=== PATIENT | male | born 1955 | race Caucasian/White ===

== ENCOUNTER 2016-07-01 14:31 | Inpatient (IN) | payer OTHER ==
[~2016-07-01] VITALS: Ht 162.6 cm; Wt 51.2 kg
[~2016-07-01 14:31] MED LIST: ALBU0.08 INH; DIAZ-165 PO; DOCU-94 PO; EPP3/2 IM; FLUT0.0529 NAE; MOME200A INH; NYSS/ PO; OXYC15TA49 PO; PRED10TA PO; PRED20TA2 PO; PRVHFAIN INH; TIOTCAP INH
[2016-07-01] MEDS ORDERED: ALBUT/IPRATROP 3MG/0.5MG NEB 3 ML VIAL INH STA ×2 (15:12→17:39)
[2016-07-01] MEDS ORDERED: METHYLPREDNISOLONE 125 MG VIAL IV STA (15:12)
--- NOTE | 2016-07-01 15:35 | DIAGNOSTIC IMAGING REPORT ---
CHEST ONE VIEW PORTABLE CLINICAL HISTORY: Shortness of breath COMPARISON STUDY: Chest radiograph and chest CT February 19, 2016. FINDINGS: Lung volumes are normal. No pneumothorax or pleural effusion is present. No consolidation is identified. Mild interstitial thickening is unchanged. Cardiac size is normal. Mediastinal contours are normal. There is suspected avascular necrosis of both humeral heads. IMPRESSION: 1. No acute findings. 2. No significant change in mild interstitial thickening which is likely chronic. 3. 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 Electronically signed by: Butch Coleman M.D. 07/01/2016 3:33 PM Dictated Date/Time: 07/01/2016 3:31 PM
[2016-07-01 15:40] LABS: BASO % 0.6 %; BASO ABS # 0.06 K/uL (0-0.2); COMPLETE YES; EOS % 2.7 %; HEMATOCRIT 38.8 % (42-52); IG% 0.2 %; LYMPH % 12.9 %; LYMPH ABS # 1.26 K/uL (1.2-3.4); MEAN CELL VOLUME 91.1 fL (80-100); MEAN CORPUSCULAR HEMOGLOBIN 31.2 pg (25-34); MEAN CORPUSCULAR HGB CONC 34.3 g/dl (32-36); MEAN PLATELET VOLUME 9.1 fL (7.4-10.4); NEUT % 70.6 %; PLATELET COUNT 365 K/uL (130-400); RED BLOOD COUNT 4.26 M/uL (4.7-6.1); WHITE BLOOD COUNT 9.76 K/uL (4.8-10.8)
--- NOTE | 2016-07-01 15:55 | DIAGNOSTIC IMAGING REPORT ---
CT SCAN OF THE BRAIN WITHOUT IV CONTRAST CLINICAL HISTORY: Syncope. COMPARISON STUDY: CT of the brain dated 03/28/2013. TECHNIQUE: Unenhanced axial CT scan of the brain is performed from the vertex to the skull base. Automated dose control exposure was utilized. CT DOSE: 709.48 mGy.cm FINDINGS: Brain parenchyma: The brain parenchyma is normal in appearance. There is no hemorrhage, mass effect, or evidence of acute territorial ischemia by CT criteria. Bryan-white matter is preserved. No extra-axial fluid collection is seen. Ventricles, sulci, cisterns: Normal in configuration. Intracranial vasculature: The visualized intracranial vasculature at the skull base is normal in appearance. Calvarium: There is no depressed calvarial fracture. Sinuses and mastoids: Findings are consistent with previous paranasal sinus surgery. The visualized paranasal sinuses are clear. The mastoid air cells are well pneumatized. Orbits: The bony orbits are grossly intact. IMPRESSION: There is no hemorrhage, mass effect, or evidence of acute territorial ischemia by CT criteria. Electronically signed by: Armando Duncan M.D. 07/01/2016 3:54 PM Dictated Date/Time: 07/01/2016 3:52 PM
[2016-07-01] MEDS ORDERED: PRED10TA PO (16:10)
[2016-07-01] MEDS ORDERED: AZITTAB PO (16:10)
[2016-07-01 16:12] LABS: ALKALINE PHOSPHATASE 64 U/L (45-117); ALT/SGPT 20 U/L (12-78); AST/SGOT 28 U/L (15-37); BLOOD UREA NITROGEN 20 mg/dl (7-18); BUN/CREATININE RATIO 19.9 (10-20); CALCIUM 9.3 mg/dl (8.5-10.1); CARBON DIOXIDE 26 mmol/L (21-32); CHLORIDE 108 mmol/L (98-107); GLUCOSE 95 mg/dl (70-99); POTASSIUM 3.8 mmol/L (3.5-5.1); SODIUM 144 mmol/L (136-145)
[2016-07-01] MEDS ORDERED: HYDROmorphone INJ 0.5 MG/0.5 ML SYR IV STA (16:28)
[2016-07-01] MEDS ORDERED: ACETAMINOPHEN 325 MG TAB PO PRN (19:30)
[2016-07-01 19:38] LABS: PROTHROMBIN TIME (PATIENT) 10.9 SECONDS (9.0-12.0)
[2016-07-01] MEDS ORDERED: IV FLUIDS COMPLETED PRN (20:00)
[2016-07-01 20:45] VITALS: BP 103/77; PULSE 76; TEMP 36.4; O2SAT 93; Ht 162.6 cm; Wt 51.2 kg
[2016-07-01] MEDS ORDERED: LEVOFLOXACIN / D5W 500 MG in PREMIXED IN D5W 100 ML IV SCH (21:00)
[2016-07-01] MEDS ORDERED: LEVALBUTEROL 0.63MG/3 ML NEB INH PRN (21:00)
--- NOTE | 2016-07-01 21:28 | History and Physical ---
History & Physical Date & Time of Service: Jul 01, 2016 at 19:30 . Chief Complaint: cough, wheezing, SOB . Primary Care Physician: Rober Wilder M.D. (MEDICAL) . History of Present Illness Source: patient, clinic records, hospital records 61 YO male followed by Dr. Wilder for Family Medicine and [facility]. History of obstructive lung disease (asthma vs COPD) and other problems noted below. Former smoker. 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 Not on home O2, although sleep study in March demonstrated nocturnal hypoxia. He is on chronic prednisone therapy, currently 10 mg every other day. 7 admissions for exacerbations of lung disease [id number]. Scheduled for a GI appointment in clinic today. Upon arrival, he was noted to be very dyspneic and was referred to ED for evaluation. He has been noting worsening wheezing and dyspnea over past few days. Cough productive of yellow sputum without hemoptysis. Took a course of azithromycin about 3 weeks ago. Utilizing nebulizer treatments, but they have not been very effective. Continues taking prednisone 10 mg every other day. Patient also reports that he passed out twice yesterday and assumed that he was experiencing TIA's. Both episodes occurred in the standing position and were preceded by lightheadedness and associated with incontinence of bladder + bowel. He has had several similar episodes over the past year. . Past Medical/Surgical History Chronic and Resolved Medical Problems: (1) Anxiety Status: Chronic (2) Asthma Status: Chronic (3) Avascular necrosis of femoral head Status: Chronic (4) BPH (benign prostatic hypertrophy) Status: Chronic (5) Chronic obstructive lung disease Status: Chronic (6) Chronic pain syndrome Status: Chronic (7) Chronic prostatitis Status: Chronic (8) Degenerative arthritis of cervical spine Status: Chronic (9) Esophageal dysmotility Status: Chronic (10) GERD (gastroesophageal reflux disease) Status: Chronic (11) Pulmonary nodules Permanent Comment: [facility] 01/02/15 Status: Chronic Surgical Problems: (1) History of ear surgery Status: Chronic (2) History of elbow surgery Status: Chronic (3) History of hernia repair Status: Chronic (4) History of lung surgery Status: Chronic (5) Hx of carpal tunnel repair Status: Chronic (6) Hx of sinus surgery Status: Chronic (7) Hx of tonsillectomy Status: Chronic . Family History FATHER Asthma Hypertension MOTHER Diabetes mellitus SON Asthma Social History Smoking Status: Former Smoker Drug Use: none Marital Status: Housing status: lives alone Occupational Status: employed Immunizations History of Influenza Vaccine: No History of Tetanus Vaccine?: Yes History of Pneumococcal: Yes Pneumococcal Date: Apr 12, 2014 History of Hepatitis B Vaccine: Yes Multi-Drug Resistant Organisms History of MDRO: No Allergies Coded Allergies: Acetaminophen (Verified Allergy, Unknown, hives, 07/01/16) Montelukast (Unverified Adverse Reaction, Severe, MENTAL STATUS CHANGED, ) Zolpidem (Unverified Adverse Reaction, Severe, MENTAL STATUS CHANGED, ) Home Medications Scheduled Albuterol (Ventolin Hfa), 2 PUFFS INH QID Azithromycin (Zithromax Z-Eder), 1 PKT PO UD Diazepam (Valium), 5 MG PO TID Epinephrine (Epipen), 0.3 MG IM UD Fluticasone Propionate (Nasal) (Flonase), 2 [place] DAILY Mometasone Furoate-Formoterol (Dulera 200/5 Mcg), 2 PUFFS INH BID Prednisone (Prednisone), 10 MG PO Q2D Tiotropium [place] (Spiriva Handihaler), 1 CAP INH DAILY Scheduled PRN Albuterol Soln (Proventil 0.083% 2.5MG/3ML), 2.5 MG INH Q4 PRN for Wheezing Docusate Sodium (Colace), 1 CAP PO BID PRN for Constipation Oxycodone Hcl (Roxicodone), 15 MG PO Q8 PRN for Pain Review of Systems Constitutional: + problem reported, + weight loss, No fever Eyes: + problem reported (needs glasses), No diplopia ENT: + trouble swallowing, No hearing loss, No sore throat Respiratory: + cough, + sputum, + wheezing Cardiovascular: No chest pain, No edema Abdomen: + problem reported (dysphagia to solids), No GI bleeding, No diarrhea , No nausea, No pain, No vomiting Musculoskeletal: + joint pain, + problem reported (chornic cervical pain) Genitourinary - Male: + dysuria, No hematuria Neurologic: + weakness (left-sided) Endocrine: + fatigue, No excessive thirst, No excessive urination Hematologic / Lymphatic: + abnormal bleeding/bruising, No swollen lymph nodes Integumentary: No new/changing skin lesions, No rash Physical Exam Vital Signs Date Time Temp Pulse Resp B/P Pulse Ox O2 Delivery O2 Flow Rate FiO2 07/01/16 20:00 74 20 125/90 95 Room Air 07/01/16 19:19 78 07/01/16 18:06 67 20 111/69 98 Nasal Cannula 2.0 07/01/16 17:09 68 17 136/94 97 Nasal Cannula 2.0 07/01/16 15:39 72 20 122/81 97 Nasal Cannula 2.0 07/01/16 15:20 Nasal Cannula 2.0 96 07/01/16 15:17 92 07/01/16 15:17 95 Room Air 07/01/16 15:00 95 Room Air 07/01/16 14:52 37.1 94 18 136/81 96 Room Air General Appearance: + mild distress, + thin Head: normocephalic, atraumatic Eyes: normal inspection, PERRL, EOMI, sclerae normal, + pertinent finding ( conjunctivae pink) ENT: normal ENT inspection, hearing grossly normal, TMs normal, pharynx normal Neck: supple, no adenopathy, thyroid normal, no JVD, trachea midline Respiratory/Chest: + pertinent finding (scattered rhonchi, diffuse wheezing) Cardiovascular: regular rate, rhythm, no edema, no gallop, no JVD, no murmur, normal peripheral pulses Abdomen/GI: normal bowel sounds, non tender, soft, no organomegaly, no pulsatile mass Back: normal inspection Extremities/Musculoskelatal: normal inspection, no calf tenderness, normal capillary refill, no pedal edema Neurologic/Psych: engraver letter [id number] nml as tested (PERRL, EOMI, no facial palsy, no dysarthria), + pertinent finding (motor strength upper and lower extremities essentially 5/5; plantar reflexes downgoing) Skin: normal color, warm/dry, no rash Lymphatic: no adenopathy Diagnostics Laboratory Results Results Past 24 Hours Test 07/01/16 15:20 07/01/16 15:29 Range/Units White Blood Count 9.76 4.8-10.8 K/uL Red Blood Count 4.26 4.7-6.1 M/uL Hemoglobin 13.3 14.0-18.0 g/dL Hematocrit 38.8 42-52 % Mean Corpuscular Volume 91.1 80-100 fL Mean Corpuscular Hemoglobin 31.2 25-34 pg Mean Corpuscular Hemoglobin Concent 34.3 32-36 g/dl Platelet Count 365 130-400 K/uL Mean Platelet Volume 9.1 7.4-10.4 fL Neutrophils (%) (Auto) 70.6 % Lymphocytes (%) (Auto) 12.9 % Monocytes (%) (Auto) 13.0 % Eosinophils (%) (Auto) 2.7 % Basophils (%) (Auto) 0.6 % Neutrophils # (Auto) 6.89 1.4-6.5 K/uL Lymphocytes # (Auto) 1.26 1.2-3.4 K/uL Monocytes # (Auto) 1.27 0.11-0.59 K/uL Eosinophils # (Auto) 0.26 0-0.5 K/uL Basophils # (Auto) 0.06 0-0.2 K/uL RDW Standard Deviation 53.1 36.4-46.3 fL RDW Coefficient of Variation 15.8 11.5-14.5 % Immature Granulocyte % (Auto) 0.2 % Immature Granulocyte # (Auto) 0.02 0.00-0.02 K/uL Prothrombin Time 10.9 9.0-12.0 SECONDS Prothromb Time International Ratio 1.0 0.9-1.1 Activated Partial Thromboplast Time 26.8 21.0-31.0 SECONDS Partial Thromboplastin Ratio 1.0 Sodium Level 144 136-145 mmol/L Potassium Level 3.8 3.5-5.1 mmol/L Chloride Level 108 98-107 mmol/L Carbon Dioxide Level 26 21-32 mmol/L Anion Gap 10.0 3-11 mmol/L Blood Urea Nitrogen 20 7-18 mg/dl Creatinine 1.00 0.60-1.40 mg/dl Est Creatinine Clear Calc Drug Dose 69.8 ml/min Estimated GFR () 93.1 Estimated GFR (Non- 80.3 BUN/Creatinine Ratio 19.9 10-20 Random Glucose 95 70-99 mg/dl Calcium Level 9.3 8.5-10.1 mg/dl Total Bilirubin 0.2 0.2-1 mg/dl Aspartate Amino Transf (AST/SGOT) 28 15-37 U/L Alanine Aminotransferase (ALT/SGPT) 20 12-78 U/L Alkaline Phosphatase 64 45-117 U/L Total Creatine Kinase 260 39-308 U/L Creatine Kinase MB 2.6 0.5-3.6 ng/ml Creatine Kinase MB Ratio 1.0 0-3.0 Troponin I < 0.015 0-0.045 ng/ml Pro-B-Type Natriuretic Peptide 33 0-900 pg/ml Total Protein 7.1 6.4-8.2 gm/dl Albumin 3.6 3.4-5.0 gm/dl Globulin 3.5 2.5-4.0 gm/dl Albumin/Globulin Ratio 1.0 0.9-2 Chemistry Specimen Hemolysis Bedside Lactic Acid Venous 1.25 0.90-1.70 mmol/L Microbiology Results 07/01/16 Blood Culture, Received Pending 07/01/16 Blood Culture, Received Pending Diagnostic Radiology CHEST ONE VIEW PORTABLE CLINICAL HISTORY: Shortness of breath COMPARISON STUDY: Chest radiograph and chest CT February 19, 2016. FINDINGS: Lung volumes are normal. No pneumothorax or pleural effusion is present. No consolidation is identified. Mild interstitial thickening is unchanged. Cardiac size is normal. Mediastinal contours are normal. There is suspected avascular necrosis of both humeral heads. IMPRESSION: 1. No acute findings. 2. No significant change in mild interstitial thickening which is likely chronic. 3. 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 Electronically signed by: Butch Coleman M.D. 07/01/2016 3:33 PM . EKG EKG performed at 15:12 reviewed and demonstrated baseline artifact, NSR at 90 / minute, No acute ST or ST wave changes.. . Impression Assessment and Plan EXACERBATION OBSTRUCTIVE LUNG DISEASE Chronic lung disease, asthma vs COPD. Former smoker. May have occupational exposure - works in home, but has used respirator in recent years. May have intermittent aspiration from esophageal disease. No infiltrates on chest x-ray. Productive cough- check sputum gram stain + culture. Received IV methylprednisolone in ED. Prednisone 40 mg daily, then taper to usual maintenance dose of 10 mg every other day. Previous imaging by CT suggested bronchiectasis. Rx with levofloxacin and piperacillin / tazobactam pending culture results. NOCTURNAL HYPOXIA Sleep study in March 2016 demonstrated nocturnal hypoxia. Nocturnal pulse oximetry was recommended- need to clarify whether or not it was performed. SYNCOPE 2 episodes of syncope yesterday, several other episodes over past year. Check orthostatic vital signs. Monitor for arrhythmias on Telemetry Unit; consider outpatient cardiac monitoring. Check EEG. Check carotid duplex and echo. LEFT-SIDED WEAKNESS Patient reports left-sided weakness, onset uncertain. Check CT head. ESOPHAGEAL DYSMOTILITY Barium swallow 07/26/15 showed narrowing at esophagogastric junction which impeded passage of barium tablet. EGD 05/29/15 demonstrated esophageal candidiasis, no mass, stricture, etc. Barium swallow 07/26/15 showed moderate to severe GERD, narrowing at gastroesophageal junction. EGD 07/27/15 did not show any structural abnormalities. Followed by GI. Continue diazepam for esophageal spasm. CHRONIC PAIN SYNDROME Due to degenerative spine disease and avascular necrosis. Continue usual analgesic regimen. WEIGHT LOSS Patient reports significant weight loss over several years. Former smoker. CT 02/19/16 did not show any apparent malignancy. Recent EGD as discussed above. Had colonoscopy in 2005 which showed hyperplastic polyps- consider f/u. Weight loss most likely secondary to esophageal dysmotility with decreased caloric intake. Follow. VTE PROPHYLAXIS Moderate risk for VTE. SQ enoxaparin. Ambulate. RESUSCITATION STATUS Discussed with patient. He does not have a living will. Code status = "Level 1" (full resuscitation). DISPOSITION Admit to Telemetry Unit. Expected discharge to home. Family Medicine follow-up with Dr. Wilder. Pulmonary Medicine follow-up with [facility]. . VTE Prophylaxis VTE Risk Assessment Done? Y/N: Yes Risk Level: Moderate Given or contraindicated: Enoxaparin (Lovenox)SQ
[2016-07-01] MEDS ORDERED: DOCUSATE SODIUM 100 MG CAP PO PRN (21:30)
[2016-07-01 22:39] VITALS: BP 103/77; PULSE 76; TEMP 36.4; O2SAT 93
[2016-07-01] MEDS: OXYCODONE HCL IR 5 MG TAB (IMMEDIATE RELEASE) PO PRN (22:50)
--- NOTE | 2016-07-01 22:51 | EMERGENCY ROOM VISIT NOTE ---
History Report prepared by Leanne: Coni Hutson Under the Supervision of: Dr. Sawyer Sanchez M.D. First contact with patient: 14:56 Chief Complaint: SHORTNESS OF BREATH Stated Complaint: CAN'T BREATHE Nursing Triage Summary: Pt states "I can't breathe" 95% on RA in triage. Hx COPD, asthma, sen at [facility]. N/V/D History of Present Illness The patient is a 61 year old male who presents to the Emergency Room with complaints of worsening shortness of breath that started prior to arrival. He admits to a history of COPD and asthma and reports he was at a gastroenterology appointment at [facility] earlier this afternoon, when the doctor noticed he was "wheezing and breathing very fast", so they referred him to the ED. His Oxygen saturation in the office was 94% and his respiratory rate was in the 30's. He was placed on 3 Liters of Oxygen here in ED triage, which has provided some relief. The patient is a former smoker and states his breathing had been "doing really good until recently". However, he admits to a syncopal episode that occurred yesterday where he passed out, became incontinent of bowel and bladder and also vomited. He reports he has been experiencing increased difficulty with swallowing and sometimes he "cannot even swallow coffee". He also states he recently underwent a sleep study and was told he should be started on a C-Pap machine due to obstructive sleep apnea, but he has not started using one yet. The patient admits to some pain in his chest and back when he becomes short of breath, describing the pain as feeling like "fire ". He denies any LOC, headache, fevers, chills, diaphoresis, visual changes, neck pain, chest pain, nausea, vomiting, abdominal pain, back pain, melena, hematochezia, urinary symptoms, numbness, weakness, lymphadenopathy, rash, or other complaints. Source of History: patient, nursing staff Onset: [employer] Position: chest Timing: worsening Modifying Factors (Relieving): oxygen Associated Symptoms: + back pain, + chest pain Review of Systems See HPI for pertinent positives and negatives. A total of ten systems were reviewed and were otherwise negative. Past Medical & Surgical Medical Problems: (1) Anxiety (2) Asthma (3) Asthmatic bronchitis with acute exacerbation (4) Chronic obstructive lung disease (5) Pulmonary nodules (6) Syncope Surgical Problems: (1) History of ear surgery (2) History of elbow surgery (3) History of hernia repair (4) History of lung surgery (5) Hx of carpal tunnel repair (6) Hx of sinus surgery (7) Hx of tonsillectomy Family History Cancer Lung disease Social History Smoking Status: Former Smoker Alcohol Use: none Drug Use: none Marital Status: Housing Status: lives alone Occupation Status: employed Current/Historical Medications Scheduled Albuterol (Ventolin Hfa), 2 PUFFS INH QID Azithromycin (Zithromax Z-Eder), 1 PKT PO UD Diazepam (Valium), 5 MG PO TID Epinephrine (Epipen), 0.3 MG IM UD Fluticasone Propionate (Nasal) (Flonase), 2 SPRY LAN DAILY Mometasone Furoate-Formoterol (Dulera 200/5 Mcg), 2 PUFFS INH BID Prednisone (Prednisone), 10 MG PO Q2D Tiotropium [place] (Spiriva Handihaler), 1 CAP INH DAILY Scheduled PRN Albuterol Soln (Proventil 0.083% 2.5MG/3ML), 2.5 MG INH Q4 PRN for Wheezing Docusate Sodium (Colace), 1 CAP PO BID PRN for Constipation Oxycodone Hcl (Roxicodone), 15 MG PO Q8 PRN for Pain Allergies Coded Allergies: Acetaminophen (Verified Allergy, Unknown, hives, 07/01/16) Montelukast (Unverified Adverse Reaction, Severe, MENTAL STATUS CHANGED, ) Zolpidem (Unverified Adverse Reaction, Severe, MENTAL STATUS CHANGED, ) Physical Exam Vital Signs Date Time Temp Pulse Resp B/P Pulse Ox O2 Delivery O2 Flow Rate FiO2 07/01/16 19:19 78 07/01/16 18:06 67 20 111/69 98 Nasal Cannula 2.0 07/01/16 17:09 68 17 136/94 97 Nasal Cannula 2.0 07/01/16 15:39 72 20 122/81 97 Nasal Cannula 2.0 07/01/16 15:20 Nasal Cannula 2.0 96 07/01/16 15:17 92 07/01/16 15:17 95 Room Air 07/01/16 15:00 95 Room Air 07/01/16 14:52 37.1 94 18 136/81 96 Room Air Physical Exam GENERAL: Awake, alert, well-appearing, in no distress HENT: Normocephalic, atraumatic. Oropharynx unremarkable. EYES: Normal conjunctiva. Sclera non-icteric. NECK: Supple. No nuchal rigidity. FROM. No JVD. RESPIRATORY: The patient is mildly dyspneic, wheezes noted bilaterally. CARDIAC: Regular rate, normal rhythm. Extremities warm and well perfused. Pulses equal. ABDOMEN: Soft, non-distended. No tenderness to palpation. No rebound or guarding. No masses. RECTAL: Deferred. MUSCULOSKELETAL: Chest examination reveals no tenderness. The back is symmetrical on inspection without obvious abnormality. There is no CVA tenderness to palpation. No joint edema. LOWER EXTREMITIES: Calves are equal size bilaterally and non-tender. No edema. No discoloration. Secondary excoriation on lower extremities. NEURO: Normal sensorium. No sensory or motor deficits noted. SKIN: No rash or jaundice noted. Medical Decision & Procedures ER Provider Diagnostic Interpretation: This X-Ray was reviewed and interpreted by myself and the radiologist. CHEST ONE VIEW PORTABLE CLINICAL HISTORY: Shortness of breath COMPARISON STUDY: Chest radiograph and chest CT February 19, 2016. FINDINGS: Lung volumes are normal. No pneumothorax or pleural effusion is present. No consolidation is identified. Mild interstitial thickening is unchanged. Cardiac size is normal. Mediastinal contours are normal. There is suspected avascular necrosis of both humeral heads. IMPRESSION: 1. No acute findings. 2. No significant change in mild interstitial thickening which is likely chronic. 3. 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 Electronically signed by: Butch Coleman M.D. 07/01/2016 3:33 PM Dictated Date/Time: 07/01/2016 3:[address] scan was reviewed and interpreted by the radiologist and reviewed by myself. CT SCAN OF THE BRAIN WITHOUT IV CONTRAST CLINICAL HISTORY: Syncope. COMPARISON STUDY: CT of the brain dated 03/28/2013. TECHNIQUE: Unenhanced axial CT scan of the brain is performed from the vertex to the skull base. Automated dose control exposure was utilized. CT DOSE: 709.48 mGy.cm FINDINGS: Brain parenchyma: The brain parenchyma is normal in appearance. There is no hemorrhage, mass effect, or evidence of acute territorial ischemia by CT criteria. Bryan-white matter is preserved. No extra-axial fluid collection is seen. Ventricles, sulci, cisterns: Normal in configuration. Intracranial vasculature: The visualized intracranial vasculature at the skull base is normal in appearance. Calvarium: There is no depressed calvarial fracture. Sinuses and mastoids: Findings are consistent with previous paranasal sinus surgery. The visualized paranasal sinuses are clear. The mastoid air cells are well pneumatized. Orbits: The bony orbits are grossly intact. IMPRESSION: There is no hemorrhage, mass effect, or evidence of acute territorial ischemia by CT criteria. Electronically signed by: Armando Duncan M.D. 07/01/2016 3:54 PM Dictated Date/Time: 07/01/2016 3:52 PM Laboratory Results 07/01/16 15:20 Red Blood Count 4.26, Mean Corpuscular Volume 91.1, Mean Corpuscular Hemoglobin 31.2, Mean Corpuscular Hemoglobin Concent 34.3, Mean Platelet Volume 9.1, Neutrophils (%) (Auto) 70.6, Lymphocytes (%) (Auto) 12.9, Monocytes (%) (Auto) 13.0, Eosinophils (%) (Auto) 2.7, Basophils (%) (Auto) 0.6, Neutrophils # (Auto ) 6.89, Lymphocytes # (Auto) 1.26, Monocytes # (Auto) 1.27, Eosinophils # (Auto ) 0.26, Basophils # (Auto) 0.06 07/01/16 15:20 Test 07/01/16 15:20 07/01/16 15:29 White Blood Count 9.76 K/uL (4.8-10.8) Red Blood Count 4.26 M/uL (4.7-6.1) Hemoglobin 13.3 g/dL (14.0-18.0) Hematocrit 38.8 % (42-52) Mean Corpuscular Volume 91.1 fL (80-100) Mean Corpuscular Hemoglobin 31.2 pg (25-34) Mean Corpuscular Hemoglobin Concent 34.3 g/dl (32-36) Platelet Count 365 K/uL (130-400) Mean Platelet Volume 9.1 fL (7.4-10.4) Neutrophils (%) (Auto) 70.6 % Lymphocytes (%) (Auto) 12.9 % Monocytes (%) (Auto) 13.0 % Eosinophils (%) (Auto) 2.7 % Basophils (%) (Auto) 0.6 % Neutrophils # (Auto) 6.89 K/uL (1.4-6.5) Lymphocytes # (Auto) 1.26 K/uL (1.2-3.4) Monocytes # (Auto) 1.27 K/uL (0.11-0.59) Eosinophils # (Auto) 0.26 K/uL (0-0.5) Basophils # (Auto) 0.06 K/uL (0-0.2) RDW Standard Deviation 53.1 fL (36.4-46.3) RDW Coefficient of Variation 15.8 % (11.5-14.5) Immature Granulocyte % (Auto) 0.2 % Immature Granulocyte # (Auto) 0.02 K/uL (0.00-0.02) Prothrombin Time 10.9 SECONDS (9.0-12.0) Prothromb Time International Ratio 1.0 (0.9-1.1) Activated Partial Thromboplast Time 26.8 SECONDS (21.0-31.0) Partial Thromboplastin Ratio 1.0 Anion Gap 10.0 mmol/L (3-11) Est Creatinine Clear Calc Drug Dose 69.8 ml/min Estimated GFR () 93.1 Estimated GFR (Non- 80.3 BUN/Creatinine Ratio 19.9 (10-20) Calcium Level 9.3 mg/dl (8.5-10.1) Total Bilirubin 0.2 mg/dl (0.2-1) Aspartate Amino Transf (AST/SGOT) 28 U/L (15-37) Alanine Aminotransferase (ALT/SGPT) 20 U/L (12-78) Alkaline Phosphatase 64 U/L (45-117) Total Creatine Kinase 260 U/L (39-308) Creatine Kinase MB 2.6 ng/ml (0.5-3.6) Creatine Kinase MB Ratio 1.0 (0-3.0) Troponin I < 0.015 ng/ml (0-0.045) Pro-B-Type Natriuretic Peptide 33 pg/ml (0-900) Total Protein 7.1 gm/dl (6.4-8.2) Albumin 3.6 gm/dl (3.4-5.0) Globulin 3.5 gm/dl (2.5-4.0) Albumin/Globulin Ratio 1.0 (0.9-2) Chemistry Specimen Hemolysis Bedside Lactic Acid Venous 1.25 mmol/L (0.90-1.70) Laboratory results reviewed by me Medications Administered Medications (Trade) Dose Ordered Sig/Davie Route Start Time Stop Time Status Last Admin Dose Admin Albuterol/ Ipratropium (Duoneb) 3 ml NOW STAT INH 07/01/16 15:12 07/01/16 15:14 DC 07/01/16 15:20 3 ML Methylprednisolone Sodium Succinate (Solu-Medrol IV) 125 mg NOW STAT IV 07/01/16 15:12 07/01/16 15:15 DC 07/01/16 15:21 125 MG Hydromorphone HCl (Dilaudid Inj) 0.5 mg NOW STAT IV 07/01/16 16:28 07/01/16 16:29 DC 07/01/16 16:49 0.5 MG Albuterol/ Ipratropium (Duoneb) 3 ml NOW STAT INH 07/01/16 17:39 07/01/16 17:40 DC 07/01/16 18:05 3 ML ECG Indication: SOB/dyspnea Rate (beats per minute): 94 Findings: no acute ischemic change, no ectopy ED Course 1509: The patient was evaluated in room C2B. A complete history and physical exam was performed. 1512: Solu-Medrol 125 mg IV, DuoNeb 3 ml INH. 1623: Nursing informed me the patient is requesting some medication for pain. I will place orders. 1628: Dilaudid 0.5 mg IV. 1739: DuoNeb 3 ml INH. 1750: I reevaluated the patient. He is still wheezing but is getting a nebulizer treatment. 1847: I discussed the patient's case with Dr. Vaughn, [facility] Hospitalist. The patient will be further evaluated. Medical Decision Triage Nursing notes reviewed. The patient's presentation and history were concerning for respiratory issues. Etiologies such as pneumonia, COPD, reactive airway disease, CHF, cardiac ischemia, pulmonary embolism, pneumothorax, musculoskeletal, infections, gastrointestinal, as well as others were entertained. The patient was evaluated. He was wheezing quite a bit. He was treated with Solu-Medrol and DuoNeb. Blood work was obtained. ECG was nonischemic. He had a mild anemia but negative white blood cell count. Chemistry panel, lactate, BNP, and troponin are negative. The patient was reassessed. He was still wheezing. He also requested pain medicine as he was unable to take his today. He felt very uncomfortable regarding his chronic back pain. He was treated with a milligram of Dilaudid and a second DuoNeb treatment. He felt much better with this. He still had some wheezing. I discussed further evaluation and management in the hospital with him and he was in agreement. He did feel like he had some mild component of withdrawal as he does take a large amount of pain medicine daily. [facility] The patient was evaluated in the Emergency Room for further treatment. The chart was completed utilizing [employer] Speech voice recognition software. Grammatical errors, random word insertions, pronoun errors, and incomplete sentences are an occasional consequence of this system due to software limitations, ambient noise, and hardware issues. Any formal questions or concerns about the content, text, or information contained within the body of this dictation should be directly addressed to the physician for clarification. Consults Time Called: 1824 Consulting Physician[facility] Returned Call: [phone] I discussed the patient's case with [facility]. The patient will be further evaluated. Impression Primary Impression: Reactive airway disease Additional Impressions: SOB (shortness of breath), Wheezing Scribe Attestation The scribe's documentation has been prepared under my direction and personally reviewed by me in its entirety. I confirm that the note above accurately reflects all work, treatment, procedures, and medical decision making performed by me. Departure Information Dispostion Being Evaluated By Hospitalist Referrals No Doctor, Assigned (PCP) Patient Instructions A Signature Page, My [facility]
[2016-07-01 23:59] VITALS: O2SAT 93
[2016-07-02] VITALS (9 sets, daily range): BP systolic 99–131; BP diastolic 64–75; PULSE 60–92; TEMP 36.8–36.9; O2SAT 93–97
[2016-07-02] MEDS ORDERED: PIPERACILL/TAZOBAC IV 4.5 GM in DEXTROSE 5% 100ML 100 ML IV SCH (06:00)
[2016-07-02 06:04] LABS: URINE APPEARANCE CLEAR (CLEAR); URINE BILIRUBIN NEG (NEG); URINE COLOR YELLOW; URINE NITRITE NEG (NEG); URINE PH 5.5 (4.5-7.5); URINE SPECIFIC GRAVITY 1.025 (1.000-1.030); UROBILINOGEN NEG (NEG)
[2016-07-02 06:06] LABS: MANUAL MICROSCOPIC REQUIRED? NO; REVIEW REQ? NO
[2016-07-02] MEDS ORDERED: PIPERACILL/TAZOBAC CONSULT ACTIVE PRN (06:15)
[2016-07-02] MEDS ORDERED: PIPERACILL/TAZOBAC IV 3.375 GM in DEXTROSE 5% 100ML IV ONE (06:15)
[2016-07-02] MEDS: DIAZEPAM 5MG TAB PO SCH ×4 (06:27→16:25)
[2016-07-02 07:00] LABS: BUN/CREATININE RATIO 24.9 (10-20); CALCIUM 9.4 mg/dl (8.5-10.1); CREATININE 0.89 mg/dl (0.60-1.40); POTASSIUM 4.2 mmol/L (3.5-5.1)
[2016-07-02] MEDS: IPRATROPIUM BROMIDE NEB SOLN 0.02% 2.5 ML VIAL INH SCH ×4 (07:10→19:02)
[2016-07-02] MEDS: LEVALBUTEROL 1.25MG/0.5ML NEB INH SCH ×4 (07:10→19:02)
[2016-07-02 07:11] LABS: THYROID STIMULATING HORMONE 0.159 uIu/ml (0.300-4.500)
[2016-07-02] MEDS: PANTOprazole SOD 40 MG TAB PO SCH (08:04)
[2016-07-02] MEDS: TIOTROPIUM BROMIDE 5 PUFF/90 MCG INH INH SCH (08:05)
[2016-07-02] MEDS: FLUTICASONE PROPIONATE NA SPR 16 GM BTL NAE SCH (08:06)
[2016-07-02] MEDS: OXYCODONE HCL IR 5 MG TAB (IMMEDIATE RELEASE) PO PRN ×2 (08:11→20:55)
[2016-07-02] MEDS ORDERED: ENOXAPARIN 40 MG/0.4 ML SYR SQ SCH (09:00)
[2016-07-02] MEDS: HEPARIN SOD 5000 UNIT/0.5 ML CARP SQ SCH ×3 (09:00→20:48)
[2016-07-02] MEDS: PIPERACILL/TAZOBAC IV 3.375 GM in DEXTROSE 5% 100ML IV SCH ×2 (11:18→18:35)
--- NOTE | 2016-07-02 20:36 | Progress Note ---
Medicine Progress Note Date & Time of Visit: Jul 02, 2016 at 14:30 . Subjective No fever. Persistent cough and wheezing. No chest pain. Episode of uncomfortable pill dysphagia. No diarrhea. . Objective Last 8 Hrs Date Time Temp Pulse Resp B/P Pulse Ox O2 Delivery O2 Flow Rate FiO2 07/02/16 19:04 36.8 64 18 106/75 97 07/02/16 19:03 71 20 97 Room Air 07/02/16 16:00 Room Air 07/02/16 15:11 36.8 60 18 99/64 93 Room Air 69 114/70 73 101/67 Physical Exam: General- no acute distress Neck- no JVD Lungs- diffuse moderate wheezing Heart- RRR Abdomen- + BS, soft, nontender Extremities- no pretibial edema or calf tenderness Neuro- alert . Laboratory Results: Last 24 Hours Test 07/02/16 05:20 07/02/16 06:08 Urine Color YELLOW Urine Appearance CLEAR Urine pH 5.5 Urine Specific [place] 1.025 Urine Protein NEG Urine Glucose (UA) 2+ Urine Ketones NEG Urine Occult Blood NEG Urine Nitrite NEG Urine Bilirubin NEG Urine Urobilinogen NEG Urine Leukocyte Esterase NEG Sodium Level 139 mmol/L Potassium Level 4.2 mmol/L Chloride Level 105 mmol/L Carbon Dioxide Level 25 mmol/L Anion Gap 9.0 mmol/L Blood Urea Nitrogen 22 mg/dl Creatinine 0.89 mg/dl Est Creatinine Clear Calc Drug Dose 58.4 ml/min Estimated GFR () 106.2 Estimated GFR (Non- 91.6 BUN/Creatinine Ratio 24.9 Random Glucose 100 mg/dl Calcium Level 9.4 mg/dl Thyroid Stimulating Hormone (TSH) 0.159 uIu/ml Date/Time Source Procedure Growth Status 07/01/16 21:55 Sputum Expectorated Sputum Gram Stain - Final Resulted 07/01/16 21:55 Sputum Expectorated Sputum Sputum Culture - Preliminary MODERATE NORMAL MATTHIAS Present, Final ... Resulted Assessment & Plan EXACERBATION OBSTRUCTIVE LUNG DISEASE Chronic lung disease, asthma vs COPD. Former smoker. May have intermittent aspiration from esophageal disease. No infiltrates on chest x-ray. Productive cough- check sputum gram stain + culture. Received IV methylprednisolone in ED. Prednisone 40 mg daily, then taper to usual maintenance dose of 10 mg every other day. Previous imaging by CT suggested bronchiectasis. Rx with levofloxacin and piperacillin / tazobactam pending culture results. Nebs QID + PRN. NOCTURNAL HYPOXIA Sleep study in March 2016 demonstrated nocturnal hypoxia. Nocturnal pulse oximetry was recommended- need to clarify whether or not it was performed. SYNCOPE 2 episodes of syncope day prior to admission, several other episodes over past year. Check orthostatic vital signs. Continue to monitor for arrhythmias on Telemetry Unit. Consider outpatient cardiac monitoring. Check EEG. Check carotid duplex and echo. LEFT-SIDED WEAKNESS Patient reports left-sided weakness, onset uncertain. Motor strength testing intact; plantar reflexes downgoing bilaterally. CT head negative. ESOPHAGEAL DYSMOTILITY Barium swallow 07/26/15 showed narrowing at esophagogastric junction which impeded passage of barium tablet. EGD 05/29/15 demonstrated esophageal candidiasis, no mass, stricture, etc. Barium swallow 07/26/15 showed moderate to severe GERD, narrowing at gastroesophageal junction. EGD 07/27/15 did not show any structural abnormalities. Followed by GI. Continue diazepam for esophageal spasm. CHRONIC PAIN SYNDROME Due to degenerative spine disease and avascular necrosis. Continue usual analgesic regimen. WEIGHT LOSS Patient reports significant weight loss over several years. Clinic records reviewed. Wt 05/12/06 was 132 lbs. Wts since 02/18/15 have been as low as 102 on 03/23/15; last recorded wt in clinic 112 on 07/01/16. Former smoker. CT 02/19/16 did not show any apparent malignancy. Recent EGD as discussed above. Had colonoscopy in 2005 which showed hyperplastic polyps- consider f/u. Weight loss most likely secondary to esophageal dysmotility with decreased caloric intake. Nutritional supplements as tolerated. Follow. VTE PROPHYLAXIS Moderate risk for VTE. SQ heparin. Ambulate. RESUSCITATION STATUS Discussed with patient. He does not have a living will. Code status = "Level 1" (full resuscitation). DISPOSITION Expected discharge to home. Family Medicine follow-up with Dr. Wilder. Pulmonary Medicine follow-up with [facility] Pulmonary Medicine. . Current Inpatient Medications: Current Inpatient Medications Medications (Trade) Dose Ordered Sig/Davie Route Start Time Stop Time Status Last Admin Dose Admin Acetaminophen (Tylenol Tab) 650 mg Q4H PRN PO 07/01/16 19:30 07/31/16 19:29 Miscellaneous (Iv Fluids Completed) 1 ea PRN PRN N/A 07/01/16 20:00 1/9/18 19:59 Ipratropium [place] (Atrovent 0.02% 0.5MG/2.5ML Neb) 0.5 mg QIDR INH 07/02/16 08:00 08/01/16 07:59 07/02/16 19:02 0.5 MG Levalbuterol (Xopenex 1.25MG/ 0.5ML Neb) 1.25 mg QIDR INH 07/02/16 08:00 08/01/16 07:59 07/02/16 19:02 1.25 MG Levalbuterol 0.63 mg 0.63 mg Q2R PRN INH 07/01/16 21:00 07/31/16 20:59 Levofloxacin/Prmx (Levaquin / D5W/ Premixed D5W) 100 ml @ 100 mls/hr DAILY@2100 IV 07/01/16 21:00 07/08/16 20:59 07/01/16 21:29 100 MLS/HR Diazepam (Valium Tab) 5 mg AC PO 07/02/16 07:00 08/01/16 06:59 07/02/16 16:25 5 MG Docusate Sodium (coLACE CAP) 100 mg BID PRN PO 07/01/16 21:30 07/31/16 21:29 Fluticasone Propionate (Flonase Nasal [place]) 2 sprays DAILY LAN 07/02/16 09:00 08/01/16 08:59 07/02/16 08:06 2 SPRAYS Oxycodone HCl (Roxicodone Immediate Rel Tab) 15 mg Q8 PRN PO 07/01/16 21:30 07/15/16 21:29 07/02/16 08:11 15 MG Tiotropium [place] (Spiriva Handihaler Inhaler) 1 puff DAILY INH 07/02/16 09:00 08/01/16 08:59 07/02/16 08:05 1 PUFF Prednisone (PredniSONE TAB) 40 mg DAILY PO 07/02/16 09:00 08/01/16 08:59 07/02/16 08:05 40 MG Pantoprazole Sodium 40 mg 40 mg QAM PO 07/02/16 09:00 08/01/16 08:59 07/02/16 08:04 40 MG Piperacillin Sod/ Tazobactam Sod/ Dextrose (Zosyn Iv/D5 100ml) 115 ml @ 28.75 mls/ hr Q8H IV 07/02/16 10:30 07/09/16 10:29 07/02/16 18:35 28.75 MLS/HR Piperacillin Sod/ Tazobactam Sod (Consult) 1 ea UD PRN N/A 07/02/16 06:15 08/01/16 06:14 Heparin Sodium (Porcine) (Heparin Sq 5000 Unit/0.5ml) 5,000 unit Q12 SQ 07/02/16 09:00 08/01/16 08:59 Enteral Nutritional Formula (Boost) 1 can BID PO 07/02/16 21:00 08/01/16 20:59
[2016-07-02] MEDS: BOOST VANILLA PO SCH ×2 (20:47)
--- NOTE | 2016-07-02 21:44 | DIAGNOSTIC IMAGING REPORT ---
CAROTID ARTERY ULTRASOUND CLINICAL HISTORY: Carotid artery disease COMPARISON STUDY: Carotid ultrasound June 14, 2013. TECHNIQUE: Real-time, grayscale, and color Doppler sonography of the carotid and vertebral arteries was performed. Images were viewed in the transverse and longitudinal planes. FINDINGS: There is mild atherosclerotic plaque. Velocity measurements are listed below. COMMON CAROTID PEAK SYSTOLIC VELOCITY (CM/S): RIGHT 91 LEFT 101 ICA PEAK SYSTOLIC VELOCITY (CM/S): RIGHT 76 LEFT 89 The systolic ratios between the internal to common carotid arteries were normal. Antegrade flow is seen in the vertebral arteries. The external carotid arteries are patent. Blood pressure in the right arm measured 133/76. Blood pressure in the left arm measured 118/79. IMPRESSION: No evidence of a hemodynamically significant stenosis. Electronically signed by: Butch Coleman M.D. 07/02/2016 9:42 PM Dictated Date/Time: 07/02/2016 9:41 PM
[2016-07-03] VITALS (7 sets, daily range): BP systolic 99–121; BP diastolic 63–73; PULSE 62–92; TEMP 36.7–37.3; O2SAT 93–96
[2016-07-03] MEDS ORDERED: LEVOFLOXACIN / D5W 500 MG in PREMIXED IN D5W 100 ML IV SCH
[2016-07-03] MEDS: PIPERACILL/TAZOBAC IV 3.375 GM in DEXTROSE 5% 100ML IV SCH ×2 (02:33→10:09)
[2016-07-03] MEDS: LEVALBUTEROL 1.25MG/0.5ML NEB INH SCH ×2 (07:15→11:23)
[2016-07-03] MEDS: IPRATROPIUM BROMIDE NEB SOLN 0.02% 2.5 ML VIAL INH SCH ×2 (07:15→11:23)
[2016-07-03] MEDS: DIAZEPAM 5MG TAB PO SCH ×2 (07:25→11:22)
[2016-07-03] MEDS: BOOST VANILLA PO SCH ×2 (08:43)
[2016-07-03] MEDS: FLUTICASONE PROPIONATE NA SPR 16 GM BTL NAE SCH (08:43)
[2016-07-03] MEDS: PANTOprazole SOD 40 MG TAB PO SCH (08:44)
[2016-07-03] MEDS: HEPARIN SOD 5000 UNIT/0.5 ML CARP SQ SCH (08:45)
[2016-07-03] MEDS: TIOTROPIUM BROMIDE 5 PUFF/90 MCG INH INH SCH (08:45)
[2016-07-03] MEDS: OXYCODONE HCL IR 5 MG TAB (IMMEDIATE RELEASE) PO PRN (08:52)
[2016-07-03] MEDS ORDERED: PRED10TA PO (11:35)
[2016-07-03] MEDS ORDERED: [UNRECOGNIZED DRUG - CODE] PO (11:35)
--- NOTE | 2016-07-03 11:43 | Discharge Instructions ---
Discharge Instructions Admission Reason for Admission: cough, wheezing, shortness of breath . Discharge Discharge Diagnosis / Problem: bronchitis, exacerbation of asthma Discharge Goals Goal(s): Improve disease control Activity Recommendations Activity Limitations: resume your previous activity . Instructions / Follow-Up Instructions / Follow-Up FOLLOW-UP APPOINTMENTS PRIMARY CARE 07/05/2016 12:10 PM Rober Wilder MD PULMONARY MEDICINE IRVIN Luciano Dr. GASTROENTEROLOGY IRVIN Schultz NEW MEDICATIONS amoxicillin / clavulanic acid (Augmentin) 20 ml (4 tsp) 3 times a day with food for 5 days prednisone taper 30 mg daily for 2 days, 20 mg daily for 2 days, 10 mg daily for 2 days, then resume 10 mg every 2 days NUTRITION Use nutritional supplements like Ensure or Boost. Seek medical attention if you have: * temperature above 101 * chest pain or trouble breathing * abdominal pain, nausea, vomiting * diarrhea, dark stools or bloody stools * any unanswered questions or concerns Call 911 if symptoms are severe. Call if you have any questions or problems. My cell # is [phone]. You can also reach a [facility] hospitalist on duty at [facility] 24 hours a day by calling [phone]. Please take good care of yourself. Sawyer Vaughn . Current Hospital Diet Patient's current hospital diet: AHA Diet (Heart Healthy) Discharge Diet Recommended Diet: Regular Diet Procedures Procedures Performed: chest x-ray- no pneumonia CT head- no stroke ultrasound carotid arteries- no significant blockage Pending Studies Studies pending at discharge: yes List of pending studies: EEG echocardiogram Medical Emergencies . Who to Call and When: Medical Emergencies: If at any time you feel your situation is an emergency, please call 911 immediately. . Non-Emergent Contact Non-Emergency issues call your: Primary Care Provider . . "Provider Documentation" section prepared by Sawyer Vaughn. VTE Core Measure Inpt VTE Proph given/why not?: Enoxaparin (Lovenox)SQ
--- NOTE | 2016-07-03 14:05 | ECHOCARDIOGRAM REPORT ---
*NOTICE TO RECEIVING LIBERTARIAN AGENCY This information is strictly Confidential and protected under [place] law. [place] law prohibits you from making any further disclosure of this information unless further disclosure is expressly permitted by the written consent of the person to whom it pertains or is authorized by law. A general authorization for the release of medical or other information is not sufficient for this purpose. Hospital accepts no responsibility if the information is made available to any other person, INCLUDING THE PATIENT. Interpretation Summary * Name: CHANDU ORDONEZ Study Date: 07/03/2016 08:20 AM BP: 99/63 mmHg * Patient Location: C.2E\S\E212\S\1 HR: 68 * : 1955 (M/d/yyyy) Gender: Male Height: 64 in * Age: 61 yrs Ethnicity: CA Weight: 108 lb * Ordering Physician: Sawyer Vaughn * Referring Physician: No Doctor, Assigned * Performed By: Jada Hill RCS * * Reason For Study: SYNCOPE * BSA: 1.5 m2 * -- Conclusions -- * The left ventricle is normal in size. * Left ventricular systolic function is mildly reduced. * Ejection Fraction = 45-50%. * The right ventricular systolic function is normal. * The left atrial size is normal. * Right atrial size is normal. * There is moderate tricuspid regurgitation. Procedure Details * A complete two-dimensional transthoracic echocardiogram was performed (2D, M-mode, Doppler and color flow Doppler). Left Ventricle * The left ventricle is normal in size. * There is normal left ventricular wall thickness. * Ejection Fraction = 45-50%. * Left ventricular systolic function is mildly reduced. Right Ventricle * The right ventricle is normal in size and function. * There is normal right ventricular wall thickness. * The right ventricular systolic function is normal. Atria * The left atrial size is normal. * Right atrial size is normal. * The interatrial septum is intact with no evidence for an atrial septal defect. Mitral Valve * The mitral valve leaflets appear thickened, but open well. * There is no mitral valve stenosis. * Significant mitral regurgitation is absent. Tricuspid Valve * The tricuspid valve leaflets are thickened and/or calcified, but open well. * There is moderate tricuspid regurgitation. Aortic Valve * The aortic valve is normal in structure and function. * No aortic regurgitation is present. Pulmonic Valve * The pulmonic valve is normal in structure and function. * There is no pulmonic valvular regurgitation. Great Vessels * The aortic root is normal size. * No obvious dissection could be visualized. Pericardium/Pleural * There is no pericardial effusion. MMode 2D Measurements and Calculations IVSd 0.65 cm IVSs 0.79 cm LVIDd 4.0 cm LVIDs 3.1 cm LVPWd 0.77 cm LVPWs 0.93 cm IVS/LVPW 0.84 FS 20.9 % EDV(Teich) 68.6 ml ESV(Teich) 39.0 ml EF(Teich) 43.1 % EDV(cubed) 62.4 ml ESV(cubed) 30.9 ml EF(cubed) 50.5 % % IVS thick 22.4 % % LVPW thick 20.0 % LV mass(C)d 78.8 grams LV mass(C)dI 52.4 grams/m\S\2 LV mass(C)s 70.4 grams LV mass(C)sI 46.8 grams/m\S\2 SV(Teich) 29.5 ml SI(Teich) 19.6 ml/m\S\2 SV(cubed) 31.5 ml SI(cubed) 20.9 ml/m\S\2 Ao root diam 3.1 cm Ao root area 7.4 cm\S\2 ACS 1.9 cm LA dimension 2.5 cm LA/Ao 0.81 LVOT diam 2.0 cm LVOT area 3.1 cm\S\2 LVAd ap4 20.3 cm\S\2 LVLd ap4 6.7 cm EDV(MOD-sp4) 50.6 ml EDV(sp4-el) 52.0 ml LVAs ap4 12.5 cm\S\2 LVLs ap4 5.7 cm ESV(MOD-sp4) 23.9 ml ESV(sp4-el) 23.6 ml EF(MOD-sp4) 52.8 % EF(sp4-el) 54.7 % LVAd ap2 18.2 cm\S\2 LVLd ap2 5.4 cm EDV(MOD-sp2) 49.6 ml EDV(sp2-el) 51.8 ml LVAs ap2 13.0 cm\S\2 LVLs ap2 5.2 cm ESV(MOD-sp2) 27.7 ml ESV(sp2-el) 27.6 ml EF(MOD-sp2) 44.3 % EF(sp2-el) 46.6 % LVLd %diff -23.39 % EDV(MOD-bp) 54.1 ml LVLs %diff -8.31 % ESV(MOD-bp) 26.8 ml EF(MOD-bp) 50.5 % SV(MOD-sp4) 26.7 ml SI(MOD-sp4) 17.7 ml/m\S\2 SV(MOD-sp2) 22.0 ml SI(MOD-sp2) 14.6 ml/m\S\2 SV(MOD-bp) 27.3 ml SI(MOD-bp) 18.2 ml/m\S\2 SV(sp4-el) 28.4 ml SI(sp4-el) 18.9 ml/m\S\2 SV(sp2-el) 24.1 ml SI(sp2-el) 16.0 ml/m\S\2 Doppler Measurements and Calculations MV E max satinder 58.8 cm/sec MV A max satinder 43.7 cm/sec MV E/A 1.3 MV P1/2t max satinder 65.1 cm/sec MV P1/2t 61.3 msec MVA(P1/2t) 3.6 cm\S\2 MV dec slope 311.0 cm/sec\S\2 MV dec time 0.28 sec Ao V2 max 193.2 cm/sec Ao max PG 14.9 mmHg Ao max PG (full) 11.0 mmHg DALE(V,A) 1.6 cm\S\2 DALE(V,D) 1.6 cm\S\2 LV V1 max PG 3.9 mmHg LV V1 max 99.2 cm/sec TR max satinder 243.1 cm/sec
--- NOTE | 2016-07-03 14:52 | Progress Note ---
Medicine Progress Note Date & Time of Visit: Jul 03, 2016 at ~ 10:30 . Subjective Feels much better and would like to go home. No fever. Cough / wheezing / dyspnea improved. No chest pain. Dysphagia same as usual. No diarrhea. . Objective Last 8 Hrs Date Time Temp Pulse Resp B/P Pulse Ox O2 Delivery O2 Flow Rate FiO2 07/03/16 11:58 36.7 62 20 95 Room Air 07/03/16 08:30 36.7 62 20 121/73 95 Room Air 07/03/16 08:00 Room Air 07/03/16 07:15 74 20 94 Room Air Physical Exam: General- no distress Neck- no JVD Lungs- diffuse mild wheezing Heart- RRR Abdomen- + BS, soft, nontender Extremities- no pretibial edema or calf tenderness Neuro- alert . Assessment & Plan EXACERBATION OBSTRUCTIVE LUNG DISEASE / BRONCHITIS Chronic lung disease, asthma vs COPD. Former smoker. Presented with cough, wheezing, dyspnea. May have intermittent aspiration from esophageal disease. No infiltrates on chest x-ray. Productive cough. Received levofloxacin and piperacillin / tazobactam pending culture results. Sputum culture grew Haemophilus influenza, beta lactamase negative. Received IV methylprednisolone in ED; transitioned to oral prednisone. Discharge on amoxicillin / clavulanic acid to complete 7 day course of antibiotic therapy. Discharge on prednisone 30 mg daily tapering to usual maintenance dose of 10 mg q 2 days. SYNCOPE 2 episodes of syncope day prior to admission, several other episodes over past year. Clinically, sounds like episodes most like due to orthostatic hypotension ( occur in standing position, sometimes after bending over and then standing). No orthostatic drop in BP during hospital stay. Monitor for arrhythmias on Telemetry Unit - sinus rhythm with no significant bradycardia. Outpatient cardiac monitoring recommended. EEG done, results pending. Echo did not show any source of cardioemboli. Carotid duplex showed bilateral plaque without significant stenosis. Patient advised to maintain adequate PO fluid intake. REDUCED LVEF Echo demonstrated LVEF of 45-50%, no LVH or segmental wall motion abnormalities. No symptoms / signs of CHF. BP's relatively low and has experienced episodes of syncope possibly due to orthostatic hypotension. Therefore, will not start SONAM or ARB. Follow. ? need for further evaluation or management- discuss with Cardiology. LEFT-SIDED WEAKNESS Patient reports left-sided weakness, onset uncertain. Motor strength testing intact; plantar reflexes downgoing bilaterally. CT head negative. ESOPHAGEAL DYSMOTILITY Barium swallow 07/26/15 showed narrowing at esophagogastric junction which impeded passage of barium tablet. EGD 05/29/15 demonstrated esophageal candidiasis, no mass, stricture, etc. Barium swallow 07/26/15 showed moderate to severe GERD, narrowing at gastroesophageal junction. EGD 07/27/15 did not show any structural abnormalities. Followed by GI. Continue diazepam for esophageal spasm. Consider liquid formulation of diazepam or switching to lorazepam SL. CHRONIC PAIN SYNDROME Due to degenerative spine disease and avascular necrosis. Continue usual analgesic regimen. Consider liquid formulation. WEIGHT LOSS Patient reports significant weight loss over several years. Clinic records reviewed. Wt 05/12/06 was 132 lbs. Wts since 02/18/15 have been as low as 102 on 03/23/15; last recorded wt in clinic 112 on 07/01/16. Former smoker. CT 02/19/16 did not show any apparent malignancy. Recent EGD as discussed above. Had colonoscopy in 2005 which showed hyperplastic polyps- consider f/u. Weight loss most likely secondary to esophageal dysmotility with decreased caloric intake. Nutritional supplements as tolerated. TSH 0.159. Check repeat TFT's after recovery from this acute illness. Follow. VTE PROPHYLAXIS Moderate risk for VTE. SQ heparin. Ambulating. DISPOSITION Discharge to home. Family Medicine follow-up with Dr. Wilder. Pulmonary Medicine follow-up with [facility]. GI follow-up with IRVIN Schultz. .
--- NOTE | 2016-07-03 14:54 | Discharge Summary ---
Discharge Summary Admission Date: Jul 01, 2016 at 19:38 Discharge Date: Jul 03, 2016 Discharge Disposition: Home Principal Diagnosis: exacerbation of asthma tracheobronchitis- H influenza . Secondary Diagnoses/Problems: Medical Problems: (1) Anxiety Status: Chronic (2) Asthma Status: Chronic (3) Avascular necrosis of femoral head Status: Chronic (4) BPH (benign prostatic hypertrophy) Status: Chronic (5) Chronic obstructive lung disease Status: Chronic (6) Chronic pain syndrome Status: Chronic (7) Chronic prostatitis Status: Chronic (8) Degenerative arthritis of cervical spine Status: Chronic (9) Esophageal dysmotility Status: Chronic (10) GERD (gastroesophageal reflux disease) Status: Chronic (11) Pulmonary nodules Permanent Comment: [facility] [place] 01/02/15 Status: Chronic Surgical Problems: (1) History of ear surgery Status: Chronic (2) History of elbow surgery Status: Chronic (3) History of hernia repair Status: Chronic (4) History of lung surgery Status: Chronic (5) Hx of carpal tunnel repair Status: Chronic (6) Hx of sinus surgery Status: Chronic (7) Hx of tonsillectomy Status: Chronic . Procedures: CT head carotid duplex echo IV meds . Pending Studies/Follow-Up: Please arrange for outpatient cardiac event monitor re: cardiomyopathy, syncope. Please arrange for outpatient Cardiology referral re: cardiomyopathy. Please reschedule outpatient GI follow-up re: esophageal dysmotility. . Medication Reconciliation New Medications: Amoxicillin/Clavulanate Potas (Augmentin 125-31.25 mg/5Ml) 125 Mg/5 Ml Susp 20 ML PO TID for 5 Days, #300 ML Take with meals. Prednisone Tab (Prednisone) 10 Mg Tab 0 PO UD, #12 TAB Taper 04-72-62-20-10-10 mg daily, then resume 10 mg every 2 days. Continued Medications: Albuterol (Ventolin Hfa) 60 Puffs/5400 Mcg Aers 2 PUFFS INH QID Albuterol Soln (Proventil 0.083% 2.5MG/3ML) Nebu 2.5 MG INH Q4 PRN for Wheezing Azithromycin (Zithromax Z-Eder) 250 Mg Tab 1 PKT PO UD for 5 Days, #6 TAB RESCUE KIT: TAKE 2 TABLETS BY MOUTH ON THE FIRST DAY, THEN 1 TABLET DAILY UNTIL GONE ONLY WHEN NEEDED Diazepam (Valium) 5 Mg Tab 5 MG PO TID Docusate Sodium (Colace) 100 Mg Cap 1 CAP PO BID PRN for Constipation Epinephrine (Epipen) 0.3 Mg/0.3 Ml Inj 0.3 MG IM UD Fluticasone Propionate (Nasal) (Flonase) 50 Mcg/Act Spr 2 SPRY LAN DAILY Mometasone Furoate-Formoterol (Dulera 200/5 Mcg) 1 Aer Aer 2 PUFFS INH BID for 30 Days, #13 GM 5 Refills Oxycodone Hcl (Roxicodone) 15 Mg Tab 15 MG PO Q8 PRN for Pain Prednisone (Prednisone) 10 Mg Tab 10 MG PO Q2D, TAB Tiotropium Scuddy (Spiriva Handihaler) 18 Mcg/ Aerp 1 CAP INH DAILY, INHALER Admission Information HPI (per Admitting provider): 61 YO male followed by Dr. Wilder for Family Medicine and [facility]. History of obstructive lung disease (asthma vs COPD) and other problems noted below. Former smoker. 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 Not on home O2, although sleep study in March demonstrated nocturnal hypoxia. He is on chronic prednisone therapy, currently 10 mg every other day. 7 admissions for exacerbations of lung disease [id number]. Scheduled for a GI appointment in clinic today. Upon arrival, he was noted to be very dyspneic and was referred to ED for evaluation. He has been noting worsening wheezing and dyspnea over past few days. Cough productive of yellow sputum without hemoptysis. Took a course of azithromycin about 3 weeks ago. Utilizing nebulizer treatments, but they have not been very effective. Continues taking prednisone 10 mg every other day. Patient also reports that he passed out twice yesterday and assumed that he was experiencing TIA's. Both episodes occurred in the standing position and were preceded by lightheadedness and associated with incontinence of bladder + bowel. He has had several similar episodes over the past year. . Physical Exam (per Admitting): General Appearance: + mild distress, + thin Head: normocephalic, atraumatic Eyes: normal inspection, PERRL, EOMI, sclerae normal, + pertinent finding ( conjunctivae pink) ENT: normal ENT inspection, hearing grossly normal, TMs normal, pharynx normal Neck: supple, no adenopathy, thyroid normal, no JVD, trachea midline Respiratory/Chest: + pertinent finding (scattered rhonchi, diffuse wheezing) Cardiovascular: regular rate, rhythm, no edema, no gallop, no JVD, no murmur , normal peripheral pulses Abdomen/GI: normal bowel sounds, non tender, soft, no organomegaly, no pulsatile mass Back: normal inspection Extremities/Musculoskelatal: normal inspection, no calf tenderness, normal capillary refill, no pedal edema Neurologic/Psych: product marketing coordinator II-XII nml as tested (PERRL, EOMI, no facial palsy, no dysarthria), + pertinent finding (motor strength upper and lower extremities essentially 5/5; plantar reflexes downgoing) Skin: normal color, warm/dry, no rash Lymphatic: no adenopathy Hospital Course EXACERBATION OBSTRUCTIVE LUNG DISEASE / BRONCHITIS Chronic lung disease, asthma vs COPD. Former smoker. Presented with cough, wheezing, dyspnea. May have intermittent aspiration from esophageal disease. No infiltrates on chest x-ray. Productive cough. Received levofloxacin and piperacillin / tazobactam pending culture results. Sputum culture grew Haemophilus influenza, beta lactamase negative. Received IV methylprednisolone in ED; transitioned to oral prednisone. Discharge on amoxicillin / clavulanic acid to complete 7 day course of antibiotic therapy. Discharge on prednisone 30 mg daily tapering to usual maintenance dose of 10 mg q 2 days. SYNCOPE 2 episodes of syncope day prior to admission, several other episodes over past year. Clinically, sounds like episodes most like due to orthostatic hypotension ( occur in standing position, sometimes after bending over and then standing). No orthostatic drop in BP during hospital stay. Monitor for arrhythmias on Telemetry Unit - sinus rhythm with no significant bradycardia. Outpatient cardiac event monitoring recommended. EEG done, results pending. Echo did not show any source of cardioemboli. Carotid duplex showed bilateral plaque without significant stenosis. Patient advised to maintain adequate PO fluid intake. REDUCED LVEF Echo demonstrated LVEF of 45-50%, no LVH or segmental wall motion abnormalities. No symptoms / signs of CHF. BP's relatively low and has experienced episodes of syncope possibly due to orthostatic hypotension. Therefore, will not start SONAM or ARB. Outpatient cardiac event monitoring and outpatient Cardiology referral for f/u recommended. LEFT-SIDED WEAKNESS Patient reported left-sided weakness, onset uncertain. Motor strength testing intact; plantar reflexes downgoing bilaterally. CT head negative. ESOPHAGEAL DYSMOTILITY Barium swallow 07/26/15 showed narrowing at esophagogastric junction which impeded passage of barium tablet. EGD 05/29/15 demonstrated esophageal candidiasis, no mass, stricture, etc. Barium swallow 07/26/15 showed moderate to severe GERD, narrowing at gastroesophageal junction. EGD 07/27/15 did not show any structural abnormalities. Followed by GI. Continue diazepam for esophageal spasm. Consider liquid formulation of diazepam or switching to lorazepam SL. CHRONIC PAIN SYNDROME Due to degenerative spine disease and avascular necrosis. Continue usual analgesic regimen. Consider liquid formulation. WEIGHT LOSS Patient reports significant weight loss over several years. Clinic records reviewed. Wt 05/12/06 was 132 lbs. Wts since 02/18/15 have been as low as 102 on 03/23/15; last recorded wt in clinic 112 on 07/01/16. Former smoker. CT 02/19/16 did not show any apparent malignancy. Recent EGD as discussed above. Had colonoscopy in 2005 which showed hyperplastic polyps- consider f/u. Weight loss most likely secondary to esophageal dysmotility with decreased caloric intake. Nutritional supplements as tolerated. TSH 0.159. Check repeat TFT's after recovery from this acute illness. Follow. VTE PROPHYLAXIS Moderate risk for VTE. SQ heparin. Ambulating. DISPOSITION Discharged to home. Family Medicine follow-up with Dr. Wilder. Pulmonary Medicine follow-up with [facility]. GI follow-up with IRVIN Schultz. EEG and echo results were pending at time of discharge. Patient was notified of results by phone 07/04/16. . Total time spent on discharge = 40 min. This includes examination of the patient, discharge planning, medication reconciliation, and communication with other providers. . Discharge Instructions Admission Reason for Admission: cough, wheezing, shortness of breath . Discharge Discharge Diagnosis / Problem: bronchitis, exacerbation of asthma Discharge Goals Goal(s): Improve disease control Activity Recommendations Activity Limitations: resume your previous activity . Instructions / Follow-Up Instructions / Follow-Up FOLLOW-UP APPOINTMENTS PRIMARY CARE 07/05/2016 12:10 PM Rober Wilder MD PULMONARY MEDICINE IRVIN Luc[facility] Dr. GASTROENTEROLOGY IRVIN Schultz NEW MEDICATIONS amoxicillin / clavulanic acid (Augmentin) 20 ml (4 tsp) 3 times a day with food for 5 days prednisone taper 30 mg daily for 2 days, 20 mg daily for 2 days, 10 mg daily for 2 days, then resume 10 mg every 2 days NUTRITION Use nutritional supplements like Ensure or Boost. Seek medical attention if you have: * temperature above 101 * chest pain or trouble breathing * abdominal pain, nausea, vomiting * diarrhea, dark stools or bloody stools * any unanswered questions or concerns Call 911 if symptoms are severe. Call if you have any questions or problems. My cell # is [phone]. You can also reach a [facility] hospitalist on duty at [facility] 24 hours a day by calling [phone]. Please take good care of yourself. Sawyer Vaughn . Current Hospital Diet Patient's current hospital diet: AHA Diet (Heart Healthy) Discharge Diet Recommended Diet: Regular Diet Procedures Procedures Performed: chest x-ray- no pneumonia CT head- no stroke ultrasound carotid arteries- no significant blockage Pending Studies Studies pending at discharge: yes List of pending studies: EEG echocardiogram Medical Emergencies . Who to Call and When: Medical Emergencies: If at any time you feel your situation is an emergency, please call 911 immediately. . Non-Emergent Contact Non-Emergency issues call your: Primary Care Provider . . "Provider Documentation" section prepared by Sawyer Vaughn. VTE Core Measure Inpt VTE Proph given/why not?: Enoxaparin (Lovenox)SQ . Additional Copies To Rober Wilder M.D. (MEDICAL); Samira Coleman; Amalia Macdonald CRNP
--- NOTE | 2016-07-04 08:17 | ELECTROENCEPHALOGRAPH REPORT ---
FOR: Dr. Vaughn. CLINICAL DIAGNOSIS: Loss of consciousness. ELECTROENCEPHALOGRAM DIAGNOSIS: Essentially normal during wakefulness. DESCRIPTION OF TRACING: This EEG was done as a bedside recording and is of good technical quality. A simultaneous video analysis of patient movement and behavior was also recorded. Photic stimulation is performed. Hyperventilation is not. Drowsiness and light sleep were not recorded. Under these conditions, there is evidence for a normal background rhythm in the alpha range of up to 10 Hz of maximum frequency and 30 microvolts of maximum amplitude. This activity is maximum in posterior head regions, bilaterally symmetrical. Polymorphic mid frequency theta activity of low voltage is seen over all head regions without clear focal or regional predominance. Anterior head region maximum bilaterally symmetrical low-voltage activity in the beta range is present. Photic stimulation provokes a modest driving response in the posterior head regions without a photomyogenic or photoparoxysmal component. At no time during the waking tracing is there evidence for potentially epileptogenic activity in the form of polyspike or spike wave bursts, focal sharp waves or focal spikes. INTERPRETATION: This EEG is essentially normal during wakefulness without evidence for focal or generalized encephalopathy and without evidence for potentially epileptogenic activity.
== END 2016-07-03 12:15 | disposition home or self-care (01) | DRG 191 ==
LOC: ENRESERVTM → ENRESERVDT → C.EDB 14:32 → UNDOADMIN 19:38 → C.2T 19:38 → EDBEDREQSVC 19:42 → EDBEDREQ 19:42 → C.2E 22:42 → C.2T 22:42
PROVIDERS: ADMIT Hospitalist; ATTEND Hospitalist
DX: J44.1 Chronic obstructive pulmonary disease with (acute) exacerbation (principal); G81.94 Hemiplegia, unspecified affecting left nondominant side; J45.901 Unspecified asthma with (acute) exacerbation; J10.1 Influenza due to other identified influenza virus with other respiratory manifestations; F41.9 Anxiety disorder, unspecified; N40.0 Benign prostatic hyperplasia without lower urinary tract symptoms; G89.4 Chronic pain syndrome; K22.4 Dyskinesia of esophagus; K21.9 Gastro-esophageal reflux disease without esophagitis; I95.1 Orthostatic hypotension; Z79.52 Long term (current) use of systemic steroids; Z87.891 Personal history of nicotine dependence; N41.1 Chronic prostatitis; M47.892 Other spondylosis, cervical region

== ENCOUNTER 2016-09-18 15:19 | Emergency (ER) | payer OTHER ==
[~2016-09-18] VITALS: Ht 165.1 cm; Wt 51.0 kg
[~2016-09-18 15:19] MED LIST changes: +AZITTAB PO; -NYSS/ PO; -PRED20TA2 PO; +[UNRECOGNIZED DRUG - CODE] PO
[2016-09-18 15:35] VITALS: TEMP 37.3; Ht 165.1 cm; Wt 51.0 kg
[2016-09-18] MEDS ORDERED: METHYLPREDNISOLONE 125 MG VIAL IV STA (16:02)
[2016-09-18] MEDS ORDERED: ALBUT/IPRATROP 3MG/0.5MG NEB 3 ML VIAL INH ONE (16:15)
[2016-09-18 16:20] VITALS: PULSE 95; O2SAT 96
--- NOTE | 2016-09-18 16:20 | DIAGNOSTIC IMAGING REPORT ---
CHEST ONE VIEW PORTABLE CLINICAL HISTORY: cough eval for pnea pneumonia COMPARISON STUDY: 07/01/2016 FINDINGS: Mild emphysematous change. Lungs are clear. Diaphragms are smooth. IMPRESSION: Mild emphysematous change. No focal infiltrate. Electronically signed by: Edmond Campos M.D. 09/18/2016 4:19 PM Dictated Date/Time: 09/18/2016 4:18 PM
[2016-09-18 16:43] LABS: BASO % 0.5 %; BASO ABS # 0.04 K/uL (0-0.2); COMPLETE YES; EOS % 1.2 %; HEMATOCRIT 45.1 % (42-52); IG% 0.1 %; LYMPH % 26.7 %; LYMPH ABS # 2.02 K/uL (1.2-3.4); MEAN CELL VOLUME 87.6 fL (80-100); MEAN CORPUSCULAR HEMOGLOBIN 30.1 pg (25-34); MEAN CORPUSCULAR HGB CONC 34.4 g/dl (32-36); MONO % 14.5 %; PLATELET COUNT 241 K/uL (130-400); RED BLOOD COUNT 5.15 M/uL (4.7-6.1); WHITE BLOOD COUNT 7.57 K/uL (4.8-10.8)
[2016-09-18] MEDS ORDERED: FLUT0.15 NAE (16:50)
[2016-09-18] MEDS ORDERED: SPRIN/30 INH (16:50)
[2016-09-18] MEDS ORDERED: PRD/25 PO (16:50)
[2016-09-18] MEDS ORDERED: ALBINS/ INH (16:50)
[2016-09-18] MEDS ORDERED: PRED10PA4 PO (16:54)
[2016-09-18] MEDS ORDERED: OXGN (16:57)
[2016-09-18] MEDS ORDERED: PROT1POW7 PO (16:57)
[2016-09-18 17:08] LABS: BUN/CREATININE RATIO 14.7 (10-20); CALCIUM 9.9 mg/dl (8.5-10.1); CREATININE 1.1 mg/dl (0.60-1.40); POTASSIUM 3.8 mmol/L (3.5-5.1)
[2016-09-18 18:19] VITALS: BP 144/89; PULSE 90; O2SAT 94
--- NOTE | 2016-09-18 23:16 | EMERGENCY ROOM VISIT NOTE ---
History Report prepared by Leanne: Suhail Lowery Under the Supervision of: Dr. Brent Ardon M.D. First contact with patient: 15:55 Chief Complaint: SHORTNESS OF BREATH Stated Complaint: SOB, PAIN DOWN NECK AND ARM History of Present Illness The patient is a 61 year old male who presents to the Emergency Room with complaints of shortness of breath starting 5 days ago. The patient has a history of asthma/COPD and reports his difficulty breathing worsened about 5 days ago. The patient is on 2 L oxygen at home. He is on Prednisone every day. He is also on Oxycodone. He has chronic lower extremity swelling which has improved recently. For the past few days, he has been having a cough with thick , yellow-colored mucous. He started having a headache this morning. He also reports a reduced appetite. He denies fever, chest pain, or any other complaints. Source of History: patient Onset: 5 days ago Position: other (global) Quality: other (shortness of breath) Timing: other (worse than normal) Associated Symptoms: + cough, + headache, No chest pain, No fevers Review of Systems See HPI for pertinent positives & negatives. A total of 10 systems reviewed and were otherwise negative. Past Medical & Surgical Medical Problems: (1) Anxiety (2) Asthma (3) Asthmatic bronchitis with acute exacerbation (4) Avascular necrosis of femoral head (5) BPH (benign prostatic hypertrophy) (6) Chronic obstructive lung disease (7) Chronic pain syndrome (8) Chronic prostatitis (9) Degenerative arthritis of cervical spine (10) Esophageal dysmotility (11) GERD (gastroesophageal reflux disease) (12) Pulmonary nodules (13) Syncope Surgical Problems: (1) History of ear surgery (2) History of elbow surgery (3) History of hernia repair (4) History of lung surgery (5) Hx of carpal tunnel repair (6) Hx of sinus surgery (7) Hx of tonsillectomy Family History Asthma FATHER SON Diabetes mellitus MOTHER Hypertension FATHER Social History Smoking Status: Current Every Day Smoker Alcohol Use: none Drug Use: none Marital Status: Housing Status: lives alone Occupation Status: employed Current/Historical Medications Scheduled Albuterol (Ventolin Hfa), 2 PUFFS INH QID Azithromycin (Zithromax Z-Eder), 1 PKT PO UD Diazepam (Valium), 5 MG PO TID Epinephrine (Epipen), 0.3 MG IM UD Fluticasone Propionate (Nasal) (Flonase Allergy Relief), 2 SPRAYS LAN DAILY Mometasone Furoate-Formoterol (Dulera 200/5 Mcg), 2 PUFFS INH BID Prednisone (Prednisone), 7.5 MG PO DAILY Protein (Whey Protein), 4 CUP PO DAILY Tiotropium [place] (Spiriva Handihaler), 1 CAP INH DAILY Scheduled PRN Albuterol Sulf (Proventil 0.083% 2.5MG/3ML), 2.5 MG INH QID PRN for Wheezing Docusate Sodium (Colace), 1 CAP PO BID PRN for Constipation Oxycodone Hcl (Roxicodone), 15 MG PO Q8 PRN for Pain Oxygen (Oxygen), 2 LITERS NA PRN PRN for HS & PRN Prednisone (Prednisone), Unknown Dose PO DAILY PRN for RESCUE KIT Allergies Coded Allergies: Acetaminophen (Verified Allergy, Unknown, hives, 07/01/16) Montelukast (Verified Adverse Reaction, Severe, MENTAL STATUS CHANGED, ) Zolpidem (Verified Adverse Reaction, Severe, MENTAL STATUS CHANGED, ) Physical Exam Vital Signs Date Time Temp Pulse Resp B/P Pulse Ox O2 Delivery O2 Flow Rate FiO2 09/18/16 18:19 90 18 144/89 94 09/18/16 17:07 80 20 122/81 99 Nebulizer 09/18/16 16:20 95 22 96 Room Air 09/18/16 16:16 2 Nasal Cannula 09/18/16 15:50 84 09/18/16 15:41 Nasal Cannula 2.0 09/18/16 15:35 37.3 86 36 132/85 97 Nasal Cannula 2.0 Physical Exam Constitutional: Vital signs reviewed. Eyes: Pupils are equal round reactive to light. Conjunctiva are noninjected. ENT: Pharynx is clear without erythema or exudate. Mucous membranes are moist. Neck supple without meningeal signs. Respiratory: Diffuse wheezing bilaterally. Breath sounds are equal bilaterally. Cardiovascular: Regular rate and rhythm. No rubs or gallops. GI: Soft, nondistended and nontender. Bowel sounds are present. Musculoskeletal: No peripheral edema. No lower extremity tenderness. Integumentary: No cyanosis. Neurological: The patient is awake and alert. No focal deficits. Psychiatric: Normal affect. Medical Decision & Procedures ER Provider Diagnostic Interpretation: X-ray results as stated below per interpretation by me and the radiologist: CHEST ONE VIEW PORTABLE CLINICAL HISTORY: cough eval for pnea pneumonia COMPARISON STUDY: 07/01/2016 FINDINGS: Mild emphysematous change. Lungs are clear. Diaphragms are smooth. IMPRESSION: Mild emphysematous change. No focal infiltrate. Electronically signed by: Edmond Campos M.D. 09/18/2016 4:19 PM Dictated Date/Time: 09/18/2016 4:18 PM Laboratory Results 09/18/16 16:25 Red Blood Count 5.15, Mean Corpuscular Volume 87.6, Mean Corpuscular Hemoglobin 30.1, Mean Corpuscular Hemoglobin Concent 34.4, Mean Platelet Volume 9.0, Neutrophils (%) (Auto) 57.0, Lymphocytes (%) (Auto) 26.7, Monocytes (%) (Auto) 14.5, Eosinophils (%) (Auto) 1.2, Basophils (%) (Auto) 0.5, Neutrophils # (Auto ) 4.31, Lymphocytes # (Auto) 2.02, Monocytes # (Auto) 1.10, Eosinophils # (Auto ) 0.09, Basophils # (Auto) 0.04 09/18/16 16:25 Test 09/18/16 16:25 09/18/16 16:35 White Blood Count 7.57 K/uL (4.8-10.8) Red Blood Count 5.15 M/uL (4.7-6.1) Hemoglobin 15.5 g/dL (14.0-18.0) Hematocrit 45.1 % (42-52) Mean Corpuscular Volume 87.6 fL (80-100) Mean Corpuscular Hemoglobin 30.1 pg (25-34) Mean Corpuscular Hemoglobin Concent 34.4 g/dl (32-36) Platelet Count 241 K/uL (130-400) Mean Platelet Volume 9.0 fL (7.4-10.4) Neutrophils (%) (Auto) 57.0 % Lymphocytes (%) (Auto) 26.7 % Monocytes (%) (Auto) 14.5 % Eosinophils (%) (Auto) 1.2 % Basophils (%) (Auto) 0.5 % Neutrophils # (Auto) 4.31 K/uL (1.4-6.5) Lymphocytes # (Auto) 2.02 K/uL (1.2-3.4) Monocytes # (Auto) 1.10 K/uL (0.11-0.59) Eosinophils # (Auto) 0.09 K/uL (0-0.5) Basophils # (Auto) 0.04 K/uL (0-0.2) RDW Standard Deviation 50.9 fL (36.4-46.3) RDW Coefficient of Variation 15.6 % (11.5-14.5) Immature Granulocyte % (Auto) 0.1 % Immature Granulocyte # (Auto) 0.01 K/uL (0.00-0.02) Prothrombin Time 11.0 SECONDS (9.0-12.0) Prothromb Time International Ratio 1.0 (0.9-1.1) Activated Partial Thromboplast Time 26.1 SECONDS (21.0-31.0) Partial Thromboplastin Ratio 1.0 Anion Gap 10.0 mmol/L (3-11) Est Creatinine Clear Calc Drug Dose 50.2 ml/min Estimated GFR () 82.9 Estimated GFR (Non- 71.6 BUN/Creatinine Ratio 14.7 (10-20) Calcium Level 9.9 mg/dl (8.5-10.1) Bedside Troponin I 0.000 ng/ml (0-0.045) Laboratory results as reviewed by me. Medications Administered Medications (Trade) Dose Ordered Sig/Davie Route Start Time Stop Time Status Last Admin Dose Admin Methylprednisolone Sodium Succinate (Solu-Medrol IV) 125 mg NOW STAT IV 09/18/16 16:02 09/18/16 16:04 DC 09/18/16 16:25 125 MG Albuterol/ Ipratropium (Duoneb) 12 ml ONE ONCE INH 09/18/16 16:15 09/18/16 16:16 DC 09/18/16 16:11 12 ML ECG Indication: SOB/dyspnea Rate (beats per minute): 68 Rhythm: normal sinus Findings: no ectopy, other (Hyperacute P waves in the inferior leads) Comparison ECG Date: July 01, 2016 Change: Enlarged P waves were also seen on July 01, 2016. ED Course 1555: The patient was evaluated in room A03. A complete history and physical exam was performed. 1602: Solu-Medrol IV 125 mg IV 1615: DuoNeb 12 ml INH 1800: I reevaluated the patient who feels better but continues to have wheezing. I discussed his test results. I offered hospitalization, but the patient states that he has an appointment with petroleum refinery worker tomorrow. He will follow up with the petroleum refinery worker and will come back here if he feels worse. The patient will be discharged home. Medical Decision This is a 61-year-old male who presents with shortness of breath. Differential diagnosis includes COPD exacerbation, pneumonia, pleural effusion, CHF, pneumothorax. I did perform a limited focused review of portions of the patient 's old chart on the electronic medical record. The patient was admitted in June for exacerbation of asthma versus COPD. I did evaluate the patient as noted above. The patient has a history of COPD and is wheezing diffusely. He has had a productive cough as well. I did treat him with a continuous hour-long DuoNeb. IV access was established. The patient was placed on a continuous home therapy clinician. He was given Solu-Medrol IV. I did order and personally review the patient's 12-lead EKG and chest x- ray as described above. There is no evidence of pneumonia on chest x-ray. I did order and review the patient's blood work as noted in the electronic medical record. Troponin is negative. I did reassess the patient. He is feeling much better. He still has wheezing on examination but is not hypoxemic and feels well enough to go home. I did offer admission but he states he has an appointment tomorrow with his petroleum refinery worker. He was also has a nebulizer at home. He was therefore discharged in good condition and will see his petroleum refinery worker tomorrow to talk about further steroid dosing. Impression Primary Impression: COPD exacerbation Scribe Attestation The scribe's documentation has been prepared under my direct and personally reviewed by me in its entirety. I confirm that the note above accurately reflects all work, treatment, procedures, and medical decision making performed by me. Departure Information Dispostion Home / Self-Care Referrals Rober Wilder M.D. (MEDICAL) (PCP) Forms HOME CARE DOCUMENTATION FORM, IMPORTANT VISIT INFORMATION Patient Instructions ED COPD Flare, My [facility] Additional Instructions You have been examined and treated today on an emergency basis only. This is not a substitute for, or an effort to provide, complete comprehensive medical care. It is impossible to recognize and treat all injuries or illnesses in a single emergency department visit. It is therefore important that you follow up closely with your lung doctor tomorrow per your appointment. Talk to him about your steroid dosing. Return for worsening symptoms or if you develop fever, vomiting, chest pain or any other concerning symptoms.
== END 2016-09-18 18:20 | disposition home or self-care (01) ==
LOC: C.EDB 15:20 → C.EDA 18:20
DX: J44.1 Chronic obstructive pulmonary disease with (acute) exacerbation (principal); Z99.81 Dependence on supplemental oxygen; Z79.899 Other long term (current) drug therapy; F41.9 Anxiety disorder, unspecified; N40.0 Benign prostatic hyperplasia without lower urinary tract symptoms; G89.29 Other chronic pain; K21.9 Gastro-esophageal reflux disease without esophagitis; Z82.5 Family history of asthma and other chronic lower respiratory diseases; Z83.3 Family history of diabetes mellitus; Z82.49 Family history of ischemic heart disease and other diseases of the circulatory system; F17.210 Nicotine dependence, cigarettes, uncomplicated

== ENCOUNTER → 2016-12-26 | Day surgery (SDC) | payer OTHER ==
[~2016-12-26] VITALS: Ht 162.6 cm; Wt 54.5 kg
[~2016-12-26] MED LIST changes: +ALBINS/ INH; -ALBU0.08 INH; -EPP3/2 IM; -FLUT0.0529 NAE; +FLUT0.15 NAE; +LIDOCAINE HCL 2% 2 ML VIAL (20MG/ML) ONE; +OXGN; +PRED10PA4 PO; -PRED10TA PO; +PROPOFOL IV EMULSION 10 MG/ML 20 ML VIAL IV ONE; +PROT1POW7 PO; +SODIUM CHLORIDE 0.9% 500ML 500 ML IV ONE; -TIOTCAP INH; -[UNRECOGNIZED DRUG - CODE] PO
[2016-12-26 09:13] VITALS: Ht 162.6 cm; Wt 54.5 kg
[2016-12-26 09:26] VITALS: TEMP 36.2
--- NOTE | 2016-12-26 09:43 | Endo History and Physical ---
History & Physical Date of Service: Dec 26, 2016. Chief Complaint: DYSPHAGIA Referring Physician: DR. WIGGINS History of Present Illness Dysphagia for solids and liquids, eased with diazepam ac, improved after prior empirical dilations. Past Medical History Asthma, Anxiety, Reflux, COPD Past Surgical History Hx Cardiac Surgery: No Hx Internal Defibrillator: No Hx Pacemaker: No Hx Abdominal Surgery: Yes (HERNIA) Hx of Implantable Prosthesis: No Hx Post-Op Nausea and Vomiting: No Hx Cancer Surgery: No Hx Thoracic Surgery: Yes (BRONCHIOPLASTY) Hx Orthopedic: Yes (BILAT ULNAR NERVE SURG) Hx Urinary Tract Surgery: No Social History Smoking Status: Former Smoker Hx Substance Use: Yes (OXYCODONE FOR NECK AND BACK PAIN) Hx Alcohol Use: Yes ( Beer Socially ) Allergies Coded Allergies: Acetaminophen (Verified Allergy, Unknown, hives, 12/26/16) Montelukast (Verified Adverse Reaction, Severe, MENTAL STATUS CHANGED, 12/26) Zolpidem (Verified Adverse Reaction, Severe, MENTAL STATUS CHANGED, HALLUCINATIONS, 12/26/16) Current Medications Reported Home Medications Medications Dose Route/Sig Max Daily Dose Days Date Category Oxygen Gas 2 Liters NA HS 09/18/16 Reported Whey Protein (Protein) 1 Pow Pow 4 Cup PO DAILY 09/18/16 Reported Flonase Allergy Relief (Fluticasone Propionate (Nasal)) 50 Mcg/Act Spr 2 Sprays LAN QAM 09/18/16 Reported Proventil 0.083% 2.5MG/3ML (Albuterol Sulf) 2.5 Mg/3 Ml Nebu 2.5 Mg INH QID PRN 09/18/16 Reported Roxicodone (Oxycodone Hcl) 15 Mg Tab 15 Mg PO Q8 PRN 02/19/16 Reported Colace (Docusate Sodium) 100 Mg Cap 1 Cap PO BID PRN 02/19/16 Reported Valium (Diazepam) 5 Mg Tab 5 Mg PO TID 02/19/16 Reported Dulera 200/5 Mcg (Mometasone Furoate-Formoterol) 1 Aer Aer 2 Puffs INH BID 30 11/21/15 Reported Ventolin Hfa (Albuterol) 60 Puffs/5400 Mcg Aers 2 Puffs INH QID PRN 01/02/15 Reported Vital Signs Weight (Kilograms): 54.55 Height (Feet): 5 Height (Inches): 4 Date Time Temp Pulse Resp B/P (MAP) Pulse Ox O2 Delivery O2 Flow Rate FiO2 12/26/16 09:26 36.2 60 20 123/72 (89) 95 Room Air Physical Exam General Appearance: WD/WN, no apparent distress Respiratory/Chest: Respiratory effort: no dyspnea Auscultation: breath sounds normal, no wheezing Cardiovascular: Heart Auscultation: RRR, no murmurs Assessment and Plan EGD with dilation today.
--- NOTE | 2016-12-26 10:13 | GI REPORT ---
Procedure Date: 12/26/2016 9:41 AM Procedure: Upper GI endoscopy Indications: Dysphagia Medicines: Monitored Anesthesia Care Complications: No immediate complications. Estimated blood loss: None. Estimated Blood Loss: Estimated blood loss: none. Procedure: Pre-Anesthesia Assessment: - Prior to the procedure, a History and Physical was performed, and patient medications, allergies and sensitivities were reviewed. The patient's tolerance of previous anesthesia was reviewed. - ASA Grade Assessment: III - A patient with severe systemic disease. After obtaining informed consent, the endoscope was passed under direct vision. Throughout the procedure, the patient's blood pressure, pulse, and oxygen saturations were monitored continuously. The scope was introduced through the mouth, and advanced to the third part of duodenum. The upper GI endoscopy was accomplished with ease. The patient tolerated the procedure well. Findings: Non-severe esophagitis with no bleeding was found. Cells for cytology were obtained by brushing. No endoscopic abnormality was evident in the esophagus to explain the patient's complaint of dysphagia. It was decided, however, to proceed with dilation of the entire esophagus. A guidewire was placed and the scope was withdrawn. Dilation was performed with an Algerian dilator with mild resistance at 51 Fr and 54 Fr. The Z-line was regular and was found 40 cm from the incisors. The stomach was normal. The examined duodenum was normal. Verification of patient identification for the specimen was done by the physician and nurse using the patient's name, date and medical record number. Impression: - Non-severe candidiasis esophagitis. Cells for cytology obtained. - No endoscopic esophageal abnormality to explain patient's dysphagia. Esophagus dilated. Dilated. - Z-line regular, 40 cm from the incisors. - Normal stomach. - Normal examined duodenum. Recommendation: - Diflucan (fluconazole) 100 mg PO daily for 3 weeks. - Observe patient's clinical course. - Discharge patient to home (with escort). Dimas Maxwell M.D. Dimas Maxwell MD 12/26/2016 10:12:56 AM This report has been signed electronically. Note Initiated On: 12/26/2016 9:41 AM I attest to the content of the Intraoperative Record and orders documented therein, exceptions below
--- NOTE | 2016-12-26 10:21 | Discharge Instructions ---
Endoscopy Patient Instructions Date / Procedure(s) Performed Dec 26, 2016. EGD Allergy Information Coded Allergies: Acetaminophen (Verified Allergy, Unknown, hives, 12/26/16) Montelukast (Verified Adverse Reaction, Severe, MENTAL STATUS CHANGED, 12/26) Zolpidem (Verified Adverse Reaction, Severe, MENTAL STATUS CHANGED, HALLUCINATIONS, 12/26/16) Discharge Date / Findings Dec 26, 2016. Brittani esophagitis Medication Instructions Restart Stopped Medication(s): Start Diflucan as prescribed. Continue previous medications. Provider Instructions Activity Restrictions - No exercising or heavy lifting for 24 hours. - Do not drink alcohol the day of the procedure. - Do not drive a car or operate machinery until the day after the procedure. - Do not make any important decisions or sign important papers in 24 hours after the procedure. Following Day: - Return to full activity which may include returning to work/school. Diet Start your diet with liquids and light foods (jello, soup, juice, toast). Then eat your usual diet if not nauseated. Treatment For Common After Affects For mild abdominal pain, bloating, or excessive gas: - Rest - Eat lightly - Lie on right side Follow-Up Information Follow-up with DR. WIGGINS as scheduled Anesthesia Information What You Should Know You have had a procedure that required some medicine to reduce anxiety and discomfort. This treatment is called moderate sedation. After receiving the treatment, you may be sleepy, but you will be able to breathe on your own. The effects of the treatment may last for several hours. Follow these instructions along with Activity/Diet recommendations noted above: * Do NOT do anything where dizziness or clumsiness would be dangerous. * Rest quietly at home today, then you can be up and about tomorrow. * Have a responsible person stay with you the rest of today. * You may have had an I.V. today. If so, you may take the dressing off later today. Recommendations Call your doctor if: * Trouble breathing * Continuous vomiting for more than 24 hours * Temperature above 101 degrees * Severe abdominal pain or bloating * Pain not relieved by pain medicine ordered * There is increased drainage or redness from any incision * A large amount of rectal bleeding greater than 2-3 tablespoons. (If you had a polyp/s removed or have hemorrhoids, a small amount of blood - from the rectum is to be expected.) * You have any unanswered questions or concerns. IN THE EVENT OF A SERIOUS EMERGENCY, GO TO THE NEAREST EMERGENCY ROOM Your discharge instructions were prepared by provider Dimas Maxwell. Patient Instructions Signature Page Rashard Aguiar Patient (or Guardian) Signature/Date: I have read and understand the instructions given to me by my caregivers. Caregiver/RN/Doctor Signature/Date: The above-named patient and/or guardian has received patient instructions on this date. + Original Patient Signature Page (only) stays with chart. Please make copy for patient.
[2016-12-26 10:37] VITALS: BP 121/87; PULSE 54; O2SAT 98
--- NOTE | 2016-12-26 11:17 | Anesthesiology Progress Note ---
Anesthesia Post Op Note Date & Time Dec 26, 2016 at 11:17 Vital Signs Pain Intensity: 0 Vital Signs Past 12 Hours Date Time Temp Pulse Resp B/P (MAP) Pulse Ox O2 Delivery O2 Flow Rate FiO2 12/26/16 10:37 54 18 121/87 (98) 98 Room Air 12/26/16 10:22 58 18 124/80 (95) 99 Room Air 12/26/16 10:07 57 18 102/63 (76) 98 Room Air 12/26/16 09:26 36.2 60 20 123/72 (89) 95 Room Air Notes Mental Status: alert / awake / arousable, participated in evaluation Pt Amnestic to Procedure: Yes Nausea / Vomiting: adequately controlled Pain: adequately controlled Airway Patency, RR, SpO2: stable & adequate BP & HR: stable & adequate Hydration State: stable & adequate Anesthetic Complications: no major complications apparent
== END | disposition home or self-care (01) ==
LOC: C.GI 09:00
PROVIDERS: ATTEND Internal Medicine Gastroenterology
DX: R13.10 Dysphagia, unspecified (principal); B37.81 Candidal esophagitis; J45.909 Unspecified asthma, uncomplicated; F41.9 Anxiety disorder, unspecified; K21.9 Gastro-esophageal reflux disease without esophagitis; J44.9 Chronic obstructive pulmonary disease, unspecified; Z87.891 Personal history of nicotine dependence

== ENCOUNTER 2018-01-16 10:35 | Emergency (ER) | payer OTHER ==
[~2018-01-16] VITALS: Ht 165.1 cm; Wt 53.0 kg
[~2018-01-16 10:35] MED LIST changes: -AZITTAB PO; -LIDOCAINE HCL 2% 2 ML VIAL (20MG/ML) ONE; -PRED10PA4 PO; -PROPOFOL IV EMULSION 10 MG/ML 20 ML VIAL IV ONE; -SODIUM CHLORIDE 0.9% 500ML 500 ML IV ONE
[2018-01-16 10:37] VITALS: TEMP 36.8; Ht 165.1 cm; Wt 53.0 kg
[2018-01-16 10:49] VITALS: O2SAT 93
[2018-01-16] MEDS ORDERED: METHYLPREDNISOLONE 125 MG VIAL IV STA (11:02)
[2018-01-16] MEDS ORDERED: SODIUM CHLORIDE 0.9% 500ML 500 ML IV STA (11:02)
[2018-01-16] MEDS ORDERED: MoRPHine SULFATE 4 MG/ML 1 ML CARP\\VIAL IV STA ×2 (11:02→14:18)
[2018-01-16] MEDS ORDERED: ALBUT/IPRATROP 3MG/0.5MG NEB 3 ML VIAL INH STA (11:02)
[2018-01-16] MEDS ORDERED: AMOXICILLIN/CLAVULANATE TAB 875 MG TAB PO ONE (11:15)
--- NOTE | 2018-01-16 11:17 | EMERGENCY ROOM VISIT NOTE ---
History Report prepared by Leanne: Tato Middleton Under the Supervision of: Dr. Luli Stein M.D. First contact with patient: 10:46 Chief Complaint: SHORTNESS OF BREATH Stated Complaint: SOB,PHYSICIAN REFERRED History of Present Illness The patient is a 62 year old white male with a past medical history of asthma, bronchitis, BPH, chronic obstructive lung disease, prostatitis, GERD, pulmonary nodules, and syncope who presents to the Emergency Room with complaints of persistent shortness of breath for the past 2.5 weeks. The patient also complaints that he got developed an ear ache in the same time period which " sent everything downhill." He has been coughing persistently as well, which is intermittently productive with a colored mucous. Source of History: patient Onset: 2.5 weeks ago Position: ear Quality: ache (earache) Timing: other (persistent) Associated Symptoms: + cough, + SOB Review of Systems See HPI for pertinent positives and negatives. A total of ten systems were reviewed and were otherwise negative. Past Medical & Surgical Medical Problems: (1) Anxiety (2) Asthma (3) Asthmatic bronchitis with acute exacerbation (4) Avascular necrosis of femoral head (5) BPH (benign prostatic hypertrophy) (6) Chronic obstructive lung disease (7) Chronic pain syndrome (8) Chronic prostatitis (9) Degenerative arthritis of cervical spine (10) Esophageal dysmotility (11) GERD (gastroesophageal reflux disease) (12) Pulmonary nodules (13) Syncope Surgical Problems: (1) History of ear surgery (2) History of elbow surgery (3) History of hernia repair (4) History of lung surgery (5) Hx of carpal tunnel repair (6) Hx of sinus surgery (7) Hx of tonsillectomy Family History Asthma FATHER SON Diabetes mellitus MOTHER Hypertension FATHER Social History Smoking Status: Never Smoker Alcohol Use: none Drug Use: none Marital Status: Housing Status: lives alone Occupation Status: employed Current/Historical Medications Scheduled Amoxicillin & Pot Clavulanate (Augmentin 875-125 mg), 1 TAB PO BID Diazepam (Valium), 5 MG PO TID Fluticasone Propionate (Nasal) (Flonase Allergy Relief), 2 SPRAYS LAN QAM Gabapentin (Neurontin), 100 MG PO TID Home O2 Therapy (Oxygen), 2 LITERS NA HS Mometasone Furoate-Formoterol (Dulera 200/5 Mcg), 2 PUFFS INH BID Nitroglycerin (Nitrostat), 0.3 MG UT PRN Ofloxacin (Otic) (Floxin Otic), 5 DROPS OT BID Prednisone (Prednisone), 50 MG PO DAILY Protein (Whey Protein), 4 CUP PO DAILY Scheduled PRN Albuterol (Ventolin Hfa), 2 PUFFS INH QID PRN for PRN Albuterol Sulf (Proventil 0.083% 2.5MG/3ML), 2.5 MG INH QID PRN for Wheezing Docusate Sodium (Colace), 1 CAP PO BID PRN for Constipation Oxycodone Hcl (Roxicodone), 15 MG PO Q8 PRN for Pain Allergies Coded Allergies: Acetaminophen (Verified Allergy, Unknown, hives, 01/16/18) Montelukast (Verified Adverse Reaction, Severe, MENTAL STATUS CHANGED, ) Zolpidem (Verified Adverse Reaction, Severe, MENTAL STATUS CHANGED, HALLUCINATIONS, 01/16/18) Physical Exam Vital Signs Date Time Temp Pulse Resp B/P (MAP) Pulse Ox O2 Delivery O2 Flow Rate FiO2 01/16/18 14:08 100 18 112/67 97 Room Air 01/16/18 13:34 62 01/16/18 12:27 62 15 111/73 94 Room Air 01/16/18 11:27 67 22 93 Room Air 01/16/18 10:59 69 01/16/18 10:49 93 01/16/18 10:49 93 Room Air 01/16/18 10:49 93 Room Air 01/16/18 10:37 36.8 83 22 101/70 90 Room Air Physical Exam GENERAL: Awake, alert, well-appearing, NAD HENT: Normocephalic, atraumatic. EYES: Normal conjunctiva. Sclera non-icteric. PERRL. No anisocoria. NECK: Supple. No nuchal rigidity. FROM. RESPIRATORY: Diffuse wheezing throughout, prolonged expiratory phase. no rhonchi, crackles CARDIAC: RRR, no MRG ABDOMEN: Soft, NTND, BS+ MSK: No chest wall TTP, no LE edema. No calf pain, negative Peggy's sign. NEURO: GCS 15, CN 2-12 intact, moves all 4s on command SKIN: No rash or jaundice noted. Medical Decision & Procedures Laboratory Results 01/16/18 11:05 Red Blood Count 4.13, Mean Corpuscular Volume 94.2, Mean Corpuscular Hemoglobin 31.7, Mean Corpuscular Hemoglobin Concent 33.7, Mean Platelet Volume 9.5, Neutrophils (%) (Auto) 59.4, Lymphocytes (%) (Auto) 24.4, Monocytes (%) (Auto) 9.5, Eosinophils (%) (Auto) 5.1, Basophils (%) (Auto) 1.5, Neutrophils # (Auto) 4.64, Lymphocytes # (Auto) 1.91, Monocytes # (Auto) 0.74, Eosinophils # (Auto) 0.40, Basophils # (Auto) 0.12 01/16/18 11:05 Test 01/16/18 11:05 01/16/18 13:07 White Blood Count 7.82 K/uL (4.8-10.8) Red Blood Count 4.13 M/uL (4.7-6.1) Hemoglobin 13.1 g/dL (14.0-18.0) Hematocrit 38.9 % (42-52) Mean Corpuscular Volume 94.2 fL (80-100) Mean Corpuscular Hemoglobin 31.7 pg (25-34) Mean Corpuscular Hemoglobin Concent 33.7 g/dl (32-36) Platelet Count 218 K/uL (130-400) Mean Platelet Volume 9.5 fL (7.4-10.4) Neutrophils (%) (Auto) 59.4 % Lymphocytes (%) (Auto) 24.4 % Monocytes (%) (Auto) 9.5 % Eosinophils (%) (Auto) 5.1 % Basophils (%) (Auto) 1.5 % Neutrophils # (Auto) 4.64 K/uL (1.4-6.5) Lymphocytes # (Auto) 1.91 K/uL (1.2-3.4) Monocytes # (Auto) 0.74 K/uL (0.11-0.59) Eosinophils # (Auto) 0.40 K/uL (0-0.5) Basophils # (Auto) 0.12 K/uL (0-0.2) RDW Standard Deviation 53.5 fL (36.4-46.3) RDW Coefficient of Variation 15.3 % (11.5-14.5) Immature Granulocyte % (Auto) 0.1 % Immature Granulocyte # (Auto) 0.01 K/uL (0.00-0.02) Prothrombin Time 9.8 SECONDS (9.0-12.0) Prothromb Time International Ratio 0.9 (0.9-1.1) Activated Partial Thromboplast Time 27.0 SECONDS (21.0-31.0) Partial Thromboplastin Ratio 1.0 Anion Gap 5.0 mmol/L (3-11) Est Creatinine Clear Calc Drug Dose 53.5 ml/min Estimated GFR () 86.1 Estimated GFR (Non- 74.3 BUN/Creatinine Ratio 15.0 (10-20) Calcium Level 9.5 mg/dl (8.5-10.1) Troponin I < 0.015 ng/ml (0-0.045) Pro-B-Type Natriuretic Peptide 56 pg/ml (0-900) Urine Color YELLOW Urine Appearance CLEAR (CLEAR) Urine pH 6.5 (4.5-7.5) Urine Specific [place] 1.011 (1.000-1.030) Urine Protein NEG (NEG) Urine Glucose (UA) NEG (NEG) Urine Ketones NEG (NEG) Urine Occult Blood TRACE (NEG) Urine Nitrite NEG (NEG) Urine Bilirubin NEG (NEG) Urine Urobilinogen NEG (NEG) Urine Leukocyte Esterase NEG (NEG) Urine WBC (Auto) 0 /hpf (0-5) Urine RBC (Auto) 0-4 /hpf (0-4) Urine Hyaline Casts (Auto) 0 /lpf (0-5) Urine Epithelial Cells (Auto) 0-5 /lpf (0-5) Urine Bacteria (Auto) NEG (NEG) Laboratory results reviewed by me Medications Administered Medications (Trade) Dose Ordered Sig/Davie Route Start Time Stop Time Status Last Admin Dose Admin Albuterol/ Ipratropium (Duoneb) 9 ml NOW STAT INH 01/16/18 11:02 01/16/18 11:05 DC 01/16/18 11:25 9 ML Methylprednisolone Sodium Succinate (Solu-Medrol IV) 125 mg NOW STAT IV 01/16/18 11:02 01/16/18 11:05 DC 01/16/18 11:14 125 MG Amoxicillin/ Clavulanate Potassium (Augmentin Tab) 875 mg NOW ONCE PO 01/16/18 11:15 7/27/18 11:16 DC 01/16/18 11:13 875 MG Sodium Chloride 500 ml @ 500 mls/hr Q1H STAT IV 01/16/18 11:02 01/16/18 12:01 DC 01/16/18 11:02 500 MLS/HR Morphine Sulfate (MoRPHine SULFATE INJ) 4 mg NOW STAT IV 01/16/18 11:02 01/16/18 11:06 DC 01/16/18 11:13 4 MG Morphine Sulfate (MoRPHine SULFATE INJ) 4 mg NOW STAT IV 01/16/18 14:18 01/16/18 14:19 DC 01/16/18 14:26 4 MG ECG Per My Interpretation Indication: SOB/dyspnea Rate (beats per minute): 62 Rhythm: normal sinus Findings: other (Normal axis, normal intervals, no STS or TWI) ED Course 1058: The patient was evaluated in room C10. A complete history and physical exam was performed. 1405: I reevaluated the patient. Discussed results and discharge instructions: He verbalized understanding and agreement. The patient is ready for discharge. Medical Decision The patient is a 62 year old white male with a past medical history of asthma, bronchitis, BPH, chronic obstructive lung disease, prostatitis, GERD, pulmonary nodules, and syncope who presents to the Emergency Room with complaints of persistent shortness of breath for the past 2.5 weeks. Nursing notes reviewed. Ancillary studies and prior records reviewed. Differential diagnosis: Etiologies such as infections, reactive airway disease, pneumonia, pneumothorax , COPD, CHF, cardiac ischemia, pulmonary embolism, musculoskeletal, gastrointestinal, as well as others were entertained. Patient was seen and evaluated the bedside. Patient has been complaining some shortness of breath. On exam the patient does have diffuse wheezing. The patient is not tachypneic, tachycardic, nor hypoxic. Patient has no lower extremity edema or calf pain. Less likely PE or DVT based on patient's history and physical exam. Patient has a low well score less likely PE. Patient's EKG is unremarkable and without an elevated troponin less likely ACS. Upon reexamination the patient's breathing is improved. Patient was counseled on warning precautions for which to return. The patient did have an ear wick placed and the patient was given a prescription for Augmentin which will have reasonable chest coverage in addition to the ear. The patient was also given otic drops. Patient was given strict follow-up, discharge, and return precautions. All questions were answered. Patient was deemed suitable for outpatient follow-up at this time. Patient agreed with the plan of care and was safely discharged home. Medication Reconcilliation Current Medication List: was personally reviewed by me Blood Pressure Screening Patient's blood pressure: Normal blood pressure Impression Primary Impression: COPD exacerbation Additional Impression: Otitis externa Scribe Attestation The scribe's documentation has been prepared under my direction and personally reviewed by me in its entirety. I confirm that the note above accurately reflects all work, treatment, procedures, and medical decision making performed by me. Departure Information Dispostion Home / Self-Care Prescriptions Ofloxacin (Otic) (FLOXIN OTIC) 0.3 % Radu 5 DROPS OT BID for 7 Days, #10 ML Prov: Jamie Hoff M.D. 01/16/18 Amoxicillin & Pot Clavulanate (Augmentin 875-125 mg) 1 Tab Tab 1 TAB PO BID for 7 Days, #14 TAB Prov: Jamie Hoff M.D. 01/16/18 Prednisone (PREDNISONE) 50 Mg Tab 50 MG PO DAILY for 4 Days, #44 TAB Prov: Jamie Hoff M.D. 01/16/18 Referrals No Doctor, Assigned (PCP) Patient Instructions COPD Dc, My [facility] Additional Instructions Please return to the emergency department if you have worsening or recurrent symptoms not amenable to at-home treatment. Please call for a follow-up appointment with her primary care physician. Please take your medications as prescribed. If you have other concerns and/or complaints please feel free to also call your primary care physician's office or return the ED for further evaluation, management, and treatment. You may take tylenol 650 mg every 6 hours as needed for pain/fever unless told by your physician to not take it or have liver problems. Take your medications as prescribed. If taking an antibiotic please consider taking with food. He may also consider eating with a yogurt and/or probiotics. Please take your steroids preferably in the morning and with food as they may cause some upset stomach and cause you to be very awake and alert. You have been examined and treated today on an emergency basis only. This is not a substitute for, or an effort to provide, complete comprehensive medical care. It is impossible to recognize and treat all injuries or illnesses in a single emergency department visit. It is therefore important that you follow up closely with [facility], your PCP, and/or your specialist(s). Call as soon as possible for an appointment. Thank you for your time and consideration. I look forward to speaking with you again soon. Please don't hesitate to call us if you have any questions. Problem Qualifiers Additional Impression: Otitis externa Otitis externa type: diffuse Chronicity: acute Laterality: left Qualified Codes: H60.312 - Diffuse otitis externa, left ear
[2018-01-16 11:27] VITALS: PULSE 67; O2SAT 93
[2018-01-16 11:31] LABS: BASO % 1.5 %; BASO ABS # 0.12 K/uL (0-0.2); EOS % 5.1 %; HEMATOCRIT 38.9 % (42-52); HEMOGLOBIN 13.1 g/dL (14.0-18.0); IG# 0.01 K/uL (0.00-0.02); LYMPH % 24.4 %; LYMPH ABS # 1.91 K/uL (1.2-3.4); MEAN CELL VOLUME 94.2 fL (80-100); MEAN CORPUSCULAR HEMOGLOBIN 31.7 pg (25-34); MEAN CORPUSCULAR HGB CONC 33.7 g/dl (32-36); MEAN PLATELET VOLUME 9.5 fL (7.4-10.4); MONO % 9.5 %; MONO ABS # 0.74 K/uL (0.11-0.59); NEUT % 59.4 %; NEUT ABS # 4.64 K/uL (1.4-6.5); PLATELET COUNT 218 K/uL (130-400); RED CELL DISTRIBUTION WIDTH CV 15.3 % (11.5-14.5); RED CELL DISTRIBUTION WIDTH SD 53.5 fL (36.4-46.3); WHITE BLOOD COUNT 7.82 K/uL (4.8-10.8)
[2018-01-16 11:46] LABS: INR 0.9 (0.9-1.1)
[2018-01-16 11:54] LABS: BLOOD UREA NITROGEN 16 mg/dl (7-18); CALCIUM 9.5 mg/dl (8.5-10.1); CARBON DIOXIDE 29 mmol/L (21-32); CREATININE 1.06 mg/dl (0.60-1.40); GLUCOSE 110 mg/dl (70-99); POTASSIUM 4.1 mmol/L (3.5-5.1); SODIUM 139 mmol/L (136-145)
[2018-01-16] MEDS ORDERED: GABA-112 PO (13:20)
[2018-01-16] MEDS ORDERED: NTRSL3 UT (13:20)
[2018-01-16] MEDS ORDERED: PRED50TA PO (13:25)
[2018-01-16] MEDS ORDERED: OFLO0.3D4 OT (13:25)
[2018-01-16] MEDS ORDERED: AMOX875T PO (13:25)
[2018-01-16 14:08] VITALS: BP 112/67; PULSE 100; O2SAT 97
--- NOTE | 2018-01-19 11:48 | DIAGNOSTIC IMAGING REPORT ---
CHEST ONE VIEW PORTABLE CLINICAL HISTORY: sob COMPARISON STUDY: 09/18/2016 FINDINGS: The heart is normal in size. There is no failure. There is no focal pulmonary consolidation. There are no pleural effusions. There is very slight thickening of interstitial markings, finding unchanged from prior studies.[ IMPRESSION: No active disease in the chest. Electronically signed by: Manoj Feng M.D. 01/19/2018 11:47 AM Dictated Date/Time: 01/19/2018 11:44 AM
== END 2018-01-16 14:34 | disposition home or self-care (01) ==
LOC: C.EDB 10:36 → C.EDC 14:34
DX: J44.1 Chronic obstructive pulmonary disease with (acute) exacerbation (principal); H60.312 Diffuse otitis externa, left ear; N40.0 Benign prostatic hyperplasia without lower urinary tract symptoms; K21.9 Gastro-esophageal reflux disease without esophagitis; Z79.899 Other long term (current) drug therapy; Z99.81 Dependence on supplemental oxygen; Z88.6 Allergy status to analgesic agent; Z88.8 Allergy status to other drugs, medicaments and biological substances

== ENCOUNTER 2018-02-13 15:11 | Emergency (ER) | payer OTHER ==
[~2018-02-13] VITALS: Ht 165.1 cm; Wt 51.5 kg
[~2018-02-13 15:11] MED LIST changes: +GABA-112 PO; +NTRSL3 UT; +OFLO0.3D4 OT
[2018-02-13 15:31] VITALS: TEMP 36.5; Ht 165.1 cm; Wt 51.5 kg
[2018-02-13] MEDS ORDERED: METHYLPREDNISOLONE 125 MG VIAL IV STA (16:46)
[2018-02-13] MEDS ORDERED: FAMOTIDINE 20MG/5ML IV PUSH IV STA (16:46)
[2018-02-13] MEDS ORDERED: SODIUM CHLORIDE 0.9% 1000ML 1,000 ML IV STA (16:46)
[2018-02-13] MEDS ORDERED: DiphenhydrAMINE HCL 50 MG/ML VIAL IV STA (16:46)
[2018-02-13] MEDS ORDERED: ALBUT/IPRATROP 3MG/0.5MG NEB 3 ML VIAL INH ONE (17:00)
[2018-02-13] MEDS ORDERED: FLUT1INH PO (17:11)
[2018-02-13 17:35] VITALS: O2SAT 97
[2018-02-13 17:35] LABS: BASO % 0.1 %; BASO ABS # 0.01 K/uL (0-0.2); EOS % 3.5 %; EOS ABS # 0.26 K/uL (0-0.5); HEMOGLOBIN 13.6 g/dL (14.0-18.0); IG# 0.02 K/uL (0.00-0.02); LYMPH % 14.8 %; LYMPH ABS # 1.11 K/uL (1.2-3.4); MEAN CELL VOLUME 94.5 fL (80-100); MEAN CORPUSCULAR HEMOGLOBIN 31.3 pg (25-34); MEAN CORPUSCULAR HGB CONC 33.2 g/dl (32-36); MEAN PLATELET VOLUME 10.2 fL (7.4-10.4); MONO % 13.2 %; MONO ABS # 0.99 K/uL (0.11-0.59); NEUT % 68.1 %; PLATELET COUNT 212 K/uL (130-400); RED CELL DISTRIBUTION WIDTH CV 15.2 % (11.5-14.5); RED CELL DISTRIBUTION WIDTH SD 52.6 fL (36.4-46.3); WHITE BLOOD COUNT 7.49 K/uL (4.8-10.8)
[2018-02-13 17:37] VITALS: PULSE 87; O2SAT 97
[2018-02-13 18:05] LABS: ALBUMIN 4.1 gm/dl (3.4-5.0); CREATININE 1.09 mg/dl (0.60-1.40); POTASSIUM 4.5 mmol/L (3.5-5.1); TOTAL PROTEIN 7.2 gm/dl (6.4-8.2)
--- NOTE | 2018-02-13 19:00 | DIAGNOSTIC IMAGING REPORT ---
CHEST 2 VIEWS ROUTINE HISTORY: 62 years-old Male SOB, COPD acute shortness of breath COMPARISON: Chest radiograph 01/16/2018 TECHNIQUE: PA and lateral views of the chest FINDINGS: Cardiomediastinal and hilar silhouettes are within normal limits. Lungs are hyperinflated without pneumothorax, pleural effusion, focal airspace consolidation or overt pulmonary edema. Bones of the chest appear grossly intact. Mild likely chronic age-indeterminate anterior wedging of a mid thoracic segment. IMPRESSION: Hyperinflation without acute process. The above report was generated using voice recognition software. It may contain grammatical, syntax or spelling errors. Electronically signed by: Stefan Bernard M.D. 02/13/2018 6:59 PM Dictated Date/Time: 02/13/2018 6:57 PM
[2018-02-13] MEDS ORDERED: PRED20TA2 PO (19:57)
--- NOTE | 2018-02-13 19:57 | EMERGENCY ROOM VISIT NOTE ---
ED Visit Note First contact with patient: 16:31 CHIEF COMPLAINT: Hives, shortness of breath HISTORY OF PRESENTING ILLNESS: This is a 62-year-old male who presents to the emergency department by private vehicle with complaint of hives all over his body that started yesterday. He states that the hives started on his chest and have spread to his back, arms, and legs. The hives are very itchy. He has been taking Benadryl periodically to help with the hives, but this does not seem to be making much difference. He denies any facial swelling, lip or tongue swelling, or throat tightness. He reports a history of idiopathic hives in the past that were thought to be stress-induced, he states this seems very similar to that, although he has not had these hives for several years. He does state that he has been having increased stress lately because he has not been able to work because of his COPD. He is worried about losing his job. He also has been feeling short of breath for the past 3 weeks, he states that he did have a flare of his COPD recently and was treated with a course of antibiotics and prednisone which he finished a week ago, and he feels that his breathing has gotten significantly better but he has not completely returned to his baseline. He denies any fevers or chills, headache, dizziness or syncope, chest pain, back pain, abdominal pain, nausea or vomiting, urinary symptoms. He denies any new soaps, detergents, lotions, foods, medications, or environmental factors that would explain his hives. REVIEW OF SYSTEMS: A complete 10 point review of systems was reviewed with the patient with pertinent positives and negatives as per history of present illness. All else were negative. PAST MEDICAL HISTORY: Reviewed in the chart, see problem list below. SOCIAL HISTORY: Lives at home. He denies tobacco use. ALLERGIES: Reviewed in the chart, see below. PHYSICAL EXAM: CONSTITUTIONAL: Pleasant and cooperative. No acute distress. Moderately dehydrated. Well appearing and well nourished. HEENT: Normocephalic, atraumatic. Pupils equal, round and reactive to light, EOMI. TMs normal. Pharynx normal. Dry mucous membranes. NECK: Supple, full active range of motion without discomfort. RESPIRATORY: Diminished throughout with diffuse expiratory wheezes bilaterally. No crackles, rhonchi, or stridor. No labored breathing, not tachypneic, no accessory muscle use. Equal expansion bilaterally. CARDIOVASCULAR: Regular rate and rhythm with no murmurs, rubs or gallops. Normal peripheral perfusion. No edema. GASTROINTESTINAL: Soft, nontender, nondistended. No palpable masses or HSM. Bowel sounds present in all quadrants. MUSCULOSKELETAL: Full range of motion of all joints without discomfort. INTEGUMENTARY: There is a diffuse urticarial rash noted to the torso, arms, and legs. Patient reports that it is pruritic. No vesicles, pustules, blistering, or sloughing of the skin. The rash blanches. No appearance of secondary cellulitis. NEUROLOGIC: Alert and oriented X 4 with normal affect. Normal strength and sensation in all 4 extremities. No focal neurologic deficits noted. Normal speech. Normal gait observed. ED COURSE AND MEDICAL DECISION MAKING: CC: Patient presenting with complaint of hives, shortness of breath DIFFERENTIAL DIAGNOSIS: Includes, but not limited to hives, allergic reaction, anaphylaxis, COPD exacerbation, pneumonia, bronchitis, dehydration, among others. INTERPRETATION OF LABS: No leukocytosis, mild anemia, normal platelets, no significant electrolyte abnormalities, normal renal function, normal liver enzymes. IMAGING: CHEST 2 VIEWS ROUTINE HISTORY: 62 years-old Male SOB, COPD acute shortness of breath COMPARISON: Chest radiograph 01/16/2018 TECHNIQUE: PA and lateral views of the chest FINDINGS: Cardiomediastinal and hilar silhouettes are within normal limits. Lungs are hyperinflated without pneumothorax, pleural effusion, focal airspace consolidation or overt pulmonary edema. Bones of the chest appear grossly intact. Mild likely chronic age-indeterminate anterior wedging of a mid thoracic segment. IMPRESSION: Hyperinflation without acute process. EKG: Shows normal sinus rhythm with rate of 78 bpm, no acute ST or T-wave changes, no ectopy, no significant changes when compared to previous EKG from by my interpretation. MEDICATION RECONCILIATION: I attest that I have personally reviewed the patient 's current medication list. INITIAL VITAL SIGNS REVIEW: I reviewed the patient's initial vital signs and interpret them as follows: T: Afebrile; BP: Hypertensive; HR: Within normal limits; RR: Within normal limits; Pulse Ox: Within normal limits on room air. Blood pressure screening: The patient was found to have an elevated blood pressure, which was felt to be situational. SUMMARY: Patient was evaluated at bedside, history and physical exam performed. Patient is alert and oriented, in no acute distress, resting calmly in stretcher. Lungs are diminished bilaterally with diffuse expiratory wheezes, but patient does not appear labored, tachypneic, or in any respiratory distress and he is not hypoxic. Patient has a diffuse urticarial rash consistent with hives. There is no facial , periorbital or perioral swelling, airway patent. EKG reviewed at bedside, no acute ischemic changes. Orders were placed at bedside for labs, IV fluids for hydration, IV Benadryl, IV Pepcid, IV Solu-Medrol to treat hives, DuoNeb hour-long, chest x-ray to evaluate for cardiopulmonary disease. Patient discussed with Dr. Jeffries, who agrees with my assessment and plan. Labs and imaging reviewed as above, no evidence of pneumonia on the chest x- ray. Labs are unremarkable. Patient reassessed multiple times throughout ED stay, he has remained stable, well-appearing, and states he is feeling much better after treatment. Lung sounds have improved with the DuoNeb. His rash appears to be improved as well. Patient was updated on all results and plan for discharge, he was encouraged to follow closely with his PCP. Rx for prednisone taper sent to the pharmacy, patient was educated regarding this medication. He was also encouraged to continue using his rescue inhaler until his breathing returns to baseline. Patient was also given strict return precautions should his symptoms worsen, he verbalized understanding. Patient was discharged home in stable condition and ambulatory. Problem List Medical Problems: (1) Anxiety Status: Chronic (2) Asthma Status: Chronic (3) Avascular necrosis of femoral head Status: Chronic (4) BPH (benign prostatic hypertrophy) Status: Chronic (5) Chronic obstructive lung disease Status: Chronic (6) Chronic pain syndrome Status: Chronic (7) Chronic prostatitis Status: Chronic (8) Degenerative arthritis of cervical spine Status: Chronic (9) Esophageal dysmotility Status: Chronic (10) GERD (gastroesophageal reflux disease) Status: Chronic (11) Pulmonary nodules Permanent Comment: [facility] 01/02/15 Status: Chronic Surgical Problems: (1) History of ear surgery Status: Chronic (2) History of elbow surgery Status: Chronic (3) History of hernia repair Status: Chronic (4) History of lung surgery Status: Chronic (5) Hx of carpal tunnel repair Status: Chronic (6) Hx of sinus surgery Status: Chronic (7) Hx of tonsillectomy Status: Chronic Current/Historical Medications Scheduled Diazepam (Valium), 5 MG PO TID Fluticasone Propionate (Nasal) (Flonase Allergy Relief), 2 SPRAYS LAN QAM Gabapentin (Neurontin), 100 MG PO TID Home O2 Therapy (Oxygen), 2 LITERS NA HS Nitroglycerin (Nitrostat), 0.3 MG UT PRN Prednisone (Prednisone Tab), 0 PO DAILY Protein (Whey Protein), 4 CUP PO DAILY Scheduled PRN Albuterol (Ventolin Hfa), 2 PUFFS INH QID PRN for PRN Albuterol Sulf (Proventil 0.083% 2.5MG/3ML), 2.5 MG INH QID PRN for Wheezing Fluticasone Furoate-Vilanterol (Breo Ellipta), 1 INHA PO UD PRN for Shortness of Breath Oxycodone Hcl (Roxicodone), 15 MG PO Q8 PRN for Pain Allergies Coded Allergies: Acetaminophen (Verified Allergy, Unknown, hives, 02/13/18) Montelukast (Verified Adverse Reaction, Severe, MENTAL STATUS CHANGED, ) Zolpidem (Verified Adverse Reaction, Severe, MENTAL STATUS CHANGED, HALLUCINATIONS, 02/13/18) Vital Signs Date Time Temp Pulse Resp B/P (MAP) Pulse Ox O2 Delivery O2 Flow Rate FiO2 02/13/18 20:11 75 18 125/77 100 02/13/18 18:25 77 15 128/88 100 Nebulizer 7.0 02/13/18 17:37 87 17 97 Room Air 02/13/18 17:35 97 Room Air 02/13/18 17:29 75 15 123/77 97 Room Air 02/13/18 16:50 80 02/13/18 15:35 95 Room Air 02/13/18 15:31 36.5 78 18 151/77 95 Room Air Laboratory Results 02/13/18 16:51 Red Blood Count 4.34, Mean Corpuscular Volume 94.5, Mean Corpuscular Hemoglobin 31.3, Mean Corpuscular Hemoglobin Concent 33.2, Mean Platelet Volume 10.2, Neutrophils (%) (Auto) 68.1, Lymphocytes (%) (Auto) 14.8, Monocytes (%) (Auto) 13.2, Eosinophils (%) (Auto) 3.5, Basophils (%) (Auto) 0.1, Neutrophils # (Auto ) 5.10, Lymphocytes # (Auto) 1.11, Monocytes # (Auto) 0.99, Eosinophils # (Auto ) 0.26, Basophils # (Auto) 0.01 02/13/18 16:51 Test 02/13/18 16:51 White Blood Count 7.49 K/uL (4.8-10.8) Red Blood Count 4.34 M/uL (4.7-6.1) Hemoglobin 13.6 g/dL (14.0-18.0) Hematocrit 41.0 % (42-52) Mean Corpuscular Volume 94.5 fL (80-100) Mean Corpuscular Hemoglobin 31.3 pg (25-34) Mean Corpuscular Hemoglobin Concent 33.2 g/dl (32-36) Platelet Count 212 K/uL (130-400) Mean Platelet Volume 10.2 fL (7.4-10.4) Neutrophils (%) (Auto) 68.1 % Lymphocytes (%) (Auto) 14.8 % Monocytes (%) (Auto) 13.2 % Eosinophils (%) (Auto) 3.5 % Basophils (%) (Auto) 0.1 % Neutrophils # (Auto) 5.10 K/uL (1.4-6.5) Lymphocytes # (Auto) 1.11 K/uL (1.2-3.4) Monocytes # (Auto) 0.99 K/uL (0.11-0.59) Eosinophils # (Auto) 0.26 K/uL (0-0.5) Basophils # (Auto) 0.01 K/uL (0-0.2) RDW Standard Deviation 52.6 fL (36.4-46.3) RDW Coefficient of Variation 15.2 % (11.5-14.5) Immature Granulocyte % (Auto) 0.3 % Immature Granulocyte # (Auto) 0.02 K/uL (0.00-0.02) Anion Gap 9.0 mmol/L (3-11) Est Creatinine Clear Calc Drug Dose 50.5 ml/min Estimated GFR () 83.3 Estimated GFR (Non- 71.9 BUN/Creatinine Ratio 17.4 (10-20) Calcium Level 9.0 mg/dl (8.5-10.1) Total Bilirubin 0.5 mg/dl (0.2-1) Aspartate Amino Transf (AST/SGOT) 38 U/L (15-37) Alanine Aminotransferase (ALT/SGPT) 27 U/L (12-78) Alkaline Phosphatase 55 U/L (45-117) Total Protein 7.2 gm/dl (6.4-8.2) Albumin 4.1 gm/dl (3.4-5.0) Globulin 3.1 gm/dl (2.5-4.0) Albumin/Globulin Ratio 1.3 (0.9-2) Chemistry Specimen Hemolysis Medications Administered Medications (Trade) Dose Ordered Sig/Davie Route Start Time Stop Time Status Last Admin Dose Admin Sodium Chloride 1,000 ml @ 999 mls/hr Q1H1M STAT IV 02/13/18 16:46 02/13/18 17:46 DC 02/13/18 17:29 999 MLS/HR Albuterol/ Ipratropium (Duoneb) 12 ml ONE ONCE INH 02/13/18 17:00 02/13/18 17:01 DC 02/13/18 17:36 12 ML Diphenhydramine HCl (Benadryl Inj) 50 mg NOW STAT IV 02/13/18 16:46 02/13/18 16:49 DC 02/13/18 17:29 50 MG Famotidine (Pepcid 20mg Iv Push) 20 mg ONE STAT IV 02/13/18 16:46 02/13/18 16:49 DC 02/13/18 17:29 20 MG Methylprednisolone Sodium Succinate (Solu-Medrol IV) 125 mg NOW STAT IV 02/13/18 16:46 02/13/18 16:49 DC 02/13/18 17:29 125 MG Departure Information Impression Primary Impression: COPD exacerbation Additional Impression: Full body hives Dispostion Home / Self-Care Condition GOOD Prescriptions Prednisone (Prednisone Tab) 20 Mg Tab 0 PO DAILY, #18 TAB 3 DAILY FOR 3 DAYS, THEN 2 DAILY FOR 3 DAYS, THEN 1 DAILY FOR 3 DAYS. Prov: Layla Juan CRNP 02/13/18 Referrals Randy Smart M.D. (PCP) Patient Instructions ED COPD Flare, ED Urticaria, [facility] Additional Instructions You have been evaluated in the emergency department for your cough/wheezing and hives There is no evidence of pneumonia on your chest x-ray. You are being placed on antibiotics because you are a smoker and at higher risk for infection. You have been prescribed prednisone taper to be taken for the next 9 days. Take as directed. This is to help with your COPD and with your hives. You should continue to take Benadryl (diphenhydramine) 25-50 mg orally every 4- 6 hours as needed for itching or hives for the next several days. Use your albuterol inhaler TWO puffs every 4 hours as needed for cough, wheezing , chest tightness. You should also use this before bed to help prevent coughing so that you can sleep better at night. For chest pain, you can use the following [id number] medicines (if >12 yo) : - Regular strength (325mg/tab) Tylenol (acetaminophen) 2 tabs every 4-6 hours as needed. Do not exceed 10 tablets in a 24 hour period. Avoid taking more than 3000 mg of Tylenol per day. This includes any other sources of acetaminophen you may take on a regular basis. - Regular strength (200 mg/tab) Advil (ibuprofen) 3 tabs every 6-8 hours as needed. Do not exceed a dose of 2400 mg per day. - For best results, alternate dosing of Tylenol and Advil. Drink plenty of fluids to stay well hydrated. Please follow-up with your primary care provider in the next few days to be rechecked. Please return to the emergency department if your symptoms worsen, including severe shortness of breath, wheezing, or inability to catch her breath, tongue or face swelling, tightness in your throat, severe dizziness or passing out, chest pain, coughing up blood, development of fevers, or any other concerns. Work Instructions Return To Work: 2 days Problem Qualifiers
[2018-02-13 20:11] VITALS: BP 125/77; PULSE 75; O2SAT 100
== END 2018-02-13 20:08 | disposition home or self-care (01) ==
LOC: C.EDB 15:12 → C.EDA 20:08
DX: L50.9 Urticaria, unspecified (principal); J44.1 Chronic obstructive pulmonary disease with (acute) exacerbation; E86.0 Dehydration; F41.9 Anxiety disorder, unspecified; J45.909 Unspecified asthma, uncomplicated; N40.0 Benign prostatic hyperplasia without lower urinary tract symptoms; G89.29 Other chronic pain; M46.92 Unspecified inflammatory spondylopathy, cervical region; K21.9 Gastro-esophageal reflux disease without esophagitis; Z79.899 Other long term (current) drug therapy; Z88.6 Allergy status to analgesic agent; Z88.8 Allergy status to other drugs, medicaments and biological substances

== ENCOUNTER 2021-01-15 17:01 | Inpatient (IN) ==
[2021-01-15 21:28] LABS: Basophils # (auto) 0.06 K/uL (0-0.2); Basophils % (auto) 1.1 %; Eosinophils # (auto) 0.27 K/uL (0-0.5); Eosinophils % (auto) 4.7 %; Hematocrit (blood only) 42.5 % (42-52); Hemoglobin 14.3 g/dL (14.0-18.0); Immature Granulocytes # (auto) 0.01 K/uL (0.00-0.02); Immature Granulocytes % (auto) 0.2 %; Lymphocytes # (auto) 2.02 K/uL (1.2-3.4); Lymphocytes % (auto) 35.4 %; Mean Corpuscular Hemoglobin 30.9 pg (25-34); Mean Corpuscular Hgb Conc 33.6 g/dL (32-36); Mean Corpuscular Volume 91.8 fL (80-100); Mean Platelet Volume 9.1 fL (7.4-10.4); Monocytes % (auto) 12.3 %; Neutrophils # (auto) 2.64 K/uL (1.4-6.5); Neutrophils % (auto) 46.3 %; Platelet Count 332 K/uL (130-400); RDW Coefficient of Variation 15.1 % (11.5-14.5); RDW Standard Deviation 51.3 fL (36.4-46.3); Red Blood Count 4.63 M/uL (4.7-6.1)
[2021-01-15] MEDS ORDERED: methylPREDNISolone 125 MG/2 ML VIAL IV STA (21:30)
[2021-01-15] MEDS ORDERED: ALBUT/IPRATROP 3MG/0.5MG NEB 3 ML VIAL NEB ONE (21:31)
[2021-01-15] MEDS ORDERED: SODIUM CHLORIDE 0.9% 1000ML 500 ML IV ONE (21:34)
[2021-01-15] MEDS ORDERED: DOXYCYCLINE HYCLATE 100 MG CAP PO STA (21:34)
--- NOTE | 2021-01-15 21:47 | Emergency Department Note ---
Impression & Plan Acute exacerbation of chronic obstructive pulmonary disease (COPD), RAMIREZ (dyspnea on exertion) ED Provider Note Provider: Denton Rubio MD DATE OF SERVICE: 01/15/2021 CHIEF COMPLAINT: Shortness of breath HISTORY OF PRESENT ILLNESS: Patient is a 65-year-old gentleman history of COPD, bladder issues/BPH, GERD, esophageal dysmotility presenting here today stating over the past approximately 3 days worsening shortness of breath with exertion. Reports he gets winded with any movement and has now been using his oxygen at night during the day. States he been using nebulized without much improvement. States has not been able to eat much since yesterday morning or take his medicines due to his throat dysfunction. Normally takes Valium to help with this. As he has not eaten his throat feels dry. He has been unable to take this medicine. Patient's he feels anxious but is also been unable to take his Valium today. Patient denies significant abdominal pain but states he is feeling again very weak as he cannot ambulate due to his breathing issues. Denies recent ill exposure. States occasionally gets a little left ankle swelling in the morning but that is not present currently. REVIEW OF SYSTEMS: A total of 10 review of systems was obtained and negative except as stated above in the HPI. 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 Thin in appearance Head: normocephalic and atraumatic EYES: No injection, discharge or icterus. NECK: Trachea midline. LUNGS: Airway patent. No retractions but some tachypnea. Diffuse wheeze appreciated on exam. HEART: Regular rate and rhythm. No chest wall tenderness ABDOMEN: Soft and non-tender, without guarding or rebound. SKIN: Acyanotic, warm, dry, without rashes EXTREMITIES: Without swelling, tenderness or deformity. NEUROLOGICAL: No focal deficits. No aphasia. No facial droop or slurred speech. EK bpm normal sinus rhythm. No PVC or PAC. No acute ST segment elevation or depression. QTC 409. CONTINUOUS CARDIAC MONITORING: was ordered and showed a heart rate of 70s to 90s bpm in normal sinus rhythm 1 view chest x-ray per interpretation: No evidence of pneumonia or pneumothorax. No effusion or cardiomegaly noted. Patient's laboratory studies and imaging reviewed. Differential includes Reactive airway disease, pneumonia, pneumothorax, COPD, CHF, infections, cardiac ischemia, pulmonary embolism, musculoskeletal, gastr ointestinal, as well as other pathologies. IMPRESSION/MEDICAL DECISION MAKING: Patient with significant wheeze and apparent COPD exacerbation. Not hypoxic here given his significant wheeze lower suspicion for acute PE as I feel this is more COPD related. Dyspnea on exertion. Legs not swollen does not seem consistent with acute CHF or DVT. EKG and labs were sent. Chest x-ray without evidence per my interpretation of pneumonia. Given doxycycline for bronchitis coverage. Given a dose of steroid here as well as Valium to help with his esophageal dysmotility. Nebulizer treatment given. Give a small IV fluid bolus. Benign abdomen. Lower suspicion for ACS at this time. Covid testing was sent although likely this is more consistent with a COPD flare. Covid testing negative. Given the severity of his breathing issues as well as his weakness and ambulatory dysfunction from the breathing feel that further care here at the hospital is indicated. Patient later complained of little bit of neck pain and chronically is on oxycodone for this. Given dose of his home oxycodone here. Hospitalist contacted. DIAGNOSIS: COPD exacerbation, dyspnea on exertion DISPOSITION: Hospitalist will evaluate Patient was agreeable with this plan. Past Med/Surg History Medical History Anxiety Asymptomatic microscopic hematuria Avascular necrosis of femoral head BPH (benign prostatic hypertrophy) Chronic hip pain Chronic neck pain Chronic obstructive pulmonary disease Chronic pain syndrome Emphysema of lung Esophageal dysmotility GERD (gastroesophageal reflux disease) Hearing deficit History of kidney stones Medical marijuana use On home oxygen therapy Pneumonia Status asthmaticus Surgical History History of bronchoscopy History of cardiac cath History of carpal tunnel surgery of left wrist History of colonoscopy with polypectomy History of ear surgery History of elbow surgery History of esophagogastroduodenoscopy (EGD) History of sinus surgery History of surgery on arm History of tonsillectomy and adenoidectomy History of tooth extraction Hx of hernia repair Family History Father Nephrolithiasis Asthma Mother Family history of diabetes mellitus Diabetes Grandfather (Paternal) Alzheimer disease Other No family history of adverse response to anesthesia Social History Smoking Status: Never smoker Tobacco Type: Cigarettes Second Hand Exposure: No; Hx Alcohol Use: No Hx Substance Use: Yes (smokes marijuana for sleep--medical marijuana card) Preferred Language: [place] Communication Ability: Effective Trial Manager Required: No Beliefs That Will Affect Care: None marital status: / Current Living Situation: Alone Feels Safe at Home: Yes Assistive Devices: Denture - Upper and Oxygen - at Night Allergies Allergies Allergy/AdvReac Type Severity Reaction Status Date / Time clidinium Allergy Intermediate Rash Verified 01/15/21 21:55 [From Librax (with clidinium)] acetaminophen Allergy Mild hives/itchy Verified 01/15/21 21:55 chlordiazepoxide Allergy Mild Rash Verified 01/15/21 21:55 [From Librax (with clidinium)] codeine Allergy Mild Rash Verified 01/15/21 21:55 [From Tylenol-Codeine] latex Allergy Mild Rash Verified 01/15/21 21:55 montelukast AdvReac Severe MENTAL Verified 01/15/21 21:55 STATUS CHANGED zolpidem AdvReac Severe MENTAL Verified 01/15/21 21:55 STATUS CHANGED,HALLUCINATIONS budesonide [From Symbicort] AdvReac Intermediate caused Verified 01/15/21 21:55 vision problems formoterol [From Symbicort] AdvReac Intermediate caused Verified 01/15/21 21:55 vision problems Home Meds Home Medications Medication Instructions Recorded Confirmed albuterol sulfate 2.5 mg CONTINUOUS NEBULIZATION Q4H 06/02/18 01/15/21 PRN diazepam 5 mg tablet 5 mg PO TID 06/02/18 01/15/21 gabapentin 100 mg capsule 100 mg PO HS PRN 06/02/18 01/15/21 albuterol sulfate 90 mcg/actuation 2 puff INHALATION QID PRN 11/09/18 01/15/21 aerosol inhaler (ProAir HFA) nitroglycerin 0.3 mg sublingual 0.3 mg SUBLINGUAL UD PRN 03/07/19 01/15/21 tablet (Nitrostat) oxycodone 15 mg tablet 15 mg PO Q8H PRN 01/23/20 01/15/21 Portable Oxygen #1 ea 02/11/20 02/18/20 diphenhydramine HCl 25 mg tablet 25 mg PO DAILY PRN 04/13/20 01/15/21 (Benadryl Allergy) finasteride 5 mg tablet 5 mg PO QAM 04/13/20 01/15/21 Results & Data (ED) Vital Signs Vital Signs - 24 hr 01/15/21 17:06 01/15/21 20:40 01/15/21 21:00 Temperature 36.8 C Temperature Source Temporal Artery Scan Pulse Rate 80 82 74 Pulse Rate [Right Radial] Pulse Rate from SpO2 Sensor 92 H 75 Pulse Rhythm Regular Pulse Strength Normal Respiratory Rate 26 H 22 13 Respiratory Effort / Characteristics SOB on Exertion Blood Pressure 137/88 130/96 Blood Pressure Mean 104 107 Pulse Oximetry 95 95 95 Oxygen Delivery Method Room Air Sepsis Recent Fever Within 48 Hours No Sepsis New/Unexplained Change in Mental Status No Sepsis Action Taken by Nursing No Action Required 01/15/21 21:04 01/15/21 21:19 01/15/21 21:30 Temperature Temperature Source Pulse Rate 80 Pulse Rate [Right Radial] Pulse Rate from SpO2 Sensor 78 Pulse Rhythm Pulse Strength Respiratory Rate 19 Respiratory Effort / Characteristics Blood Pressure 155/103 H Blood Pressure Mean 120 Pulse Oximetry 94 95 96 Oxygen Delivery Method Room Air Room Air Sepsis Recent Fever Within 48 Hours Sepsis New/Unexplained Change in Mental Status Sepsis Action Taken by Nursing 01/15/21 22:00 01/15/21 22:01 01/15/21 22:30 Temperature Temperature Source Pulse Rate 75 81 Pulse Rate [Right Radial] 83 Pulse Rate from SpO2 Sensor 73 83 Pulse Rhythm Pulse Strength Respiratory Rate 21 20 15 Respiratory Effort / Characteristics Non-Labored Spontaneous Blood Pressure 149/99 H 154/88 H Blood Pressure Mean 115 110 Pulse Oximetry 98 93 99 Oxygen Delivery Method Room Air Sepsis Recent Fever Within 48 Hours Sepsis New/Unexplained Change in Mental Status Sepsis Action Taken by Nursing Laboratory Data Result diagrams: 01/15/21 21:10 01/15/21 21:10 Lab Results 01/15/21 01/15/21 01/15/21 Range/Units 21:10 21:10 22:13 WBC 5.70 (4.8-10.8) K/uL RBC 4.63 L (4.7-6.1) M/uL Hgb 14.3 (14.0-18.0) g/dL Hct 42.5 (42-52) % MCV 91.8 (80-100) fL MCH 30.9 (25-34) pg MCHC 33.6 (32-36) g/dL RDW Std Deviation 51.3 H (36.4-46.3) fL RDW Coeff of Myles 15.1 H (11.5-14.5) % Plt Count 332 (130-400) K/uL MPV 9.1 (7.4-10.4) fL Immature Gran % (Auto) 0.2 % Neut % (Auto) 46.3 % Lymph % (Auto) 35.4 % Custer % (Auto) 12.3 % Eos % (Auto) 4.7 % Baso % (Auto) 1.1 % Neut # (Auto) 2.64 (1.4-6.5) K/uL Lymph # (Auto) 2.02 (1.2-3.4) K/uL Custer # (Auto) 0.70 H (0.11-0.59) K/uL Eos # (Auto) 0.27 (0-0.5) K/uL Baso # (Auto) 0.06 (0-0.2) K/uL Immature Gran # (Auto) 0.01 (0.00-0.02) K/uL Sodium 136 (136-145) mmol/L Potassium 3.8 (3.5-5.1) mmol/L Chloride 102 (98-107) mmol/L Carbon Dioxide 29 (21-32) mmol/L Anion Gap 5.0 (3-11) BUN 11 (7-18) mg/dl Creatinine 0.89 (0.6-1.4) mg/dl Est Cr Clr Drug Dosing Not Reportable Est GFR ( Amer) 103.3 ml/min Est GFR (Non-Af Amer) 89.1 ml/min BUN/Creatinine Ratio 12.7 (10-20) Glucose 95 (70-99) mg/dl Calcium 9.8 (8.5-10.1) mg/dl Total Bilirubin 0.5 (0.2-1) mg/dl AST 21 (15-37) U/L ALT 17 (12-78) U/L Alkaline Phosphatase 65 (45-117) U/L Troponin I < 0.015 (0-0.045) ng/ml Total Protein 8.7 H (6.4-8.2) gm/dl Albumin 4.6 (3.4-5.0) gm/dl Globulin 4.1 H (2.5-4.0) gm/dl Albumin/Globulin Ratio 1.1 (0.9-2) COVID-19 Eval Order Covid19 at [facility] SARS-CoV-2 (PCR) (Negative) 01/15/21 Range/Units 22:13 WBC (4.8-10.8) K/uL RBC (4.7-6.1) M/uL Hgb (14.0-18.0) g/dL Hct (42-52) % MCV (80-100) fL MCH (25-34) pg MCHC (32-36) g/dL RDW Std Deviation (36.4-46.3) fL RDW Coeff of Myles (11.5-14.5) % Plt Count (130-400) K/uL MPV (7.4-10.4) fL Immature Gran % (Auto) % Neut % (Auto) % Lymph % (Auto) % Custer % (Auto) % Eos % (Auto) % Baso % (Auto) % Neut # (Auto) (1.4-6.5) K/uL Lymph # (Auto) (1.2-3.4) K/uL Custer # (Auto) (0.11-0.59) K/uL Eos # (Auto) (0-0.5) K/uL Baso # (Auto) (0-0.2) K/uL Immature Gran # (Auto) (0.00-0.02) K/uL Sodium (136-145) mmol/L Potassium (3.5-5.1) mmol/L Chloride (98-107) mmol/L Carbon Dioxide (21-32) mmol/L Anion Gap (3-11) BUN (7-18) mg/dl Creatinine (0.6-1.4) mg/dl Est Cr Clr Drug Dosing Est GFR ( Amer) ml/min Est GFR (Non-Af Amer) ml/min BUN/Creatinine Ratio (10-20) Glucose (70-99) mg/dl Calcium (8.5-10.1) mg/dl Total Bilirubin (0.2-1) mg/dl AST (15-37) U/L ALT (12-78) U/L Alkaline Phosphatase (45-117) U/L Troponin I (0-0.045) ng/ml Total Protein (6.4-8.2) gm/dl Albumin (3.4-5.0) gm/dl Globulin (2.5-4.0) gm/dl Albumin/Globulin Ratio (0.9-2) COVID-19 Eval Order SARS-CoV-2 (PCR) NEGATIVE (Negative) Administered Medications Discontinued Medications Albuterol (Albut/Ipratrop 3mg/0.5mg Neb 3 Ml Vial) 12 ml NEB ONE ONE Stop: 01/15/21 21:32 Last Admin: 01/15/21 22:00 Dose: 12 ml Documented by: [id number] Diazepam (Diazepam 5 Mg/Ml Inj 10ml Vial) 5 mg IV NOW STA Stop: 01/15/21 21:31 Last Admin: 01/15/21 21:50 Dose: 5 mg Documented by: [id number] Doxycycline Hyclate (Doxycycline Hyclate 100 Mg Cap) 100 mg PO NOW STA Stop: 01/15/21 21:35 Last Admin: 01/15/21 21:52 Dose: 100 mg Documented by: [id number] Sodium Chloride (Nss 1000ml) 500 mls @ 999 mls/hr IV .Q31M ONE Stop: 01/15/21 22:04 Last Infusion: 01/15/21 22:51 Dose: 0 mls/hr Documented by: [id number] Admin: 01/15/21 21:54 Dose: 999 mls/hr Documented by: [id number] Methylprednisolone (Methylprednisolone 125 Mg/2 Ml Vial) 125 mg IV NOW STA Stop: 01/15/21 21:31 Last Admin: 01/15/21 22:05 Dose: 125 mg Documented by: [id number] Oxycodone HCl (Oxycodone Hcl Ir 5 Mg Tab (Immediate Release)) 15 mg PO NOW STA Stop: 01/15/21 22:18 Last Admin: 01/15/21 22:39 Dose: 15 mg Documented by: [id number] Discharge Plan Visit Data Chief Complaint: Shortness of Breath/Dyspnea Stated Complaint: DIFFICULTY BREATHING, COPD ED Provider: Denton Rubio Discharge Problem: Acute exacerbation of chronic obstructive pulmonary disease (COPD), RAMIREZ (dyspnea on exertion) Patient Disposition: Being Evaluated by Hospitalist Forms Stand Alone Forms: [facility] Prescriptions Prescriptions: No Action (DME) Portable Oxygen Misc See Rx Instructions .ROUTE .MEDSUPPLY Qty: 1 RF: 0 albuterol sulfate 2.5 mg /3 mL (0.083 %) Solution For Nebulization 2.5 mg continuous nebulization Q4H PRN (Reason: Wheezing) RF: 0 gabapentin 100 mg Capsule 100 mg PO HS PRN (Reason: restless legs) RF: 0 diazepam 5 mg Tablet 5 mg PO TID RF: 0 diphenhydramine HCl [Benadryl Allergy] 25 mg Tablet 25 mg PO DAILY PRN (Reason: Allergy Symptoms) RF: 0 finasteride 5 mg tablet 5 mg PO QAM RF: 0 albuterol sulfate [ProAir HFA] 90 mcg/actuation Hfa Aerosol Inhaler 2 puff inhalation QID PRN (Reason: Shortness Of Breath) RF: 0 nitroglycerin [Nitrostat] 0.3 mg Tablet, Sublingual 0.3 mg sublingual UD PRN (Reason: ESOPAGEAL SPASM) RF: 0 oxycodone 15 mg Tablet 15 mg PO Q8H PRN (Reason: Pain) RF: 0 Referrals Referrals: Randy Smart MD [Primary Care Provider] -
[2021-01-15 22:02] LABS: Alanine Aminotransferase 17 U/L (12-78); Albumin Level 4.6 gm/dl (3.4-5.0); Aspartate Aminotransferase 21 U/L (15-37); BUN Creatinine Ratio 12.7 (10-20); Blood Urea Nitrogen 11 mg/dl (7-18); Calcium 9.8 mg/dl (8.5-10.1); Carbon Dioxide 29 mmol/L (21-32); Chloride 102 mmol/L (98-107); Est GFR (African American) 103.3 ml/min; Est GFR (Non-African American) 89.1 ml/min; Glucose 95 mg/dl (70-99); Potassium 3.8 mmol/L (3.5-5.1); Sodium 136 mmol/L (136-145)
[2021-01-15 22:07] LABS: Albumin Globulin Ratio 1.1 (0.9-2); Alkaline Phosphatase 65 U/L (45-117); Bilirubin,Total 0.5 mg/dl (0.2-1); Globulin 4.1 gm/dl (2.5-4.0); Total Protein 8.7 gm/dl (6.4-8.2); Troponin I < 0.015 ng/ml (0-0.045)
[2021-01-15] MEDS ORDERED: oxyCODONE HCL IR 5 MG TAB (IMMEDIATE RELEASE) PO STA (22:17)
--- NOTE | 2021-01-16 02:12 | History and Physical Report ---
DATE OF ADMISSION: 01/15/2021. CHIEF COMPLAINT: Shortness of breath. HISTORY OF PRESENT ILLNESS: A 65-year-old male with past medical history significant for severe persistent asthma, bronchiectasis without complication, history of pulmonary nodules, history of esophageal dysmotility, COPD, idiopathic cardiomyopathy, diastolic dysfunction, GERD, avascular necrosis of right femur head, chronic pain syndrome, cervical radiculopathy, history of tobacco abuse, history of anxiety and depression, environmental allergies, history of marijuana use. The patient lives alone, presents with shortness of breath. The patient says since yesterday he is having more shortness of breath, especially in the nighttime when he goes to sleep he is getting short of breath and with any exertion he is getting short of breath. At rest he is okay. He is coughing. His phlegm is somewhat different with thick yellowish phlegm. Denies any fevers. Denies any chest pain. No headache, no blurred visions. He has some occasional runny nose. No sore throat currently. He has some left lower chest pain while coughing. Was somewhat nauseous earlier. No abdominal pain. Normal bowel and bladder movements. No swelling in the legs, no rash. Currently resting comfortably and hemodynamically stable. The patient has also ongoing esophageal dysmotility, just saw GI on 01/14/2021. GI has recommended esophageal manometry and pH testing, but the patient was not sure, that he could not tolerate nasogastric catheter and declined .GI thinks that his problem could be achalasia and that Heller myotomy could be helpful for him, but it looks like he is not interested in surgery and any more procedures. The patient says about 6 months ago he had dilatation of esophagus done, but it only lasted for 15 days, but he says if he takes Valium before eating that helps, and he is regular diet at home, and currently hungry and wants to eat something. ALLERGIES: CLIDINIUM, ACETAMINOPHEN, CHLORDIAZEPOXIDE, CODEINE, LATEX, MONTELUKAST, ZOLPIDEM, SYMBICORT. PAST MEDICAL HISTORY: As mentioned above. PAST SURGICAL HISTORY: Carpal tunnel surgery x2 on the left, colonoscopy, EGDs, bilateral elbow surgery, five hernia surgeries, tonsillectomy, sinus surgery. MEDICATIONS: The patient is on albuterol nebulization q. 4 hours p.r.n., albuterol ProAir 2 puffs q.i.d. p.r.n., Valium 5 mg p.o. t.i.d. before meals, diltiazem 60 mg p.o. b.i.d., Benadryl 25 mg p.o. daily p.r.n., finasteride 5 mg p.o. a.m., gabapentin 100 mg p.o. at bedtime p.r.n., Nitrostat 0.3 mg sublingual p.r.n. for esophageal spasms, oxycodone 15 mg p.o. q. 8 hours p.r.n., oxygen he uses in the nighttime. FAMILY HISTORY: Significant for father has hypertension, mother has diabetes, son has asthma. SOCIAL HISTORY: Currently , lives alone. Former smoker, smoked half pack a day for 20 years, quit in August 2016. No alcohol use. Rarely uses marijuana. REVIEW OF SYSTEMS: As per HPI. Rest of the review of systems negative. PHYSICAL EXAMINATION: GENERAL: The patient is alert and oriented, not in acute distress. VITAL SIGNS: Temperature 36.8, pulse 81, respiratory rate 15, blood pressure 154/88, oxygen 99% on room air. HEENT: Pupils equal, round and reactive to light. Oral mucosa moist. NECK: No JVD, no neck masses. CARDIOVASCULAR: S1 and S2 heard. Regular rate and rhythm. No murmur, no gallop. RESPIRATORY SYSTEM: Normal AP diameter. No accessory muscle use. Bilateral wheezing heard. No crackles. ABDOMEN: Soft, bowel sounds present, nontender, no distention. CENTRAL NERVOUS SYSTEM: Cranial nerves II-XII grossly intact, nonfocal. EXTREMITIES: No edema, no erythema. LABORATORY DATA: WBC 5.7, hemoglobin 14.3, hematocrit 42.5, platelets 332. Sodium 136, potassium 3.8, chloride 102, bicarbonate 29, BUN 11, creatinine 0.8, serum glucose 95, calcium 9.8, total bilirubin 0.5, AST 21, ALT 17, alkaline phosphatase 65. Troponin I less than 0.015. SARS-CoV-2 PCR negative. IMAGING DATA: Chest x-ray, no acute findings. ASSESSMENT AND PLAN: This is a 65-year-old male who presents with shortness of breath, chronic obstructive pulmonary disesae exacerbation, history of asthma. 1. History of chronic obstructive pulmonary disesae, history of asthma severe persistent. Comes with shortness of breath on exertion. Has wheezing on exam. His cough is somewhat different with thick phlegm. Chest x-ray okay. We will treat him for chronic obstructive pulmonary disesae exacerbation and asthma exacerbation with IV Solu-Medrol 40 mg t.i.d., nebs around the clock and p.r.n. Continue his home inhalers and doxycycline. Follow the sputum cultures. Will monitor in the med tele. 2. History of esophageal dysmotility: Ongoing issue, takes Valium before meals and also Cardizem b.i.d. Refusing any test as per GI notes and refusing any procedure or surgeries. Will monitor for any issues. If needed will consult GI. 3. History of chronic diastolic congestive heart failure: Not on any diuretics. Will monitor for any volume overload. 4. Gastroesophageal reflux disease. 5. History of anxiety and depression: Continue his home medications. 6. Chronic pain syndrome: Continue his home medication. 7. Deep venous thrombosis prophylaxis: Lovenox. DISPOSITION: Closely monitor in the med tele. PT/OT prior to discharge. Social service to help with discharge planning. Job ID: [id number] [facility]ERSang
[2021-01-16] MEDS ORDERED: GABAPENTIN 100 MG CAP PO PRN (02:27)
[2021-01-16] MEDS ORDERED: NITROGLYCERIN 0.3 MG/1 TAB 100 TAB BTL SL PRN (02:27)
[2021-01-16] MEDS ORDERED: LEVALBUTEROL HCL 1.25 MG/3 ML NEB NEB PRN (02:27)
[2021-01-16] MEDS ORDERED: ACETAMINOPHEN 325 MG TAB PO PRN (02:27)
[2021-01-16] MEDS ORDERED: NITROGLYCERIN SL 0.4 MG/TAB TAB SL PRN (02:27)
[2021-01-16] MEDS ORDERED: diphenhydrAMINE Capsule 25 MG CAP PO PRN (02:27)
[2021-01-16] MEDS ORDERED: XOPENEX/ATROVENT 1.25mg/0.5MG NEB COMBO NEB SCH (02:27)
[2021-01-16] MEDS ORDERED: ALBUTEROL HFA 8 GM INHALER INH PRN (02:48)
[2021-01-16 05:38] LABS: Basophils # (auto) 0.02 K/uL (0-0.2); Basophils % (auto) 0.8 %; Eosinophils # (auto) 0.01 K/uL (0-0.5); Eosinophils % (auto) 0.4 %; Hematocrit (blood only) 39.1 % (42-52); Hemoglobin 13.1 g/dL (14.0-18.0); Immature Granulocytes # (auto) 0.01 K/uL (0.00-0.02); Immature Granulocytes % (auto) 0.4 %; Lymphocytes # (auto) 0.36 K/uL (1.2-3.4); Lymphocytes % (auto) 14.4 %; Mean Corpuscular Hemoglobin 30.5 pg (25-34); Mean Corpuscular Hgb Conc 33.5 g/dL (32-36); Mean Corpuscular Volume 90.9 fL (80-100); Mean Platelet Volume 9.1 fL (7.4-10.4); Monocytes # (auto) 0.01 K/uL (0.11-0.59); Monocytes % (auto) 0.4 %; Neutrophils # (auto) 2.09 K/uL (1.4-6.5); Neutrophils % (auto) 83.6 %; Platelet Count 284 K/uL (130-400); RDW Standard Deviation 50.8 fL (36.4-46.3)
[2021-01-16 05:56] LABS: BUN Creatinine Ratio 15.7 (10-20); Blood Urea Nitrogen 13 mg/dl (7-18); Carbon Dioxide 29 mmol/L (21-32); Chloride 105 mmol/L (98-107); Creatinine Clr Calc Pharmacy 57.5 ml/min; Est GFR (African American) 106.3 ml/min; Est GFR (Non-African American) 91.7 ml/min; Glucose 166 mg/dl (70-99); Magnesium 2.2 mg/dl (1.8-2.4); Potassium 3.9 mmol/L (3.5-5.1); Sodium 138 mmol/L (136-145)
[2021-01-16 06:00] LABS: Troponin I < 0.015 ng/ml (0-0.045)
[2021-01-16] MEDS: methylPREDNISolone 40 MG in SYRINGE 0 ML IV SCH ×3 (06:10→21:04)
[2021-01-16] MEDS: ENOXAPARIN INJ 40 MG/0.4 ML SYR SQ SCH (06:10)
[2021-01-16] MEDS: LEVALBUTEROL 1.25MG/0.5ML NEB INH SCH ×3 (07:15→19:48)
[2021-01-16] MEDS: IPRATROPIUM BROMIDE NEB SOLN 0.02% 2.5 ML VIAL INH SCH ×3 (07:15→19:48)
[2021-01-16] MEDS ORDERED: diazePAM 5 MG TABLET PO SCH ×3 (07:30→11:30)
[2021-01-16] MEDS: DOXYCYCLINE HYCLATE 100 MG CAP PO SCH ×2 (07:38→21:04)
[2021-01-16] MEDS: dilTIAZem HCl 60 MG TAB PO SCH ×2 (07:38→21:06)
[2021-01-16] MEDS: FINASTERIDE 5 MG TAB PO SCH (07:38)
[2021-01-16] MEDS: FLUTICASONE/VILANTEROL 100/25MCG 14 PUFFS/INHALER INH SCH (07:39)
--- NOTE | 2021-01-16 07:44 | XRay Report ---
XR chest 1V portable CLINICAL HISTORY: Dyspnea COMPARISON STUDY: March 07, 2019 FINDINGS: No pneumothorax. No pleural effusion. No large infiltrates or consolidative lesions are seen. Lung volumes are increased with flattening of right and left hemidiaphragms. Cardiomediastinal silhouette is within normal limits in size. No significant pulmonary vascular congestion.. Aorta is calcified. Osseous structures: unremarkable IMPRESSION: 1. COPD pattern. ACT 112: Negative or not required by law. The above report was generated using voice recognition software. It may contain grammatical, syntax o r spelling errors. Electronically signed by: Yue Horton DO 01/16/2021 7:43 AM
[2021-01-16] MEDS: oxyCODONE HCL IR 5 MG TAB (IMMEDIATE RELEASE) PO PRN ×2 (07:47→21:09)
--- NOTE | 2021-01-16 08:20 | Electrocardiogram Report ---
Test Reason : Blood Pressure : / mmHG Vent. Rate : 073 BPM Atrial Rate : 073 BPM P-R Int : 138 ms QRS Dur : 072 ms QT Int : 372 ms P-R-T Axes : 065 058 044 degrees QTc Int : 409 ms Poor data quality, interpretation may be adversely affected Normal sinus rhythm Normal ECG When compared with ECG of 07-MAR-2019 20:19, No significant change was found Confirmed by Chacho Wolff ([id number]) on 01/16/2021 8:20:45 AM Referred By: REFERRED SELF Confirmed By:Chacho Wolff
[2021-01-16] MEDS: POLYETHYLENE (MIRALAX) 17 GM PACK PO PRN (08:43)
[2021-01-16] MEDS ORDERED: Nursing to Pharmacy Communication SCH (12:15)
[2021-01-16] MEDS: diazePAM 5 MG TABLET PO SCH ×2 (14:00→21:04)
--- NOTE | 2021-01-16 17:05 | Hospitalist Progress Note ---
Date of Service January 16, 2021 Assessment & Plan (1) Acute exacerbation of chronic obstructive pulmonary disease (COPD): (2) RAMIREZ (dyspnea on exertion): Plan: This is a 65-year-old male who presents with shortness of breath, chronic obstructive pulmonary disease exacerbation, history of asthma. 1. History of chronic obstructive pulmonary disease, history of asthma severe persistent. Comes with shortness of breath on exertion. Has wheezing on exam. His cough is somewhat different with thick phlegm. Chest x-ray unremarkable. We will treat him for COPD exacerbation and asthma exacerbation with IV Solu- Medrol 40 mg t.i.d., nebs around the clock and p.r.n. C Continue his home inhalers and doxycycline. Follow the sputum cultures. Will monitor in the med tele. Patient says he is actually appointment with pulmonology on . Currently feeling somewhat better however he is trying to rest as he feels he is short of breath on exertion. He is currently on room air, and able to talk in full sentences without difficulty. 2. History of esophageal dysmotility: Ongoing issue, takes Valium before meals and also Cardizem b.i.d. Refusing any test as per GI notes and refusing any procedure or surgeries. Will monitor for any issues. If needed will consult GI. 3. History of chronic diastolic congestive heart failure: Not on any diuretics. Will monitor for any volume overload. 4. Gastroesophageal reflux disease. 5. History of anxiety and depression: Continue his home medications. 6. Chronic pain syndrome: Continue his home medication. DVT prophylaxis: Lovenox. DISPOSITION: Closely monitor in the [employer] tele. PT/OT prior to discharge. Social service to help with discharge planning. Admission and Anticipated Discharge Date Admission Date: January 15, 2021 Subjective Patient seen in follow-up of COPD exacerbation, dyspnea on exertion Currently sitting up in bed, in no acute distress, breathing comfortably on room air Says he is using nebulizers at home frequently, and lately has had more difficulty with shortness of breath Follows with [facility] pulmonology, reports he is supposed to see a aircraft power plant assembler on Denies any fevers or chills Says he had some chest discomfort prior to coming to the hospital, now denies any chest pain No abdominal pain, nausea vomiting Review of Systems Constitutional: no fever and no chills Respiratory: + cough and + dyspnea on exertion (somewhat improved) Cardiovascular: no chest pain and no palpitations Gastrointestinal: no abdominal pain, no nausea and no vomiting Physical Exam Physical Exam: GENERAL: The patient is alert and oriented, not in acute distress. HEENT: NC/AT, Pupils equal, round and reactive to light. Oral mucosa moist. NECK: No JVD, no neck masses. CARDIOVASCULAR: S1 and S2 heard. Regular rate and rhythm. No murmur, no gallop. RESPIRATORY SYSTEM: Normal AP diameter. No accessory muscle use. Bilateral mild expiratory wheezing heard. No crackles. ABDOMEN: Soft, bowel sounds present, nontender, no distention. NEURO: alert and oriented x3, speech fluent, facial asymmetry, moves extremities EXTREMITIES: No edema, no erythema. Results & Data Results & Data ([facility]) Vital Signs (Past 12 Hours) Vital Signs Temp Pulse Pulse Resp BP Pulse Ox 01/16/21 15:46 37.0 C 72 18 108/70 100 01/16/21 13:33 88 22 95 01/16/21 11:57 37.1 C 67 18 113/70 92 01/16/21 07:49 37.0 C 72 18 132/75 95 01/16/21 07:27 78 01/16/21 07:15 83 20 95 Laboratory Results 01/16/21 01/16/21 01/16/21 Range/Units 05:26 05:26 03:00 WBC 2.50 L (4.8-10.8) K/uL RBC 4.30 L (4.7-6.1) M/uL Hgb 13.1 L (14.0-18.0) g/dL Hct 39.1 L (42-52) % MCV 90.9 (80-100) fL MCH 30.5 (25-34) pg MCHC 33.5 (32-36) g/dL RDW Std Deviation 50.8 H (36.4-46.3) fL RDW Coeff of Myles 15.0 H (11.5-14.5) % Plt Count 284 (130-400) K/uL MPV 9.1 (7.4-10.4) fL Immature Gran % (Auto) 0.4 % Neut % (Auto) 83.6 % Lymph % (Auto) 14.4 % [place] % (Auto) 0.4 % Eos % (Auto) 0.4 % Baso % (Auto) 0.8 % Neut # (Auto) 2.09 (1.4-6.5) K/uL Lymph # (Auto) 0.36 L (1.2-3.4) K/uL [place] # (Auto) 0.01 L (0.11-0.59) K/uL Eos # (Auto) 0.01 (0-0.5) K/uL Baso # (Auto) 0.02 (0-0.2) K/uL Immature Gran # (Auto) 0.01 (0.00-0.02) K/uL Sodium 138 (136-145) mmol/L Potassium 3.9 (3.5-5.1) mmol/L Chloride 105 (98-107) mmol/L Carbon Dioxide 29 (21-32) mmol/L Anion Gap 4.0 (3-11) BUN 13 (7-18) mg/dl Creatinine 0.83 (0.6-1.4) mg/dl Est Cr Clr Drug Dosing 57.5 Est GFR ( Amer) 106.3 ml/min Est GFR (Non-Af Amer) 91.7 ml/min BUN/Creatinine Ratio 15.7 (10-20) Glucose 166 H (70-99) mg/dl Calcium 9.0 (8.5-10.1) mg/dl Magnesium 2.2 (1.8-2.4) mg/dl Total Bilirubin (0.2-1) mg/dl AST (15-37) U/L ALT (12-78) U/L Alkaline Phosphatase (45-117) U/L Troponin I < 0.015 (0-0.045) ng/ml Total Protein (6.4-8.2) gm/dl Albumin (3.4-5.0) gm/dl Globulin (2.5-4.0) gm/dl Albumin/Globulin Ratio (0.9-2) Nasal Screen MRSA (PCR) Negative (Negative) COVID-19 Eval Order SARS-CoV-2 (PCR) (Negative) 01/15/21 01/15/21 01/15/21 Range/Units 22:13 22:13 21:10 WBC (4.8-10.8) K/uL RBC (4.7-6.1) M/uL Hgb (14.0-18.0) g/dL Hct (42-52) % MCV (80-100) fL MCH (25-34) pg MCHC (32-36) g/dL RDW Std Deviation (36.4-46.3) fL RDW Coeff of Myles (11.5-14.5) % Plt Count (130-400) K/uL MPV (7.4-10.4) fL Immature Gran % (Auto) % Neut % (Auto) % Lymph % (Auto) % [place] % (Auto) % Eos % (Auto) % Baso % (Auto) % Neut # (Auto) (1.4-6.5) K/uL Lymph # (Auto) (1.2-3.4) K/uL [place] # (Auto) (0.11-0.59) K/uL Eos # (Auto) (0-0.5) K/uL Baso # (Auto) (0-0.2) K/uL Immature Gran # (Auto) (0.00-0.02) K/uL Sodium 136 (136-145) mmol/L Potassium 3.8 (3.5-5.1) mmol/L Chloride 102 (98-107) mmol/L Carbon Dioxide 29 (21-32) mmol/L Anion Gap 5.0 (3-11) BUN 11 (7-18) mg/dl Creatinine 0.89 (0.6-1.4) mg/dl Est Cr Clr Drug Dosing Not Reportable Est GFR ( Amer) 103.3 ml/min Est GFR (Non-Af Amer) 89.1 ml/min BUN/Creatinine Ratio 12.7 (10-20) Glucose 95 (70-99) mg/dl Calcium 9.8 (8.5-10.1) mg/dl Magnesium (1.8-2.4) mg/dl Total Bilirubin 0.5 (0.2-1) mg/dl AST 21 (15-37) U/L ALT 17 (12-78) U/L Alkaline Phosphatase 65 (45-117) U/L Troponin I < 0.015 (0-0.045) ng/ml Total Protein 8.7 H (6.4-8.2) gm/dl Albumin 4.6 (3.4-5.0) gm/dl Globulin 4.1 H (2.5-4.0) gm/dl Albumin/Globulin Ratio 1.1 (0.9-2) Nasal Screen MRSA (PCR) (Negative) COVID-19 Eval Order Covid19 at [facility] SARS-CoV-2 (PCR) NEGATIVE (Negative) 01/15/21 Range/Units 21:10 WBC 5.70 (4.8-10.8) K/uL RBC 4.63 L (4.7-6.1) M/uL Hgb 14.3 (14.0-18.0) g/dL Hct 42.5 (42-52) % MCV 91.8 (80-100) fL MCH 30.9 (25-34) pg MCHC 33.6 (32-36) g/dL RDW Std Deviation 51.3 H (36.4-46.3) fL RDW Coeff of Myles 15.1 H (11.5-14.5) % Plt Count 332 (130-400) K/uL MPV 9.1 (7.4-10.4) fL Immature Gran % (Auto) 0.2 % Neut % (Auto) 46.3 % Lymph % (Auto) 35.4 % [place] % (Auto) 12.3 % Eos % (Auto) 4.7 % Baso % (Auto) 1.1 % Neut # (Auto) 2.64 (1.4-6.5) K/uL Lymph # (Auto) 2.02 (1.2-3.4) K/uL [place] # (Auto) 0.70 H (0.11-0.59) K/uL Eos # (Auto) 0.27 (0-0.5) K/uL Baso # (Auto) 0.06 (0-0.2) K/uL Immature Gran # (Auto) 0.01 (0.00-0.02) K/uL Sodium (136-145) mmol/L Potassium (3.5-5.1) mmol/L Chloride (98-107) mmol/L Carbon Dioxide (21-32) mmol/L Anion Gap (3-11) BUN (7-18) mg/dl Creatinine (0.6-1.4) mg/dl Est Cr Clr Drug Dosing Est GFR ( Amer) ml/min Est GFR (Non-Af Amer) ml/min BUN/Creatinine Ratio (10-20) Glucose (70-99) mg/dl Calcium (8.5-10.1) mg/dl Magnesium (1.8-2.4) mg/dl Total Bilirubin (0.2-1) mg/dl AST (15-37) U/L ALT (12-78) U/L Alkaline Phosphatase (45-117) U/L Troponin I (0-0.045) ng/ml Total Protein (6.4-8.2) gm/dl Albumin (3.4-5.0) gm/dl Globulin (2.5-4.0) gm/dl Albumin/Globulin Ratio (0.9-2) Nasal Screen MRSA (PCR) (Negative) COVID-19 Eval Order SARS-CoV-2 (PCR) (Negative) Medications Administered Current Inpatient Medications Acetaminophen (Acetaminophen 325 Mg Tab) 650 mg PO Q4H PRN PRN Reason: Pain or Fever Stop: 02/15/21 02:26 Albuterol (Albuterol Hfa 8 Gm Inhaler) 2 puffs INH QID PRN PRN Reason: Shortness Of Breath Stop: 02/15/21 02:47 Diazepam (Diazepam 5 Mg Tablet) 5 mg PO TID@0730,1400,2100 [facility] Stop: 02/15/21 13:59 Last Admin: 01/16/21 14:00 Dose: 5 mg Documented by: Diltiazem HCl (Diltiazem Hcl 60 Mg Tab) 60 mg PO BID [facility] Stop: 02/15/21 08:59 Last Admin: 01/16/21 07:38 Dose: 60 mg Documented by: Diphenhydramine HCl (Diphenhydramine Capsule 25 Mg Cap) 25 mg PO DAILY PRN PRN Reason: Allergy Symptoms Stop: 02/15/21 02:26 Doxycycline Hyclate (Doxycycline Hyclate 100 Mg Cap) 100 mg PO BID [facility] Stop: 01/23/21 08:59 Last Admin: 01/16/21 07:38 Dose: 100 mg Documented by: Enoxaparin Sodium (Enoxaparin Inj 40 Mg/0.4 Ml Syr) 40 mg SQ Q24H [facility] Stop: 02/15/21 05:59 Last Admin: 01/16/21 06:10 Dose: Not Given Documented by: Finasteride (Finasteride 5 Mg Tab) 5 mg PO QAM MAGNOLIA Stop: 02/15/21 08:59 Last Admin: 01/16/21 07:38 Dose: 5 mg Documented by: Fluticasone/Vilanterol (Fluticasone/Vilanterol 100/25mcg 14 Puffs/Inhaler) 1 puffs INH DAILY MAGNOLIA Stop: 02/15/21 08:59 Last Admin: 01/16/21 07:39 Dose: 1 puffs Documented by: Gabapentin (Gabapentin 100 Mg Cap) 100 mg PO HS PRN PRN Reason: restless legs Stop: 02/15/21 02:26 Methylprednisolone 40 mg/ (Syringe) 0.64 mls @ 1.5 mls/min IV Q8H MAGNOLIA Stop: 02/15/21 05:59 Last Admin: 01/16/21 14:00 Dose: 1.5 mls/min Documented by: Ipratropium [place] (Ipratropium [place] Neb Soln 0.02% 2.5 Ml Vial) 0.5 mg INH Q6R MAGNOLIA Stop: 02/15/21 06:59 Last Admin: 01/16/21 13:33 Dose: 0.5 mg Documented by: Levalbuterol HCl (Levalbuterol 1.25mg/0.5ml Neb) 1.25 mg INH Q6R MAGNOLIA Stop: 02/15/21 06:59 Last Admin: 01/16/21 13:33 Dose: 1.25 mg Documented by: Levalbuterol HCl (Levalbuterol Hcl 1.25 Mg/3 Ml Neb) 1.25 mg NEB Q2H PRN PRN Reason: Shortness Of Breath Or Wheezing Stop: 02/15/21 02:26 Nitroglycerin (Nitroglycerin Sl 0.4 Mg/Tab Tab) 0.4 mg SL UD PRN PRN Reason: Chest Pain Stop: 02/15/21 02:26 Oxycodone HCl (Oxycodone Hcl Ir 5 Mg Tab (Immediate Release)) 15 mg PO Q8H PRN PRN Reason: Pain Stop: 01/30/21 02:26 Last Admin: 01/16/21 07:47 Dose: 15 mg Documented by: Polyethylene Glycol (Polyethylene (Miralax) 17 Gm Pack) 17 gm PO DAILY PRN PRN Reason: Constipation Stop: 02/15/21 02:26 Last Admin: 01/16/21 08:43 Dose: 17 gm Documented by:
[2021-01-17] MEDS: IPRATROPIUM BROMIDE NEB SOLN 0.02% 2.5 ML VIAL INH SCH ×4 (00:17→19:39)
[2021-01-17] MEDS: LEVALBUTEROL 1.25MG/0.5ML NEB INH SCH ×4 (00:17→19:39)
[2021-01-17] MEDS ORDERED: dilTIAZem HCl 5 MG/ML 5 ML VIAL IV STA (04:29)
[2021-01-17] MEDS: ENOXAPARIN INJ 40 MG/0.4 ML SYR SQ SCH (06:04)
[2021-01-17] MEDS: methylPREDNISolone 40 MG in SYRINGE 0 ML IV SCH ×3 (06:05→22:50)
[2021-01-17] MEDS: oxyCODONE HCL IR 5 MG TAB (IMMEDIATE RELEASE) PO PRN ×3 (06:41→22:49)
[2021-01-17] MEDS: diazePAM 5 MG TABLET PO SCH ×3 (06:41→20:54)
[2021-01-17 06:52] LABS: Hematocrit (blood only) 41.1 % (42-52); Hemoglobin 13.9 g/dL (14.0-18.0); Mean Corpuscular Hemoglobin 30.7 pg (25-34); Mean Corpuscular Hgb Conc 33.8 g/dL (32-36); Mean Corpuscular Volume 90.7 fL (80-100); Mean Platelet Volume 9.3 fL (7.4-10.4); Platelet Count 379 K/uL (130-400); RDW Coefficient of Variation 15.2 % (11.5-14.5); RDW Standard Deviation 50.8 fL (36.4-46.3); Red Blood Count 4.53 M/uL (4.7-6.1); White Blood Count 5.94 K/uL (4.8-10.8)
[2021-01-17 07:40] LABS: BUN Creatinine Ratio 27.5 (10-20); Calcium 9.5 mg/dl (8.5-10.1); Est GFR (African American) 97.5 ml/min; Est GFR (Non-African American) 84.2 ml/min; Magnesium 2.4 mg/dl (1.8-2.4); Potassium 3.9 mmol/L (3.5-5.1)
[2021-01-17] MEDS: dilTIAZem HCl 60 MG TAB PO SCH ×2 (08:04→20:54)
[2021-01-17] MEDS: FLUTICASONE/VILANTEROL 100/25MCG 14 PUFFS/INHALER INH SCH (08:05)
[2021-01-17] MEDS: DOXYCYCLINE HYCLATE 100 MG CAP PO SCH ×2 (08:05→20:54)
[2021-01-17] MEDS: FINASTERIDE 5 MG TAB PO SCH (08:05)
[2021-01-17] MEDS: POLYETHYLENE (MIRALAX) 17 GM PACK PO PRN (12:11)
[2021-01-17] MEDS ORDERED: LORazepam 0.5 MG TAB PO ONE (15:01)
--- NOTE | 2021-01-17 18:08 | Hospitalist Progress Note ---
Date of Service January 17, 2021 Assessment & Plan (1) Acute exacerbation of chronic obstructive pulmonary disease (COPD): (2) RAMIREZ (dyspnea on exertion): Plan: Patient is a 65 yr male who presents with shortness of breath, chronic obstructive pulmonary disease exacerbation, history of asthma. Acute COPD exacerbation H/O COPD/Asthma CXR:COPD pattern. Saturating well on room air Continue doxycycline, bronchodilators, Solu-Medrol Wean off of steroids as able Needs follow-up with pulmonology upon discharge H/O Esophageal dysmotility: Ongoing issue, takes Valium before meals and also Cardizem b.i.d. Speech Eval requested Consider GI eval if needed H/O chronic diastolic congestive heart failure: No signs of volume overload Anxiety and depression Continue home medications. Chronic pain syndrome: Continue home meds DVT Px: Lovenox SQ Admission and Anticipated Discharge Date Admission Date: January 15, 2021 Subjective Patient is seen and examined at bedside States having cough, dyspnea on exertion Also reports having anxiety intermittently Reports generalized pain from arthritis Denies chest pain, nausea, abdominal pain Offers no other complaints Review of Systems Review of Systems: All systems reviewed & are unremarkable except as noted in Subjective Physical Exam Physical Exam: Physical Exam: Vitals signs as noted above General Appearance: Thin, frail, chronically appearing Head: normocephalic, Atraumatic Eyes: normal inspection, EOMI Neck: supple, Trachea midline Respiratory/Chest: Decreased breath sounds, bilateral wheezing, No accessory muscle use Cardiovascular: S1, S2, No murmur Abdomen/GI:Soft, Non tender, Bowel sounds present Extremities/Musculoskeletal:normal inspection, no edema Neurologic/Psych:AAOX3, grossly no focal neurological deficits Skin: normal color, warm Results & Data Results & Data ([facility]) Vital Signs (Past 12 Hours) Vital Signs Temp Pulse Pulse Resp BP Pulse Ox 01/17/21 15:36 36.5 C 92 H 18 126/71 93 01/17/21 14:20 107 H 01/17/21 13:18 73 18 93 01/17/21 11:21 36.8 C 67 16 106/71 94 01/17/21 07:21 36.6 C 85 18 118/77 93 01/17/21 07:14 73 01/17/21 06:58 94 H 21 95 Laboratory Results Short CBC 01/17/21 Range/Units 06:07 WBC 5.94 (4.8-10.8) K/uL Hgb 13.9 L (14.0-18.0) g/dL Hct 41.1 L (42-52) % Plt Count 379 (130-400) K/uL BMP 01/17/21 06:07 Sodium 135 L Potassium 3.9 Chloride 104 Carbon Dioxide 25 BUN 26 H D Creatinine 0.94 Glucose 134 H Calcium 9.5
[2021-01-18] MEDS: IPRATROPIUM BROMIDE NEB SOLN 0.02% 2.5 ML VIAL INH SCH ×4 (01:15→19:47)
[2021-01-18] MEDS: LEVALBUTEROL 1.25MG/0.5ML NEB INH SCH ×4 (01:20→20:05)
[2021-01-18] MEDS: oxyCODONE HCL IR 5 MG TAB (IMMEDIATE RELEASE) PO PRN ×3 (06:41→22:36)
[2021-01-18] MEDS: diazePAM 5 MG TABLET PO SCH ×3 (06:41→20:30)
[2021-01-18] MEDS: methylPREDNISolone 40 MG in SYRINGE 0 ML IV SCH ×3 (06:41→21:13)
[2021-01-18] MEDS: ENOXAPARIN INJ 40 MG/0.4 ML SYR SQ SCH (06:50)
[2021-01-18 07:43] LABS: BUN Creatinine Ratio 37.9 (10-20); Calcium 9.5 mg/dl (8.5-10.1); Est GFR (African American) 104.2 ml/min; Est GFR (Non-African American) 89.9 ml/min; Potassium 4.1 mmol/L (3.5-5.1)
[2021-01-18] MEDS: dilTIAZem HCl 60 MG TAB PO SCH ×2 (08:13→20:30)
[2021-01-18] MEDS: DOXYCYCLINE HYCLATE 100 MG CAP PO SCH ×2 (08:13→20:30)
[2021-01-18] MEDS: FLUTICASONE/VILANTEROL 100/25MCG 14 PUFFS/INHALER INH SCH (08:14)
[2021-01-18] MEDS: FINASTERIDE 5 MG TAB PO SCH (08:14)
--- NOTE | 2021-01-18 17:33 | Hospitalist Progress Note ---
Date of Service January 18, 2021 Assessment & Plan (1) Acute exacerbation of chronic obstructive pulmonary disease (COPD): (2) RAMIREZ (dyspnea on exertion): Plan: Patient is a 65 yr male who presents with shortness of breath, chronic obstructive pulmonary disease exacerbation, history of asthma. Acute COPD exacerbation H/O COPD/Asthma CXR:COPD pattern. Saturating well on room air Continue doxycycline, bronchodilators, Solu-Medrol Wean off of steroids as able Needs follow-up with pulmonology upon discharge Continue current management Will add flutter H/O Esophageal dysmotility: Ongoing issue, takes Valium before meals and also Cardizem b.i.d. Appreciate Speech Eval Consider GI eval if needed Patient declined slippery diet GERD precautions H/O chronic diastolic congestive heart failure: No signs of volume overload Anxiety and depression Continue home medications. Chronic pain syndrome: Continue home meds DVT Px: Lovenox SQ Admission and Anticipated Discharge Date Admission Date: January 15, 2021 Subjective Patient is seen and examined at bedside States feeling better today Ambulated in hallways earlier today Less cough, dyspnea today Chronic generalized arthritic pain Review of Systems Review of Systems: All systems reviewed & are unremarkable except as noted in Subjective Physical Exam Physical Exam: Physical Exam: Vitals signs as noted above General Appearance: Thin, frail, chronically appearing Head: normocephalic, Atraumatic Eyes: normal inspection, EOMI Neck: supple, Trachea midline Respiratory/Chest: Decreased breath sounds, bilateral wheezing, No accessory muscle use Cardiovascular: S1, S2, No murmur Abdomen/GI:Soft, Non tender, Bowel sounds present Extremities/Musculoskeletal:normal inspection, no edema Neurologic/Psych:AAOX3, grossly no focal neurological deficits Skin: normal color, warm Results & Data Results & Data ([facility]) Vital Signs (Past 12 Hours) Vital Signs Temp Pulse Pulse Resp BP Pulse Ox 01/18/21 16:00 76 01/18/21 15:36 36.7 C 71 16 101/59 L 94 01/18/21 13:02 71 18 96 01/18/21 11:20 36.5 C 88 16 110/66 92 01/18/21 07:31 36.5 C 91 H 18 135/77 93 01/18/21 07:17 70 18 95 01/18/21 07:15 73 Laboratory Results [facility] 01/18/21 07:08 Sodium 137 Potassium 4.1 Chloride 107 Carbon Dioxide 26 BUN 33 H Creatinine 0.87 Glucose 137 H Calcium 9.5
[2021-01-19] MEDS: IPRATROPIUM BROMIDE NEB SOLN 0.02% 2.5 ML VIAL INH SCH ×4 (02:04→19:44)
[2021-01-19] MEDS: LEVALBUTEROL 1.25MG/0.5ML NEB INH SCH ×4 (02:05→19:44)
[2021-01-19] MEDS: ENOXAPARIN INJ 40 MG/0.4 ML SYR SQ SCH (05:45)
[2021-01-19] MEDS: methylPREDNISolone 40 MG in SYRINGE 0 ML IV SCH ×2 (05:45→14:32)
[2021-01-19] MEDS: diazePAM 5 MG TABLET PO SCH ×3 (06:36→22:33)
[2021-01-19] MEDS: oxyCODONE HCL IR 5 MG TAB (IMMEDIATE RELEASE) PO PRN ×3 (06:36→22:33)
[2021-01-19] MEDS: POLYETHYLENE (MIRALAX) 17 GM PACK PO PRN (06:36)
[2021-01-19] MEDS: FLUTICASONE/VILANTEROL 100/25MCG 14 PUFFS/INHALER INH SCH (08:15)
[2021-01-19] MEDS: FINASTERIDE 5 MG TAB PO SCH (08:16)
[2021-01-19] MEDS: DOXYCYCLINE HYCLATE 100 MG CAP PO SCH ×2 (08:16→20:07)
[2021-01-19] MEDS: dilTIAZem HCl 60 MG TAB PO SCH ×2 (08:16→20:08)
--- NOTE | 2021-01-19 18:29 | Hospitalist Progress Note ---
Date of Service January 19, 2021 Assessment & Plan (1) Acute exacerbation of chronic obstructive pulmonary disease (COPD): (2) RAMIREZ (dyspnea on exertion): Plan: Patient is a 65 yr male who presents with shortness of breath, chronic obstructive pulmonary disease exacerbation, history of asthma. Acute COPD exacerbation H/O COPD/Asthma CXR:COPD pattern. Saturating well on room air Continue doxycycline, bronchodilators Needs follow-up with pulmonology upon discharge Continue Pulmonary Hygiene Transition IV Solu-Medrol to prednisone tomorrow H/O Esophageal dysmotility: Ongoing issue, takes Valium before meals and also Cardizem b.i.d. Appreciate Speech Eval Consider GI eval if needed Patient declined slippery diet GERD precautions H/O chronic diastolic congestive heart failure: No signs of volume overload Anxiety and depression Continue home medications. Chronic pain syndrome: Continue home meds DVT Px: Lovenox SQ Admission and Anticipated Discharge Date Admission Date: January 15, 2021 Subjective Patient is seen and examined at bedside States having thick yellowish expectoration Clinically feels better since admission Denies any significant dyspnea Also denies chest pain, dizziness, nausea, abdominal pain Does not feel ready to get discharged Review of Systems Review of Systems: All systems reviewed & are unremarkable except as noted in Subjective Physical Exam Physical Exam: Physical Exam: Vitals signs as noted above General Appearance: Thin, frail, chronically appearing Head: normocephalic, Atraumatic Eyes: normal inspection, EOMI Neck: supple, Trachea midline Respiratory/Chest: Decreased breath sounds, decreased wheezing, No accessory muscle use Cardiovascular: S1, S2, No murmur Abdomen/GI:Soft, Non tender, Bowel sounds present Extremities/Musculoskeletal:normal inspection, no edema Neurologic/Psych:AAOX3, grossly no focal neurological deficits Skin: normal color, warm Results & Data Results & Data ([facility]) Vital Signs (Past 12 Hours) Vital Signs Temp Pulse Pulse Resp BP Pulse Ox 01/19/21 16:21 61 01/19/21 15:44 36.8 C 81 22 146/68 H 96 01/19/21 13:21 70 18 95 01/19/21 13:02 36.6 C 01/19/21 12:29 74 20 101/57 L 94 01/19/21 07:41 100 H 18 97 01/19/21 07:14 74 07/30/21 06:53 36.5 C 84 20 152/70 H 92
[2021-01-20] MEDS: IPRATROPIUM BROMIDE NEB SOLN 0.02% 2.5 ML VIAL INH SCH ×2 (00:45→07:41)
[2021-01-20] MEDS: LEVALBUTEROL 1.25MG/0.5ML NEB INH SCH ×2 (00:45→07:41)
[2021-01-20] MEDS: ENOXAPARIN INJ 40 MG/0.4 ML SYR SQ SCH (05:18)
[2021-01-20] MEDS: diazePAM 5 MG TABLET PO SCH (06:33)
[2021-01-20] MEDS: oxyCODONE HCL IR 5 MG TAB (IMMEDIATE RELEASE) PO PRN (06:34)
[2021-01-20] MEDS: dilTIAZem HCl 60 MG TAB PO SCH (08:42)
[2021-01-20] MEDS: DOXYCYCLINE HYCLATE 100 MG CAP PO SCH (08:42)
[2021-01-20] MEDS: FINASTERIDE 5 MG TAB PO SCH (08:42)
[2021-01-20] MEDS: FLUTICASONE/VILANTEROL 100/25MCG 14 PUFFS/INHALER INH SCH (08:42)
[2021-01-20] MEDS ORDERED: predniSONE 20 MG TAB PO SCH (09:00)
--- NOTE | 2021-01-20 10:54 | Hospitalist Progress Note ---
Date of Service January 20, 2021 Assessment & Plan (1) Acute exacerbation of chronic obstructive pulmonary disease (COPD): (2) RAMIREZ (dyspnea on exertion): Plan: Patient is a 65 yr male who presents with shortness of breath, chronic obstructive pulmonary disease exacerbation, history of asthma. Acute COPD exacerbation H/O COPD/Asthma CXR:COPD pattern. Saturating well on room air Continue doxycycline, bronchodilators Needs follow-up with pulmonology upon discharge Continue Pulmonary Hygiene Transition IV Solu-Medrol to prednisone Continue Prednisone taper course Clinically improved H/O Esophageal dysmotility: Ongoing issue, takes Valium before meals and also Cardizem b.i.d. Appreciate Speech Eval Consider GI eval if needed Patient declined slippery diet GERD precautions H/O chronic diastolic congestive heart failure: No signs of volume overload Anxiety and depression Continue home medications. Chronic pain syndrome: Continue home meds DVT Px: Lovenox SQ Admission and Anticipated Discharge Date Admission Date: January 15, 2021 Subjective Patient is seen and examined at bedside Cough continues to improve States feeling lot better today Denies chest pain, dyspnea, dizziness, nausea, abdominal pain Review of Systems Review of Systems: All systems reviewed & are unremarkable except as noted in Subjective Physical Exam Physical Exam: Physical Exam: Vitals signs as noted above General Appearance: Thin, frail, chronically appearing Head: normocephalic, Atraumatic Eyes: normal inspection, EOMI Neck: supple, Trachea midline Respiratory/Chest: Decreased breath sounds, minimal wheezing, No accessory muscle use Cardiovascular: S1, S2, No murmur Abdomen/GI:Soft, Non tender, Bowel sounds present Extremities/Musculoskeletal:normal inspection, no edema Neurologic/Psych:AAOX3, grossly no focal neurological deficits Skin: normal color, warm Results & Data Results & Data ([facility]) Vital Signs (Past 12 Hours) Vital Signs Temp Pulse Pulse Resp BP Pulse Ox 01/20/21 08:41 36.6 C 94 H 22 147/80 H 91 01/20/21 07:42 88 22 98 01/20/21 07:32 92 H 01/20/21 02:59 36.8 C 66 18 112/69 94 01/19/21 23:18 36.9 C 69 17 121/72 96
--- NOTE | 2021-01-20 11:09 | Discharge Summary ---
Date of Service January 20, 2021 Admission HPI Per Admitting Provider CHIEF COMPLAINT: Shortness of breath. HISTORY OF PRESENT ILLNESS: A 65-year-old male with past medical history significant for severe persistent asthma, bronchiectasis without complication, history of pulmonary nodules, history of esophageal dysmotility, COPD, idiopathic cardiomyopathy, diastolic dysfunction, GERD, avascular necrosis of right femur head, chronic pain syndrome, cervical radiculopathy, history of t obacco abuse, history of anxiety and depression, environmental allergies, history of marijuana use. The patient lives alone, presents with shortness of breath. The patient says since yesterday he is having more shortness of breath, especially in the nighttime when he goes to sleep he is getting short of breath and with any exertion he is getting short of breath. At rest he is okay. He is coughing. His phlegm is somewhat different with thick yellowish phlegm. Denies any fevers. Denies any chest pain. No headache, no blurred visions. He has some occasional runny nose. No sore throat currently. He has some left lower chest pain while coughing. Was somewhat nauseous earlier. No abdominal pain. Normal bowel and bladder movements. No swelling in the legs, no rash. Currently resting comfortably and hemodynamically stable. The patient has also ongoing esophageal dysmotility, just saw GI on 01/14/2021. GI has recommended esophageal manometry and pH testing, but the patient was not sure, that he could not tolerate nasogastric catheter and declined .GI thinks that his problem could be achalasia and that Heller myotomy could be helpful for him, but it looks like he is not interested in surgery and any more procedures. The patient says about 6 months ago he had dilatation of esophagus done, but it only lasted for 15 days, but he says if he takes Valium before eating that helps, and he is regular diet at home, and currently hungry and wants to eat something. Admission Exam Per Admitting Provider PHYSICAL EXAMINATION: GENERAL: The patient is alert and oriented, not in acute distress. VITAL SIGNS: Temperature 36.8, pulse 81, respiratory rate 15, blood pressure 154/88, oxygen 99% on room air. HEENT: Pupils equal, round and reactive to light. Oral mucosa moist. NECK: No JVD, no neck masses. CARDIOVASCULAR: S1 and S2 heard. Regular rate and rhythm. No murmur, no gallop. RESPIRATORY SYSTEM: Normal AP diameter. No accessory muscle use. Bilateral wheezing heard. No crackles. ABDOMEN: Soft, bowel sounds present, nontender, no distention. CENTRAL NERVOUS SYSTEM: Cranial nerves II-XII grossly intact, nonfocal. EXTREMITIES: No edema, no erythema. Principal Diagnosis Acute COPD exacerbation Esophageal dysmotility Discharge Data Allergies Allergy/AdvReac Type Severity Reaction Status Date / Time clidinium Allergy Intermediate Rash Verified 01/15/21 21:55 [From Librax (with clidinium)] acetaminophen Allergy Mild hives/itchy Verified 01/15/21 21:55 chlordiazepoxide Allergy Mild Rash Verified 01/15/21 21:55 [From Librax (with clidinium)] codeine Allergy Mild Rash Verified 01/15/21 21:55 [From Tylenol-Codeine] latex Allergy Mild Rash Verified 01/15/21 21:55 montelukast AdvReac Severe MENTAL Verified 01/15/21 21:55 STATUS CHANGED zolpidem AdvReac Severe MENTAL Verified 01/15/21 21:55 STATUS CHANGED,HALLUCINATIONS budesonide [From Symbicort] AdvReac Intermediate caused Verified 01/15/21 21:55 vision problems formoterol [From Symbicort] AdvReac Intermediate caused Verified 01/15/21 21:55 vision problems Consultations 01/15/21 22:28 ED Decision to Admit Stat Hospital Course (1) Acute exacerbation of chronic obstructive pulmonary disease (COPD): (2) RAMIREZ (dyspnea on exertion): Patient is a 65 yr male who presents with shortness of breath, chronic obstructive pulmonary disease exacerbation, history of asthma. Acute COPD exacerbation H/O COPD/Asthma CXR:COPD pattern. Saturating well on room air Continue doxycycline, bronchodilators Needs follow-up with pulmonology upon discharge Continue Pulmonary Hygiene Transition IV Solu-Medrol to prednisone Continue Prednisone taper course Clinically improved H/O Esophageal dysmotility: Ongoing issue, takes Valium before meals and also Cardizem b.i.d. Appreciate Speech Eval Consider GI eval if needed Patient declined slippery diet GERD precautions H/O chronic diastolic congestive heart failure: No signs of volume overload Anxiety and depression Continue home medications. Chronic pain syndrome: Continue home meds DVT Px: Lovenox SQ Total Time Total Time Spent Total Time Spent (In Minutes): 40 minutes Discharge Plan Discharge Items Patient Disposition: Home - Self-Care Reason For Visit: SOB Discharge Diagnosis: Acute COPD exacerbation Esophageal dysmotility Activity: Per Instructions section Exercise/Sports: Gradually increase as tolerated Non-emergency contact: Primary Care Provider and Fast Food Worker Call non-emergency contact if: you have any medication questions, your symptoms worsen, your pain is concerning for you and you have a fever Follow-up/Referrals: Pulmonary Function Testing [Other] (Date & Time 01/23/2021 12:00 PM Provider [facility] Pulmonary Function Lab, [facility] ) Randy Smart MD [Primary Care Provider] - (Date & Time 01/23/2021 11:00 AM Provider [facility] ) Howard Valenzuela MD [Outside Practitioners] - (Date & Time 02/01/2021 9:20 AM Provider Howard Valenzuela MD Department Pulmonary Medicine, [facility] ) Diet: Heart Healthy Diet Texture: Easy to Chew Addtl Attending Provider Instructions: Follow-up with your primary care physician Dr. Smart on Jan 23 as scheduled Follow up with your Fast Food Worker in 1-2 weeks as advised Get Lung Function test as outpatient as scheduled Complete the prednisone tapering course as prescribed Start taking prednisone 40 mg daily for 2 more days, then 30 mg for 3 days, then 20mg for 3 days, then 10 mg for 3 days and stop Seek immediate medical attention if your symptoms reoccur or worsen Please take all medications as instructed on discharge list below. Please call if you have any questions or problems. You can reach a [facility] hospitalist on duty at [facility] 24 hours a day by calling [phone] Pending Studies at Discharge: No Stand-Alone Forms: [facility], Smoking Cessation Medications and DC Order Prescriptions: New doxycycline hyclate 100 mg Capsule 100 mg PO BID Qty: 4 RF: 0 prednisone 10 mg tablet 10 mg PO UD Qty: 26 RF: 0 Spiriva Respimat 1.25 mcg/actuation mist 2 inh inhalation DAILY Qty: 4 RF: 0 Continued (DME) Portable Oxygen Misc See Rx Instructions .ROUTE .MEDSUPPLY Qty: 1 RF: 0 albuterol sulfate 2.5 mg /3 mL (0.083 %) Solution For Nebulization 2.5 mg continuous nebulization Q4H PRN (Reason: Wheezing) RF: 0 gabapentin 100 mg Capsule 100 mg PO HS PRN (Reason: restless legs) RF: 0 diazepam 5 mg Tablet 5 mg PO TID RF: 0 diphenhydramine HCl [Benadryl Allergy] 25 mg Tablet 25 mg PO DAILY PRN (Reason: Allergy Symptoms) RF: 0 finasteride 5 mg tablet 5 mg PO QAM RF: 0 albuterol sulfate [ProAir HFA] 90 mcg/actuation Hfa Aerosol Inhaler 2 puff inhalation QID PRN (Reason: Shortness Of Breath) RF: 0 nitroglycerin [Nitrostat] 0.3 mg Tablet, Sublingual 0.3 mg sublingual UD PRN (Reason: ESOPAGEAL SPASM) RF: 0 oxycodone 15 mg Tablet 15 mg PO Q8H PRN (Reason: Pain) RF: 0 diltiazem HCl 60 mg tablet 60 mg PO BID RF: 0 fluticasone propion-salmeterol [Advair Diskus] 250-50 mcg/dose blister with device 1 ea INHALATION BID RF: 0 Discharge Orders: Discharge Order (Routine); Ordered 01/20/21 Ordered By: Nacho Hamm Admission Data Admit Date/Time: 01/15/21 23:40 Attending Provider: Nacho Hamm Admit Provider: Chad Ashford Primary Care Provider: Randy Smart Other Providers: Chad Ashford Other Interventions: Discharge Summary Assessment (RN) Last Done: 01/20/21 11:29
--- NOTE | 2021-01-30 14:07 | Coding Query ---
CODING QUERY To promote full compliance with coding requirements relating to patient care, provider participation is requested in all cases of medical biller coder uncertainty. Please assist us with the question(s) below: Coding Question(s): Documentation states Patient will be treated "for COPD exacerbation and asthma exacerbation with IV Solu-Medrol..." This does not make discharge summary. Please clarify below: ( ) Patient with Asthma Exacerbation ( x) Asthma Exacerbation Ruled Out ( ) Other Please Explain: Thank you Graeme Stephen Principal Diagnosis: "that condition established after study, to be chiefly responsible for occasioning the admission of the patient to the hospital for care." Co-Existing Principal Diagnosis: "when two or more diagnoses equally meet the criteria for principal diagnosis as determined by the circumstances of admission, diagnostic work up, and/or therapy provided, and the Alphabetic Index, Tabular List, or another coding guideline does not provide sequencing direction, any one of the diagnoses may be sequenced first." "When the physician has documented what appears to be a current diagnosis in the body of the record, but has not included the diagnosis in the final diagnostic statement, the physician should be asked whether the diagnosis should be added." (Source Coding [facility] 2 QTR90. p3-4) [place]
== END 2021-01-20 11:50 | disposition home or self-care (01) | DRG 191 ==
LOC: ED 17:01 → 2N 23:40 → SUATTDRO 23:40 → 2N 01-16 02:01

== ENCOUNTER 2021-01-26 20:36 | Inpatient (IN) ==
[2021-01-26] MEDS ORDERED: methylPREDNISolone 125 MG/2 ML VIAL IV STA (20:59)
[2021-01-26] MEDS ORDERED: ALBUT/IPRATROP 3MG/0.5MG NEB 3 ML VIAL INH STA (20:59)
[2021-01-26] MEDS ORDERED: MAGNESIUM SULFATE / D5W 1 GM/100 ML BAG IV STA (21:01)
--- NOTE | 2021-01-26 21:06 | Emergency Department Note ---
History of Present Illness General Chief complaint: Shortness of Breath/Dyspnea Stated complaint: SOB Time Seen by Provider: 01/26/21 20:49 Source: patient Mode of arrival: EMS History of Present Illness Provider complaint: Shortness of breath Onset (ago): day(s) 3 Location: chest Pain Consistency: + constant Quality: + other (Short of breath) Relieved By: + none Exacerbated By: + other (Exertion) Associated symptoms: + chest pain (Left-sided chest pain when he coughs for a year), + cough and + shortness of breath; no diaphoresis, no fever/chills or no nausea/vomiting This is a 65-year-old male with a history of COPD presenting with worsening shortness of breath over the past 3 days. He was just admitted to the hospital for this last month and was discharged 6 days ago. He states over the past 3 days he has been at home and not been able to exert himself. He states any exertion makes him more short of breath. He did receive a DuoNeb prior to arrival and states that he does not feel much better. He is on steroids but only 30 mg of prednisone currently. He does have a cough productive of yellow sputum which is chronic for him. He also has chronic chest pain on the left side of his chest. He describes it as a jagged pain when he coughs only. He santos s had this for over a year. He also states he had swelling to his legs for over a year but usually the swelling goes away during the day. He notes that he has some pain in his legs as well which has also been going on for about a year. He denies any fever, abdominal pain, vomiting, diarrhea or urinary symptoms. Home Medications Medication Instructions Recorded Confirmed Type albuterol sulfate 2.5 mg CONTINUOUS NEBULIZATION Q4H 06/02/18 01/26/21 History PRN diazepam 5 mg tablet 5 mg PO TID 06/02/18 01/26/21 History gabapentin 100 mg capsule 100 mg PO HS PRN 06/02/18 01/26/21 History albuterol sulfate 90 mcg/actuation 2 puff INHALATION QID PRN 11/09/18 01/26/21 History aerosol inhaler (ProAir HFA) nitroglycerin 0.3 mg sublingual 0.3 mg SUBLINGUAL UD PRN 03/07/19 01/26/21 History tablet (Nitrostat) oxycodone 15 mg tablet 15 mg PO Q8H PRN 01/23/20 01/26/21 History Portable Oxygen #1 ea 02/11/20 02/18/20 History diphenhydramine HCl 25 mg tablet 25 mg PO DAILY PRN 04/13/20 01/26/21 History (Benadryl Allergy) finasteride 5 mg tablet 5 mg PO QAM 04/13/20 01/26/21 History diltiazem HCl 60 mg tablet 60 mg PO BID 01/15/21 01/26/21 History fluticasone 250 mcg-salmeterol 50 1 ea INHALATION BID 01/16/21 01/26/21 History mcg/dose blistr powdr for inhalation (Advair Diskus) prednisone 10 mg tablet 10 mg PO UD #26 tab 01/20/21 01/26/21 Rx tiotropium bromide 1.25 2 inh INHALATION DAILY #4 g 01/20/21 01/26/21 Rx mcg/actuation mist for inhalation (Spiriva Respimat) Allergies Allergy/AdvReac Type Severity Reaction Status Date / Time clidinium Allergy Intermediate Rash Verified 01/26/21 21:24 [From Librax (with clidinium)] acetaminophen Allergy Mild hives/itchy Verified 01/26/21 21:24 chlordiazepoxide Allergy Mild Rash Verified 01/26/21 21:24 [From Librax (with clidinium)] codeine Allergy Mild Rash Verified 01/26/21 21:24 [From Tylenol-Codeine] latex Allergy Mild Rash Verified 01/26/21 21:24 montelukast AdvReac Severe MENTAL Verified 01/26/21 21:24 STATUS CHANGED zolpidem AdvReac Severe MENTAL Verified 01/26/21 21:24 STATUS CHANGED,HALLUCINATIONS budesonide [From Symbicort] AdvReac Intermediate caused Verified 01/26/21 21:24 vision problems formoterol [From Symbicort] AdvReac Intermediate caused Verified 01/26/21 21:24 vision problems Past Med/Surg History Medical History Anxiety Asymptomatic microscopic hematuria Avascular necrosis of femoral head BPH (benign prostatic hypertrophy) Chronic hip pain Chronic neck pain Chronic obstructive pulmonary disease inhaler/nebulizer prn Chronic pain syndrome Emphysema of lung Esophageal dysmotility GERD (gastroesophageal reflux disease) Hearing deficit History of kidney stones Medical marijuana use On home oxygen therapy 2L N/C at hs and prn Pneumonia Status asthmaticus Surgical History History of bronchoscopy multiple ? History of cardiac cath 10/2018 @ [facility] by Dr. Mello--no stents placed History of carpal tunnel surgery of left wrist x3 History of colonoscopy with polypectomy History of ear surgery eardrum opening by Dr. Daniels History of elbow surgery bilt History of esophagogastroduodenoscopy (EGD) History of sinus surgery History of surgery on arm left arm---hardware removed History of tonsillectomy and adenoidectomy History of tooth extraction all upper teeth Hx of hernia repair x5 Family History Father Nephrolithiasis Asthma Mother Family history of diabetes mellitus Diabetes Grandfather (Paternal) Alzheimer disease Other No family history of adverse response to anesthesia Social History Smoking Status: Former smoker Tobacco Type: Cigarettes Second Hand Exposure: No; Hx Alcohol Use: No Hx Substance Use: Yes Last Used Substance: Unknown Preferred Language: Northern Irish Communication Ability: Effective 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 and A total of 10 systems reviewed and were otherwise negative Physical Exam Vital Signs Vital Signs - 24 hr 01/26/21 20:44 01/26/21 20:59 01/26/21 21:15 Temperature 37 C Temperature Source Oral Pulse Rate 82 Pulse Rate [Finger] 82 82 Respiratory Rate 18 Blood Pressure 120/62 Blood Pressure [Right Arm] 120/86 Blood Pressure Mean 81 Blood Pressure Mean [Right Arm] 97 Pulse Oximetry 92 92 92 Oxygen Delivery Method Room Air Room Air Room Air Fraction of Inspired Oxygen 21 Sepsis Recent Fever Within 48 Hours No Sepsis New/Unexplained Change in Mental Status No Sepsis Action Taken by Nursing No Action Required 01/26/21 21:34 01/26/21 23:13 Temperature Temperature Source Pulse Rate Pulse Rate [Finger] 67 Respiratory Rate Blood Pressure Blood Pressure [Right Arm] 137/98 Blood Pressure Mean Blood Pressure Mean [Right Arm] 111 Pulse Oximetry 92 92 Oxygen Delivery Method Room Air Room Air Fraction of Inspired Oxygen Sepsis Recent Fever Within 48 Hours Sepsis New/Unexplained Change in Mental Status Sepsis Action Taken by Nursing Constitutional: Vital signs reviewed. Eyes: Pupils are equal round reactive to light. Conjunctiva are noninjected. ENT: Pharynx is clear without erythema or exudate. Mucous membranes are somewhat dry. Neck supple without meningeal signs. Respiratory: Diffuse wheezing bilaterally. Breath sounds are equal bilaterally. Cardiovascular: Regular rate and rhythm. No rubs or gallops. GI: Soft, nondistended and nontender. Bowel sounds are present. Musculoskeletal: No peripheral edema. No lower extremity tenderness. Integumentary: No cyanosis. or jaundice. Neurological: The patient is awake and alert. No focal deficits. Psychiatric: Anxious. Course Administered Medications Discontinued Medications Albuterol (Albut/Ipratrop 3mg/0.5mg Neb 3 Ml Vial) 12 ml INH ONE STA Stop: 01/26/21 21:00 Last Admin: 01/26/21 21:21 Dose: Not Given Documented by: [id number] Diazepam (Diazepam 2 Mg Tablet) 2 mg PO NOW ONE Stop: 01/26/21 22:58 Last Admin: 01/26/21 23:06 Dose: 2 mg Documented by: [id number] Magnesium Sulfate/Dextrose (Magnesium Sulfate / D5w) 1 gm in 100 mls @ 100 mls/hr IV NOW STA Stop: 01/26/21 22:00 Last Infusion: 01/26/21 22:40 Dose: 0 mls/hr Documented by: [id number] Admin: 01/26/21 21:26 Dose: 100 mls/hr Documented by: [id number] Lorazepam (Lorazepam 0.5 Mg Tab) 0.5 mg PO NOW STA Stop: 01/27/21 00:06 Last Admin: 01/27/21 00:09 Dose: 0.5 mg Documented by: [id number] Methylprednisolone (Methylprednisolone 125 Mg/2 Ml Vial) 125 mg IV NOW STA Stop: 01/26/21 21:00 Last Admin: 01/26/21 21:25 Dose: 125 mg Documented by: [id number] Medical Decision Making Differential Diagnosis COPD exacerbation, respiratory distress, hypercapnia, pneumonia, bronchitis, Covid Medical Records Attestation: I reviewed the patient's medical records. I did perform a limited focused review of portions of the patient's old chart on the electronic medical record. The patient was admitted January 15 for COPD exacerbation. He was discharged on the on prednisone. Home Medications Current Medication List: was personally reviewed by me Laboratory Data Attestation: I reviewed the patient's lab results. Result diagrams: 01/26/21 20:40 01/26/21 20:40 Lab Results 01/26/21 01/26/21 01/26/21 Range/Units 20:17 20:17 20:40 WBC 9.59 (4.8-10.8) K/uL RBC 3.89 L (4.7-6.1) M/uL Hgb 11.9 L (14.0-18.0) g/dL Hct 36.4 L (42-52) % MCV 93.6 (80-100) fL MCH 30.6 (25-34) pg MCHC 32.7 (32-36) g/dL RDW Std Deviation 57.5 H (36.4-46.3) fL RDW Coeff of Myles 16.7 H (11.5-14.5) % Plt Count 230 (130-400) K/uL MPV 8.9 (7.4-10.4) fL Immature Gran % (Auto) 2.0 % Neut % (Auto) 55.9 % Lymph % (Auto) 28.2 % Cassia % (Auto) 11.1 % Eos % (Auto) 2.6 % Baso % (Auto) 0.2 % Neut # (Auto) 5.37 (1.4-6.5) K/uL Lymph # (Auto) 2.70 (1.2-3.4) K/uL Cassia # (Auto) 1.06 H (0.11-0.59) K/uL Eos # (Auto) 0.25 (0-0.5) K/uL Baso # (Auto) 0.02 (0-0.2) K/uL Immature Gran # (Auto) 0.19 H (0.00-0.02) K/uL Sodium (136-145) mmol/L Potassium (3.5-5.1) mmol/L Chloride (98-107) mmol/L Carbon Dioxide (21-32) mmol/L Anion Gap (3-11) BUN (7-18) mg/dl Creatinine (0.6-1.4) mg/dl Est Cr Clr Drug Dosing ml/min Est GFR ( Amer) ml/min Est GFR (Non-Af Amer) ml/min BUN/Creatinine Ratio (10-20) Glucose (70-99) mg/dl Calcium (8.5-10.1) mg/dl Total Bilirubin (0.2-1) mg/dl AST (15-37) U/L ALT (12-78) U/L Alkaline Phosphatase (45-117) U/L Troponin I (0-0.045) ng/ml Total Protein (6.4-8.2) gm/dl Albumin (3.4-5.0) gm/dl Globulin (2.5-4.0) gm/dl Albumin/Globulin Ratio (0.9-2) Urine Color Urine Appearance (Clear) Urine pH (4.5-7.5) Ur Specific [place] (1.000-1.030) Urine Protein (Negative) Urine Glucose (UA) (Negative) Urine Ketones (Negative) Urine Blood (Negative) Urine Nitrite (Negative) Urine Bilirubin (Negative) Urine Urobilinogen (Negative) Ur Leukocyte Esterase (Negative) Urine WBC (Auto) (0-5) /hpf Urine RBC (Auto) (0-4) /hpf U Hyaline Cast (Auto) (0-5) /lpf U Epithel Cells (Auto) (0-5) /lpf Urine Bacteria (Auto) (Negative) COVID-19 Eval Order Covid19 at [facility] SARS-CoV-2 (PCR) NEGATIVE (Negative) 01/26/21 01/26/21 Range/Units 20:40 23:13 WBC (4.8-10.8) K/uL RBC (4.7-6.1) M/uL Hgb (14.0-18.0) g/dL Hct (42-52) % MCV (80-100) fL MCH (25-34) pg MCHC (32-36) g/dL RDW Std Deviation (36.4-46.3) fL RDW Coeff of Myles (11.5-14.5) % Plt Count (130-400) K/uL MPV (7.4-10.4) fL Immature Gran % (Auto) % Neut % (Auto) % Lymph % (Auto) % Cassia % (Auto) % Eos % (Auto) % Baso % (Auto) % Neut # (Auto) (1.4-6.5) K/uL Lymph # (Auto) (1.2-3.4) K/uL Cassia # (Auto) (0.11-0.59) K/uL Eos # (Auto) (0-0.5) K/uL Baso # (Auto) (0-0.2) K/uL Immature Gran # (Auto) (0.00-0.02) K/uL Sodium 137 (136-145) mmol/L Potassium 4.3 (3.5-5.1) mmol/L Chloride 101 (98-107) mmol/L Carbon Dioxide 34 H (21-32) mmol/L Anion Gap 2.0 L (3-11) BUN 18 (7-18) mg/dl Creatinine 0.91 (0.6-1.4) mg/dl Est Cr Clr Drug Dosing 62.6 ml/min Est GFR ( Amer) 101.4 ml/min Est GFR (Non-Af Amer) 87.5 ml/min BUN/Creatinine Ratio 20.2 H (10-20) Glucose 91 (70-99) mg/dl Calcium 8.7 (8.5-10.1) mg/dl Total Bilirubin 0.2 (0.2-1) mg/dl AST 20 (15-37) U/L ALT 45 (12-78) U/L Alkaline Phosphatase 54 (45-117) U/L Troponin I < 0.015 (0-0.045) ng/ml Total Protein 6.6 (6.4-8.2) gm/dl Albumin 3.4 (3.4-5.0) gm/dl Globulin 3.2 (2.5-4.0) gm/dl Albumin/Globulin Ratio 1.1 (0.9-2) Urine Color Yellow Urine Appearance Clear (Clear) Urine pH 6.5 (4.5-7.5) Ur Specific [place] 1.012 (1.000-1.030) Urine Protein Negative (Negative) Urine Glucose (UA) Negative (Negative) Urine Ketones Negative (Negative) Urine Blood Trace H (Negative) Urine Nitrite Negative (Negative) Urine Bilirubin Negative (Negative) Urine Urobilinogen Negative (Negative) Ur Leukocyte Esterase Negative (Negative) Urine WBC (Auto) 10-30 H (0-5) /hpf Urine RBC (Auto) 5-10 H (0-4) /hpf U Hyaline Cast (Auto) 0 (0-5) /lpf U Epithel Cells (Auto) 5-10 H (0-5) /lpf Urine Bacteria (Auto) Negative (Negative) COVID-19 Eval Order SARS-CoV-2 (PCR) (Negative) Imaging Data Radiologist's Impression: Chest X-Ray 01/26/21 20:59 SINGLE VIEW CHEST CLINICAL HISTORY: Dyspnea. FINDINGS: An AP, portable, upright chest radiograph is compared to study dated 01/15/2021 and correlated with chest CT dated 06/02/2018. The examination is degraded by portable technique and apical lordotic positioning. The heart is enlarged noting atherosclerotic calcification of the thoracic aorta. The pulmonary vasculature is noncongested. Emphysema and chronic additional thickening is similar to previous. No airspace consolidation or large pleural effusion is identified. Foci of scarring/atelectasis are seen throughout both lungs. No pneumothorax is seen. The skeletal structures appear osteopenic. The bony thorax is grossly intact. IMPRESSION: Cardiomegaly and emphysema with no acute cardiopulmonary abnormality. ACT 112: Negative or not required by law. Electronically signed by: Armando Duncan M.D. 01/26/2021 9:39 PM Venous Doppler Study 01/26/21 20:59 ULTRASOUND BILATERAL LOWER EXTREMITY VENOUS CLINICAL HISTORY: Leg pain and swelling. COMPARISON STUDY: Bilateral lower extremity venous ultrasound dated 09/14/2013. TECHNIQUE: Real-time, grayscale, and color Doppler sonography of the deep veins of the right and left lower extremity was performed from the inguinal crease to the calf. Compression and augmentation were utilized. FINDINGS: There is no sonographic evidence of deep venous thrombosis identified in the right or left lower extremity. The common femoral, superficial femoral, and popliteal veins are patent and normally compressible bilaterally. The greater saphenous vein and the profunda femoris vein at the junction with the common femoral vein are clear in both legs. The visualized calf veins are patent bilaterally. IMPRESSION: There is no sonographic evidence of deep venous thrombosis identified in the right or left lower extremity. ACT 112: Negative or not required by law. Electronically signed by: Armando Duncan M.D. 01/26/2021 10:36 PM ECG Data Attestation: I personally reviewed and interpreted this ECG as follows: Indication: + SOB/dyspnea Rate (beats per minute): 67 Rhythm: + normal sinus ECG ST segments: no ST elevation ECG Findings: + Other (Low voltage QRS); no PVCs MDM Narrative I did evaluate the patient as noted above. The patient is presenting with worsening dyspnea over the past 3 days. On examination he is wheezing diffusely. IV access was established. I did treat him with Solu-Medrol IV. He is also given magnesium IV. I also ordered a continuous hour-long DuoNeb. The nurse stated that he refused a DuoNeb treatment. He states that he does not feel the DuoNeb will help him. I went in to asked the patient why. He got frus trated and stated that he did not want a DuoNeb. I try to reason with him and he got angry and stated that he told somebody 5 times that he gets anxiety with the DuoNeb. I then offered to give him something for anxiety but he would not answer me. I explained the reasoning for the DuoNeb and he continued to refuse. I did place an order for continuous cardiac monitoring. The monitor showed normal sinus rhythm at a rate of 83 bpm. I did order and personally review the patient's 12-lead EKG as described above. He has no evidence of acute ischemia. I did order and personally reviewed the images of the patient's chest x-ray as described above. There is no evidence of pneumonia. I did order and review the patient's blood work as noted in the electronic medical record. His white blood cell count demonstrates a mild anemia with a hemoglobin 11.9. His white count is not elevated. Platelets are 230. Electrolytes are unremarkable. Troponin is negative. I did order a Doppler ultrasound of the lower extremities. I did review the images myself as well as the radiology report as described above. There is no evidence of DVT. I did reevaluate the patient. He seems calm at this time but is requesting something for anxiety. He states that he has had Valium in the past. He then told me some further history which he did not mention earlier. He stated that he was having a panic attack and states he was afraid that if he told me the symptoms that I would want to keep him in the hospital. He stated that he was very short of breath today and developed diaphoresis and lightheadedness. He felt the and impending sense of doom and felt like he was going to defecate on himself. He does not feel this way now. On reexamination he continues to wheeze but declines DuoNeb. I did recommend hospitalization for repeat cardiac biomarkers and further care and evaluation. He was agreeable. I did treat him with Valium 2 mg p.o. I did discuss the case with the hospitalist and bilingual patient support caseworker. Impression & Plan Chronic chest pain, Anxiety, Acute exacerbation of chronic obstructive pulmonary disease, Sense of impending doom, Anemia Discharge Plan Visit Data Chief Complaint: Shortness of Breath/Dyspnea Stated Complaint: SOB ED Provider: Brent Ardon Discharge Problem: Chronic chest pain, Anxiety, Acute exacerbation of chronic obstructive pulmonary disease, Sense of impending doom, Anemia Patient Disposition: Being Evaluated by Hospitalist Forms Stand Alone Forms: My [facility] Prescriptions Prescriptions: No Action (DME) Portable Oxygen Misc See Rx Instructions .ROUTE .MEDSUPPLY Qty: 1 RF: 0 albuterol sulfate 2.5 mg /3 mL (0.083 %) Solution For Nebulization 2.5 mg continuous nebulization Q4H PRN (Reason: Wheezing) RF: 0 gabapentin 100 mg Capsule 100 mg PO HS PRN (Reason: restless legs) RF: 0 diazepam 5 mg Tablet 5 mg PO TID RF: 0 diphenhydramine HCl [Benadryl Allergy] 25 mg Tablet 25 mg PO DAILY PRN (Reason: Allergy Symptoms) RF: 0 finasteride 5 mg tablet 5 mg PO QAM RF: 0 albuterol sulfate [ProAir HFA] 90 mcg/actuation Hfa Aerosol Inhaler 2 puff inhalation QID PRN (Reason: Shortness Of Breath) RF: 0 nitroglycerin [Nitrostat] 0.3 mg Tablet, Sublingual 0.3 mg sublingual UD PRN (Reason: ESOPAGEAL SPASM) RF: 0 oxycodone 15 mg Tablet 15 mg PO Q8H PRN (Reason: Pain) RF: 0 diltiazem HCl 60 mg tablet 60 mg PO BID RF: 0 fluticasone propion-salmeterol [Advair Diskus] 250-50 mcg/dose blister with device 1 ea INHALATION BID RF: 0 prednisone 10 mg tablet 10 mg PO UD Qty: 26 RF: 0 Spiriva Respimat 1.25 mcg/actuation mist 2 inh inhalation DAILY Qty: 4 RF: 0 Referrals Referrals: Randy Smart MD [Primary Care Provider] - Discharge Problem: Anemia Qualifiers: Anemia type: unspecified type Qualified Code(s): D64.9 - Anemia, unspecified
[2021-01-26 21:23] LABS: Basophils # (auto) 0.02 K/uL (0-0.2); Basophils % (auto) 0.2 %; Eosinophils # (auto) 0.25 K/uL (0-0.5); Eosinophils % (auto) 2.6 %; Hematocrit (blood only) 36.4 % (42-52); Hemoglobin 11.9 g/dL (14.0-18.0); Immature Granulocytes # (auto) 0.19 K/uL (0.00-0.02); Lymphocytes % (auto) 28.2 %; Mean Corpuscular Hemoglobin 30.6 pg (25-34); Mean Corpuscular Hgb Conc 32.7 g/dL (32-36); Mean Corpuscular Volume 93.6 fL (80-100); Mean Platelet Volume 8.9 fL (7.4-10.4); Monocytes # (auto) 1.06 K/uL (0.11-0.59); Monocytes % (auto) 11.1 %; Neutrophils # (auto) 5.37 K/uL (1.4-6.5); Neutrophils % (auto) 55.9 %; Platelet Count 230 K/uL (130-400); RDW Coefficient of Variation 16.7 % (11.5-14.5); RDW Standard Deviation 57.5 fL (36.4-46.3); Red Blood Count 3.89 M/uL (4.7-6.1); White Blood Count 9.59 K/uL (4.8-10.8)
[2021-01-26 21:30] LABS: Alanine Aminotransferase 45 U/L (12-78); Albumin Level 3.4 gm/dl (3.4-5.0); Aspartate Aminotransferase 20 U/L (15-37); BUN Creatinine Ratio 20.2 (10-20); Blood Urea Nitrogen 18 mg/dl (7-18); Calcium 8.7 mg/dl (8.5-10.1); Carbon Dioxide 34 mmol/L (21-32); Chloride 101 mmol/L (98-107); Creatinine Clr Calc Pharmacy 62.6 ml/min; Est GFR (African American) 101.4 ml/min; Est GFR (Non-African American) 87.5 ml/min; Glucose 91 mg/dl (70-99); Potassium 4.3 mmol/L (3.5-5.1); Sodium 137 mmol/L (136-145)
[2021-01-26 21:35] LABS: Albumin Globulin Ratio 1.1 (0.9-2); Alkaline Phosphatase 54 U/L (45-117); Bilirubin,Total 0.2 mg/dl (0.2-1); Globulin 3.2 gm/dl (2.5-4.0); Total Protein 6.6 gm/dl (6.4-8.2); Troponin I < 0.015 ng/ml (0-0.045)
--- NOTE | 2021-01-26 21:41 | XRay Report ---
SINGLE VIEW CHEST CLINICAL HISTORY: Dyspnea. FINDINGS: An AP, portable, upright chest radiograph is compared to study dated 01/15/2021 and correlat ed with chest CT dated 06/02/2018. The examination is degraded by portable technique and apical lordo tic positioning. The heart is enlarged noting atherosclerotic calcification of the thoracic aorta. Th e pulmonary vasculature is noncongested. Emphysema and chronic additional thickening is similar to pr evious. No airspace consolidation or large pleural effusion is identified. Foci of scarring/atelectas is are seen throughout both lungs. No pneumothorax is seen. The skeletal structures appear osteopenic . The bony thorax is grossly intact. IMPRESSION: Cardiomegaly and emphysema with no acute cardiopulmonary abnormality. ACT 112: Negative or not required by law. Electronically signed by: Armando Duncan M.D. 01/26/2021 9:39 PM
--- NOTE | 2021-01-26 22:37 | Ultrasound Report ---
ULTRASOUND BILATERAL LOWER EXTREMITY VENOUS CLINICAL HISTORY: Leg pain and swelling. COMPARISON STUDY: Bilateral lower extremity venous ultrasound dated 09/14/2013. TECHNIQUE: Real-time, grayscale, and color Doppler sonography of the deep veins of the right and left lower extremity was performed from the inguinal crease to the calf. Compression and augmentation wer e utilized. FINDINGS: There is no sonographic evidence of deep venous thrombosis identified in the right or left lower extremity. The common femoral, superficial femoral, and popliteal veins are patent and normally compressible bilaterally. The greater saphenous vein and the profunda femoris vein at the junction w ith the common femoral vein are clear in both legs. The visualized calf veins are patent bilaterally. IMPRESSION: There is no sonographic evidence of deep venous thrombosis identified in the right or lef t lower extremity. ACT 112: Negative or not required by law. Electronically signed by: Armando Duncan M.D. 01/26/2021 10:36 PM
[2021-01-26] MEDS ORDERED: diazePAM 2 MG TABLET PO ONE (22:57)
[2021-01-26 23:21] LABS: Appearance Urine Clear (Clear); Bacteria Urine Automated Negative (Negative); Bilirubin Urine Negative (Negative); Blood Urine Trace (Negative); Cast Urine Automated 0 /lpf (0-5); Color Urine Yellow; Glucose Urine UA Negative (Negative); Ketones Urine Negative (Negative); Leukocyte Esterase Urine Negative (Negative); Nitrite Urine Negative (Negative); Protein Urine Negative (Negative); Specific Gravity Urine 1.012 (1.000-1.030); Urobilinogen Urine Negative (Negative); pH Urine 6.5 (4.5-7.5)
[2021-01-26] MEDS ORDERED: LEVALBUTEROL HCL 1.25 MG/3 ML NEB NEB PRN (23:48)
[2021-01-27] MEDS ORDERED: LORazepam 0.5 MG TAB PO STA (00:05)
[2021-01-27] MEDS ORDERED: FUROSEMIDE 40 MG/4 ML VIAL IV STA (00:12)
[2021-01-27] MEDS: LEVALBUTEROL HCL 1.25 MG/3 ML NEB NEB SCH ×4 (01:00→19:57)
[2021-01-27] MEDS ORDERED: GABAPENTIN 100 MG CAP PO PRN (01:01)
[2021-01-27] MEDS ORDERED: NITROGLYCERIN SL 0.4 MG/TAB TAB SL PRN (01:01)
[2021-01-27] MEDS ORDERED: POLYETHYLENE (MIRALAX) 17 GM PACK PO PRN (01:01)
[2021-01-27] MEDS ORDERED: ALBUTEROL HFA 8 GM INHALER INH PRN (01:51)
[2021-01-27] MEDS ORDERED: diphenhydrAMINE Capsule 25 MG CAP PO PRN (01:53)
--- NOTE | 2021-01-27 02:32 | History and Physical Report ---
DATE OF ADMISSION: 01/26/2021. CHIEF COMPLAINT: Shortness of breath. HISTORY OF PRESENT ILLNESS: This is a 65-year-old male with past medical history significant for severe persistent asthma, bronchiectasis without complication, history of pulmonary nodules, history of esophageal dysmotility, COPD, idiopathic cardiomyopathy, diastolic dysfunction, GERD, avascular necrosis of right femur head, chronic pain syndrome, cervical radiculopathy, history of tobacco abuse, history of anxiety and depression, history of environmental allergies, history of marijuana use, presents with shortness of breath. The patient lives alone. The patient was recently here in the hospital, was treated for COPD exacerbation with doxycycline, nebs and steroids. He was discharged on 01/20/2021. The patient comes again with shortness of breath. The patient says he is getting more short of breath and feeling anxious at home and also coughs and brings some phlegm. So he got worried and came to the ER. He was given [address] to the hospital and in the ER refused to get hour long neb treatments because it makes him jittery and could not sleep during the night. He states he is not sleeping well at home and asked to help him sleep tonight. Denies any fevers. Denies any chest pain to me, denies any headache. No blurred visions, no earache, no runny nose, no sore throat. He has a history of difficulties swallowing, but he states he is doing okay with his medications. He says since discharge, he has some swelling in the legs. Thinks he has some fluid in the legs. Doppler done in the ER, there was no DVT. Denies any abdominal pain. Bowels are moving okay and normal bladder movements. No rash. Currently, resting comfortably and hemodynamically stable. ALLERGIES: CLIDINIUM, ACETAMINOPHEN, CHLORDIAZEPOXIDE, CODEINE, LATEX, MONTELUKAST, ZOLPIDEM, BUDESONIDE, FORMOTEROL. PAST MEDICAL HISTORY: As mentioned above. PAST SURGICAL HISTORY: Carpal tunnel surgery x2 on the left, colonoscopy, EGDs, bilateral elbow surgery, hernia surgeries, tonsillectomy, sinus surgery. MEDICATIONS: The patient is on albuterol nebulization q. 4 hours p.r.n., albuterol 2 puffs inhalation q.i.d. p.r.n., Valium 5 mg p.o. t.i.d. before meals, diltiazem 600 mg p.o. b.i.d., Benadryl 25 mg p.o. daily p.r.n., finasteride 5 mg p.o. a.m., Advair Diskus one inhalation b.i.d., gabapentin 100 mg p.o. at bedtime p.r.n., Nitrostat 0.3 mg sublingual p.r.n., oxycodone 50 mg p.o. q. 8 hours p.r.n. prednisone tapering dose, Spiriva inhalation daily. FAMILY HISTORY: Significant for father has hypertension; mother has diabetes. Son has asthma. SOCIAL HISTORY: Currently , lives alone. Former smoker, smoked half pack a day for 20 years, quit in August 2016. No alcohol use, does use marijuana. REVIEW OF SYSTEMS: As per HPI. Rest of the review of systems is negative. PHYSICAL EXAMINATION: GENERAL: The patient is of moderate build, not in acute distress. VITAL SIGNS: Temperature 37, pulse 67, respiratory rate 18, blood pressure 137/98, oxygen 92% on room air. HEENT: Pupils equal, round and reactive to light. Oral mucosa moist. NECK: No JVD or neck masses. HEART: S1 and S2 heard, regular rate and rhythm. No murmur, no gallop. RESPIRATORY SYSTEM: Normal AP diameter. No accessory muscle use. Mild bilateral wheezing heard, no crackles. ABDOMEN: Soft, bowel sounds present, nontender, no distention. CENTRAL NERVOUS SYSTEM: Cranial nerves II-XII are grossly intact, nonfocal. EXTREMITIES: Mild pedal edema present, no erythema seen. LABORATORY DATA: WBC 9.5, hemoglobin 11.9, hematocrit 36.4, platelets 230. Sodium 137, potassium 4.3, chloride 101, bicarbonate 34, BUN 18, creatinine 0.9, serum glucose 91, calcium 8.7, total bilirubin 0.2, AST 20, ALT 45, alkaline phosphatase 54. Troponin I less than 0.015. Urinalysis: Trace blood. SARS-CoV-2 PCR negative. IMAGING DATA: Bilateral Venous Doppler lower extremity negative for DVT. Chest x-ray: Cardiomegaly and emphysema. No acute cardiopulmonary findings. EKG: Normal sinus rhythm at a rate of 67, no significant change was found. ASSESSMENT AND PLAN: This is a 65-year-old male who presents with chronic obstructive pulmonary disease exacerbation. 1. Chronic obstructive pulmonary disease exacerbation. He was recently in the hospital, discharged on 01/20/2021 with chronic obstructive pulmonary disease exacerbation. Continue with Solu-Medrol 40 mg t.i.d. nebs around the clock and p.r.n. and continue home inhalers and monitor in the med tele. 2. Lower extremity edema could be from recent steroid use. Negative for DVT. . 3. History of esophageal dysmotility, ongoing issue, takes Valium before meals and also Cardizem b.i.d. Refusing any test as per GI and refusing any procedures or surgeries. We will monitor and if needed, we will consult GI. 4.Possible acute on chronic diastolic congestive heart failure, not on any diuretics. Currently slightly swollen lower extremities. We will give a dose of Lasix. We will follow the echocardiogram. 5. GERD. 6. BPH on finasteride. 7. History of anxiety and depression, currently on Valium. We will monitor. 8. History of chronic pain syndrome: Continue his home pain medications 7. Deep venous thrombosis prophylaxis, placed him on Lovenox. DISPOSITION: Closely monitor in the med tele. PT/OT prior to discharge. volunteer services manager to help with discharge planning. Job ID: [id number] [facility]ang
[2021-01-27] MEDS: ENOXAPARIN INJ 40 MG/0.4 ML SYR SQ SCH (05:15)
[2021-01-27 05:55] LABS: Basophils # (auto) 0.01 K/uL (0-0.2); Basophils % (auto) 0.1 %; Eosinophils # (auto) 0.02 K/uL (0-0.5); Eosinophils % (auto) 0.2 %; Hematocrit (blood only) 37.9 % (42-52); Hemoglobin 12.4 g/dL (14.0-18.0); Immature Granulocytes # (auto) 0.13 K/uL (0.00-0.02); Immature Granulocytes % (auto) 1.4 %; Lymphocytes # (auto) 0.55 K/uL (1.2-3.4); Lymphocytes % (auto) 6.1 %; Mean Corpuscular Hemoglobin 30.5 pg (25-34); Mean Corpuscular Hgb Conc 32.7 g/dL (32-36); Mean Corpuscular Volume 93.3 fL (80-100); Mean Platelet Volume 8.9 fL (7.4-10.4); Monocytes # (auto) 0.11 K/uL (0.11-0.59); Monocytes % (auto) 1.2 %; Neutrophils # (auto) 8.24 K/uL (1.4-6.5); Platelet Count 236 K/uL (130-400); RDW Coefficient of Variation 16.5 % (11.5-14.5); RDW Standard Deviation 56.4 fL (36.4-46.3); Red Blood Count 4.06 M/uL (4.7-6.1); White Blood Count 9.06 K/uL (4.8-10.8)
[2021-01-27 06:31] LABS: Calcium 8.4 mg/dl (8.5-10.1); Creatinine Clr Calc Pharmacy 66.2 ml/min; Est GFR (African American) 106.8 ml/min; Est GFR (Non-African American) 92.1 ml/min; Magnesium 2.9 mg/dl (1.8-2.4); Potassium 4.2 mmol/L (3.5-5.1)
[2021-01-27] MEDS ORDERED: diazePAM 5 MG TABLET ONE (07:45)
[2021-01-27] MEDS: diazePAM 5 MG TABLET PO SCH ×3 (07:46→22:12)
[2021-01-27] MEDS: oxyCODONE HCL IR 5 MG TAB (IMMEDIATE RELEASE) PO PRN ×2 (07:46→16:01)
[2021-01-27] MEDS: FINASTERIDE 5 MG TAB PO SCH (07:47)
[2021-01-27] MEDS: dilTIAZem HCl 60 MG TAB PO SCH ×2 (07:47→22:09)
[2021-01-27] MEDS: FLUTICASONE/VILANTEROL 100/25MCG 14 PUFFS/INHALER INH SCH (07:48)
[2021-01-27] MEDS: methylPREDNISolone 40 MG in SYRINGE 0 ML IV SCH ×3 (07:48→22:07)
[2021-01-27] MEDS: UMECLIDINIUM BROMIDE 62.5MCG/BLISTER 7 PUFFS/INHALER INH SCH (07:48)
--- NOTE | 2021-01-27 09:34 | Electrocardiogram Report ---
Test Reason : Blood Pressure : / mmHG Vent. Rate : 067 BPM Atrial Rate : 067 BPM P-R Int : 140 ms QRS Dur : 078 ms QT Int : 386 ms P-R-T Axes : 071 032 045 degrees QTc Int : 407 ms Normal sinus rhythm Low voltage QRS Borderline ECG When compared with ECG of 15-JAN-2021 17:19, No significant change was found Confirmed by Dagoberto Prasad ([id number]) on 01/27/2021 9:33:35 AM Referred By: REFERRED SELF Confirmed By:Chad Prasad
[2021-01-28] MEDS: LEVALBUTEROL HCL 1.25 MG/3 ML NEB NEB SCH ×3 (01:21→13:28)
[2021-01-28 06:44] LABS: Hematocrit (blood only) 37.9 % (42-52); Hemoglobin 12.6 g/dL (14.0-18.0); Mean Corpuscular Hgb Conc 33.2 g/dL (32-36); Mean Corpuscular Volume 93.1 fL (80-100); Mean Platelet Volume 8.8 fL (7.4-10.4); Platelet Count 224 K/uL (130-400); RDW Coefficient of Variation 16.5 % (11.5-14.5); RDW Standard Deviation 56.2 fL (36.4-46.3); Red Blood Count 4.07 M/uL (4.7-6.1)
[2021-01-28 07:00] LABS: Calcium 9.2 mg/dl (8.5-10.1); Creatinine Clr Calc Pharmacy 64.5 ml/min; Est GFR (African American) 105.7 ml/min; Est GFR (Non-African American) 91.2 ml/min; Magnesium 2.1 mg/dl (1.8-2.4); Potassium 4.5 mmol/L (3.5-5.1)
[2021-01-28 07:01] LABS: Phosphorus 3.8 mg/dl (2.5-4.9)
[2021-01-28] MEDS: dilTIAZem HCl 60 MG TAB PO SCH (07:24)
[2021-01-28] MEDS: diazePAM 5 MG TABLET PO SCH ×2 (07:24→13:18)
[2021-01-28] MEDS: FLUTICASONE/VILANTEROL 100/25MCG 14 PUFFS/INHALER INH SCH (07:25)
[2021-01-28] MEDS: FINASTERIDE 5 MG TAB PO SCH (07:25)
[2021-01-28] MEDS: UMECLIDINIUM BROMIDE 62.5MCG/BLISTER 7 PUFFS/INHALER INH SCH (07:26)
[2021-01-28] MEDS: methylPREDNISolone 40 MG in SYRINGE 0 ML IV SCH ×2 (07:26→14:35)
[2021-01-28] MEDS: ENOXAPARIN INJ 40 MG/0.4 ML SYR SQ SCH (07:27)
[2021-01-28] MEDS: oxyCODONE HCL IR 5 MG TAB (IMMEDIATE RELEASE) PO PRN (07:33)
--- NOTE | 2021-01-28 13:58 | Hospitalist Progress Note ---
Date of Service January 27, 2021 Assessment & Plan (1) Acute exacerbation of chronic obstructive pulmonary disease: Plan: This is a 65-year-old male who presents with chronic obstructive pulmonary disease exacerbation. 1. Chronic obstructive pulmonary disease exacerbation. He was recently in the hospital, discharged on 01/20/2021 with chronic obstructive pulmonary disease exacerbation. Continued with Solu-Medrol 40 mg t.i.d. nebs around the clock and p.r.n. and continue home inhalers and monitor in the med tele. Reports he does have anxiety, which then is worsening he is shortness of breath. Currently he is actually walking in hallways, on room air, and speaking in full sentences without difficulty. He is supposed to follow-up with pulmonary medicine as outpatient. 2. Lower extremity edema could be from recent steroid use. Negative for DVT. 3. History of esophageal dysmotility, ongoing issue, takes Valium before meals and also Cardizem b.i.d. Refusing any test as per GI and refusing any procedures or surgeries. We will monitor and if needed, we will consult GI. 4. Possible acute on chronic diastolic congestive heart failure, not on any diuretics. On admission slightly swollen lower extremities. Received one dose of Lasix on admission. Currently no edema appreciated. Echocardiogram -LV is normal in size. EF 66 5%. RV systolic function is normal. LA size is normal. RA size is normal. There is moderate tricuspid regurg. There is no evidence of pulmonary hypertension. The PA systolic pressure is less than 36 mmHg. 5. GERD. 6. BPH on finasteride. 7. History of anxiety and depression, currently on Valium. We will monitor. 8. History of chronic pain syndrome: Continue his home pain medications DVT ppx - Lovenox. DISPOSITION: Closely monitor in the med tele. Likely DC home when medically stable. Admission and Anticipated Discharge Date Admission Date: January 26, 2021 Subjective Patient seen in follow-up of COPD exacerbation. Currently walking in hallways, on room air. Saying that he usually feels anxious, and currently feels better as his breathing is better Currently no chest pain, no shortness of breath Reports that he had some edema prior to admission, however that has resolved He supposed to follow-up with pulmonary medicine Review of Systems Review of Systems: All systems reviewed & are unremarkable except as noted in Subjective Physical Exam Physical Exam: GENERAL: The patient is of moderate build, not in acute distress. HEENT: NC/AT, EOMI, Pupils equal, round and reactive to light. Oral mucosa moist. NECK: No JVD or neck masses. HEART: S1 and S2 heard, regular rate and rhythm. No murmur, no gallop. RESPIRATORY: Normal AP diameter. No accessory muscle use. Mild bilateral wheezing heard, no crackles. Speaks in full sentences, on room air ABDOMEN: Soft, bowel sounds present, nontender, no distention. NEURO: Alert and oriented x3, no facial asymmetry, speech fluent, moves extremities spontaneously PSYCH: Somewhat anxious affect EXTREMITIES: Mild pedal edema present, no erythema seen. Results & Data Results & Data ([facility]) Vital Signs (Past 12 Hours)
--- NOTE | 2021-01-28 14:01 | Hospitalist Progress Note ---
Date of Service January 28, 2021 Assessment & Plan (1) Acute exacerbation of chronic obstructive pulmonary disease: Plan: This is a 65-year-old male who presents with chronic obstructive pulmonary disease exacerbation. 1. Chronic obstructive pulmonary disease exacerbation. He was recently in the hospital, discharged on 01/20/2021 with chronic obstructive pulmonary disease exacerbation. Continued with Solu-Medrol 40 mg t.i.d. nebs around the clock and p.r.n. and continued home inhalers and monitored in the med tele. Reports he does have anxiety, which then is worsening his shortness of breath. Currently he is actually walking in hallways, on room air, and speaking in full sentences without difficulty. He is supposed to follow-up with pulmonary medicine as outpatient. Clinically patient looks quite well, he is inquiring about going home, feels that with his anxiety it would be better for him if he was at home. He knows that he should follow-up with pulmonary medicine and family physician. Will discharge on 3 more days of prednisone. 2. Lower extremity edema could be from recent steroid use. Negative for DVT. Currently has minimal left pedal edema. 3. History of esophageal dysmotility, ongoing issue, takes Valium before meals and also Cardizem b.i.d. Refusing any test as per GI and refusing any procedures or surgeries. We will monitor and if needed, we will consult GI. 4. Possible acute on chronic diastolic congestive heart failure, not on any diuretics. On admission slightly swollen lower extremities. Received one dose of Lasix on admission. Currently no edema appreciated. Echocardiogram -LV is normal in size. EF 66 5%. RV systolic function is normal. LA size is normal. RA size is normal. There is moderate tricuspid regurg. There is no evidence of pulmonary hypertension. The PA systolic pressure is less than 36 mmHg. 5. GERD. 6. BPH on finasteride. 7. History of anxiety and depression, currently on Valium. We will monitor. 8. History of chronic pain syndrome: Continue his home pain medications DVT ppx - Lovenox. DISPOSITION: Plan to DC home and follow-up with pulmonary medicine closely, and a family physician. Admission and Anticipated Discharge Date Admission Date: January 26, 2021 Subjective Patient seen in follow-up of COPD exacerbation. Currently walking in hallways, on room air. He is breathing better, and inquires about going home Says that being in the hospital is making him anxious and he feels it would be better for him to be at home Currently no chest pain, no shortness of breath, no cough Reports that he had some edema prior to admission, however that has resolved He is supposed to follow-up with pulmonary medicine Review of Systems Review of Systems: All systems reviewed & are unremarkable except as noted in Subjective Physical Exam Physical Exam: GENERAL: thin male, looking older than his age, not in acute distress. HEENT: NC/AT, EOMI, Pupils equal, round and reactive to light. Oral mucosa moist. NECK: No JVD or neck masses. HEART: S1 and S2 heard, regular rate and rhythm. No murmur, no gallop. RESPIRATORY: Normal AP diameter. No accessory muscle use. Mild bilateral wheezing heard, no crackles. Speaks in full sentences, on room air ABDOMEN: Soft, bowel sounds present, nontender, no distention. NEURO: Alert and oriented x3, no facial asymmetry, speech fluent, moves extremities spontaneously PSYCH: Somewhat anxious affect EXTREMITIES: Mild pedal edema present, no erythema seen. Results & Data Results & Data ([facility]) Vital Signs (Past 12 Hours) Vital Signs Temp Pulse Pulse Resp BP Pulse Ox 01/28/21 11:35 36.4 C L 55 L 16 121/71 93 01/28/21 09:40 47 L 01/28/21 07:34 36.7 C 54 L 18 125/73 94 01/28/21 03:25 36.4 C L 58 L 20 109/79 92 Laboratory Results 01/28/21 01/28/21 01/28/21 Range/Units 06:30 06:30 06:30 WBC 14.50 H (4.8-10.8) K/uL RBC 4.07 L (4.7-6.1) M/uL Hgb 12.6 L (14.0-18.0) g/dL Hct 37.9 L (42-52) % MCV 93.1 (80-100) fL MCH 31.0 (25-34) pg MCHC 33.2 (32-36) g/dL RDW Std Deviation 56.2 H (36.4-46.3) fL RDW Coeff of Myles 16.5 H (11.5-14.5) % Plt Count 224 (130-400) K/uL MPV 8.8 (7.4-10.4) fL Sodium 134 L (136-145) mmol/L Potassium 4.5 (3.5-5.1) mmol/L Chloride 99 (98-107) mmol/L Carbon Dioxide 30 (21-32) mmol/L Anion Gap 4.0 (3-11) BUN 30 H D (7-18) mg/dl Creatinine 0.84 (0.6-1.4) mg/dl Est Cr Clr Drug Dosing 64.5 ml/min Est GFR ( Amer) 105.7 ml/min Est GFR (Non-Af Amer) 91.2 ml/min BUN/Creatinine Ratio 36.0 H (10-20) Glucose 127 H (70-99) mg/dl Calcium 9.2 (8.5-10.1) mg/dl Phosphorus 3.8 (2.5-4.9) mg/dl Magnesium 2.1 (1.8-2.4) mg/dl Procalcitonin < 0.05 (0-0.5) ng/ml 01/27/21 Range/Units 18:00 WBC (4.8-10.8) K/uL RBC (4.7-6.1) M/uL Hgb (14.0-18.0) g/dL Hct (42-52) % MCV (80-100) fL MCH (25-34) pg MCHC (32-36) g/dL RDW Std Deviation (36.4-46.3) fL RDW Coeff of Myles (11.5-14.5) % Plt Count (130-400) K/uL MPV (7.4-10.4) fL Sodium (136-145) mmol/L Potassium (3.5-5.1) mmol/L Chloride (98-107) mmol/L Carbon Dioxide (21-32) mmol/L Anion Gap (3-11) BUN (7-18) mg/dl Creatinine (0.6-1.4) mg/dl Est Cr Clr Drug Dosing ml/min Est GFR ( Amer) ml/min Est GFR (Non-Af Amer) ml/min BUN/Creatinine Ratio (10-20) Glucose (70-99) mg/dl Calcium (8.5-10.1) mg/dl Phosphorus (2.5-4.9) mg/dl Magnesium (1.8-2.4) mg/dl Procalcitonin < 0.05 (0-0.5) ng/ml Medications Administered Current Inpatient Medications Albuterol (Albuterol Hfa 8 Gm Inhaler) 2 puffs INH QIDR PRN PRN Reason: Shortness Of Breath Stop: 02/26/21 01:50 Diazepam (Diazepam 5 Mg Tablet) 5 mg PO TID MAGNOLIA Stop: 02/26/21 08:59 Last Admin: 01/28/21 13:18 Dose: 5 mg Documented by: Diltiazem HCl (Diltiazem Hcl 60 Mg Tab) 60 mg PO BID MAGNOLIA Stop: 02/26/21 08:59 Last Admin: 01/28/21 07:24 Dose: 60 mg Documented by: Diphenhydramine HCl (Diphenhydramine Capsule 25 Mg Cap) 25 mg PO DAILY PRN PRN Reason: Allergy Symptoms Stop: 02/26/21 01:52 Enoxaparin Sodium (Enoxaparin Inj 40 Mg/0.4 Ml Syr) 40 mg SQ DAILY MAGNOLIA Stop: 02/26/21 02:29 Last Admin: 01/28/21 07:27 Dose: Not Given Documented by: Finasteride (Finasteride 5 Mg Tab) 5 mg PO QAM MAGNOLIA Stop: 02/26/21 08:59 Last Admin: 01/28/21 07:25 Dose: 5 mg Documented by: Fluticasone/Vilanterol (Fluticasone/Vilanterol 100/25mcg 14 Puffs/Inhaler) 1 p uffs INH DAILY MAGNOLIA; Protocol Stop: 02/26/21 08:59 Last Admin: 01/28/21 07:25 Dose: 1 puffs Documented by: Gabapentin (Gabapentin 100 Mg Cap) 100 mg PO HS PRN PRN Reason: restless legs Stop: 02/26/21 01:00 Methylprednisolone 40 mg/ (Syringe) 0.64 mls @ 1.5 mls/min IV TID MAGNOLIA Stop: 02/26/21 08:59 Last Admin: 01/28/21 07:26 Dose: 1.5 mls/min Documented by: Levalbuterol HCl (Levalbuterol Hcl 1.25 Mg/3 Ml Neb) 1.25 mg NEB Q2H PRN PRN Reason: Shortness Of Breath Or Wheezing Stop: 02/25/21 23:44 Levalbuterol HCl (Levalbuterol Hcl 1.25 Mg/3 Ml Neb) 1.25 mg NEB Q6R MAGNOLIA Stop: 02/26/21 01:00 Last Admin: 01/28/21 13:28 Dose: Not Given Documented by: Nitroglycerin (Nitroglycerin Sl 0.4 Mg/Tab Tab) 0.4 mg SL UD PRN PRN Reason: Chest Pain Stop: 02/26/21 01:00 Oxycodone HCl (Oxycodone Hcl Ir 5 Mg Tab (Immediate Release)) 15 mg PO Q8H PRN PRN Reason: Pain Stop: 02/10/21 01:00 Last Admin: 01/28/21 07:33 Dose: 15 mg Documented by: Polyethylene Glycol (Polyethylene (Miralax) 17 Gm Pack) 17 gm PO DAILY PRN PRN Reason: Constipation Stop: 02/26/21 01:00 Umeclidinium Quimby (Umeclidinium Quimby 62.5mcg/Blister 7 Puffs/Inhaler) 1 puffs INH DAILY MAGNOLIA; Protocol Stop: 02/26/21 08:59 Last Admin: 01/28/21 07:26 Dose: 1 puffs Documented by:
--- NOTE | 2021-01-28 14:52 | Discharge Summary ---
Date of Service January 28, 2021 Admission HPI Per Admitting Provider This is a 65-year-old male with past medical history significant for severe persistent asthma, bronchiectasis without complication, history of pulmonary nodules, history of esophageal dysmotility, COPD, idiopathic cardiomyopathy, diastolic dysfunction, GERD, avascular necrosis of right femur head, chronic pain syndrome, cervical radiculopathy, history of tobacco abuse, history of anxiety and depression, history of environmental allergies, history of marijuana use, presents with shortness of breath. The patient lives alone. The patient was recently here in the hospital, was treated for COPD exacerbation with do xycycline, nebs and steroids. He was discharged on 01/20/2021. The patient comes again with shortness of breath. The patient says he is getting more short of breath and feeling anxious at home and also coughs and brings some phlegm. So he got worried and came to the ER. He was given [address] to the hospital and in the ER refused to get hour long neb treatments because it makes him jittery and could not sleep during the night. He states he is not sleeping well at home and asked to help him sleep tonight. Denies any fevers. Denies any chest pain to me, denies any headache. No blurred visions, no earache, no runny nose, no sore throat. He has a history of difficulties swallowing, but he states he is doing okay with his medications. He says since discharge, he has some swelling in the legs. Thinks he has some fluid in the legs. Doppler done in the ER, there was no DVT. Denies any abdominal pain. Bowels are moving okay and normal bladder movements. No rash. Currently, resting comfortably and hemodynamically stable. Admission Exam Per Admitting Provider GENERAL: The patient is of moderate build, not in acute distress. VITAL SIGNS: Temperature 37, pulse 67, respiratory rate 18, blood pressure 137/98, oxygen 92% on room air. HEENT: Pupils equal, round and reactive to light. Oral mucosa moist. NECK: No JVD or neck masses. HEART: S1 and S2 heard, regular rate and rhythm. No murmur, no gallop. RESPIRATORY SYSTEM: Normal AP diameter. No accessory muscle use. Mild bila teral wheezing heard, no crackles. ABDOMEN: Soft, bowel sounds present, nontender, no distention. CENTRAL NERVOUS SYSTEM: Cranial nerves II-XII are grossly intact, nonfocal. EXTREMITIES: Mild pedal edema present, no erythema seen. Principal Diagnosis Shortness of breath secondary to COPD exacerbation Anxiety Discharge Exam GENERAL: thin male, looking older than his age, not in acute distress. HEENT: NC/AT, EOMI, Pupils equal, round and reactive to light. Oral mucosa moist. NECK: No JVD or neck masses. HEART: S1 and S2 heard, regular rate and rhythm. No murmur, no gallop. RESPIRATORY: Normal AP diameter. No accessory muscle use. Mild bilateral wheezing heard, no crackles. Speaks in full sentences, on room air ABDOMEN: Soft, bowel sounds present, nontender, no distention. NEURO: Alert and oriented x3, no facial asymmetry, speech fluent, moves extremities spontaneously PSYCH: Somewhat anxious affect EXTREMITIES: Mild pedal edema present, no erythema seen. Discharge Data Allergies Allergy/AdvReac Type Severity Reaction Status Date / Time clidinium Allergy Intermediate Rash Verified 01/26/21 21:24 [From Librax (with clidinium)] acetaminophen Allergy Mild hives/itchy Verified 01/26/21 21:24 chlordiazepoxide Allergy Mild Rash Verified 01/26/21 21:24 [From Librax (with clidinium)] codeine Allergy Mild Rash Verified 01/26/21 21:24 [From Tylenol-Codeine] latex Allergy Mild Rash Verified 01/26/21 21:24 montelukast AdvReac Severe MENTAL Verified 01/26/21 21:24 STATUS CHANGED zolpidem AdvReac Severe MENTAL Verified 01/26/21 21:24 STATUS CHANGED,HALLUCINATIONS budesonide [From Symbicort] AdvReac Intermediate caused Verified 01/26/21 21:24 vision problems formoterol [From Symbicort] AdvReac Intermediate caused Verified 01/26/21 21:24 vision problems Consultations 01/26/21 22:57 ED Decision to Admit Stat Ordered Studies 01/26/21 20:59 US venous doppler LE Stat IMPRESSION: There is no sonographic evidence of deep venous thrombosis identified in the right or left lower extremity. Hospital Course (1) Acute exacerbation of chronic obstructive pulmonary disease: This is a 65-year-old male who presents with chronic obstructive pulmonary disease exacerbation. 1. Chronic obstructive pulmonary disease exacerbation. He was recently in the hospital, discharged on 01/20/2021 with chronic obstructive pulmonary disease exacerbation. Continued with Solu-Medrol 40 mg t.i.d. nebs around the clock and p.r.n. and continued home inhalers and monitored in the med tele. Reports he does have anxiety, which then is worsening his shortness of breath. Currently he is actually walking in hallways, on room air, and speaking in full sentences without difficulty. He is supposed to follow-up with pulmonary medicine as outpatient. Clinically patient looks quite well, he is inquiring about going home, feels that with his anxiety it would be better for him if he was at home. He knows that he should follow-up with pulmonary medicine and family physician. Will discharge on 3 more days of prednisone. Sputum culture was ordered however currently pending, will need to follow-up as outpatient Pulm. medicine appointment on 02/01/2021. 2. Lower extremity edema could be from recent steroid use. Negative for DVT. Currently has minimal left pedal edema. 3. History of esophageal dysmotility, ongoing issue, takes Valium before meals and also Cardizem b.i.d. Refusing any test as per GI and refusing any procedures or surgeries. We will monitor and if needed, we will consult GI. 4. Possible acute on chronic diastolic congestive heart failure, not on any diuretics. On admission slightly swollen lower extremities. Received one dose of Lasix on admission. Currently no edema appreciated. Echocardiogram -LV is normal in size. EF 66 5%. RV systolic function is normal. LA size is normal. RA size is normal. There is moderate tricuspid regurg. There is no evidence of pulmonary hypertension. The PA systolic pressure is less than 36 mmHg. 5. GERD. 6. BPH on finasteride. 7. History of anxiety and depression, currently on Valium. We will monitor. 8. History of chronic pain syndrome: Continue his home pain medications 9. Protein calorie malnutrition, patient is a thin male, with a BMI of 19.3 Recommend higher protein diet. follow up as outpt. May need further dietitian consult as outpt. DVT ppx - Lovenox. DISPOSITION: Plan to DC home and follow-up with pulmonary medicine closely, and a family physician. Total Time Total Time Spent Total Time Spent (In Minutes): 35 Discharge Plan Discharge Items Patient Disposition: Home - Self-Care Reason For Visit: SOB Discharge Diagnosis: Shortness of breath secondary to COPD exacerbation Anxiety Activity: Per Instructions section Non-emergency contact: Primary Care Provider and Instructional Designer Call non-emergency contact if: you have any medication questions and your symptoms worsen Follow-up/Referrals: Randy Smart MD [Primary Care Provider] - Diet: Heart Healthy Diet Texture: Easy to Chew Addtl Attending Provider Instructions: Follow-up with your primary care doctor and 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 Your appointment with pulmonary medicine is scheduled for February 01. Also make sure to see your family physician within 1 to 2 weeks. Take prednisone 40 mg for next 3 days. For small pedal/ leg swelling, it is recommended that you use compression stockings during the day when you walk. Otherwise try to keep your legs elevated. Pending Studies at Discharge: Yes Studies:: Final sputum culture Stand-Alone Forms: My [facility] [place], Smoking Cessation Medications and DC Order Prescriptions: New prednisone 20 mg Tablet 40 mg PO QAM 3 Days Qty: 6 RF: 0 Continued (DME) Portable Oxygen Misc See Rx Instructions .ROUTE .MEDSUPPLY Qty: 1 RF: 0 albuterol sulfate 2.5 mg /3 mL (0.083 %) Solution For Nebulization 2.5 mg continuous nebulization Q4H PRN (Reason: Wheezing) RF: 0 gabapentin 100 mg Capsule 100 mg PO HS PRN (Reason: restless legs) RF: 0 diazepam 5 mg Tablet 5 mg PO TID RF: 0 diphenhydramine HCl [Benadryl Allergy] 25 mg Tablet 25 mg PO DAILY PRN (Reason: Allergy Symptoms) RF: 0 finasteride 5 mg tablet 5 mg PO QAM RF: 0 albuterol sulfate [ProAir HFA] 90 mcg/actuation Hfa Aerosol Inhaler 2 puff inhalation QID PRN (Reason: Shortness Of Breath) RF: 0 nitroglycerin [Nitrostat] 0.3 mg Tablet, Sublingual 0.3 mg sublingual UD PRN (Reason: ESOPAGEAL SPASM) RF: 0 oxycodone 15 mg Tablet 15 mg PO Q8H PRN (Reason: Pain) RF: 0 diltiazem HCl 60 mg tablet 60 mg PO BID RF: 0 fluticasone propion-salmeterol [Advair Diskus] 250-50 mcg/dose blister with device 1 ea INHALATION BID RF: 0 Spiriva Respimat 1.25 mcg/actuation mist 2 inh inhalation DAILY Qty: 4 RF: 0 Discontinued prednisone 10 mg tablet 10 mg PO UD Qty: 26 RF: 0 Discharge Orders: Discharge Order (Routine); Ordered 01/28/21 Ordered By: Bryn Cortes Admission Data Admit Date/Time: 01/26/21 23:48 Attending Provider: Bryn Cortes Admit Provider: Chad Ashford Primary Care Provider: Randy Smart Other Providers: Chad Ashford
[2021-01-29] MEDS ORDERED: predniSONE 20 MG TAB PO SCH (09:00)
== END 2021-01-28 15:38 | disposition home or self-care (01) | DRG 191 ==
LOC: ED 20:36 → 2N 23:48
DX: I42.9 Cardiomyopathy, unspecified; Z79.52 Long term (current) use of systemic steroids; G89.4 Chronic pain syndrome; Z88.5 Allergy status to narcotic agent; R44.8 Other symptoms and signs involving general sensations and perceptions; Z82.5 Family history of asthma and other chronic lower respiratory diseases; D64.9 Anemia, unspecified; T38.0X5A Adverse effect of glucocorticoids and synthetic analogues, initial encounter; N40.0 Benign prostatic hyperplasia without lower urinary tract symptoms; J43.9 Emphysema, unspecified; R07.9 Chest pain, unspecified; Z87.891 Personal history of nicotine dependence; F41.9 Anxiety disorder, unspecified; F32.9 Major depressive disorder, single episode, unspecified; I50.32 Chronic diastolic (congestive) heart failure; Z99.81 Dependence on supplemental oxygen; Z51.81 Encounter for therapeutic drug level monitoring; Z68.1 Body mass index [BMI] 19.9 or less, adult; R60.0 Localized edema; Z91.040 Latex allergy status; Z88.6 Allergy status to analgesic agent; Z79.899 Other long term (current) drug therapy; J45.50 Severe persistent asthma, uncomplicated; Z88.8 Allergy status to other drugs, medicaments and biological substances; K22.8 Other specified diseases of esophagus; E46 Unspecified protein-calorie malnutrition

== ENCOUNTER 2021-10-11 10:57 | Inpatient (IN) ==
[~2021-10-11 10:57] MED LIST changes: -ALBINS/ INH; -DIAZ-165 PO; -DOCU-94 PO; -FLUT0.15 NAE; -GABA-112 PO; -MOME200A INH; -NTRSL3 UT; -OFLO0.3D4 OT; -OXGN; -OXYC15TA49 PO; -PROT1POW7 PO; -PRVHFAIN INH; +VANCOMYCIN HCL 750 MG in SODIUM CHLORIDE 0.9% 250 ML IV SCH
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
--- NOTE | 2021-10-11 11:54 | XRay Report ---
XR chest 1V portable HISTORY: 66 years-old Male Chest Pain . Acute atypical chest pain COMPARISON: Chest radiograph 01/26/2021 TECHNIQUE: Portable AP view of the chest FINDINGS: Mild bilateral hilar prominence. The cardiac silhouette is normal in size. Emphysema with chronic int erstitial coarsening. No pneumothorax. Small left pleural effusion with left basilar airspace opaciti es. The bones appear grossly intact. IMPRESSION: 1. Left basilar opacities suggestive of pneumonia. Follow-up imaging after treatment course recommend ed to document resolution. 2. Small left parapneumonic effusion. 3. Emphysema with chronic interstitial coarsening. 4. Mild bilateral hilar fullness may represent associated adenopathy. ACT 112: Negative or not required by law. The above report was generated using voice recognition software. It may contain grammatical, syntax o r spelling errors. Electronically signed by: Dejon Bernard M.D. 10/11/2021 11:52 AM
[2021-10-11 12:32] LABS: Basophils # (auto) 0.01 K/uL (0-0.2); Basophils % (auto) 0.1 %; Hematocrit (blood only) 29.9 % (42-52); Hemoglobin 9.8 g/dL (14.0-18.0); Immature Granulocytes # (auto) 0.03 K/uL (0.00-0.02); Immature Granulocytes % (auto) 0.2 %; Lymphocytes % (auto) 6.4 %; Mean Corpuscular Hemoglobin 29.3 pg (25-34); Mean Corpuscular Hgb Conc 32.8 g/dL (32-36); Mean Corpuscular Volume 89.3 fL (80-100); Mean Platelet Volume 9.1 fL (7.4-10.4); Monocytes # (auto) 1.22 K/uL (0.11-0.59); Monocytes % (auto) 9.8 %; Neutrophils # (auto) 10.43 K/uL (1.4-6.5); Neutrophils % (auto) 83.5 %; Platelet Count 448 K/uL (130-400); RDW Coefficient of Variation 16.2 % (11.5-14.5); RDW Standard Deviation 52.1 fL (36.4-46.3); Red Blood Count 3.35 M/uL (4.7-6.1); White Blood Count 12.49 K/uL (4.8-10.8)
[2021-10-11 13:13] LABS: Troponin I High Sensitivity 6.1 pg/ml (0-20)
[2021-10-11 13:16] LABS: Albumin Globulin Ratio 0.7 (0.9-2); Albumin Level 2.8 gm/dl (3.4-5.0); BUN Creatinine Ratio 12.3 (10-20); Bilirubin,Total 0.7 mg/dl (0.2-1.0); Calcium 8.4 mg/dl (8.5-10.1); Creatinine Clr Calc Pharmacy 60.2 ml/min; Est GFR (African American) 116.7 ml/min; Est GFR (Non-African American) 100.7 ml/min; Globulin 4.3 gm/dl (2.5-4.0); Magnesium 1.8 mg/dl (1.7-2.4); Phosphorus 2.3 mg/dl (2.5-4.9); Potassium 3.7 mmol/L (3.5-5.1); Total Protein 7.1 gm/dl (6.0-8.3)
[2021-10-11] MEDS ORDERED: OPTIRAY 320 100ml IV ONE (13:47)
[2021-10-11] MEDS ORDERED: ALBUT/IPRATROP 3MG/0.5MG NEB 3 ML VIAL NEB STA (14:23)
[2021-10-11] MEDS ORDERED: dexAMETHasone**PF** 10 MG/ML VIAL IV ONE (14:23)
[2021-10-11] MEDS ORDERED: MoRPHine SULFATE 4 MG/ML 1 ML CARP\\VIAL IV STA (14:26)
[2021-10-11] MEDS ORDERED: SODIUM CHLORIDE 0.9% 1000ML 1,000 ML IV ONE (14:27)
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
[2021-10-11] MEDS ORDERED: BACITRACIN OINT 15 GM TUBE EXT ONE (14:29)
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
[2021-10-11] MEDS ORDERED: PIPERACILLIN/TAZOBACTAM 4.5 GM/120 ML BAG IV ONE (15:27)
[2021-10-11] MEDS ORDERED: PIPERACILL/TAZOBAC CONSULT ACTIVE PRN ×2 (15:27→18:48)
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
[2021-10-11 17:51] LABS: Influenza A virus by PCR Negative (Negative); Influenza B virus by PCR Negative (Negative)
--- NOTE | 2021-10-11 18:08 | Electrocardiogram Report ---
Test Reason : Blood Pressure : / mmHG Vent. Rate : 085 BPM Atrial Rate : 085 BPM P-R Int : 132 ms QRS Dur : 078 ms QT Int : 380 ms P-R-T Axes : 069 074 066 degrees QTc Int : 452 ms Normal sinus rhythm When compared with ECG of 26-JAN-2021 21:22, Nonspecific T wave abnormality now evident in Anterior leads Confirmed by Dagoberto Prasad ([id number]) on 10/11/2021 6:07:38 PM Referred By: REFERRED SELF Confirmed By:Chad Prasad
[2021-10-11] MEDS ORDERED: POLYETHYLENE (MIRALAX) 17 GM PACK PO PRN (18:48)
[2021-10-11] MEDS ORDERED: ONDANSETRON INJ 2 MG/ML 2 ML VIAL IV PRN (18:48)
[2021-10-11] MEDS ORDERED: MAGNESIUM HYDROXIDE SUSP 30 ML UDC PO PRN (18:48)
[2021-10-11] MEDS ORDERED: VANCOMYCIN CONSULT ACTIVE PRN (18:48)
[2021-10-11] MEDS ORDERED: ALUMINUM/MAGNESIUM SUSP 30 ML UDC PO PRN (18:48)
[2021-10-11] MEDS: ALBUT/IPRATROP 3MG/0.5MG NEB 3 ML VIAL NEB SCH (19:17)
[2021-10-11] MEDS ORDERED: VANCOMYCIN HCL 1,000 MG in SODIUM CHLORIDE 0.9% 250 ML IV ONE (19:30)
[2021-10-11] MEDS ORDERED: diazePAM 5 MG TABLET PO SCH (21:00)
[2021-10-11] MEDS: BACITRACIN OINT 15 GM TUBE EXT SCH (21:07)
[2021-10-11] MEDS: dilTIAZem HCl 60 MG TAB PO SCH (21:08)
[2021-10-11] MEDS: guaiFENesin 600 MG TABCR PO SCH (21:09)
[2021-10-11] MEDS: ENOXAPARIN INJ 30 MG/0.3 ML SYR SQ SCH (21:11)
[2021-10-11] MEDS: oxyCODONE HCL IR 5 MG TAB (IMMEDIATE RELEASE) PO PRN (21:54)
[2021-10-11] MEDS: AZITHROMYCIN 500 MG in DEXTROSE 5% 250 ML IV SCH (22:07)
[2021-10-12] MEDS: PIPERACILLIN/TAZOBACTAM 3.375 GM in DEXTROSE 5% 100 ML IV SCH ×4 (00:21→22:07)
[2021-10-12 01:22] LABS: Appearance Urine Clear (Clear); Bilirubin Urine Negative (Negative); Blood Urine Negative (Negative); Color Urine Yellow; Glucose Urine UA Negative (Negative); Ketones Urine Negative (Negative); Leukocyte Esterase Urine Negative (Negative); Nitrite Urine Negative (Negative); Protein Urine Negative (Negative); Specific Gravity Urine 1.037 (1.000-1.030); Urobilinogen Urine Positive (Negative)
[2021-10-12] MEDS: diazePAM 2 MG TABLET PO SCH ×3 (06:36→18:53)
[2021-10-12] MEDS: oxyCODONE HCL IR 5 MG TAB (IMMEDIATE RELEASE) PO PRN ×3 (06:38→18:53)
[2021-10-12] MEDS: ALBUT/IPRATROP 3MG/0.5MG NEB 3 ML VIAL NEB SCH ×3 (07:14→15:05)
[2021-10-12 07:44] LABS: Basophils # (auto) 0.01 K/uL (0-0.2); Basophils % (auto) 0.1 %; Hemoglobin 11.2 g/dL (14.0-18.0); Immature Granulocytes # (auto) 0.01 K/uL (0.00-0.02); Immature Granulocytes % (auto) 0.1 %; Lymphocytes # (auto) 0.85 K/uL (1.2-3.4); Mean Corpuscular Hemoglobin 29.6 pg (25-34); Mean Corpuscular Hgb Conc 33.9 g/dL (32-36); Mean Corpuscular Volume 87.1 fL (80-100); Mean Platelet Volume 9.8 fL (7.4-10.4); Monocytes # (auto) 0.79 K/uL (0.11-0.59); Monocytes % (auto) 8.4 %; Neutrophils # (auto) 7.79 K/uL (1.4-6.5); Neutrophils % (auto) 82.4 %; Platelet Count 496 K/uL (130-400); RDW Coefficient of Variation 16.2 % (11.5-14.5); Red Blood Count 3.79 M/uL (4.7-6.1); White Blood Count 9.45 K/uL (4.8-10.8)
[2021-10-12 08:16] LABS: Albumin Globulin Ratio 0.7 (0.9-2); Albumin Level 3.2 gm/dl (3.4-5.0); BUN Creatinine Ratio 17.9 (10-20); Bilirubin,Total 0.6 mg/dl (0.2-1.0); Calcium 8.9 mg/dl (8.5-10.1); Creatinine Clr Calc Pharmacy 57.5 ml/min; Est GFR (African American) 108.3 ml/min; Est GFR (Non-African American) 93.4 ml/min; Globulin 4.4 gm/dl (2.5-4.0); Potassium 4.2 mmol/L (3.5-5.1); Total Protein 7.6 gm/dl (6.0-8.3)
[2021-10-12 08:33] LABS: Ferritin 431.1 ng/ml (8-388)
[2021-10-12] MEDS: FLUTICASONE/VILANTEROL 100/25MCG 14 PUFFS/INHALER INH SCH (08:36)
[2021-10-12] MEDS: FINASTERIDE 5 MG TAB PO SCH (08:37)
[2021-10-12] MEDS: guaiFENesin 600 MG TABCR PO SCH ×2 (08:37→19:59)
[2021-10-12] MEDS: dilTIAZem HCl 60 MG TAB PO SCH ×2 (08:39→19:59)
[2021-10-12] MEDS: TAMSULOSIN HCL 0.4 MG CAP PO SCH (08:39)
[2021-10-12] MEDS: BACITRACIN OINT 15 GM TUBE EXT SCH ×2 (08:40→20:00)
[2021-10-12 08:43] LABS: Folate (Folic Acid) 11.87 ng/ml (>5.38)
[2021-10-12] MEDS ORDERED: VANCOMYCIN HCL 750 MG in SODIUM CHLORIDE 0.9% 250 ML IV SCH (09:00)
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
[2021-10-12] MEDS: FIRST - Mouthwash BLM 119 ML PO SCH ×2 (15:25→19:43)
[2021-10-12] MEDS ORDERED: ALBUT/IPRATROP 3MG/0.5MG NEB 3 ML VIAL NEB PRN (17:00)
[2021-10-12] MEDS: SODIUM CHLOR 7% 4 ML NEB NEB SCH (19:22)
[2021-10-12] MEDS: AZITHROMYCIN 500 MG in DEXTROSE 5% 250 ML IV SCH (19:43)
[2021-10-12] MEDS: SACCHAROMYCES BOULARDII 250 MG CAP PO SCH (19:59)
[2021-10-12] MEDS: ENOXAPARIN INJ 30 MG/0.3 ML SYR SQ SCH (20:07)
[2021-10-13] MEDS: PIPERACILLIN/TAZOBACTAM 3.375 GM in DEXTROSE 5% 100 ML IV SCH ×3 (05:31→22:04)
[2021-10-13] MEDS: SODIUM CHLOR 7% 4 ML NEB NEB SCH (07:33)
[2021-10-13] MEDS: diazePAM 2 MG TABLET PO SCH (07:42)
[2021-10-13] MEDS: oxyCODONE HCL IR 5 MG TAB (IMMEDIATE RELEASE) PO PRN ×2 (07:43→16:08)
[2021-10-13] MEDS ORDERED: POLYETHYLENE (MIRALAX) 17 GM PACK PO PRN (07:55)
[2021-10-13] MEDS ORDERED: VANCOMYCIN TROUGH ONE (08:30)
[2021-10-13 08:45] LABS: Hematocrit (blood only) 29.9 % (42-52); Mean Corpuscular Hemoglobin 29.7 pg (25-34); Mean Corpuscular Hgb Conc 33.4 g/dL (32-36); Mean Corpuscular Volume 88.7 fL (80-100); Mean Platelet Volume 9.5 fL (7.4-10.4); Platelet Count 435 K/uL (130-400); RDW Standard Deviation 51.3 fL (36.4-46.3); Red Blood Count 3.37 M/uL (4.7-6.1)
[2021-10-13] MEDS: BACITRACIN OINT 15 GM TUBE EXT SCH ×2 (08:55→20:17)
[2021-10-13] MEDS: FERROUS SULFATE 325 MG TAB PO SCH (08:56)
[2021-10-13] MEDS: FINASTERIDE 5 MG TAB PO SCH (08:58)
[2021-10-13] MEDS: FLUTICASONE/VILANTEROL 100/25MCG 14 PUFFS/INHALER INH SCH (08:58)
[2021-10-13] MEDS: POT PHOSPHATE MONOBASIC W/ SOD TAB PO SCH ×4 (08:59→20:20)
[2021-10-13] MEDS: guaiFENesin 600 MG TABCR PO SCH ×2 (08:59→20:19)
[2021-10-13] MEDS: TAMSULOSIN HCL 0.4 MG CAP PO SCH (09:00)
[2021-10-13] MEDS ORDERED: SACCHAROMYCES BOULARDII 250 MG CAP PO SCH (09:00)
[2021-10-13] MEDS: SACCHAROMYCES BOULARDII 250 MG CAP PO SCH ×2 (09:00→20:20)
[2021-10-13 09:10] LABS: BUN Creatinine Ratio 23.6 (10-20); Calcium 8.3 mg/dl (8.5-10.1); Creatinine Clr Calc Pharmacy 61.7 ml/min; Est GFR (African American) 111.9 ml/min; Est GFR (Non-African American) 96.5 ml/min; Potassium 3.8 mmol/L (3.5-5.1)
[2021-10-13] MEDS: dilTIAZem HCl 60 MG TAB PO SCH ×2 (09:13→20:27)
[2021-10-13] MEDS: FIRST - Mouthwash BLM 119 ML PO SCH ×3 (09:42→20:18)
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
[2021-10-13] MEDS ORDERED: LORazepam 0.5 MG TAB PO STA (17:11)
[2021-10-13] MEDS: ENOXAPARIN INJ 30 MG/0.3 ML SYR SQ SCH (20:27)
[2021-10-14] MEDS: oxyCODONE HCL IR 5 MG TAB (IMMEDIATE RELEASE) PO PRN ×3 (00:23→18:11)
[2021-10-14] MEDS: PIPERACILLIN/TAZOBACTAM 3.375 GM in DEXTROSE 5% 100 ML IV SCH ×3 (05:43→22:36)
[2021-10-14 06:23] LABS: Hematocrit (blood only) 27.9 % (42-52); Hemoglobin 9.7 g/dL (14.0-18.0); Mean Corpuscular Hemoglobin 30.7 pg (25-34); Mean Corpuscular Hgb Conc 34.8 g/dL (32-36); Mean Corpuscular Volume 88.3 fL (80-100); Mean Platelet Volume 9.4 fL (7.4-10.4); Platelet Count 445 K/uL (130-400); RDW Coefficient of Variation 16.1 % (11.5-14.5); Red Blood Count 3.16 M/uL (4.7-6.1); White Blood Count 9.87 K/uL (4.8-10.8)
[2021-10-14 06:27] LABS: BUN Creatinine Ratio 18.5 (10-20); Calcium 8.3 mg/dl (8.5-10.1); Creatinine Clr Calc Pharmacy 68.3 ml/min; Est GFR (African American) 116.7 ml/min; Est GFR (Non-African American) 100.7 ml/min; Potassium 3.4 mmol/L (3.5-5.1)
[2021-10-14] MEDS ORDERED: POTASSIUM CHLORIDE CRTAB 20 MEQ TABCR PO STA (07:38)
[2021-10-14] MEDS: BACITRACIN OINT 15 GM TUBE EXT SCH ×2 (08:39→21:04)
[2021-10-14] MEDS: dilTIAZem HCl 60 MG TAB PO SCH ×2 (08:40→21:04)
[2021-10-14] MEDS: FLUTICASONE/VILANTEROL 100/25MCG 14 PUFFS/INHALER INH SCH (08:41)
[2021-10-14] MEDS: FERROUS SULFATE 325 MG TAB PO SCH (08:41)
[2021-10-14] MEDS: FINASTERIDE 5 MG TAB PO SCH (08:41)
[2021-10-14] MEDS: SACCHAROMYCES BOULARDII 250 MG CAP PO SCH ×2 (08:42→21:06)
[2021-10-14] MEDS: guaiFENesin 600 MG TABCR PO SCH ×2 (08:42→21:05)
[2021-10-14] MEDS: POT PHOSPHATE MONOBASIC W/ SOD TAB PO SCH ×4 (08:42→21:06)
[2021-10-14] MEDS: TAMSULOSIN HCL 0.4 MG CAP PO SCH (08:43)
[2021-10-14] MEDS ORDERED: diazePAM 2 MG TABLET PO SCH ×2 (09:00→11:30)
[2021-10-14] MEDS: FIRST - Mouthwash BLM 119 ML PO SCH ×3 (09:14→21:05)
[2021-10-14] MEDS: diazePAM 2 MG TABLET PO SCH ×2 (11:13→16:16)
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
[2021-10-14] MEDS: ENOXAPARIN INJ 30 MG/0.3 ML SYR SQ SCH ×2 (21:07→21:13)
[2021-10-15] MEDS: oxyCODONE HCL IR 5 MG TAB (IMMEDIATE RELEASE) PO PRN (01:53)
[2021-10-15] MEDS: PIPERACILLIN/TAZOBACTAM 3.375 GM in DEXTROSE 5% 100 ML IV SCH ×2 (05:24→13:53)
[2021-10-15 06:14] LABS: Hematocrit (blood only) 28.7 % (42-52); Hemoglobin 9.5 g/dL (14.0-18.0); Mean Corpuscular Hemoglobin 29.2 pg (25-34); Mean Corpuscular Hgb Conc 33.1 g/dL (32-36); Mean Corpuscular Volume 88.3 fL (80-100); Mean Platelet Volume 9.2 fL (7.4-10.4); Platelet Count 435 K/uL (130-400); RDW Coefficient of Variation 16.3 % (11.5-14.5); RDW Standard Deviation 52.2 fL (36.4-46.3); Red Blood Count 3.25 M/uL (4.7-6.1); White Blood Count 8.46 K/uL (4.8-10.8)
[2021-10-15 06:34] LABS: BUN Creatinine Ratio 27.7 (10-20); Calcium 8.3 mg/dl (8.5-10.1); Creatinine Clr Calc Pharmacy 68.3 ml/min; Est GFR (African American) 116.7 ml/min; Est GFR (Non-African American) 100.7 ml/min; Potassium 3.6 mmol/L (3.5-5.1)
[2021-10-15] MEDS: diazePAM 2 MG TABLET PO SCH ×2 (07:43→11:21)
[2021-10-15] MEDS: FERROUS SULFATE 325 MG TAB PO SCH (07:44)
[2021-10-15] MEDS: FIRST - Mouthwash BLM 119 ML PO SCH ×2 (07:44→13:45)
[2021-10-15] MEDS: BACITRACIN OINT 15 GM TUBE EXT SCH (07:44)
[2021-10-15] MEDS: SACCHAROMYCES BOULARDII 250 MG CAP PO SCH (07:45)
[2021-10-15] MEDS: FLUTICASONE/VILANTEROL 100/25MCG 14 PUFFS/INHALER INH SCH (07:45)
[2021-10-15] MEDS: TAMSULOSIN HCL 0.4 MG CAP PO SCH (07:45)
[2021-10-15] MEDS: dilTIAZem HCl 60 MG TAB PO SCH (07:45)
[2021-10-15] MEDS: guaiFENesin 600 MG TABCR PO SCH (07:45)
[2021-10-15] MEDS: FINASTERIDE 5 MG TAB PO SCH (07:45)
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
== END 2021-10-15 15:07 | disposition home or self-care (01) | DRG 935 ==
LOC: ED 10:57 → 2E 15:54 → SUATTDRO 15:54 → 2E 18:01

== ENCOUNTER 2022-05-28 06:56 | Inpatient (IN) ==
[2022-05-28] MEDS ORDERED: ALBUT/IPRATROP 3MG/0.5MG NEB 3 ML VIAL NEB ONE (07:07)
--- NOTE | 2022-05-28 07:11 | Emergency Department Note ---
Impression & Plan Acute exacerbation of chronic obstructive pulmonary disease, RAMIREZ (dyspnea on exertion), Hypoxia ED Provider Note NAME: CHANDU ORDONEZ AGE: 66 SEX: M : 1955 ARRIVES VIA: Ambulance INFORMANT: Patient ED PROVIDER(S): Kian Pendleton DO CHIEF COMPLAINT: shortness of breath HPI: Patient is a 66-year-old male with a past medical history of bronchiectasis, COPD, necrotizing pneumonia, asthma who presents to the ER for shortness of breath. Symptoms started on Friday and have been getting worse. He admits to increasing cough. No change in sputum. No fevers. Does have a runny nose but does not believe that is changed. No belly pain, nausea, vomiting or diarrhea. No chest pain. He does have some left-sided back pain which runs the entirety of his back and this only occurs with coughing and sometimes when he lays for a long period of times. He denies any weakness or numbness in the legs. No other exacerbating or remitting factors. ROS: See above HPI for pertinent positives & negatives. A total of 10 systems reviewed and were otherwise negative. PAST MEDICAL HISTORY:See Below PAST SURGICAL HISTORY:See Below FAMILY HISTORY:See Below SOCIAL HISTORY:See Below HOME MEDICATIONS:See Below ALLERGIES:See Below VITALS:See Below PHYSICAL EXAMINATION: GENERAL: Sitting up in bed, alert, mild distress, dyspneic with conversation EYE EXAM: normal conjunctiva. OROPHARYNX: Dry mucous membranes NECK: supple, no nuchal rigidity, no adenopathy, non-tender LUNGS: Diffuse wheezing bilaterally. Poor air movement. Normal chest wall mechanics HEART: no murmurs, S1 normal and S2 normal ABDOMEN: abdomen soft, non-tender, normo-active bowel sounds, no masses, no rebound or guarding. UPPER EXTREMITIES: upper extremities are grossly normal. LOWER EXTREMITIES: No pitting edema. Care surgical bilateral NEURO EXAM: Normal sensorium, cranial nerves II-XII grossly intact, normal speech, no gross weakness of arms, no gross weakness of legs. MEDICAL DECISION MAKING: Patient is a 66-year-old male with past medical history of COPD who presents ER for shortness of breath. IV was established blood work is obtained. He was g iven hour-long neb treatment as well as steroids upon arrival. IVs were established blood work was obtained. Labs show mild leukopenia at 4.5 thousand. No significant anemia. D-dimer was elevated. BMP along with LFTs bilirubin troponin and lipase are unremarkable. Flu COVID and RSV were negative. CT of the chest shows bronchitis/pneumonia which is improved from his previous visit. CT resulted after admission. Please see the hospice orders for further antibiotics. Patient was updated bedside. He was admitted for further work-up. Pulse ox was 87% on room air. Triage Nursing notes reviewed. Limited review of prior medical records performed Vital Signs: reviewed and remarkable for no significant abnormalities Differential diagnosis: Differential diagnoses includes but is not limited to pneumonia, bronchitis, COPD/Asthma exacerbation, pneumothorax, pulmonary embolism, congestive heart failure, acute coronary syndrome ER treatment provided: See below Diagnostics interpreted by me: ECG: Sinus rhythm rate of 77 Normal axis No PVCs QTC 407 Cardiac Monitoring: An order was placed for continuous cardiac monitoring. The monitor shows a rate of 70 with sinus rhythm. Laboratory studies: As stated above and show below. Imaging studies: CT angio of the chest was unremarkable Consultation(s): none Procedures: none Critical Care: I have personally spent 32 minutes of critical care time in the direct management of this patient. This includes bedside care, interpretation of diagnostic studies, and testing, discussion with consultants, patient, and family members, and other required patient management activities. This 32 minutes is in excess of all separately billable procedures. Past Med/Surg History Medical History (Updated 05/28/22 @ 12:49 by Kian Pendleton DO) Anxiety Asymptomatic microscopic hematuria Avascular necrosis of femoral head BPH (benign prostatic hypertrophy) Chronic hip pain Chronic neck pain Chronic obstructive pulmonary disease inhaler/nebulizer prn Chronic pain syndrome Emphysema of lung Esophageal dysmotility GERD (gastroesophageal reflux disease) Hearing deficit History of kidney stones Hypoxia Medical marijuana use On home oxygen therapy 2L N/C at hs and prn Pneumonia Status asthmaticus Surgical History History of bronchoscopy multiple ? History of cardiac cath 10/2018 @ [facility] by Dr. Mello--no stents placed History of carpal tunnel surgery of left wrist x3 History of colonoscopy with polypectomy History of ear surgery eardrum opening by Dr. Daniels History of elbow surgery bilt History of esophagogastroduodenoscopy (EGD) History of sinus surgery History of surgery on arm left arm---hardware removed History of tonsillectomy and adenoidectomy History of tooth extraction all upper teeth Hx of hernia repair x5 Family History Father Nephrolithiasis Asthma Mother Family history of diabetes mellitus Diabetes Grandfather (Paternal) Alzheimer disease Other No family history of adverse response to anesthesia Social History Smoking Status: Never smoker Tobacco Type: Cigarettes Second Hand Exposure: No; Hx Alcohol Use: No Hx Substance Use: Yes Last Used Substance: Unknown Last Used Substance Other:: Friday10/08/21 Substance Use Type Other:: smokes at bedtime to aide in sleeping Preferred Language: Kyrgyz Communication Ability: Effective Bonding Molder Required: No Beliefs That Will Affect Care: None marital status: / Current Living Situation: Alone How many Children do You have: 5 Feels Safe at Home: Yes Assistive Devices: Cane and Oxygen - at Night Allergies Allergies Allergy/AdvReac Type Severity Reaction Status Date / Time clidinium Allergy Intermediate Rash Verified 10/11/21 14:14 [From Librax (with clidinium)] acetaminophen Allergy Mild hives/itchy Verified 10/11/21 14:14 chlordiazepoxide Allergy Mild Rash Verified 10/11/21 14:14 [From Librax (with clidinium)] codeine Allergy Mild Rash Verified 10/11/21 14:14 [From Tylenol-Codeine] latex Allergy Mild Rash Verified 10/11/21 14:14 montelukast AdvReac Severe MENTAL Verified 10/11/21 14:14 STATUS CHANGED zolpidem AdvReac Severe MENTAL Verified 10/11/21 14:14 STATUS CHANGED,HALLUCINATIONS budesonide [From Symbicort] AdvReac Intermediate caused Verified 10/11/21 14:14 vision problems formoterol [From Symbicort] AdvReac Intermediate caused Verified 10/11/21 14:14 vision problems Home Meds Home Medications Medication Instructions Recorded Confirmed albuterol sulfate 2.5 mg/3 mL 2.5 mg continuous nebulization Q4H 06/02/18 05/28/22 (0.083 %) solution for nebulization PRN Wheezing diazepam 5 mg tablet 5 mg PO TID 06/02/18 05/28/22 gabapentin 100 mg capsule 100 mg PO HS PRN restless legs 06/02/18 05/28/22 albuterol sulfate 90 mcg/actuation 2 puff inhalation QID PRN 11/09/18 05/28/22 aerosol inhaler (ProAir HFA) Shortness Of Breath nitroglycerin 0.3 mg sublingual 0.3 mg sublingual UD PRN ESOPAGEAL 03/07/19 05/28/22 tablet (Nitrostat) SPASM oxycodone 15 mg tablet 15 mg PO Q8H PRN Pain 01/23/20 05/28/22 Portable Oxygen #1 ea 02/11/20 05/28/22 finasteride 5 mg tablet 5 mg PO QAM 04/13/20 05/28/22 fluticasone 250 mcg-salmeterol 50 2 ea inhalation BID 01/16/21 05/28/22 mcg/dose blistr powdr for inhalation (Advair Diskus) fluticasone propionate 50 1 spray intranasal DAILY PRN 10/11/21 05/28/22 mcg/actuation nasal Congestion spray,suspension tamsulosin 0.4 mg capsule 0.4 mg PO DAILY 10/11/21 05/28/22 Results & Data (ED) Vital Signs Vital Signs - 24 hr 05/28/22 06:45 05/28/22 07:05 05/28/22 07:05 Temperature 37.2 C Temperature Source Oral Pulse Rate 81 Pulse Rhythm Regular Pulse Strength Normal Respiratory Rate 18 Respiratory Effort / Characteristics Non-Labored Non-Labored Respiratory Depth Normal Normal Respiratory Pattern Regular Regular Blood Pressure 114/72 Blood Pressure Mean 86 Blood Pressure Position Lying Pulse Oximetry 95 Oxygen Delivery Method Room Air Room Air Room Air Oxygen Flow Rate 0 Sepsis New/Unexplained Change in Mental Status No Sepsis Action Taken by Nursing No Action Required Oxygen Flow Rate - Titration Pulse Oximetry Post Tiitration 05/28/22 07:05 05/28/22 07:07 05/28/22 08:51 Temperature Temperature Source Pulse Rate 67 Pulse Rhythm Regular Pulse Strength Respiratory Rate 18 18 Respiratory Effort / Characteristics Non-Labored Respiratory Depth Normal Respiratory Pattern Regular Blood Pressure Blood Pressure Mean Blood Pressure Position Pulse Oximetry 95 92 87 L Oxygen Delivery Method Room Air Room Air Room Air Oxygen Flow Rate 0 Sepsis New/Unexplained Change in Mental Status Sepsis Action Taken by Nursing Oxygen Flow Rate - Titration 2 Pulse Oximetry Post Tiitration 96 Laboratory Data Result diagrams: 05/28/22 07:30 05/28/22 07:30 Lab Results 05/28/22 05/28/22 05/28/22 Range/Units 07:30 07:30 07:30 WBC 4.58 L (4.8-10.8) K/ul RBC 4.56 L (4.63-6.08) M/uL Hgb 14.3 (14.0-18.0) g/dl Hct 42.4 (40.1-51.0) % MCV 93.0 (80.0-100.0) fL MCH 31.4 (25.0-34.0) pg MCHC 33.7 (32.0-36.0) g/dL RDW Std Deviation 53.1 H (36.4-46.3) fL RDW Coeff of Myles 15.4 H (11.5-14.5) % Plt Count 242 (130-400) K/uL MPV 9.1 L (9.4-12.4) fL Immature Gran % (Auto) 0.2 % Neut % (Auto) 54.0 % Lymph % (Auto) 26.4 % Lander % (Auto) 10.9 % Eos % (Auto) 7.4 % Baso % (Auto) 1.1 % Neut # (Auto) 2.47 (1.4-6.5) K/uL Lymph # (Auto) 1.21 (1.2-3.4) K/uL Lander # (Auto) 0.50 (0.24-0.82) K/uL Eos # (Auto) 0.34 (0-0.50) K/uL Baso # (Auto) 0.05 (0-0.2) K/uL Immature Gran # (Auto) 0.01 (0.00-0.02) K/uL D-Dimer 740 H* (0-500) ug/L FEU Sodium 139 (136-145) mmol/L Potassium 4.1 (3.5-5.1) mmol/L Chloride 102 (98-107) mmol/L Carbon Dioxide 31 (21-32) mmol/L Anion Gap 6 (3-11) BUN 15 (6-23) mg/dl Creatinine 0.86 (0.6-1.4) mg/dl Est Cr Clr Drug Dosing 57.9 ml/min Est GFR ( Amer) 104.0 ml/min Est GFR (Non-Af Amer) 89.7 ml/min BUN/Creatinine Ratio 17.4 (10-20) Glucose 112 H (70-99(Fasting)) mg/dl Calcium 9.7 (8.5-10.1) mg/dl Total Bilirubin 0.4 (0.2-1.0) mg/dl AST 16 (13-39) U/L ALT 9 (7-52) U/L Alkaline Phosphatase 66 (34-104) U/L Troponin I High Sens 2.7 (0-20) pg/ml Total Protein 8.0 (6.0-8.3) gm/dl Albumin 4.5 (3.4-5.0) gm/dl Globulin 3.5 (2.5-4.0) gm/dl Albumin/Globulin Ratio 1.3 (0.9-2) Lipase 6 L (11-82) U/L SARS-CoV-2 (PCR) (Negative) Influenza Type A (PCR) (Neg) Influenza Type B (PCR) (Neg) RSV (RT-PCR) (Neg) 05/28/22 Range/Units 07:45 WBC (4.8-10.8) K/ul RBC (4.63-6.08) M/uL Hgb (14.0-18.0) g/dl Hct (40.1-51.0) % MCV (80.0-100.0) fL MCH (25.0-34.0) pg MCHC (32.0-36.0) g/dL RDW Std Deviation (36.4-46.3) fL RDW Coeff of Myles (11.5-14.5) % Plt Count (130-400) K/uL MPV (9.4-12.4) fL Immature Gran % (Auto) % Neut % (Auto) % Lymph % (Auto) % Lander % (Auto) % Eos % (Auto) % Baso % (Auto) % Neut # (Auto) (1.4-6.5) K/uL Lymph # (Auto) (1.2-3.4) K/uL Lander # (Auto) (0.24-0.82) K/uL Eos # (Auto) (0-0.50) K/uL Baso # (Auto) (0-0.2) K/uL Immature Gran # (Auto) (0.00-0.02) K/uL D-Dimer (0-500) ug/L FEU Sodium (136-145) mmol/L Potassium (3.5-5.1) mmol/L Chloride (98-107) mmol/L Carbon Dioxide (21-32) mmol/L Anion Gap (3-11) BUN (6-23) mg/dl Creatinine (0.6-1.4) mg/dl Est Cr Clr Drug Dosing ml/min Est GFR ( Amer) ml/min Est GFR (Non-Af Amer) ml/min BUN/Creatinine Ratio (10-20) Glucose (70-99(Fasting)) mg/dl Calcium (8.5-10.1) mg/dl Total Bilirubin (0.2-1.0) mg/dl AST (13-39) U/L ALT (7-52) U/L Alkaline Phosphatase (34-104) U/L Troponin I High Sens (0-20) pg/ml Total Protein (6.0-8.3) gm/dl Albumin (3.4-5.0) gm/dl Globulin (2.5-4.0) gm/dl Albumin/Globulin Ratio (0.9-2) Lipase (11-82) U/L SARS-CoV-2 (PCR) NEGATIVE (Negative) Influenza Type A (PCR) Negative (Neg) Influenza Type B (PCR) Negative (Neg) RSV (RT-PCR) Negative (Neg) Administered Medications Discontinued Medications Albuterol (Albut/Ipratrop 3mg/0.5mg Neb 3 Ml Vial) 12 ml NEB ONE ONE; Protocol Stop: 05/28/22 07:08 Last Admin: 05/28/22 07:39 Dose: Not Given Documented By: SR Ioversol (Optiray 320 500ml) 114 ml IV ONCE ONE Stop: 05/28/22 09:51 Last Admin: 05/28/22 09:43 Dose: 114 ml Documented By: JESENIA Methylprednisolone (Methylprednisolone 40 Mg/Ml Vial) 40 mg IV NOW STA Stop: 05/28/22 07:08 Last Admin: 05/28/22 07:38 Dose: 40 mg Documented By: SR Imaging Data Radiologist's Impression: Chest X-Ray 05/28/22 07:07 XR chest 1V portable CLINICAL HISTORY: Atypical chest pain. COMPARISON STUDY: Chest radiograph October 11, 2021. FINDINGS: No pneumothorax or pleural effusion is present. Left lower lobe pneumonia shown on prior chest radiograph has resolved. There is no evidence for pulmonary edema. No consolidation is identified. No evidence for pulmonary edema. Cardiomediastinal silhouette is unremarkable. IMPRESSION: No acute cardiopulmonary findings. ACT 112: Negative or not required by law. Electronically signed by: Butch Coleman M.D. 05/28/2022 7:33 AM Chest CTA 05/28/22 08:49 CT angio chest PE protocol CLINICAL HISTORY: PE TECHNIQUE: Multidetector row helical CT of the chest was performed with ang iographic protocol. Coronal and sagittal reformations were obtained. Coronal and sagittal MIPS were obtained from the axial data set and were submitted for review. Automated dose lowering techniques and/or adjustment according to patient size were utilized for this exam. CT DOSE: 254.15 mGy.cm Comparison: Comparison is made to CT chest 10/11/2021 FINDINGS: Lungs and pleura: Scattered airspace opacities are seen in the bilateral lower lungs, overall improved from prior exam. Extensive emphysema and bronchiectasis are seen. Heart and pericardium: Heart size is normal. No pericardial effusion. Vessels: No evidence of pulmonary embolism. Mild atherosclerosis is seen. Mediastinum and cathie: Unremarkable. Chest wall and lower neck: Unremarkable. Abdomen: Unremarkable. Bones: Degenerative changes in the thoracic spine. IMPRESSION: A few scattered airspace opacities are significantly improved from prior exam. Together with bronchial wall thickening this may represent bronchitis and/or pneumonia. No evidence of pulmonary embolus. Stable emphysema. ACT 112: Negative or not required by law. Electronically signed by: Nba Joyner M.D. 05/28/2022 10:41 AM Discharge Plan Visit Data Chief Complaint: Shortness of Breath/Dyspnea Stated Complaint: SOB ED Provider: Kian Pendleton Discharge Problem: Acute exacerbation of chronic obstructive pulmonary disease, RAMIREZ (dyspnea on exertion), Hypoxia Patient Disposition: Admitted As Inpatient Discharge Instructions Interventions: ED Discharge Assessment Last Done: 05/28/22 11:02
--- NOTE | 2022-05-28 07:34 | XRay Report ---
XR chest 1V portable CLINICAL HISTORY: Atypical chest pain. COMPARISON STUDY: Chest radiograph October 11, 2021. FINDINGS: No pneumothorax or pleural effusion is present. Left lower lobe pneumonia shown on prior ch est radiograph has resolved. There is no evidence for pulmonary edema. No consolidation is identified . No evidence for pulmonary edema. Cardiomediastinal silhouette is unremarkable. IMPRESSION: No acute cardiopulmonary findings. ACT 112: Negative or not required by law. Electronically signed by: Butch Coleman M.D. 05/28/2022 7:33 AM
[2022-05-28 07:44] LABS: Basophils # (auto) 0.05 K/uL (0-0.2); Basophils % (auto) 1.1 %; Eosinophils # (auto) 0.34 K/uL (0-0.50); Eosinophils % (auto) 7.4 %; Hematocrit (blood only) 42.4 % (40.1-51.0); Hemoglobin 14.3 g/dl (14.0-18.0); Immature Granulocytes # (auto) 0.01 K/uL (0.00-0.02); Immature Granulocytes % (auto) 0.2 %; Lymphocytes # (auto) 1.21 K/uL (1.2-3.4); Lymphocytes % (auto) 26.4 %; Mean Corpuscular Hemoglobin 31.4 pg (25.0-34.0); Mean Corpuscular Hgb Conc 33.7 g/dL (32.0-36.0); Mean Platelet Volume 9.1 fL (9.4-12.4); Monocytes % (auto) 10.9 %; Neutrophils # (auto) 2.47 K/uL (1.4-6.5); Platelet Count 242 K/uL (130-400); RDW Coefficient of Variation 15.4 % (11.5-14.5); RDW Standard Deviation 53.1 fL (36.4-46.3); Red Blood Count 4.56 M/uL (4.63-6.08); White Blood Count 4.58 K/ul (4.8-10.8)
[2022-05-28 08:20] LABS: Troponin I High Sensitivity 2.7 pg/ml (0-20)
[2022-05-28 08:24] LABS: Albumin Globulin Ratio 1.3 (0.9-2); Albumin Level 4.5 gm/dl (3.4-5.0); BUN Creatinine Ratio 17.4 (10-20); Bilirubin,Total 0.4 mg/dl (0.2-1.0); Calcium 9.7 mg/dl (8.5-10.1); Creatinine Clr Calc Pharmacy 57.9 ml/min; Est GFR (Non-African American) 89.7 ml/min; Globulin 3.5 gm/dl (2.5-4.0); Potassium 4.1 mmol/L (3.5-5.1)
[2022-05-28 08:30] LABS: D Dimer 740 ug/L FEU (0-500)
[2022-05-28 08:36] LABS: Influenza A virus by PCR Negative (Neg); Influenza B virus by PCR Negative (Neg); RSV by PCR Negative (Neg); SARS CoV2 RNA(COVID-19) Ceph NEGATIVE (Negative)
[2022-05-28] MEDS ORDERED: ALUMINUM/MAGNESIUM SUSP 30 ML UDC PO PRN (09:29)
[2022-05-28] MEDS ORDERED: ONDANSETRON INJ 2 MG/ML 2 ML VIAL IV PRN (09:29)
[2022-05-28] MEDS ORDERED: POLYETHYLENE (MIRALAX) 17 GM PACK PO PRN (09:29)
[2022-05-28] MEDS ORDERED: MAGNESIUM HYDROXIDE SUSP 30 ML UDC PO PRN (09:29)
--- NOTE | 2022-05-28 09:29 | History & Physical Report ---
Date of Service May 28, 2022 Assessment & Plan (1) Acute exacerbation of chronic obstructive pulmonary disease (COPD): (2) Hypoxia: (3) BPH (benign prostatic hypertrophy): (4) GERD (gastroesophageal reflux disease): Plan 66 y/o with increased cough, RAMIREZ and SOB x a few days. PMH that includes chronic respiratory failure with persistent asthma , bronchiectasis, COPD emphysema, history of Mycobacterium and fungal pneumonia, chronic pain, and BPH. His pulmonary history is quite complex and with review of outpatient records he has severe persistent asthma, with elevated eosinophilia, bronchial thermoplasty in 2020 PFTs FEV1 1.28 L 46%. Patient has history of elevated IgE 2016 0.32 from 2016. Chest x-ray was negative. Patient denies headache, dizziness, visual changes, fever, chills, recent illness, falls, trauma, nausea vomiting diarrhea, abdominal pain, bowel changes, appetite changes. Suspect patient has a deconditioned pulmonary disease with acute on chronic COPD exacerbation along with noncompliance related to treatment plan. Patient reports having chronic pain for cervical radiculopathy for which he takes Valium 5 mg p.o. 3 times daily along with oxycodone 15 mg p.o. 3 times daily. This combination has been discussed with the patient in depth however he is not receptive to any changes with his current regimen. When I met with him today he did state that he is in the process of working towards a different treatment plan for his chronic pain with Dr. Smart. Patient denies any psych or pain management consult at this time. Deconditioned Pulmonary disease: Acute on chronic COPD exacerbation: H/O necrotizing PNA: CXR negative Home regimen includes: Breo, Flonase, Incruse Elliptal and Albuterol PRN at home Supplemental home O2; 2LNC; not compliant Received 1 hour nebulizer in ED Solumedrol 40 mg IV Q8 D-Dimer 740; CTA: negative for PE Lactate: Pending Procalcitonin: Pending AFB culture -05/14 Repeat sputum culture; pending Cefepime IV Q 8 at risk for Pseudomonas Vaccinated against Flu and Covid with boosters elevated eosinophilia, bronchial thermoplasty in 2020 PFTs FEV1 1.28 L 46%. Patient has history of elevated IgE 2016 0.32; may benefit from outpatient licensing representative referral Chronic pain syndrome: Cervical radiculopathy takes Valium 5 mg p.o. 3 times daily along with oxycodone 15 mg p.o. 3 times daily. This combination has been discussed with the patient in depth-he is not receptive to any changes with his current regimen States he is working on regimen changes with [facility] PCP Is previous discussion he insists on taking his Valium as prescribed. Patient has a low BMI and discussed weaning benzodiazepine/pain medications. BPH: Takes Tamsulosin; continue Depression: Takes Buspirone; continue Disposition: PCP: Dr. Smart CODE STATUS: Full code VTE prophylaxis: ambulating; teds for now I personally was able to review all current laboratory work and diagnostic imag es obtained in the ED. Additionally, I was able to review the patients past medication reconciliation and history with direct visualization in the patients chart. This patient was seen and collaborated with Dr. Daniels; please see her addendum for further details. History of Present Illness Chief Complaint: SOB Primary Care Provider: Randy Smart MD Mr. Aguiar is a 66-year-old man that presented to the ED with increased cough, dyspnea on exertion. , shortness of breath that has been occurring over the past few days patient has a complex past medical history that includes chronic respiratory failure with persistent asthma , bronchiectasis, COPD emphysema, history of Mycobacterium and fungal pneumonia, chronic pain, and BPH. His pulmonary history is quite complex and with review of outpatient records he has severe persistent asthma, with elevated eosinophilia, bronchial thermoplasty in 2020 PFTs FEV1 1.28 L 46%. , In review of EMR culture for AFB was negative 05/14. CXR was negative. Patient denies headache, dizziness, visual changes, fever, chills, recent illness, falls, trauma, nausea vomiting diarrhea, abdominal pain, bowel changes, appetite changes. Suspect patient has a deconditioned pulmonary disease with acute on chronic COPD exacerbation along with noncompliance related to treatment plan. Patient is ordered to have 2 L nasal cannula supplemental oxygen at home however he is noncompliant with this. 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 We did discuss wearing his O2 at home and for errands which he appears to be receptive to. In the ED D-dimer found elevated at 740 CT angio negative for PE. Patient reports having chronic pain for cervical radiculopathy for which she takes Valium 5 mg p.o. 3 times daily along with oxycodone 15 mg p.o. 3 times daily. This combination has been discussed with the patient in depth however he is not receptive to any changes with his current regimen. When I met with him today he did state that he is in the process of working towards a different treatment plan for his chronic pain with Dr. Smart. Patient denies any psych or pain management consult at this time. Patient lives alone in a an apartment that is up 1 flight of stairs without an elevator access and he has been following with office of aging who comes to his apartment every Friday to provide him with meal set up and oversight with his medications and appointments. He has stated that he is in the process of trying to move to a different apartment building that is on ground-level. Patient has 5 adult children, Michaela lives 5 minutes away and checks on him and he has designated her as his decision-maker however nothing is legally binding, which I explained could be completed while inpatient with service excellence and he is receptive to such. Patient will be admitted for further evaluation and management. See A/P for further details. Allergies Allergy/AdvReac Type Severity Reaction Status Date / Time clidinium Allergy Intermediate Rash Verified 10/11/21 14:14 [From Librax (with clidinium)] acetaminophen Allergy Mild hives/itchy Verified 10/11/21 14:14 chlordiazepoxide Allergy Mild Rash Verified 10/11/21 14:14 [From Librax (with clidinium)] codeine Allergy Mild Rash Verified 10/11/21 14:14 [From Tylenol-Codeine] latex Allergy Mild Rash Verified 10/11/21 14:14 montelukast AdvReac Severe MENTAL Verified 10/11/21 14:14 STATUS CHANGED zolpidem AdvReac Severe MENTAL Verified 10/11/21 14:14 STATUS CHANGED,HALLUCINATIONS budesonide [From Symbicort] AdvReac Intermediate caused Verified 10/11/21 14:14 vision problems formoterol [From Symbicort] AdvReac Intermediate caused Verified 10/11/21 14:14 vision problems Home Medications Medication Instructions Recorded Confirmed Type albuterol sulfate 2.5 mg/3 mL 2.5 mg continuous nebulization Q4H 06/02/18 05/28/22 History (0.083 %) solution for nebulization PRN Wheezing diazepam 5 mg tablet 5 mg PO TID 06/02/18 05/28/22 History gabapentin 100 mg capsule 100 mg PO HS PRN restless legs 06/02/18 05/28/22 History albuterol sulfate 90 mcg/actuation 2 puff inhalation QID PRN 11/09/18 05/28/22 History aerosol inhaler (ProAir HFA) Shortness Of Breath nitroglycerin 0.3 mg sublingual 0.3 mg sublingual UD PRN ESOPAGEAL 03/07/19 05/28/22 History tablet (Nitrostat) SPASM oxycodone 15 mg tablet 15 mg PO Q8H PRN Pain 01/23/20 05/28/22 History Portable Oxygen #1 ea 02/11/20 05/28/22 History finasteride 5 mg tablet 5 mg PO QAM 04/13/20 05/28/22 History fluticasone 250 mcg-salmeterol 50 2 ea inhalation BID 01/16/21 05/28/22 History mcg/dose blistr powdr for inhalation (Advair Diskus) fluticasone propionate 50 1 spray intranasal DAILY PRN 10/11/21 05/28/22 History mcg/actuation nasal Congestion spray,suspension tamsulosin 0.4 mg capsule 0.4 mg PO DAILY 10/11/21 05/28/22 History diphenhydramine HCl 25 mg capsule 25 mg PO HS PRN Itching 05/28/22 05/28/22 History Past Med/Surg History Medical History Anxiety Asymptomatic microscopic hematuria Avascular necrosis of femoral head BPH (benign prostatic hypertrophy) Chronic hip pain Chronic neck pain Chronic obstructive pulmonary disease inhaler/nebulizer prn Chronic pain syndrome Emphysema of lung Esophageal dysmotility GERD (gastroesophageal reflux disease) Hearing deficit History of kidney stones Hypoxia Medical marijuana use On home oxygen therapy 2L N/C at hs and prn Pneumonia Status asthmaticus Surgical History History of bronchoscopy multiple ? History of cardiac cath 10/[address] [facility] by Dr. Mello--no stents placed History of carpal tunnel surgery of left wrist x3 History of colonoscopy with polypectomy History of ear surgery eardrum opening by Dr. Daniels History of elbow surgery bilt History of esophagogastroduodenoscopy (EGD) History of sinus surgery History of surgery on arm left arm---hardware removed History of tonsillectomy and adenoidectomy History of tooth extraction all upper teeth Hx of hernia repair x5 Family History Father Nephrolithiasis Asthma Mother Family history of diabetes mellitus Diabetes Grandfather (Paternal) Alzheimer disease Other No family history of adverse response to anesthesia Social History Smoking Status: Never smoker Tobacco Type: Cigarettes Second Hand Exposure: No; Hx Alcohol Use: No Hx Substance Use: Yes Last Used Substance: Unknown Last Used Substance Other:: Friday10/08/21 Substance Use Type Other:: smokes at bedtime to aide in sleeping Preferred Language: Albanian Communication Ability: Effective Manager Resort Required: No Beliefs That Will Affect Care: None marital status: / Current Living Situation: Alone How many Children do You have: 5 Feels Safe at Home: Yes Assistive Devices: Cane and Oxygen - at Night Review of Systems Review of Systems: Neuro: (-) Falls, trauma, slurred speech HEENT: (-) BACA, dizziness, dysphagia, visual or auditory changes CV: (-) CP, palpitations, swelling Resp: (+) RAMIREZ GI: (-) appetite changes, N/V/D, bowel changes : (-) urinary changes Skin: (-) rashes Psych: (+) anxiety, depression, (+) panic attacks Physical Exam Physical Exam: Neuro: AAOx4, PERRLA, no aphagia, memory changes, CNII-XII grossly intact HEENT: head normocephalic, moist mucus membranes CV: S1/S2, (-) M/G/R, (-) edema, cap refill < 3 seconds Resp: Lungs with expiratory wheezes posteriorly. On RA GI: Abdomen S/NT/ND, Ax4 bowel sounds, (-) CVA tenderness Musculoskeletal: 5/5 B/L UE strength, 5/5 B/L LE strength. No gait disturbance; ambulating in hospital rrom Skin: (-) rashes , (-) erythema. (+) infiltrated IV left arm; compress Psych: euthymic mood Results & Data Results & Data ([facility]) Vital Signs (Past 12 Hours) Vital Signs Temp Pulse Resp BP Pulse Ox O2 Del Method O2 Flow Rate 05/28/22 08:51 87 L Room Air 0 05/28/22 07:07 67 18 92 Room Air 05/28/22 07:05 18 95 Room Air 05/28/22 07:05 Room Air 0 05/28/22 07:05 Room Air 05/28/22 06:45 37.2 C 81 18 114/72 95 Room Air Laboratory Results Short CBC 05/28/22 Range/Units 07:30 WBC 4.58 L (4.8-10.8) K/ul Hgb 14.3 (14.0-18.0) g/dl Hct 42.4 (40.1-51.0) % Plt Count 242 (130-400) K/uL BMP 05/28/22 07:30 Sodium 139 Potassium 4.1 Chloride 102 Carbon Dioxide 31 BUN 15 Creatinine 0.86 Glucose 112 H Calcium 9.7 Liver Function 05/28/22 Range/Units 07:30 Total Bilirubin 0.4 (0.2-1.0) mg/dl AST 16 (13-39) U/L ALT 9 (7-52) U/L Alkaline Phosphatase 66 (34-104) U/L Albumin 4.5 (3.4-5.0) gm/dl Diagnostic Findings Chest X-Ray 05/28/22 07:07 XR chest 1V portable CLINICAL HISTORY: Atypical chest pain. COMPARISON STUDY: Chest radiograph October 11, 2021. FINDINGS: No pneumothorax or pleural effusion is present. Left lower lobe pneumonia shown on prior chest radiograph has resolved. There is no evidence for pulmonary edema. No consolidation is identified. No evidence for pulmonary edema. Cardiomediastinal silhouette is unremarkable. IMPRESSION: No acute cardiopulmonary findings. ACT 112: Negative or not required by law. Electronically signed by: Butch Coleman M.D. 05/28/2022 7:33 AM Code Status & VTE Plan Code Status Full code in the event of cardiac or respiratory arrest VTE Prophylaxis Plan VTE Prophylaxis will be ordered: Yes Supervising Physician Co-Signing Physician Notes 66-year-old man with increased shortness of breath with exertion presents to the ER because he is reportedly tired of being ill and feeling this way. He has a long history of persistent asthma since 10 years old now with COPD and bronchiectasis in the setting of malnutrition with a suspicion of possible atypical mycobacterial infection, and notable chronic respiratory failure. He is noncompliant with oxygen at home and subscribes to his own theories about goals of his care. He is on substantial amounts of benzos and narcotics and appears to be generally fatiguing. On physical exam he appears malnourished and reports a history of weight loss with recent weight gain. He appears defeated that he cannot gain more weight and reports an obstacle with a swallowing issue. He has active wheezing in his lungs throughout especially on the left side. Cardiac exam reveals S1/2 on auscultation with regular rate and rhythm and no evidence of murmurs. Abdomen is soft nondistended nontender and there is no evidence of peripheral edema. He does have an injury from a peripheral IV stick on his lower right forearm on the extensor surface and the nurses aware and will apply compression to this area. There is no evidence of bruising at this time. Work-up in the ER today includes a CT a of the chest with a few scattered airspace opacities that are significantly improved from prior exam when he had necrotizing pneumonia. He has bronchial wall thickening and no evidence of pulmonary embolus in a background of emphysema. CBC reflects arrival resolution of prior anemia seen in September 2021. BMP is within normal limits. Highly sensitive troponin is negative at 2.7. Lipase is negative. Respiratory nasal panel is negative for flu, RSV and COVID. Agree with plan to give steroids, nebulized bronchodilators and short course of antibiotics for possible COPD exacerbation. Monitor his response to therapy. Repeat sputum culture is pending. Per documented oxygen saturation, patient should be able to take oxygen at home from this admission, and that would be recommended. May also consider two-step respiratory test at discharge if patient is willing to utilize oxygen at home. Would continue to work with PCP to try and de-escalate off high amounts of benzos and narcotics, which are likely impacting his respiratory status in a negative way. Jeremiah,
[2022-05-28] MEDS ORDERED: OPTIRAY 320 500ml IV ONE (09:50)
--- NOTE | 2022-05-28 10:42 | CT Scan Report ---
CT angio chest PE protocol CLINICAL HISTORY: PE TECHNIQUE: Multidetector row helical CT of the chest was performed with angiographic protocol. Valdivia l and sagittal reformations were obtained. Coronal and sagittal MIPS were obtained from the axial saul a set and were submitted for review. Automated dose lowering techniques and/or adjustment according to patient size were utilized for this exam. CT DOSE: 254.15 mGy.cm Comparison: Comparison is made to CT chest 10/11/2021 FINDINGS: Lungs and pleura: Scattered airspace opacities are seen in the bilateral lower lungs, overall improve d from prior exam. Extensive emphysema and bronchiectasis are seen. Heart and pericardium: Heart size is normal. No pericardial effusion. Vessels: No evidence of pulmonary embolism. Mild atherosclerosis is seen. Mediastinum and cathie: Unremarkable. Chest wall and lower neck: Unremarkable. Abdomen: Unremarkable. Bones: Degenerative changes in the thoracic spine. IMPRESSION: A few scattered airspace opacities are significantly improved from prior exam. Together with bronchia l wall thickening this may represent bronchitis and/or pneumonia. No evidence of pulmonary embolus. S table emphysema. ACT 112: Negative or not required by law. Electronically signed by: Nba Joyner M.D. 05/28/2022 10:41 AM
[2022-05-28] MEDS ORDERED: GABAPENTIN 100 MG CAP PO PRN (12:20)
[2022-05-28] MEDS ORDERED: ALBUTEROL HFA 8 GM INHALER INH PRN (12:20)
[2022-05-28] MEDS ORDERED: FLUTICASONE PROPIONATE NA SPR 16 GM BTL PRN (12:20)
[2022-05-28] MEDS: oxyCODONE HCL IR 5 MG TAB (IMMEDIATE RELEASE) PO PRN (12:53)
[2022-05-28] MEDS: diazePAM 5 MG TABLET PO SCH ×2 (13:17→21:38)
[2022-05-28] MEDS: CEFEPIME 2,000 MG in SYRINGE 0 ML IV SCH (13:51)
[2022-05-28] MEDS: methylPREDNISolone 40 MG in SYRINGE 0 ML IV SCH ×2 (16:13→23:10)
--- NOTE | 2022-05-28 16:41 | Electrocardiogram Report ---
Test Reason : Blood Pressure : / mmHG Vent. Rate : 077 BPM Atrial Rate : 077 BPM P-R Int : 148 ms QRS Dur : 072 ms QT Int : 360 ms P-R-T Axes : 072 058 061 degrees QTc Int : 407 ms Poor data quality, interpretation may be adversely affected Normal sinus rhythm Low voltage QRS Septal infarct (cited on or before 28-MAY-2022) Abnormal ECG When compared with ECG of 11-OCT-2021 11:32, No significant change was found Confirmed by Dimas Dawson ([id number]) on 05/28/2022 4:41:16 PM Referred By: REFERRED SELF Confirmed By:Dimas Dawson
[2022-05-29] MEDS ORDERED: CEFEPIME 2,000 MG/20 ML VIAL ONE (00:12)
[2022-05-29] MEDS: CEFEPIME 2,000 MG in SYRINGE 0 ML IV SCH ×2 (00:14→14:01)
[2022-05-29 05:13] LABS: Hematocrit (blood only) 41.4 % (40.1-51.0); Hemoglobin 14.1 g/dl (14.0-18.0); Mean Corpuscular Hemoglobin 31.3 pg (25.0-34.0); Mean Corpuscular Hgb Conc 34.1 g/dL (32.0-36.0); Mean Platelet Volume 9.3 fL (9.4-12.4); Platelet Count 243 K/uL (130-400); White Blood Count 2.56 K/ul (4.8-10.8)
[2022-05-29 05:33] LABS: BUN Creatinine Ratio 19.8 (10-20); C Reactive Protein 0.97 mg/dl (0-0.5); Calcium 9.9 mg/dl (8.5-10.1); Creatinine Clr Calc Pharmacy 51.9 ml/min; Est GFR (African American) 94.4 ml/min; Est GFR (Non-African American) 81.5 ml/min; Potassium 4.3 mmol/L (3.5-5.1)
--- NOTE | 2022-05-29 07:21 | XRay Report ---
XR chest 1V portable HISTORY: 66 years-old Male COPD exacerbation chronic shortness of breath COMPARISON: CTA chest and chest radiograph studies 05/28/2022 TECHNIQUE: AP view of the chest FINDINGS: Cardiomediastinal and hilar silhouettes are within normal limits. Emphysema with interstitial coarsen ing and bronchial wall thickening. Ill-defined opacities of the mid to upper lung zones. Degenerative changes of the shoulders and spine. Avascular necrosis of the humeral heads. IMPRESSION: 1. Emphysema with chronic interstitial coarsening. 2. Mild patchy ill-defined airspace opacities of the mid to upper lung zones are better characterized on the comparison CTA of the chest. 3. Avascular necrosis of the humeral heads. ACT 112: Negative or not required by law. The above report was generated using voice recognition software. It may contain grammatical, syntax o r spelling errors. Electronically signed by: Dejon Bernard M.D. 05/29/2022 7:19 AM
[2022-05-29] MEDS: FINASTERIDE 5 MG TAB PO SCH (08:36)
[2022-05-29] MEDS: TAMSULOSIN HCL 0.4 MG CAP PO SCH (08:36)
[2022-05-29] MEDS ORDERED: FLUTICASONE/VILANTEROL 100/25MCG 14 PUFFS/INHALER INH SCH (09:00)
[2022-05-29] MEDS: methylPREDNISolone 40 MG in SYRINGE 0 ML IV SCH ×2 (10:07→17:36)
[2022-05-29] MEDS: diazePAM 5 MG TABLET PO SCH ×3 (10:13→20:15)
[2022-05-29] MEDS: oxyCODONE HCL IR 5 MG TAB (IMMEDIATE RELEASE) PO PRN ×2 (10:20→20:15)
--- NOTE | 2022-05-29 17:29 | Hospitalist Progress Note ---
Date of Service May 29, 2022 Assessment & Plan (1) Acute exacerbation of chronic obstructive pulmonary disease (COPD): (2) Hypoxia: (3) BPH (benign prostatic hypertrophy): (4) GERD (gastroesophageal reflux disease): Plan 66 y/o with increased cough, RAMIREZ and SOB x a few days. PMH that includes chronic respiratory failure with persistent asthma , bronchiectasis, COPD emphysema, history of Mycobacterium and fungal pneumonia, chronic pain, and BPH. His pulmonary history is quite complex and with review of outpatient records he has severe persistent asthma, with elevated eosinophilia, bronchial thermoplasty in 2020 PFTs FEV1 1.28 L 46%. Patient has history of elevated IgE 2016 0.32 from 2016. Chest x-ray was negative. Patient denies headache, dizziness, visual changes, fever, chills, recent illness, falls, trauma, nausea vomiting diarrhea, abdominal pain, bowel changes, appetite changes. Suspect patient has a deconditioned pulmonary disease with acute on chronic COPD exacerbation along with noncompliance related to treatment plan. Patient reports having chronic pain for cervical radiculopathy for which he takes Valium 5 mg p.o. 3 times daily along with oxycodone 15 mg p.o. 3 times daily. This combination has been discussed with the patient in depth however he is not receptive to any changes with his current regimen. When I met with him today he did state that he is in the process of working towards a different treatment plan for his chronic pain with Dr. Smart. Patient denies any psych or pain management consult at this time. Deconditioned Pulmonary disease: Acute on chronic COPD exacerbation: CXR negative Home regimen includes: Breo, Flonase, Incruse Elliptal and Albuterol PRN at home Supplemental home O2; 2LNC; not compliant Received 1 hour nebulizer in ED D-Dimer 740; CTA: negative for PE Lactate: Pending Procalcitonin: Pending AFB culture -05/14 Repeat sputum culture; pending Cefepime IV Q 8 at risk for Pseudomonas given extensive pulmonary history Solumedrol 40 mg IV Q8 for now - switch to PO tomorrow 05/30/2022 Vaccinated against Flu and Covid with boosters elevated eosinophilia, bronchial thermoplasty in 2020 PFTs FEV1 1.28 L 46%. Patient has history of elevated IgE 2016 0.32; may benefit from outpatient follow up manager referral Chronic pain syndrome: Cervical radiculopathy takes Valium 5 mg p.o. 3 times daily along with oxycodone 15 mg p.o. 3 times daily. This combination has been discussed with the patient in depth-he is not receptive to any changes with his current regimen States he is working on regimen changes with [facility] PCP Is previous discussion he insists on taking his Valium as prescribed. Patient has a low BMI and discussed weaning benzodiazepine/pain medications. BPH: Takes Tamsulosin; continue Depression: Takes Buspirone; continue Disposition: PCP: Dr. Smart CODE STATUS: Full code VTE prophylaxis: ambulating; teds for now Admission and Anticipated Discharge Date Admission Date: May 28, 2022 Subjective Patient with COPD, BPH, avascular necrosis of hips presented with COPD exacerbation, started on steroids and abx with some improvement. PAtient feels ok, still with conversational dyspnea but unclear if this is chronic. Patient has cough, intermittently productive. Denies chest pain, n/v/d, dysuria, abdominal pain. Reports chronic lower back and hip pain. Review of Systems Review of Systems: All systems reviewed & are unremarkable except as noted in Subjective Physical Exam Physical Exam: HEENT: head normocephalic, moist mucus membranes CV: S1/S2, (-) M/G/R, (-) edema, cap refill < 3 seconds Resp: Lungs with diffuse wheezes posteriorly. On RA GI: Abdomen S/NT/ND, Ax4 bowel sounds, (-) CVA tenderness Musculoskeletal: 5/5 B/L UE strength, 5/5 B/L LE strength. No gait disturbance; ambulating in hospital rrom Skin: (-) rashes , (-) erythema Neuro: AAOx4, PERRLA, no aphagia, memory changes, CNII-XII grossly intact Psych: euthymic mood Results & Data Results & Data ([facility]) Vital Signs (Past 12 Hours) Vital Signs Temp Pulse Pulse Pulse Resp BP Pulse Ox 05/29/22 13:35 73 05/29/22 13:23 36.7 C 79 16 148/81 H 97 05/29/22 12:45 81 16 124/87 92 05/29/22 07:48 78 16 106/72 96 O2 Del Method O2 Flow Rate 05/29/22 13:35 05/29/22 13:23 Room Air 05/29/22 12:45 Room Air 05/29/22 07:48 Nasal Cannula 2 Diagnostic Findings Laboratory Results WBC 2.56 K/ul (4.8-10.8) L 05/29/22 04:44 RBC 4.50 M/uL (4.63-6.08) L 05/29/22 04:44 Hgb 14.1 g/dl (14.0-18.0) 05/29/22 04:44 Hct 41.4 % (40.1-51.0) 05/29/22 04:44 MCV 92.0 fL (80.0-100.0) 05/29/22 04:44 MCH 31.3 pg (25.0-34.0) 05/29/22 04:44 MCHC 34.1 g/dL (32.0-36.0) 05/29/22 04:44 RDW Std Deviation 51.0 fL (36.4-46.3) H 05/29/22 04:44 RDW Coeff of Myles 15.0 % (11.5-14.5) H 05/29/22 04:44 Plt Count 243 K/uL (130-400) 05/29/22 04:44 MPV 9.3 fL (9.4-12.4) L 05/29/22 04:44 Immature Gran % (Auto) 0.2 % 05/28/22 07:30 Neut % (Auto) 54.0 % 05/28/22 07:30 Lymph % (Auto) 26.4 % 05/28/22 07:30 Placer % (Auto) 10.9 % 05/28/22 07:30 Eos % (Auto) 7.4 % 05/28/22 07:30 Baso % (Auto) 1.1 % 05/28/22 07:30 Neut # (Auto) 2.47 K/uL (1.4-6.5) 05/28/22 07:30 Lymph # (Auto) 1.21 K/uL (1.2-3.4) 05/28/22 07:30 Placer # (Auto) 0.50 K/uL (0.24-0.82) 05/28/22 07:30 Eos # (Auto) 0.34 K/uL (0-0.50) 05/28/22 07:30 Baso # (Auto) 0.05 K/uL (0-0.2) 05/28/22 07:30 Immature Gran # (Auto) 0.01 K/uL (0.00-0.02) 05/28/22 07:30 ESR 54 mm/hr (0-20) H 05/29/22 04:44 D-Dimer 740 ug/L FEU (0-500) H* 05/28/22 07:30 Sodium 134 mmol/L (136-145) L 05/29/22 04:44 Potassium 4.3 mmol/L (3.5-5.1) 05/29/22 04:44 Chloride 102 mmol/L (98-107) 05/29/22 04:44 Carbon Dioxide 26 mmol/L (21-32) 05/29/22 04:44 Anion Gap 6 (3-11) 05/29/22 04:44 BUN 19 mg/dl (6-23) 05/29/22 04:44 Creatinine 0.96 mg/dl (0.6-1.4) 05/29/22 04:44 Est Cr Clr Drug Dosing 51.9 ml/min 05/29/22 04:44 Est GFR ( Amer) 94.4 ml/min 05/29/22 04:44 Est GFR (Non-Af Amer) 81.5 ml/min 05/29/22 04:44 BUN/Creatinine Ratio 19.8 (10-20) 05/29/22 04:44 Glucose 131 mg/dl (70-99(Fasting)) H 05/29/22 04:44 Lactate 1.2 mmol/L (0.4-2.0) 05/28/22 15:14 Calcium 9.9 mg/dl (8.5-10.1) 05/29/22 04:44 Magnesium 2.0 mg/dl (1.7-2.4) 05/29/22 04:44 Total Bilirubin 0.4 mg/dl (0.2-1.0) 05/28/22 07:30 AST 16 U/L (13-39) 05/28/22 07:30 ALT 9 U/L (7-52) 05/28/22 07:30 Alkaline Phosphatase 66 U/L (34-104) 05/28/22 07:30 Troponin I High Sens 2.7 pg/ml (0-20) 05/28/22 07:30 C-Reactive Protein 0.97 mg/dl (0-0.5) H 05/29/22 04:44 Total Protein 8.0 gm/dl (6.0-8.3) 05/28/22 07:30 Albumin 4.5 gm/dl (3.4-5.0) 05/28/22 07:30 Globulin 3.5 gm/dl (2.5-4.0) 05/28/22 07:30 Albumin/Globulin Ratio 1.3 (0.9-2) 05/28/22 07:30 Lipase 6 U/L (11-82) L 05/28/22 07:30 Procalcitonin < 0.05 ng/ml (0-0.5) 05/29/22 04:44 SARS-CoV-2 (PCR) NEGATIVE (Negative) 05/28/22 07:45 Influenza Type A (PCR) Negative (Neg) 05/28/22 07:45 Influenza Type B (PCR) Negative (Neg) 05/28/22 07:45 RSV (RT-PCR) Negative (Neg) 05/28/22 07:45 Impressions Chest CTA 05/28/22 08:49 CT angio chest PE protocol CLINICAL HISTORY: PE TECHNIQUE: Multidetector row helical CT of the chest was performed with angiographic protocol. Coronal and sagittal reformations were obtained. Coronal and sagittal MIPS were obtained from the axial data set and were submitted for review. Automated dose lowering techniques and/or adjustment according to patient size were utilized for this exam. CT DOSE: 254.15 mGy.cm Comparison: Comparison is made to CT chest 10/11/2021 FINDINGS: Lungs and pleura: Scattered airspace opacities are seen in the bilateral lower lungs, overall improved from prior exam. Extensive emphysema and bronchiectasis are seen. Heart and pericardium: Heart size is normal. No pericardial effusion. Vessels: No evidence of pulmonary embolism. Mild atherosclerosis is seen. Mediastinum and cathie: Unremarkable. Chest wall and lower neck: Unremarkable. Abdomen: Unremarkable. Bones: Degenerative changes in the thoracic spine. IMPRESSION: A few scattered airspace opacities are significantly improved from prior exam. Together with bronchial wall thickening this may represent bronchitis and/or pneumonia. No evidence of pulmonary embolus. Stable emphysema. ACT 112: Negative or not required by law. Electronically signed by: Nba Joyner M.D. 05/28/2022 10:41 AM Chest X-Ray 05/29/22 08:00 XR chest 1V portable HISTORY: 66 years-old Male COPD exacerbation chronic shortness of breath COMPARISON: CTA chest and chest radiograph studies 05/28/2022 TECHNIQUE: AP view of the chest FINDINGS: Cardiomediastinal and hilar silhouettes are within normal limits. Emphysema with interstitial coarsening and bronchial wall thickening. Ill-defined opacities of the mid to upper lung zones. Degenerative changes of the shoulders and spine. Avascular necrosis of the humeral heads. IMPRESSION: 1. Emphysema with chronic interstitial coarsening. 2. Mild patchy ill-defined airspace opacities of the mid to upper lung zones are better characterized on the comparison CTA of the chest. 3. Avascular necrosis of the humeral heads. ACT 112: Negative or not required by law. The above report was generated using voice recognition software. It may contain grammatical, syntax or spelling errors. Electronically signed by: Dejon Bernard M.D. 05/29/2022 7:19 AM Medications Administered Current Inpatient Medications Al Hydrox/Mg Hydrox/Simethicone (Aluminum/Magnesium Susp 30 Ml Udc) 15 ml PO Q4H PRN PRN Reason: Dyspepsia Stop: 06/27/22 09:28 Albuterol (Albuterol Hfa 8 Gm Inhaler) 2 puffs INH QID PRN; Protocol PRN Reason: Shortness Of Breath Stop: 06/27/22 12:19 Diazepam (Diazepam 5 Mg Tablet) 5 mg PO TID MAGNOLIA Stop: 06/27/22 13:59 Last Admin: 05/29/22 14:12 Dose: 5 mg Finasteride (Finasteride 5 Mg Tab) 5 mg PO QAM MAGNOLIA Stop: 06/28/22 08:59 Last Admin: 05/29/22 08:36 Dose: 5 mg Fluticasone Propionate (Fluticasone Propionate Na Spr 16 Gm Btl) 1 sprays NA DAILY PRN PRN Reason: Congestion Stop: 06/27/22 12:19 Fluticasone/Vilanterol (Fluticasone/Vilanterol 100/25mcg 14 Puffs/Inhaler) 1 puffs INH DAILY MAGNOLIA; Protocol Stop: 06/28/22 08:59 Last Admin: 05/29/22 08:37 Dose: 1 puffs Gabapentin (Gabapentin 100 Mg Cap) 100 mg PO HS PRN PRN Reason: restless legs Stop: 06/27/22 12:19 Methylprednisolone 40 mg/ (Syringe) 0.64 mls @ 1.5 mls/min IV Q8H MAGNOLIA Stop: 06/27/22 15:59 Last Admin: 05/29/22 10:07 Dose: Not Given Cefepime HCl 2,000 mg/ Syringe 20 mls @ 5 mls/min IV Q12H [facility]; Protocol Stop: 06/04/22 12:59 Last Admin: 05/29/22 14:01 Dose: 5 mls/min Magnesium Hydroxide (Magnesium Hydroxide Susp 30 Ml Udc) 30 ml PO Q12H PRN PRN Reason: Constipation Stop: 06/27/22 09:28 Ondansetron HCl (Ondansetron Inj 2 Mg/Ml 2 Ml Vial) 4 mg IV Q6H PRN PRN Reason: Nausea Stop: 06/27/22 09:28 Oxycodone HCl (Oxycodone Hcl Ir 5 Mg Tab (Immediate Release)) 15 mg PO Q8H PRN PRN Reason: Pain Stop: 06/11/22 12:19 Last Admin: 05/29/22 10:20 Dose: 15 mg Polyethylene Glycol (Polyethylene (Miralax) 17 Gm Pack) 17 gm PO DAILY PRN PRN Reason: Constipation Stop: 06/27/22 09:28 Tamsulosin HCl (Tamsulosin Hcl 0.4 Mg Cap) 0.4 mg PO DAILY [facility] Stop: 06/28/22 08:59 Last Admin: 05/29/22 08:36 Dose: 0.4 mg
[2022-05-30] MEDS: CEFEPIME 2,000 MG in SYRINGE 0 ML IV SCH (00:57)
[2022-05-30] MEDS: methylPREDNISolone 40 MG in SYRINGE 0 ML IV SCH (00:57)
[2022-05-30 08:12] LABS: Hematocrit (blood only) 43.9 % (40.1-51.0); Hemoglobin 14.4 g/dl (14.0-18.0); Immature Granulocytes # (auto) 0.01 K/uL (0.00-0.02); Immature Granulocytes % (auto) 0.2 %; Lymphocytes # (auto) 0.42 K/uL (1.2-3.4); Lymphocytes % (auto) 8.4 %; Mean Corpuscular Hemoglobin 31.2 pg (25.0-34.0); Mean Corpuscular Hgb Conc 32.8 g/dL (32.0-36.0); Mean Platelet Volume 9.6 fL (9.4-12.4); Neutrophils # (auto) 4.36 K/uL (1.4-6.5); Neutrophils % (auto) 87.4 %; Platelet Count 204 K/uL (130-400); RDW Coefficient of Variation 15.4 % (11.5-14.5); RDW Standard Deviation 53.7 fL (36.4-46.3); Red Blood Count 4.62 M/uL (4.63-6.08); White Blood Count 4.99 K/ul (4.8-10.8)
[2022-05-30 08:40] LABS: Albumin Globulin Ratio 1.3 (0.9-2); Albumin Level 4.5 gm/dl (3.4-5.0); BUN Creatinine Ratio 33.3 (10-20); Bilirubin,Total 0.5 mg/dl (0.2-1.0); Calcium 9.8 mg/dl (8.5-10.1); Creatinine Clr Calc Pharmacy 59.4 ml/min; Est GFR (African American) 108.3 ml/min; Est GFR (Non-African American) 93.4 ml/min; Globulin 3.4 gm/dl (2.5-4.0); Magnesium 2.3 mg/dl (1.7-2.4); Phosphorus 3.2 mg/dl (2.5-4.9); Potassium 4.3 mmol/L (3.5-5.1); Total Protein 7.9 gm/dl (6.0-8.3)
[2022-05-30] MEDS: FINASTERIDE 5 MG TAB PO SCH (08:53)
[2022-05-30] MEDS: TAMSULOSIN HCL 0.4 MG CAP PO SCH (08:54)
[2022-05-30] MEDS: diazePAM 5 MG TABLET PO SCH (08:57)
[2022-05-30] MEDS ORDERED: predniSONE 20 MG TAB PO SCH (09:00)
[2022-05-30] MEDS: oxyCODONE HCL IR 5 MG TAB (IMMEDIATE RELEASE) PO PRN (09:01)
[2022-05-30] MEDS ORDERED: UMECLIDINIUM BROMIDE 62.5MCG/BLISTER 7 PUFFS/INHALER INH SCH (09:15)
--- NOTE | 2022-05-30 11:31 | Discharge Summary ---
Date of Service May 30, 2022 Admission HPI Per Admitting Provider Mr. Aguiar is a 66-year-old man that presented to the ED with increased cough, dyspnea on exertion. , shortness of breath that has been occurring over the past few days patient has a complex past medical history that includes chronic respiratory failure with persistent asthma , bronchiectasis, COPD emphysema, history of Mycobacterium and fungal pneumonia, chronic pain, and BPH. His pulmonary history is quite complex and with review of outpatient records he has severe persistent asthma, with elevated eosinophilia, bronchial thermoplasty in 2020 PFTs FEV1 1.28 L 46%. , In review of EMR culture for AFB was negative 05/14. CXR was negative. Patient denies headache, dizziness, visual changes, fever, chills, recent illness, falls, trauma, nausea vomiting diarrhea, abdominal pain, bowel changes, appetite changes. Suspect patient has a deconditioned pulmonary disease with acute on chronic COPD exacerbation along with noncompliance related to treatment plan. Patient is ordered to have 2 L nasal cannula supplemental oxygen at home however he is noncompliant with this. 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 We did discuss wearing his O2 at home and for errands which he appears to be receptive to. In the ED D-dimer found elevated at 740 CT angio negative for PE. Patient reports having chronic pain for cervical radiculopathy for which she takes Valium 5 mg p.o. 3 times daily along with oxycodone 15 mg p.o. 3 times daily. This combination has been discussed with the patient in depth however he is not receptive to any changes with his current regimen. When I met with him today he did state that he is in the process of working towards a different treatment plan for his chronic pain with Dr. Smart. Patient denies any psych or pain management consult at this time. Patient lives alone in a an apartment that is up 1 flight of stairs without an elevator access and he has been following with office of aging who comes to his apartment every Friday to provide him with meal set up and oversight with his medications and appointments. He has stated that he is in the process of trying to move to a different apartment building that is on ground-level. Patient has 5 adult children, Michaela lives 5 minutes away and checks on him and he has designated her as his decision-maker however nothing is legally binding, which I explained could be completed while inpatient with service excellence and he is receptive to such. Patient will be admitted for further evaluation and management. See A/P for further details. Admission Exam Per Admitting Provider Neuro: AAOx4, PERRLA, no aphagia, memory changes, CNII-XII grossly intact HEENT: head normocephalic, moist mucus membranes CV: S1/S2, (-) M/G/R, (-) edema, cap refill < 3 seconds Resp: Lungs with expiratory wheezes posteriorly. On RA GI: Abdomen S/NT/ND, Ax4 bowel sounds, (-) CVA tenderness Musculoskeletal: 5/5 B/L UE strength, 5/5 B/L LE strength. No gait disturbance; ambulating in hospital rrom Skin: (-) rashes , (-) erythema. (+) infiltrated IV left arm; compress Psych: euthymic mood Principal Diagnosis COPD exacerbation Discharge Exam HEENT: head normocephalic, moist mucus membranes CV: S1/S2, (-) M/G/R, (-) edema, cap refill < 3 seconds Resp: Lungs with mild bibasilar expiratory wheezing. On RA GI: Abdomen S/NT/ND, Ax4 bowel sounds, (-) CVA tenderness Musculoskeletal: 5/5 B/L UE strength, 5/5 B/L LE strength. No gait disturbance; ambulating in hospital rrom Skin: (-) rashes , (-) erythema Neuro: AAOx4, PERRLA, no aphagia, memory changes, CNII-XII grossly intact Psych: euthymic mood Discharge Data Allergies Allergy/AdvReac Type Severity Reaction Status Date / Time clidinium Allergy Intermediate Rash Verified 10/11/21 14:14 [From Librax (with clidinium)] acetaminophen Allergy Mild hives/itchy Verified 10/11/21 14:14 chlordiazepoxide Allergy Mild Rash Verified 10/11/21 14:14 [From Librax (with clidinium)] codeine Allergy Mild Rash Verified 10/11/21 14:14 [From Tylenol-Codeine] latex Allergy Mild Rash Verified 10/11/21 14:14 montelukast AdvReac Severe MENTAL Verified 10/11/21 14:14 STATUS CHANGED zolpidem AdvReac Severe MENTAL Verified 10/11/21 14:14 STATUS CHANGED,HALLUCINATIONS budesonide [From Symbicort] AdvReac Intermediate caused Verified 10/11/21 14:14 vision problems formoterol [From Symbicort] AdvReac Intermediate caused Verified 10/11/21 14:14 vision problems Consultations 05/28/22 09:11 ED Decision to Admit Stat 05/28/22 12:25 Consult Patient Services Routine Ordered Studies 05/28/22 08:49 CT angio chest PE protocol Stat Hospital Course (1) Acute exacerbation of chronic obstructive pulmonary disease (COPD): (2) Hypoxia: (3) BPH (benign prostatic hypertrophy): (4) GERD (gastroesophageal reflux disease): Plan 66 y/o with increased cough, RAMIREZ and SOB x a few days. PMH that includes chronic respiratory failure with persistent asthma , bronchiectasis, COPD emphysema, history of Mycobacterium and fungal pneumonia, chronic pain, and BPH. His pulmonary history is quite complex and with review of outpatient records he has severe persistent asthma, with elevated eosinophilia, bronchial thermoplasty in 2012, 2020 PFTs FEV1 1.28 L 46%. Patient has history of elevated IgE 2016 0.32 from 2016. Chest x-ray was negative. Patient denies headache, dizziness, visual changes, fever, chills, recent illness, falls, trauma, nausea vomiting diarrhea, abdominal pain, bowel changes, appetite changes. Suspect patient has a deconditioned pulmonary disease with acute on chronic COPD exacerbation along with noncompliance related to treatment plan. Patient reports having chronic pain for cervical radiculopathy for which he susan es Valium 5 mg p.o. 3 times daily along with oxycodone 15 mg p.o. 3 times daily. This combination has been discussed with the patient in depth however he is not receptive to any changes with his current regimen. When I met with him today he did state that he is in the process of working towards a different treatment plan for his chronic pain with Dr. Smart. Patient denies any psych or pain management consult at this time. Deconditioned Pulmonary disease: Acute on chronic COPD exacerbation: CXR negative Home regimen includes: Breo, Flonase, Incruse Elliptal and Albuterol PRN at home Supplemental home O2; 2LNC; not compliant Received 1 hour nebulizer in ED D-Dimer 740; CTA: negative for PE Lactate: Pending Procalcitonin: Pending AFB culture -05/14 Repeat sputum culture; pending Cefepime IV Q 8 at risk for Pseudomonas given extensive pulmonary history Solumedrol 40 mg IV Q8 for now - switched to PO 05/30/2022 for discharge Vaccinated against Flu and Covid with boosters elevated eosinophilia, bronchial thermoplasty in 2020 PFTs FEV1 1.28 L 46%. Patient has history of elevated IgE 2016 0.32; may benefit from outpatient ceiling insulation blower referral - discharged to complete 5 day course of prednisone and levofloxacin - 2 step done without need for supplemental oxygen Chronic pain syndrome: Cervical radiculopathy takes Valium 5 mg p.o. 3 times daily along with oxycodone 15 mg p.o. 3 times daily. This combination has been discussed with the patient in depth-he is not receptive to any changes with his current regimen States he is working on regimen changes with [facility] PCP Is previous discussion he insists on taking his Valium as prescribed. BPH: Takes Tamsulosin; continue Depression: Takes Buspirone; continue Disposition: PCP: Dr. Smart CODE STATUS: Full code VTE prophylaxis: ambulating; teds for now Total Time Total Time Spent Total Time Spent (In Minutes): 21 Total Time Includes: Examination of the Patient, Discharge Planning and Medication Reconciliation Discharge Plan Discharge Items Patient Disposition: Home - Self-Care Reason For Visit: SOB Discharge Diagnosis: COPD exacerbation Activity: Resume your previous activity Non-emergency contact: Primary Care Provider and Balling Machine Operator Call non-emergency contact if: you have any medication questions and your symptoms worsen Follow-up/Referrals: Randy Smart MD [Primary Care Provider] - Diet: Heart Healthy Addtl Attending Provider Instructions: You were admitted with exacerbation of your COPD with wheezing and shortness of breath. You were given steroids and antibiotics with improvement in your symptoms. You had evaluation for need for oxygen with walking and did not require any oxygen. You were feeling well for discharge and should finish 2 more days of prednisone 40mg and finish 2 more days of antibiotics. You should follow up with your eyelet cutter and primary care doctor within a week of discharge. Pending Studies at Discharge: No Stand-Alone Forms: My [facility], Smoking Cessation Medications and DC Order Prescriptions: New prednisone 20 mg Tablet 40 mg PO DAILY Qty: 2 0RF Spiriva Respimat 2.5 mcg/actuation mist 2 inh inhalation DAILY Qty: 4 0RF levofloxacin 750 mg tablet 750 mg PO DAILY 5 Days Qty: 2 0RF Continued (DME) Portable Oxygen Misc See Rx Instructions .ROUTE .MEDSUPPLY Qty: 1 Rx Instructions: As directed albuterol sulfate 2.5 mg /3 mL (0.083 %) Solution For Nebulization 2.5 mg continuous nebulization Q4H PRN (Reason: Wheezing) gabapentin 100 mg Capsule 100 mg PO HS PRN (Reason: restless legs) Rx Instructions: TAKE THIS MEDICATION ONE HOUR PRIOR TO BEDTIME, MAY TITRATE UP TO 4 DAILY DIRECTED diazepam 5 mg Tablet 5 mg PO TID finasteride 5 mg tablet 5 mg PO QAM albuterol sulfate [ProAir HFA] 90 mcg/actuation Hfa Aerosol Inhaler 2 puff inhalation QID PRN (Reason: Shortness Of Breath) nitroglycerin [Nitrostat] 0.3 mg Tablet, Sublingual 0.3 mg sublingual UD PRN (Reason: ESOPAGEAL SPASM) oxycodone 15 mg Tablet 15 mg PO Q8H PRN (Reason: Pain) Rx Instructions: IR tamsulosin 0.4 mg capsule 0.4 mg PO DAILY fluticasone propionate 50 mcg/actuation spray,suspension 1 spray INTRANASAL DAILY PRN (Reason: Congestion) fluticasone propion-salmeterol [Advair Diskus] 250-50 mcg/dose blister with device 2 ea INHALATION BID Rx Instructions: 1 puff bid diphenhydramine HCl 25 mg Capsule 25 mg PO HS PRN (Reason: Itching) Discharge Orders: Discharge Order (Routine); Ordered 05/30/22 Ordered By: Michael Young Admission Data Admit Date/Time: 05/28/22 09:29 Attending Provider: Michael Young Admit Provider: Taylor Daniels Primary Care Provider: Randy Smart Other Providers: Taylor Daniels
== END 2022-05-30 11:56 | disposition home or self-care (01) | DRG 191 ==
LOC: ED 06:56 → EDINP 09:29 → SUATTDRO 09:29 → 2N 11:02

== ENCOUNTER 2022-08-10 22:04 | Inpatient (IN) ==
[2022-08-10] MEDS ORDERED: methylPREDNISolone 125 MG/2 ML VIAL IV STA (22:11)
--- NOTE | 2022-08-10 22:19 | Emergency Department Note ---
History of Present Illness General Chief complaint: Respiratory Problems Stated complaint: BREATHING DIFFICULTY History of Present Illness This 67-year-old male presents via EMS with increased cough, RAMIREZ and SOB x a few days. PMH that includes chronic respiratory failure with persistent asthma , bronchiectasis, COPD emphysema, history of Mycobacterium and fungal pneumonia, chronic pain, and BPH. His pulmonary history is quite complex and with review of outpatient records he has severe persistent asthma, with elevated eosinophilia, bronchial thermoplasty in 2012, 2020 PFTs FEV1 1.28 L 46%. Patient has history of elevated IgE 2016 0.32 from 2016. Patient denies headache, dizziness, visual changes, fever, chills, recent illness, falls, trauma, nausea vomiting diarrhea, abdominal pain, bowel changes, appetite changes. Suspect patient has a deconditioned pulmonary disease with acute on chronic COPD exacerbation along with noncompliance related to treatment plan. Patient had home nebulizers at home with no relief. Patient is adamantly refusing nebulizer treatment in the ER. He is requesting no oxygen either. Home Medications Medication Instructions Recorded Confirmed Type albuterol sulfate 2.5 mg/3 mL 2.5 mg continuous nebulization Q4H 06/02/18 08/10/22 History (0.083 %) solution for nebulization PRN Wheezing or Shortness of breath diazepam 5 mg tablet 5 mg PO AC 06/02/18 08/10/22 History gabapentin 100 mg capsule 100 mg PO QID PRN Pain 06/02/18 08/11/22 History albuterol sulfate 90 mcg/actuation 2 puff inhalation Q4 PRN Shortness 11/09/18 08/10/22 History aerosol inhaler (ProAir HFA) Of Breath nitroglycerin 0.3 mg sublingual 0.3 mg sublingual UD PRN ESOPAGEAL 03/07/19 08/10/22 History tablet (Nitrostat) SPASM oxycodone 15 mg tablet 15 mg PO Q8H PRN Pain,severe 01/23/20 08/10/22 History Portable Oxygen #1 ea 02/11/20 08/11/22 History diphenhydramine HCl 25 mg capsule 25 mg PO Q6 PRN Itching 05/28/22 08/10/22 History diltiazem HCl 60 mg tablet 60 mg PO AMHS 08/10/22 08/11/22 History fluticasone furoate 200 1 inh inhalation DAILY 08/10/22 08/10/22 History mcg-vilanterol 25 mcg/dose inhalation powder (Breo Ellipta) guaifenesin 600 mg tablet, 1,200 mg PO AMHS 08/10/22 08/10/22 History extended release 12 hr (Mucinex) levocetirizine 5 mg tablet 5 mg PO QPM 08/10/22 08/10/22 History prednisone 20 mg tablet See Rx Instructions .Route .COMPLEX 08/10/22 08/10/22 History umeclidinium 62.5 mcg/actuation 1 inh inhalation DAILY 08/10/22 08/10/22 History blister powder for inhalation (Incruse Ellipta) Allergies Allergy/AdvReac Type Severity Reaction Status Date / Time clidinium Allergy Intermediate Rash Verified 10/11/21 14:14 [From Librax (with clidinium)] acetaminophen Allergy Mild hives/itchy Verified 10/11/21 14:14 chlordiazepoxide Allergy Mild Rash Verified 10/11/21 14:14 [From Librax (with clidinium)] codeine Allergy Mild Rash Verified 10/11/21 14:14 [From Tylenol-Codeine] latex Allergy Mild Rash Verified 10/11/21 14:14 montelukast AdvReac Severe MENTAL Verified 10/11/21 14:14 STATUS CHANGED zolpidem AdvReac Severe MENTAL Verified 10/11/21 14:14 STATUS CHANGED,HALLUCINATIONS budesonide [From Symbicort] AdvReac Intermediate caused Verified 10/11/21 14:14 vision problems formoterol [From Symbicort] AdvReac Intermediate caused Verified 10/11/21 14:14 vision problems Past Med/Surg History Medical History Acute exacerbation of chronic obstructive pulmonary disease (COPD) Anxiety Asymptomatic microscopic hematuria Avascular necrosis of femoral head BPH (benign prostatic hypertrophy) Chronic hip pain Chronic neck pain Chronic obstructive pulmonary disease inhaler/nebulizer prn Chronic pain syndrome Emphysema of lung Esophageal dysmotility GERD (gastroesophageal reflux disease) Hearing deficit History of kidney stones Medical marijuana use On home oxygen therapy 2L N/C at hs and prn Pneumonia Status asthmaticus Surgical History History of bronchoscopy multiple ? History of cardiac cath 10/2018 @ [facility] by Dr. Mello--no stents placed History of carpal tunnel surgery of left wrist x3 History of colonoscopy with polypectomy History of ear surgery eardrum opening by Dr. Daniels History of elbow surgery bilt History of esophagogastroduodenoscopy (EGD) History of sinus surgery History of surgery on arm left arm---hardware removed History of tonsillectomy and adenoidectomy History of tooth extraction all upper teeth Hx of hernia repair x5 Family History Father Nephrolithiasis Asthma Mother Family history of diabetes mellitus Diabetes Grandfather (Paternal) Alzheimer disease Other No family history of adverse response to anesthesia Social History Smoking Status: Former smoker Tobacco Type: Cigarettes Second Hand Exposure: No; Hx Alcohol Use: No Hx Substance Use: Yes Last Used Substance: Days (ago) Last Used Substance Other:: 30 Substance Use Type Other:: smokes at bedtime to aide in sleeping Preferred Language: Japanese Communication Ability: Effective Police Commissioner Required: No Beliefs That Will Affect Care: None marital status: / Current Living Situation: Alone How many Children do You have: 5 Feels Safe at Home: Yes Assistive Devices: Cane Review of Systems A total of 10 systems reviewed and were otherwise negative Physical Exam Vital Signs Vital Signs - 24 hr 08/10/22 21:56 08/10/22 22:03 08/10/22 21:59 Temperature 36.6 C Temperature Source Oral Pulse Rate 81 Pulse Rate from SpO2 Sensor Respiratory Rate 24 Respiratory Effort / Characteristics Non-Labored Spontaneous SOB on Exertion Respiratory Depth Normal Blood Pressure 127/88 Blood Pressure Mean 101 Pulse Oximetry 87 L Oxygen Delivery Method Room Air Nasal Cannula Nasal Cannula Oxygen Flow Rate 3 Sepsis Recent Fever Within 48 Hours No Sepsis New/Unexplained Change in Mental Status No Sepsis Action Taken by Nursing No Action Required Oxygen Flow Rate - Titration 3 Pulse Oximetry Post Tiitration 96 08/10/22 23:19 08/11/22 00:16 08/11/22 00:28 Temperature Temperature Source Pulse Rate 66 69 Pulse Rate from SpO2 Sensor 67 69 Respiratory Rate 15 20 Respiratory Effort / Characteristics Respiratory Depth Blood Pressure 107/68 84/69 L Blood Pressure Mean 81 74 Pulse Oximetry 96 96 96 Oxygen Delivery Method Nasal Cannula Nasal Cannula Nasal Cannula Oxygen Flow Rate 3 3 3 Sepsis Recent Fever Within 48 Hours Sepsis New/Unexplained Change in Mental Status Sepsis Action Taken by Nursing Oxygen Flow Rate - Titration Pulse Oximetry Post Tiitration 08/11/22 00:40 08/11/22 00:45 Temperature Temperature Source Pulse Rate Pulse Rate from SpO2 Sensor Respiratory Rate Respiratory Effort / Characteristics Respiratory Depth Blood Pressure Blood Pressure Mean Pulse Oximetry 78 L 96 Oxygen Delivery Method Room Air Nasal Cannula Oxygen Flow Rate 3 Sepsis Recent Fever Within 48 Hours Sepsis New/Unexplained Change in Mental Status Sepsis Action Taken by Nursing Oxygen Flow Rate - Titration Pulse Oximetry Post Tiitration VITALS: Vitals are noted on the nurse's note and reviewed by myself. Vital sign s hypoxic on room air. GENERAL: Elderly male refusing nebulizer treatment and does not want to wear the nasal cannula oxygen, SKIN: The skin was without rashes, erythema, edema, or bruising. There is no tenting of the skin. Capillary reflex less than 2 seconds. HEAD: Normocephalic atraumatic. EARS: External auditory canals clear, EYES: Pupils equal round and reactive to light and accommodation. Conjunctivae without injection, sclerae without icterus. Extraocular movements intact. NOSE: Patent, turbinates without inflammation or discharge. MOUTH: Mucous membranes moist. Pharynx without erythema or exudate. Uvula midline. Airway patent. Tongue does not deviate. NECK: Supple without nuchal rigidity. No lymphadenopathy. No thyromegaly. Cervical spine is nontender. No JVD. HEART: Regular rate and rhythm LUNGS: Diffuse inspiratory and end expiratory wheezes, No retractions or accessory muscle use. ABDOMEN: Positive bowel sounds x 4. Normal tympanic percussion. Soft, nontender, without masses or organomegaly. London sign negative. No guarding or rebound tenderness. No CVA tenderness MUSCULOSKELETAL: No muscle atrophy, erythema, or edema noted. NEURO: Patient was alert and oriented to person place and time. Normal sensation to light and sharp touch. No focal neurological deficits. Course Administered Medications Discontinued Medications Diazepam (Diazepam 5 Mg Tablet) 5 mg PO NOW ONE Stop: 08/10/22 23:18 Last Admin: 08/10/22 23:44 Dose: 5 mg Documented By: WILLIS Cefepime HCl (Maxipime) 2,000 mg in 20 mls @ 5 mls/min IV NOW STA; Protocol Stop: 08/10/22 22:41 Last Admin: 08/11/22 00:09 Dose: 5 mls/min Documented By: WILLIS Sodium Chloride (Nss) 500 mls @ 999 mls/hr IV .Q31M ONE Stop: 08/11/22 00:52 Last Admin: 08/11/22 00:40 Dose: 999 mls/hr Documented By: WILLIS Ioversol (Optiray 320 500ml) 115 ml IV ONCE ONE Stop: 08/10/22 23:39 Last Admin: 08/10/22 23:32 Dose: 115 ml Documented By: JESENIA Methylprednisolone (Methylprednisolone 125 Mg/2 Ml Vial) 125 mg IV NOW STA Stop: 08/10/22 22:12 Last Admin: 08/11/22 00:09 Dose: 125 mg Documented By: WILLIS Oxycodone HCl (Oxycodone Hcl Ir 5 Mg Tab (Immediate Release)) 15 mg PO NOW STA Stop: 08/10/22 23:18 Last Admin: 08/10/22 23:43 Dose: 15 mg Documented By: WILLIS Medical Decision Making Medical Records Attestation: I reviewed the patient's medical records. Home Medications Current Medication List: was personally reviewed by me Laboratory Data Attestation: I reviewed the patient's lab results. 08/10/22 22:26 08/10/22 22:26 Lab Results 08/10/22 08/10/22 08/10/22 Range/Units 22:26 22:26 22:26 WBC 5.34 (4.8-10.8) K/ul RBC 3.89 L (4.70-6.10) M/uL Hgb 12.0 L (14.0-18.0) g/dl Hct 34.7 L (42.0-52.0) % MCV 89.2 (80.0-100.0) fL MCH 30.8 (25.0-34.0) pg MCHC 34.6 (32.0-36.0) g/dL RDW Std Deviation 46.3 (36.4-46.3) fL RDW Coeff of Myles 14.0 (11.5-14.5) % Plt Count 187 (130-400) K/uL MPV 9.7 (9.4-12.4) fL Immature Gran % (Auto) 0.4 % Neut % (Auto) 74.7 % Lymph % (Auto) 13.3 % Mingo % (Auto) 11.6 % Eos % (Auto) 0.0 % Baso % (Auto) 0.0 % Neut # (Auto) 3.99 (1.40-6.50) K/uL Lymph # (Auto) 0.71 L (1.2-3.4) K/uL Mingo # (Auto) 0.62 H (0.11-0.59) K/uL Eos # (Auto) 0.00 (0-0.50) K/uL Baso # (Auto) 0.00 (0-0.2) K/uL Immature Gran # (Auto) 0.02 (0.01-0.20) K/uL VBG pH (7.36-7.41) VBG pCO2 (38-50) mmHg VBG pO2 mmHg VBG HCO3 mmol/L VBG O2 Saturation % VBG Base Excess mEq/L Sodium 130 L (136-145) mmol/L Potassium 4.4 (3.5-5.1) mmol/L Chloride 95 L (98-107) mmol/L Carbon Dioxide 30 (21-32) mmol/L Anion Gap 5 (3-11) BUN 29 H (6-23) mg/dl Creatinine 0.97 (0.6-1.4) mg/dl Est Cr Clr Drug Dosing 48.2 ml/min Est GFR ( Amer) 92.6 ml/min Est GFR (Non-Af Amer) 79.9 ml/min BUN/Creatinine Ratio 29.9 H (10-20) Glucose 136 H (70-99(Fasting)) mg/dl Osmolality (280-300) mOsm/kg Calcium 9.6 (8.5-10.1) mg/dl Magnesium 2.2 (1.7-2.4) mg/dl Total Bilirubin 0.4 (0.2-1.0) mg/dl AST 32 (13-39) U/L ALT 14 (7-52) U/L Alkaline Phosphatase 52 (34-104) U/L Troponin I High Sens 3.6 (0-20) pg/ml B-Natriuretic Peptide 75 (0-100) pg/ml Total Protein 7.8 (6.0-8.3) gm/dl Albumin 4.5 (3.4-5.0) gm/dl Globulin 3.3 (2.5-4.0) gm/dl Albumin/Globulin Ratio 1.4 (0.9-2) Procalcitonin (0-0.5) ng/ml TSH (0.300-4.500) uIu/ml SARS-CoV-2 (PCR) (Negative) 08/10/22 08/10/22 08/10/22 Range/Units 22:26 22:26 22:26 WBC (4.8-10.8) K/ul RBC (4.70-6.10) M/uL Hgb (14.0-18.0) g/dl Hct (42.0-52.0) % MCV (80.0-100.0) fL MCH (25.0-34.0) pg MCHC (32.0-36.0) g/dL RDW Std Deviation (36.4-46.3) fL RDW Coeff of Myles (11.5-14.5) % Plt Count (130-400) K/uL MPV (9.4-12.4) fL Immature Gran % (Auto) % Neut % (Auto) % Lymph % (Auto) % Mingo % (Auto) % Eos % (Auto) % Baso % (Auto) % Neut # (Auto) (1.40-6.50) K/uL Lymph # (Auto) (1.2-3.4) K/uL Mingo # (Auto) (0.11-0.59) K/uL Eos # (Auto) (0-0.50) K/uL Baso # (Auto) (0-0.2) K/uL Immature Gran # (Auto) (0.01-0.20) K/uL VBG pH (7.36-7.41) VBG pCO2 (38-50) mmHg VBG pO2 mmHg VBG HCO3 mmol/L VBG O2 Saturation % VBG Base Excess mEq/L Sodium (136-145) mmol/L Potassium (3.5-5.1) mmol/L Chloride (98-107) mmol/L Carbon Dioxide (21-32) mmol/L Anion Gap (3-11) BUN (6-23) mg/dl Creatinine (0.6-1.4) mg/dl Est Cr Clr Drug Dosing ml/min Est GFR ( Amer) ml/min Est GFR (Non-Af Amer) ml/min BUN/Creatinine Ratio (10-20) Glucose (70-99(Fasting)) mg/dl Osmolality 285 (280-300) mOsm/kg Calcium (8.5-10.1) mg/dl Magnesium (1.7-2.4) mg/dl Total Bilirubin (0.2-1.0) mg/dl AST (13-39) U/L ALT (7-52) U/L Alkaline Phosphatase (34-104) U/L Troponin I High Sens (0-20) pg/ml B-Natriuretic Peptide (0-100) pg/ml Total Protein (6.0-8.3) gm/dl Albumin (3.4-5.0) gm/dl Globulin (2.5-4.0) gm/dl Albumin/Globulin Ratio (0.9-2) Procalcitonin < 0.05 (0-0.5) ng/ml TSH (0.300-4.500) uIu/ml SARS-CoV-2 (PCR) NEGATIVE (Negative) 08/10/22 08/10/22 08/11/22 Range/Units 22:26 22:35 00:12 WBC (4.8-10.8) K/ul RBC (4.70-6.10) M/uL Hgb (14.0-18.0) g/dl Hct (42.0-52.0) % MCV (80.0-100.0) fL MCH (25.0-34.0) pg MCHC (32.0-36.0) g/dL RDW Std Deviation (36.4-46.3) fL RDW Coeff of Myles (11.5-14.5) % Plt Count (130-400) K/uL MPV (9.4-12.4) fL Immature Gran % (Auto) % Neut % (Auto) % Lymph % (Auto) % Mingo % (Auto) % Eos % (Auto) % Baso % (Auto) % Neut # (Auto) (1.40-6.50) K/uL Lymph # (Auto) (1.2-3.4) K/uL Mingo # (Auto) (0.11-0.59) K/uL Eos # (Auto) (0-0.50) K/uL Baso # (Auto) (0-0.2) K/uL Immature Gran # (Auto) (0.01-0.20) K/uL VBG pH 7.37 (7.36-7.41) VBG pCO2 51 H (38-50) mmHg VBG pO2 175 mmHg VBG HCO3 30 mmol/L VBG O2 Saturation 99.2 % VBG Base Excess 3.3 mEq/L Sodium (136-145) mmol/L Potassium (3.5-5.1) mmol/L Chloride (98-107) mmol/L Carbon Dioxide (21-32) mmol/L Anion Gap (3-11) BUN (6-23) mg/dl Creatinine (0.6-1.4) mg/dl Est Cr Clr Drug Dosing ml/min Est GFR ( Amer) ml/min Est GFR (Non-Af Amer) ml/min BUN/Creatinine Ratio (10-20) Glucose (70-99(Fasting)) mg/dl Osmolality (280-300) mOsm/kg Calcium (8.5-10.1) mg/dl Magnesium (1.7-2.4) mg/dl Total Bilirubin (0.2-1.0) mg/dl AST (13-39) U/L ALT (7-52) U/L Alkaline Phosphatase (34-104) U/L Troponin I High Sens 3.7 (0-20) pg/ml B-Natriuretic Peptide (0-100) pg/ml Total Protein (6.0-8.3) gm/dl Albumin (3.4-5.0) gm/dl Globulin (2.5-4.0) gm/dl Albumin/Globulin Ratio (0.9-2) Procalcitonin (0-0.5) ng/ml TSH 0.247 L (0.300-4.500) uIu/ml SARS-CoV-2 (PCR) (Negative) Imaging Data Attestation: I personally reviewed and interpreted this imaging study as follows: Radiologist's Impression: Chest CTA 08/10/22 22:11 CT angio chest PE protocol CT DOSE: 282.52 mGy.cm HISTORY: 67 years-old Male with Dyspnea. Acute shortness of breath TECHNIQUE: Multiple CTA images of the chest were obtained after the intravenous administration of 115 ml Optiray. Coronal and sagittal MIPS were obtained from the axial data set and were submitted for review. All measurements were obtained according to NASCET criteria. A dose lowering technique was utilized adhering to the principles of ALARA. COMPARISON: CTA chest 05/28/2022, CT abdomen and pelvis 01/23/2020 FINDINGS: CTA: Mild cardiomegaly. No thoracic aortic aneurysm. No pulmonary emboli identified. Segmental and subsegmental branches are suboptimally evaluated secondary to contrast bolus timing. CT CHEST: Unremarkable thyroid. No lymphadenopathy. Emphysema with bronchitis and bronchiectasis redemonstrated. Multiple irregular groundglass nodular opacities within the lungs redemonstrated, relapsing and remitting. Debris-filled mildly distended esophagus. Dilation of the common bile duct redemonstrated. Un remarkable soft tissues. No acute fracture. Avascular necrosis of the humeral heads. IMPRESSION: 1. No pulmonary emboli identified. 2. Emphysema with bronchitis and bronchiectasis redemonstrated. 3. Multifocal multilobar distribution of irregular groundglass opacities are again noted which are likely infectious or inflammatory. Attention at follow-up recommended. 4. Mildly distended debris-filled esophagus. 5. Avascular necrosis of the humeral heads. ACT 112: Negative or not required by law. The above report was generated using voice recognition software. It may contain grammatical, syntax or spelling errors. Electronically signed by: Dejon Bernard M.D. 08/10/2022 11:57 PM Chest X-Ray 08/10/22 22:11 XR chest 1V portable HISTORY: 67 years-old Male Dyspnea acute shortness of breath COMPARISON: CTA chest 05/28/2022 TECHNIQUE: AP view of the chest FINDINGS: Emphysema with chronic fibrotic change. Cardiac silhouette is normal. No pneumothorax, large pleural effusion or overt pulmonary edema. 1.6 cm ill- defined nodule of the right upper lung. Bones appear grossly intact. IMPRESSION: 1. Emphysema. 2. Ill-defined 1.6 cm nodular density of the right upper lobe, likely infectious or inflammatory. Attention at follow-up recommended. ACT 112: Negative or not required by law. The above report was generated using voice recognition software. It may contain grammatical, syntax or spelling errors. Electronically signed by: Dejon Bernard M.D. 08/10/2022 10:27 PM MDM Narrative Prior records/ancillary studies reviewed. Triage Nursing notes reviewed. Additional history obtained from the EMS. The patient's history was concerning for respiratory difficulties. Differential diagnosis: Etiologies such as infections, reactive airway disease, pneumonia, pneumothorax, COPD, CHF, cardiac ischemia, pulmonary embolism, musculoskeletal, gastrointestinal, as well as others were entertained. Physical examination: As above. ER treatment provided: An order was placed for continuous cardiac monitoring. The monitor shows a rate of 60-1 50 with a sinus rhythm per my interpretation. Solu-Medrol. Patient adamantly refuses nebulizer treatments. Cefepime for possible pneumonia On reassessment the patient felt better. Diagnostic interpretation by me: The electrocardiogram was ordered for chest pain EKG: Normal sinus, poor baseline, no acute ST-T wave changes. Impression normal sinus rhythm poor baseline interpreted by myself I think arrhythmia is unlikely. EKG shows normal sinus rhythm with no interval abnormalities such as QT prolongation or WPW. There are no findings to suggest Brugada syndrome. Cardiac monitoring in the emergency department reveals no tachycardic or bradycardic dysrhythmia. Hypertrophic cardiomyopathy was considered but there are no clear historical elements pointing toward this. EKG is not suggestive. The QRS voltage is not extremely large and there are no suggestive Q waves. The labs Independently Interpreted by myself revealed hyponatremia and osmolarity levels were ordered. Negative procalcitonin Blood cultures pending First troponin is negative. Imaging studies: Chest x-ray as above CT as above and concerning for pneumonia Consultation: A consultation was placed with the hospitalist. The case was discussed and diagnostics were reviewed. The patient was evaluated in the ER for further treatment. This appears to be consistent with pneumonia and COPD exacerbation he is hypoxic with low sodium. Patient was admitted started on antibiotics. He declined nebulizer treatment. He he was refusing oxygen but finally became agreeable. He was reassessed multiple times. Medicine was consulted and the case was discussed. He will be admitted to the medical team. Labs and diagnostics were independent interpreted by myself. Radiology read the CAT scan. By the evaluation outlined above emergent etiologies such as CHF, cardiac ischemia, pulmonary embolism, reactive airway disease, pneumothorax, musculoskeletal, as well as others were deemed relatively unlikely. The pt informed about the findings as listed above. All questions were answered and pleased with the treatment The chart was completed utilizing [employer] Speech voice recognition software. Grammatical errors, random word insertions, pronoun errors, and incomplete sentences are an occassional consequence of this system due to software limitations, ambient noise, and hardware issues. Any formal questions or concerns about the content, text, or information contained within the body of this dictation should be directly addressed to the physician industrial hire sales assistant for clarification. Attending Attestation: Mook Rubio MD independently saw and evaluated this patient and agree with history and physical is otherwise documented by the physician industrial hire sales assistant. See their note for full details. Patient with likely COPD exacerbation. Requiring some oxygen supplementation. Pulmonary imaging completed. Patient does not appear septic but given history of infections and the inflammatory findings on the CT covered with antibiotics for occult pneumonia. Home medications ordered including pain medicine and cardiac medication diltiazem. Patient resting comfortably in bed in no respiratory distress and does not appear altered at this time. Hospitalist will evaluate for care here at the hospital. Impression & Plan Community acquired pneumonia, Acute exacerbation of chronic obstructive airways disease, Acute hyponatremia Discharge Plan Visit Data Chief Complaint: Respiratory Problems Stated Complaint: BREATHING DIFFICULTY ED Provider: Denton Rubio ED Midlevel Provider: Sharon Christine Discharge Problem: Community acquired pneumonia, Acute exacerbation of chronic obstructive airways disease, Acute hyponatremia Patient Disposition: Admitted As Inpatient Condition: Fair Forms Stand Alone Forms: [facility] Prescriptions Prescriptions: No Action (DME) Portable Oxygen Misc See Rx Instructions .ROUTE .MEDSUPPLY Qty: 1 Rx Instructions: As directed albuterol sulfate 2.5 mg /3 mL (0.083 %) Solution For Nebulization 2.5 mg continuous nebulization Q4H PRN (Reason: Wheezing or Shortness of breath) gabapentin 100 mg Capsule 100 mg PO QID PRN (Reason: Pain) Rx Instructions: TAKE THIS MEDICATION ONE HOUR PRIOR TO BEDTIME, MAY TITRATE UP TO 4 DAILY DIRECTED diazepam 5 mg Tablet 5 mg PO AC albuterol sulfate [ProAir HFA] 90 mcg/actuation Hfa Aerosol Inhaler 2 puff inhalation Q4 PRN (Reason: Shortness Of Breath) nitroglycerin [Nitrostat] 0.3 mg Tablet, Sublingual 0.3 mg sublingual UD PRN (Reason: ESOPAGEAL SPASM) oxycodone 15 mg Tablet 15 mg PO Q8H PRN (Reason: Pain,severe) Rx Instructions: IR diphenhydramine HCl 25 mg Capsule 25 mg PO Q6 PRN (Reason: Itching) levocetirizine 5 mg tablet 5 mg PO QPM Incruse Ellipta 62.5 mcg/actuation blister with device 1 inh INHALATION DAILY fluticasone furoate-vilanterol [Breo Ellipta] 200-25 mcg/dose blister with device 1 inh INHALATION DAILY prednisone 20 mg tablet See Rx Instructions .ROUTE .COMPLEX Rx Instructions: 1.5 tablets by mouth daily x 2 days,1 tablet daily x2 days,0.5 tablet daily x8 days...ordered 08/09/22 guaifenesin [Mucinex] 600 mg tablet extended release 12hr 1,200 mg PO AMHS diltiazem HCl 60 mg tablet 60 mg PO AMHS Referrals Referrals: Randy Smart MD [Primary Care Provider] - Community acquired pneumonia Qualifiers: Laterality: right Lung location: upper lobe of lung Qualified Code(s): J18.9 - Pneumonia, unspecified organism
--- NOTE | 2022-08-10 22:29 | XRay Report ---
XR chest 1V portable HISTORY: 67 years-old Male Dyspnea acute shortness of breath COMPARISON: CTA chest 05/28/2022 TECHNIQUE: AP view of the chest FINDINGS: Emphysema with chronic fibrotic change. Cardiac silhouette is normal. No pneumothorax, large pleural effusion or overt pulmonary edema. 1.6 cm ill-defined nodule of the right upper lung. Bones appear gr ossly intact. IMPRESSION: 1. Emphysema. 2. Ill-defined 1.6 cm nodular density of the right upper lobe, likely infectious or inflammatory. Att ention at follow-up recommended. ACT 112: Negative or not required by law. The above report was generated using voice recognition software. It may contain grammatical, syntax o r spelling errors. Electronically signed by: Dejon Bernard M.D. 08/10/2022 10:27 PM
[2022-08-10] MEDS ORDERED: CEFEPIME 2,000 MG/20 ML VIAL IV STA (22:38)
[2022-08-10 22:47] LABS: Hematocrit (blood only) 34.7 % (42.0-52.0); Mean Corpuscular Hemoglobin 30.8 pg (25.0-34.0); Mean Corpuscular Hgb Conc 34.6 g/dL (32.0-36.0); Mean Corpuscular Volume 89.2 fL (80.0-100.0); Mean Platelet Volume 9.7 fL (9.4-12.4); Platelet Count 187 K/uL (130-400); RDW Standard Deviation 46.3 fL (36.4-46.3); Red Blood Count 3.89 M/uL (4.70-6.10); White Blood Count 5.34 K/ul (4.8-10.8)
[2022-08-10 22:52] LABS: Base Excess VBG 3.3 mEq/L; HCO3 VBG 30 mmol/L; Oxygen Saturation VBG 99.2 %; PCO2 VBG 51 mmHg (38-50); PO2 VBG 175 mmHg; pH VBG 7.37 (7.36-7.41)
[2022-08-10 23:05] LABS: Albumin Globulin Ratio 1.4 (0.9-2); Albumin Level 4.5 gm/dl (3.4-5.0); BUN Creatinine Ratio 29.9 (10-20); Bilirubin,Total 0.4 mg/dl (0.2-1.0); Calcium 9.6 mg/dl (8.5-10.1); Creatinine Clr Calc Pharmacy 48.2 ml/min; Est GFR (African American) 92.6 ml/min; Est GFR (Non-African American) 79.9 ml/min; Globulin 3.3 gm/dl (2.5-4.0); Magnesium 2.2 mg/dl (1.7-2.4); Potassium 4.4 mmol/L (3.5-5.1); Total Protein 7.8 gm/dl (6.0-8.3)
[2022-08-10 23:09] LABS: Immature Granulocytes # (auto) 0.02 K/uL (0.01-0.20); Immature Granulocytes % (auto) 0.4 %; Lymphocytes # (auto) 0.71 K/uL (1.2-3.4); Lymphocytes % (auto) 13.3 %; Monocytes # (auto) 0.62 K/uL (0.11-0.59); Monocytes % (auto) 11.6 %; Neutrophils # (auto) 3.99 K/uL (1.40-6.50); Neutrophils % (auto) 74.7 %
[2022-08-10 23:11] LABS: Troponin I High Sensitivity 3.6 pg/ml (0-20)
[2022-08-10] MEDS ORDERED: oxyCODONE HCL IR 5 MG TAB (IMMEDIATE RELEASE) PO STA (23:17)
[2022-08-10] MEDS ORDERED: diazePAM 5 MG TABLET PO ONE (23:17)
[2022-08-10] MEDS ORDERED: OPTIRAY 320 500ml IV ONE (23:38)
[2022-08-10] MEDS ORDERED: dilTIAZem HCL 30 MG TAB PO ONE (23:47)
--- NOTE | 2022-08-10 23:59 | CT Scan Report ---
CT angio chest PE protocol CT DOSE: 282.52 mGy.cm HISTORY: 67 years-old Male with Dyspnea. Acute shortness of breath TECHNIQUE: Multiple CTA images of the chest were obtained after the intravenous administration of 115 ml Optiray. Coronal and sagittal MIPS were obtained from the axial data set and were submitted for review. All measurements were obtained according to NASCET criteria. A dose lowering technique was u tilized adhering to the principles of ALARA. COMPARISON: CTA chest 05/28/2022, CT abdomen and pelvis 01/23/2020 FINDINGS: CTA: Mild cardiomegaly. No thoracic aortic aneurysm. No pulmonary emboli identified. Segmental and subsegm ental branches are suboptimally evaluated secondary to contrast bolus timing. CT CHEST: Unremarkable thyroid. No lymphadenopathy. Emphysema with bronchitis and bronchiectasis redemonstrated . Multiple irregular groundglass nodular opacities within the lungs redemonstrated, relapsing and rem itting. Debris-filled mildly distended esophagus. Dilation of the common bile duct redemonstrated. Un remarkable soft tissues. No acute fracture. Avascular necrosis of the humeral heads. IMPRESSION: 1. No pulmonary emboli identified. 2. Emphysema with bronchitis and bronchiectasis redemonstrated. 3. Multifocal multilobar distribution of irregular groundglass opacities are again noted which are li shakira infectious or inflammatory. Attention at follow-up recommended. 4. Mildly distended debris-filled esophagus. 5. Avascular necrosis of the humeral heads. ACT 112: Negative or not required by law. The above report was generated using voice recognition software. It may contain grammatical, syntax o r spelling errors. Electronically signed by: Dejon Bernard M.D. 08/10/2022 11:57 PM
[2022-08-11 00:17] LABS: Thyroid Stimulating Hormone 0.247 uIu/ml (0.300-4.500)
[2022-08-11] MEDS ORDERED: SODIUM CHLORIDE 0.9% 500 ML IV ONE (00:22)
[2022-08-11 01:02] LABS: Appearance Urine Clear (Clear); Bacteria Urine Automated Negative (Negative); Bilirubin Urine Negative (Negative); Blood Urine Negative (Negative); Color Urine Yellow; Glucose Urine UA Negative (Negative); Ketones Urine Negative (Negative); Leukocyte Esterase Urine Negative (Negative); Nitrite Urine Negative (Negative); Protein Urine Trace (Negative); RBC Urine Automated 0-4 /hpf (0-4); Specific Gravity Urine 1.032 (1.000-1.030); Urobilinogen Urine Negative (Negative); pH Urine 5.5 (4.5-7.5)
[2022-08-11 01:23] LABS: T4 Free Thyroxine 1.18 ng/dl (0.61-1.60)
[2022-08-11] MEDS ORDERED: GABAPENTIN 100 MG CAP PO PRN (05:19)
[2022-08-11] MEDS ORDERED: NITROGLYCERIN 0.3 MG/1 TAB 100 TAB BTL SL PRN (05:19)
[2022-08-11] MEDS ORDERED: diphenhydrAMINE Capsule 25 MG CAP PO PRN (05:19)
[2022-08-11] MEDS ORDERED: ALBUTEROL 0.083% NEBU SOLN 3 ML VIAL NEB PRN (05:19)
[2022-08-11] MEDS ORDERED: ALBUTEROL HFA 8 GM INHALER INH PRN (05:19)
[2022-08-11] MEDS ORDERED: ACETAMINOPHEN 325 MG TAB PO PRN (05:19)
[2022-08-11] MEDS ORDERED: NITROGLYCERIN SL 0.4 MG/TAB TAB SL PRN (05:19)
[2022-08-11] MEDS ORDERED: POLYETHYLENE (MIRALAX) 17 GM PACK PO PRN (05:19)
[2022-08-11] MEDS: methylPREDNISolone 40 MG in SYRINGE 0 ML IV SCH ×3 (06:21→22:14)
[2022-08-11 07:53] LABS: Hematocrit (blood only) 36.3 % (42.0-52.0); Hemoglobin 12.5 g/dl (14.0-18.0); Mean Corpuscular Hemoglobin 30.3 pg (25.0-34.0); Mean Corpuscular Hgb Conc 34.4 g/dL (32.0-36.0); Mean Corpuscular Volume 88.1 fL (80.0-100.0); Mean Platelet Volume 9.8 fL (9.4-12.4); Platelet Count 212 K/uL (130-400); RDW Coefficient of Variation 14.1 % (11.5-14.5); RDW Standard Deviation 45.1 fL (36.4-46.3); Red Blood Count 4.12 M/uL (4.70-6.10); White Blood Count 5.11 K/ul (4.8-10.8)
[2022-08-11 08:03] LABS: BUN Creatinine Ratio 23.5 (10-20); Calcium 9.7 mg/dl (8.5-10.1); Creatinine Clr Calc Pharmacy 45.9 ml/min; Est GFR (African American) 87.1 ml/min; Est GFR (Non-African American) 75.2 ml/min; Magnesium 2.3 mg/dl (1.7-2.4); Potassium 4.9 mmol/L (3.5-5.1)
[2022-08-11] MEDS: ALBUT/IPRATROP 3MG/0.5MG NEB 3 ML VIAL NEB SCH ×4 (08:10→19:18)
[2022-08-11] MEDS: SODIUM CHLOR 7% 4 ML NEB NEB SCH ×2 (08:10→19:19)
[2022-08-11 08:18] LABS: Basophils # (auto) 0.01 K/uL (0-0.2); Basophils % (auto) 0.2 %; Immature Granulocytes # (auto) 0.02 K/uL (0.01-0.20); Immature Granulocytes % (auto) 0.4 %; Lymphocytes # (auto) 0.42 K/uL (1.2-3.4); Lymphocytes % (auto) 8.2 %; Monocytes # (auto) 0.09 K/uL (0.11-0.59); Monocytes % (auto) 1.8 %; Neutrophils # (auto) 4.57 K/uL (1.40-6.50); Neutrophils % (auto) 89.4 %; RBC Morphology Unremarkable
--- NOTE | 2022-08-11 09:18 | History and Physical Report ---
DATE OF ADMISSION: 08/11/2022. CHIEF COMPLAINT: Shortness of breath. HISTORY OF PRESENT ILLNESS: This is a 67-year-old male with past medical history significant for chronic respiratory failure with persistent asthma, bronchiectasis, COPD, emphysema, history of mycobacterial and fungal pneumonia, on home oxygen, seems to be noncompliant, history of chronic pain and BPH. The patient seems to have severe persistent asthma with elevated eosinophilia, bronchial thermoplasty in 2020 PFTs showed FEV1 of 1.28 liters, 46%. He has AFB cultures done in 04/2022, were negative. The patient presents with ongoing shortness of breath , says going to bathroom and coming back making him short of breath, bringing yellowish brownish phlegm. Denies any fever. Denies any chest pain. Has back pain. Whenever minimal exertion making him sweating and short of breath. When he gets short of breath, sometimes he was having even incontinence of the urine. Appetite is okay. Sometimes he has difficulty swallowing. No nausea, no abdominal pain. Normal bowel and bladder movements. He is saturating okay on 3 L. Hemodynamically stable. The patient refused neb treatment and oxygen, but later agreed for oxygen, but the patient says he does not want neb treatment when he is sleeping. ALLERGIES: CLIDINIUM, TYLENOL, CHLORDIAZEPOXIDE, CODEINE, LATEX, MONTELUKAST, ZOLPIDEM, BUDESONIDE, SYMBICORT. PAST MEDICAL HISTORY: As mentioned above. PAST SURGICAL HISTORY: Carpal tunnel surgery, colonoscopy, EGDs, biothermal to the lungs, bilateral elbow surgeries, 5 hernia surgeries, tonsillectomy, endoscopic sinus surgery. MEDICATIONS: Albuterol nebulization q. 4 hours p.r.n., albuterol inhalation 2 puffs q. 4 hours p.r.n., diazepam 5 mg p.o. a.c., diltiazem 60 mg p.o. b.i.d., Benadryl 25 mg p.o. q. 6 hours p.r.n. itching, Breo Ellipta 1 inhalation daily, gabapentin 100 mg p.o. q.i.d. p.r.n., Mucinex 1200 mg p.o. b.i.d., levocetirizine 5 mg p.o. p.m., nitroglycerin 0.3 mg sublingual p.r.n., oxycodone 15 mg p.o. t.i.d. p.r.n., Incruse Ellipta 1 inhalation daily. FAMILY HISTORY: Significant for mother has diabetes; father has hypertension; son has asthma. SOCIAL HISTORY: Quit smoking in 2017, smoked 0.1 pack a day for 20 years. Alcohol occasional. Uses marijuana sometimes. REVIEW OF SYSTEMS: As per HPI. Rest of the review of systems is negative. PHYSICAL EXAMINATION: GENERAL: The patient is thin and frail, not in acute distress. VITAL SIGNS: Temperature 36.6, pulse 90, respiratory rate 19, blood pressure 127/78, oxygen 93% on 3 L, when he came in, he was in 87%. HEENT: Pupils equal, round and reactive to light. Oral mucosa moist. NECK: No JVD, no neck masses. CARDIOVASCULAR: S1 and S2 heard. Regular rate and rhythm. No murmur, no gallop. RESPIRATORY SYSTEM: Normal AP diameter. No accessory muscle use. Bilateral wheezing and rhonchi heard. ABDOMEN: Soft, bowel sounds present, nontender, no distention. CENTRAL NERVOUS SYSTEM: Cranial nerves II through XII are grossly intact, nonfocal. EXTREMITIES: No edema, no erythema. LABORATORY DATA: WBC 5.3, hemoglobin 12, hematocrit 34.7, platelets 187. Venous blood gas, pH of 7.37, pCO2 of 51. Sodium 130, potassium 4.4, chloride 95, CO2 of 30, BUN 29, creatinine 0.9, serum glucose 136, serum osmolality 285, calcium 9.6, magnesium 2.2, total bilirubin 0.4, AST 32, ALT 14, alkaline phosphatase 52. Troponin I high sensitivity 3.7, Bnp 75. Procalcitonin less than 0.05. TSH is 0.24, free T4 1.1. Urinalysis negative. Urine osmolality 490. SARS-CoV-2 PCR negative. IMAGING DATA: Chest x-ray, emphysema, ill-defined 1.6-cm nodular in the right upper lobe, likely infectious inflammatory. CTA of the chest, no pulmonary emboli, emphysema with bronchitis from bronchiectasis redemonstrated, multilobular distribution of irregular ground-glass opacities are again noted, which are likely infectious and inflammatory. Mildly distended, depressible esophagus, avascular necrosis of the humeral heads. EKG: Normal sinus rhythm at a rate of 73. Biatrial enlargement, pulmonary disease pattern. ASSESSMENT AND PLAN: This is a 67-year-old male who presents with shortness of breath from chronic obstructive pulmonary disease exacerbation. 1. Chronic obstructive pulmonary disease exacerbation: On home oxygen, seems noncompliant with home oxygen. Steroid given in the ER. With oxygen supplementations, he is saturating okay, declined any nebs currently, he states he takes nebs at home as needed, but does not take while he is sleeping. We will place him on hypertonic saline nebs b.i.d. and DuoNebs t.i.d. and p.r.n., Solu-Medrol 40 t.i.d., IV cefepime and p.o. doxycycline. Follow the response. If any concern, we will consult pulmonary 2. Possible aspiration, oesophageal debris is seen. Hx of oropharngeal dysphagia. We will consult GI We will keep him n.p.o., except meds for now. 3. History of asthma, bronchiectasis: Management as above. 4. Chronic diastolic congestive heart failure: We will monitor for any volume overload. 5 History of hyponatremia probably from lung disease: We will follow the repeat labs in the a.m. The patient received some fluids in the ER. If worsening, will consult Nephrology. 7. Chronic pain syndrome, cervical radiculopathy: On Valium and oxycodone as needed. We will monitor. 8. History of benign prostatic hypertrophy: On Flomax. 9. Depression: Continue current medications. 10. Deep venous thrombosis prophylaxis: Heparin subcutaneously. DISPOSITION: Closely monitor in the Med Tele. PT/OT prior to discharge. Social service to help with discharge planning. Level 1 full code. Job ID: [id number] [facility]
[2022-08-11] MEDS: diazePAM 5 MG TABLET PO SCH ×3 (09:30→17:43)
[2022-08-11] MEDS: oxyCODONE HCL IR 5 MG TAB (IMMEDIATE RELEASE) PO PRN ×2 (09:52→22:37)
[2022-08-11] MEDS: FLUTICASONE/VILANTEROL 200/25MCG 14 PUFFS/INHALER INH SCH (09:56)
[2022-08-11] MEDS: TAMSULOSIN HCL 0.4 MG CAP PO SCH (09:56)
[2022-08-11] MEDS: dilTIAZem HCl 60 MG TAB PO SCH ×2 (09:56→22:17)
[2022-08-11] MEDS: DOXYCYCLINE HYCLATE 100 MG CAP PO SCH ×2 (09:56→22:18)
[2022-08-11] MEDS: guaiFENesin 600 MG TABCR PO SCH ×2 (09:56→22:14)
[2022-08-11] MEDS: HEPARIN SOD 5,000 UNIT/0.5 ML VIAL SQ SCH ×2 (09:56→22:19)
[2022-08-11] MEDS: UMECLIDINIUM BROMIDE 62.5MCG/BLISTER 7 PUFFS/INHALER INH SCH (09:57)
--- NOTE | 2022-08-11 11:33 | Electrocardiogram Report ---
Test Reason : Blood Pressure : / mmHG Vent. Rate : 073 BPM Atrial Rate : 073 BPM P-R Int : 146 ms QRS Dur : 078 ms QT Int : 382 ms P-R-T Axes : 082 063 070 degrees QTc Int : 420 ms Normal sinus rhythm Biatrial enlargement Pulmonary disease pattern Abnormal ECG When compared with ECG of 28-MAY-2022 07:24, Criteria for Septal infarct are no longer Present Confirmed by Adalberto Rowe ([id number]) on 08/11/2022 11:32:49 AM Referred By: REFERRED SELF Confirmed By:Adalberto Rowe
[2022-08-11] MEDS: CEFEPIME 2,000 MG in SYRINGE 0 ML IV SCH (13:14)
--- NOTE | 2022-08-11 14:47 | Hospitalist Progress Note ---
Date of Service August 11, 2022 Assessment & Plan (1) Acute exacerbation of chronic obstructive airways disease: Plan 67-year-old male with PMH of persistent asthma, bronchiectasis, COPD, emphysema, mycobacterial and fungal pneumonia, on home oxygen, seems to be noncompliant, chronic pain and BPH presented to the ED 08/11 with ongoing shortness of breath even with minimal activity and also reports bringing up yellowish-brownish phlegm with cough but denies fever or chest pain. Also reports having difficulty swallowing. He is being managed for the following: Acute exacerbation of COPD: Acute bronchitis RUL 1.6 cm nodular density: OP f/u w/ imaging for resolution. Patient comes in with shortness of breath with activity and cough with yellowish sputum, denies fever. On oxygen at home, seems to be noncompliant with home oxygen. Patient initially declined both oxygen and nebulization treatment, will continue to encourage to use them as appropriate. Admitting CXR with 1.6 cm nodular density of right upper lobe, follow-up recommended. Admitting CTA chestno PE, emphysema with bronchitis and bronchiectasis noted, multifocal multilobar distribution of irregular groundglass opacities are again noted, avascular necrosis of femoral heads noted, mildly distended decreased esophagus noted Continue with nebulizations and supplemental oxygen, continue with doxycycline 08/11 and cefepime 08/11. Continue with Solu-Medrol 08/11. Taper steroid in a.m. after evaluation. Avascular necrosis of femoral heads: Finding on CTA chest, establish with Ortho upon discharge. Swallowing difficulty: History of oropharyngeal dysphagia. Mildly distended debris-filled esophagus noted and CTA chest, GI consult, await recommendations. Other chronic medical conditions: Asthma, bronchiectasis: Resume home nebs Chronic diastolic CHF: Euvolemic, continue home meds Hyponatremia: We will continue to monitor Chronic pain syndrome, cervical radiculopathy: On Valium and oxycodone as needed. BPH: On Flomax Depression: Continue home meds DVT prophylaxis: Heparin subcu Dispo: Pending improvement of respiratory status and GI eval. Admission and Anticipated Discharge Date Admission Date: August 11, 2022 Subjective Patient seen and examined at bedside as a follow-up of acute exacerbation of COPD and possible aspiration. Patient was sitting up in bed, on room air, NAD, reports improvement in his breathing, reports poor appetite, reports feeling little better, denies headache or dizziness or chest pain or palpitation, reports cough with sputum. Physical Exam Physical Exam: GENERAL: Alert and oriented x3. NAD, on RA. Thin frail HEENT: No pallor, no icterus. Pupils equal, round and reactive to light. Oral mucosa moist. NECK: No JVD, no neck masses. HEART: S1 and S2 heard. Regular rate and rhythm. No murmur, no gallop. RESPIRATORY SYSTEM: Normal AP diameter. No accessory muscle use. + wheezing, + crackles. ABDOMEN: Soft, bowel sounds present, nontender, no distention. CENTRAL NERVOUS SYSTEM: No facial droop. Speech is clear. Obeys simple commands. Moves extremities. EXTREMITIES: No edema, no erythema seen. Results & Data Results & Data ([facility]) Vital Signs (Past 12 Hours) Vital Signs Temp Pulse Pulse Resp BP Pulse Ox O2 Del Method 08/11/22 13:52 102 H 22 88 L Room Air 08/11/22 11:41 36.3 C L 82 21 105/75 90 Nasal Cannula 08/11/22 08:11 82 18 94 Nasal Cannula 08/11/22 06:48 36.5 C 81 18 117/71 92 Nasal Cannula 08/11/22 04:30 65 08/11/22 03:31 57 L 16 102/75 97 Nasal Cannula O2 Flow Rate 08/11/22 13:52 08/11/22 11:41 2 08/11/22 08:11 3 08/11/22 06:48 3 08/11/22 04:30 08/11/22 03:31 3
[2022-08-11] MEDS ORDERED: CALCIUM CARBONATE 500 MG CHEWABLE TAB PO PRN (14:48)
[2022-08-11] MEDS: CETIRIZINE HCL 10 MG TABLET PO SCH (22:14)
[2022-08-12] MEDS: CEFEPIME 2,000 MG in SYRINGE 0 ML IV SCH ×3 (00:37→23:56)
[2022-08-12] MEDS: methylPREDNISolone 40 MG in SYRINGE 0 ML IV SCH ×2 (05:52→20:50)
[2022-08-12] MEDS: ALBUT/IPRATROP 3MG/0.5MG NEB 3 ML VIAL NEB SCH ×3 (07:15→19:55)
[2022-08-12] MEDS: SODIUM CHLOR 7% 4 ML NEB NEB SCH ×2 (07:15→19:55)
[2022-08-12 07:22] LABS: Hematocrit (blood only) 38.4 % (42.0-52.0); Hemoglobin 12.9 g/dl (14.0-18.0); Mean Corpuscular Hemoglobin 30.5 pg (25.0-34.0); Mean Corpuscular Hgb Conc 33.6 g/dL (32.0-36.0); Mean Corpuscular Volume 90.8 fL (80.0-100.0); Mean Platelet Volume 9.8 fL (9.4-12.4); Platelet Count 214 K/uL (130-400); RDW Coefficient of Variation 14.3 % (11.5-14.5); RDW Standard Deviation 47.1 fL (36.4-46.3); Red Blood Count 4.23 M/uL (4.70-6.10)
[2022-08-12 07:28] LABS: BUN Creatinine Ratio 28.7 (10-20); Calcium 10.1 mg/dl (8.5-10.1); Est GFR (African American) 96.2 ml/min; Phosphorus 3.2 mg/dl (2.5-4.9); Potassium 4.8 mmol/L (3.5-5.1)
[2022-08-12] MEDS: diazePAM 5 MG TABLET PO SCH ×3 (08:35→16:51)
[2022-08-12] MEDS: DOXYCYCLINE HYCLATE 100 MG CAP PO SCH ×2 (08:37→20:52)
[2022-08-12] MEDS: dilTIAZem HCl 60 MG TAB PO SCH ×2 (08:37→20:56)
[2022-08-12] MEDS: guaiFENesin 600 MG TABCR PO SCH ×2 (08:38→20:50)
[2022-08-12] MEDS: UMECLIDINIUM BROMIDE 62.5MCG/BLISTER 7 PUFFS/INHALER INH SCH (08:38)
[2022-08-12] MEDS: FLUTICASONE/VILANTEROL 200/25MCG 14 PUFFS/INHALER INH SCH (08:38)
[2022-08-12] MEDS: HEPARIN SOD 5,000 UNIT/0.5 ML VIAL SQ SCH ×2 (08:39→20:56)
[2022-08-12] MEDS: TAMSULOSIN HCL 0.4 MG CAP PO SCH (08:40)
[2022-08-12] MEDS: oxyCODONE HCL IR 5 MG TAB (IMMEDIATE RELEASE) PO PRN ×2 (08:49→21:03)
--- NOTE | 2022-08-12 09:00 | Gastrointestinal Consultation ---
Date of Consultation August 12, 2022 Assessment & Plan (1) Dysphagia: Pt is a 67 yo male, admitted for COPD exacerbation currently, seen for dysphagia. CTA chest showed debris filled esophagus. This is a chronic problem for him, and he's had several workup including most recently EGD w dilation up to 60Fr. Suspected he may have esophageal spasm and tried on several meds including Diltiazem, Valium, and Nitro wo improvement. Had refused esophageal manometry in the past and he opt to re-discuss this option with his outpt GI provider at his next visit on 09/25/2022 - Video swallow eval w ST eval/treat - Diet per ST - PPI daily - OP GI f/u on 09/25/2022 - Defer repeat endoscopic evaluation; pls recall GI prn Supervising Physician Co-Signing Physician Notes Attending attestation I have seen, examined this patient, and agree with the findings and above by our mid-level provider IRVIN Sanders, with the following additions: Chronic dysphagia, now with increased COPD exacerbation Follow up as outpatient as scheduled History of Present Illness Reason for Consultation: Dysphagia Requesting Physician: Dr. Luna Loo Attending Physician: Dr. Rene Burgess History of Present Illness Pt is a 67 yo male w PMHx as noted below currently admitted for COPD exacerbation. GI consulted for dysphagia evaluation. Pt has had dysphagia issues for years. He is followed in outpt GI clinic by IRVIN Benavides. He reports sometimes he's able to swallow solids and liquids just fine, without pain. But then out of the sudden may feel that ingested items may be caught in esophagus and he'll realize it when he tries to drink but liquids won't pass and he'll end up coughing/regurgitating it up. He denies n/v. He has lost weight. In the past he's been tried on Diltiazem, Valium and Nitro for possible esophageal spasms. Also has had EGD w dilation to 60Fr in 2019 wo much improvement. Esophageal manometry has been discussed at prior GI visit but he's always refused. Will consider and has f/u w IRVIN Benavides in GI clinic again on 09/25/2022 Prior GI workup: EGD March 2020 Dr. Dinh: No endoscopic esophageal abnormality to explain patient's dysphagia. Esophagus dilated 45->60Fr. Normal stomach, duodenal bulb and second portion of the duodenum. Esophageal manometry was recommended. Non contrast CTAP 01/19/20: large amt of stool noted in the colon. No acute abnormality identified. CT chest 2020: 1. Findings of bronchitis, bronchiectasis, and bronchiolitis worse compared to 08/24/2019. Findings suggestive of atypical mycobacterial infection.Tracheal debris. Smoking related changes within the lungs. EGD 12/26/16 Dr. Maxwell for dysphagia: mild esophagitis. No findings to explain the dysphagia. EGD 07/27/15 Dr. Lobo: empirically dilated from 16 to 20mm. EGD 05/29/15 Dr. Lobo: thrush, empirically dilated with 16 mm dilator. VFSS w/o aspiration on these dates:06/02/18, 07/25/15 and05/26/15. Allergies Allergy/AdvReac Type Severity Reaction Status Date / Time clidinium Allergy Intermediate Rash Verified 10/11/21 14:14 [From Librax (with clidinium)] acetaminophen Allergy Mild hives/itchy Verified 10/11/21 14:14 chlordiazepoxide Allergy Mild Rash Verified 10/11/21 14:14 [From Librax (with clidinium)] codeine Allergy Mild Rash Verified 10/11/21 14:14 [From Tylenol-Codeine] latex Allergy Mild Rash Verified 10/11/21 14:14 montelukast AdvReac Severe MENTAL Verified 10/11/21 14:14 STATUS CHANGED zolpidem AdvReac Severe MENTAL Verified 10/11/21 14:14 STATUS CHANGED,HALLUCINATIONS budesonide [From Symbicort] AdvReac Intermediate caused Verified 10/11/21 14:14 vision problems formoterol [From Symbicort] AdvReac Intermediate caused Verified 10/11/21 14:14 vision problems Home Medications Medication Instructions Recorded Confirmed Type albuterol sulfate 2.5 mg/3 mL 2.5 mg continuous nebulization Q4H 06/02/18 08/10/22 History (0.083 %) solution for nebulization PRN Wheezing or Shortness of breath diazepam 5 mg tablet 5 mg PO AC 06/02/18 08/10/22 History gabapentin 100 mg capsule 100 mg PO QID PRN Pain 06/02/18 08/11/22 History albuterol sulfate 90 mcg/actuation 2 puff inhalation Q4 PRN Shortness 11/09/18 08/10/22 History aerosol inhaler (ProAir HFA) Of Breath nitroglycerin 0.3 mg sublingual 0.3 mg sublingual UD PRN ESOPAGEAL 03/07/19 08/10/22 History tablet (Nitrostat) SPASM oxycodone 15 mg tablet 15 mg PO Q8H PRN Pain,severe 01/23/20 08/10/22 History Portable Oxygen #1 ea 02/11/20 08/11/22 History diphenhydramine HCl 25 mg capsule 25 mg PO Q6 PRN Itching 05/28/22 08/10/22 History diltiazem HCl 60 mg tablet 60 mg PO AMHS 08/10/22 08/11/22 History fluticasone furoate 200 1 inh inhalation DAILY 08/10/22 08/10/22 History mcg-vilanterol 25 mcg/dose inhalation powder (Breo Ellipta) guaifenesin 600 mg tablet, 1,200 mg PO AMHS 08/10/22 08/10/22 History extended release 12 hr (Mucinex) levocetirizine 5 mg tablet 5 mg PO QPM 08/10/22 08/10/22 History prednisone 20 mg tablet See Rx Instructions .Route .COMPLEX 08/10/22 08/10/22 History umeclidinium 62.5 mcg/actuation 1 inh inhalation DAILY 08/10/22 08/10/22 History blister powder for inhalation (Incruse Ellipta) tamsulosin 0.4 mg capsule 0.4 mg PO DAILY 08/11/22 08/11/22 History Patient History Medical History (Updated 08/12/22 @ 10:53 by IRVIN Marte) Acute exacerbation of chronic obstructive pulmonary disease (COPD) Anxiety Asymptomatic microscopic hematuria Avascular necrosis of femoral head BPH (benign prostatic hypertrophy) Chronic hip pain Chronic neck pain Chronic obstructive pulmonary disease inhaler/nebulizer prn Chronic pain syndrome Dysphagia Emphysema of lung Esophageal dysmotility GERD (gastroesophageal reflux disease) Hearing deficit History of kidney stones Medical marijuana use On home oxygen therapy 2L N/C at hs and prn Pneumonia Status asthmaticus Surgical History History of bronchoscopy multiple ? History of cardiac cath 10/2018 @ [facility] by Dr. Mello--no stents placed History of carpal tunnel surgery of left wrist x3 History of colonoscopy with polypectomy History of ear surgery eardrum opening by Dr. Daniels History of elbow surgery bilt History of esophagogastroduodenoscopy (EGD) History of sinus surgery History of surgery on arm left arm---hardware removed History of tonsillectomy and adenoidectomy History of tooth extraction all upper teeth Hx of hernia repair x5 Family History Father Nephrolithiasis Asthma Mother Family history of diabetes mellitus Diabetes Grandfather (Paternal) Alzheimer disease Other No family history of adverse response to anesthesia Social History Smoking Status: Former smoker Tobacco Type: Cigarettes Second Hand Exposure: No; Hx Alcohol Use: No Hx Substance Use: Yes Last Used Substance: Days (ago) Last Used Substance Other:: 30 Substance Use Type Other:: smokes at bedtime to aide in sleeping Preferred Language: Indonesian Communication Ability: Effective Physical Fitness Trainer Required: No Beliefs That Will Affect Care: None marital status: / Current Living Situation: Alone How many Children do You have: 5 Feels Safe at Home: Yes Assistive Devices: Cane Review of Systems Review of Systems: All systems reviewed & are unremarkable except as noted in HPI & below Physical Exam Physical Exam: Thin, pleasant 67 yo male, in no acute distress. Constitutional: well groomed, cooperative and comfortable Eyes: PERRL, conjunctivae normal, anicteric sclerae ENMT: external ear and nose normal, oropharynx normal Respiratory: normal respiratory effort, lungs clear to auscultation Cardiovascular: RRR, no murmur, no edema Gastrointestinal (Abdomen): normal bowel sounds, soft, nontender, no hepatosplenomegaly Skin: no rashes, warm and dry no jaundice Psychiatric: A+Ox3, euthymic affect Lymphatic: no lymphedema Results & Data ([facility] [place]) Vital Signs (Past 12 Hours) Vital Signs Temp Pulse Pulse Resp BP Pulse Ox O2 Del Method 08/12/22 07:49 36.6 C 72 21 123/67 99 Nasal Cannula 08/12/22 07:33 89 02/20/23 07:15 101 H 16 86 L Room Air 08/12/22 04:00 36.6 C 84 18 114/71 94 Nasal Cannula 08/12/22 02:05 Nasal Cannula 08/12/22 00:28 36.8 C 81 20 132/77 92 Nasal Cannula 08/11/22 22:02 75 O2 Flow Rate 08/12/22 07:49 3 08/12/22 07:33 08/12/22 07:15 08/12/22 04:00 3 08/12/22 02:05 3 08/12/22 00:28 3 08/11/22 22:02
--- NOTE | 2022-08-12 12:03 | Fluoroscopy Report ---
VIDEO SWALLOW STUDY CLINICAL HISTORY: Dysphagia. COMPARISON STUDY: Video swallow study dated 06/02/2018. Fluoroscopy time: 3.5 minutes. Exposure: 27.84 mGy. FINDINGS: Fluoroscopic guidance is provided to the Department of Speech Pathology in performing a vid eo swallow study. The patient consumed barium impregnated pudding, cracker with paste, thickened liqu ids, and thin barium while the swallowing mechanism was observed in real-time. Silent aspiration was seen with thin barium and mildly thickened liquid texture. No penetration or aspiration was seen with the solid textures. Esophageal dysmotility was observed. IMPRESSION: 1. Silent aspiration was seen with the thin barium and the mildly thickened liquid textures. 2. See dedicated speech pathology report for detailed findings and recommendations. Dictated: 08/12/2022 11:52 AM Transcribed: 08/12/2022 11:59 AM Margaret [id number] [email or web address]_[email or web address] Electronically signed by: Armando Duncan M.D. 08/12/2022 12:01 PM
[2022-08-12] MEDS: PANTOprazole 40 MG TAB PO SCH (12:04)
--- NOTE | 2022-08-12 16:23 | Hospitalist Progress Note ---
Date of Service August 12, 2022 Assessment & Plan (1) Acute exacerbation of chronic obstructive airways disease: Plan 67-year-old male with PMH of persistent asthma, bronchiectasis, COPD, emphysema, mycobacterial and fungal pneumonia, on home oxygen, seems to be noncompliant, chronic pain and BPH presented to the ED 08/11 with ongoing shortness of breath even with minimal activity and also reports bringing up yellowish-brownish phlegm with cough but denies fever or chest pain. Also reports having difficulty swallowing. He is being managed for the following: Acute exacerbation of COPD: Acute bronchitis RUL 1.6 cm nodular density: OP f/u w/ imaging for resolution. Patient comes in with shortness of breath with activity and cough with yellowish sputum, denies fever. On oxygen at home, seems to be noncompliant with home oxygen. Patient initially declined both oxygen and nebulization treatment, will continue to encourage to use them as appropriate. Admitting CXR with 1.6 cm nodular density of right upper lobe, follow-up recommended. Admitting CTA chestno PE, emphysema with bronchitis and bronchiectasis noted, multifocal multilobar distribution of irregular groundglass opacities are again noted, avascular necrosis of femoral heads noted, mildly distended debris-filled esophagus noted Continue with nebulizations and supplemental oxygen, continue with doxycycline 08/11 and cefepime 08/11. Continue with Solu-Medrol 08/11. Taper steroid in a.m. after evaluation - BID today. Avascular necrosis of femoral heads: Finding on CTA chest, pt follows up w/ ortho as OP. Swallowing difficulty: History of oropharyngeal dysphagia. Mildly distended debris-filled esophagus noted on CTA chest. Video swallow study 08/12: silent aspiration w/ thin barium and mildly thickened liquid textures. GI evaled - diet per Speech/ppi daily/OP gi fu 09/25/2022. Due to long standing issues w/ esophageal dysfunction (which pt is aware of ), he is at risk of silent aspiration/he doesn't want a feeding tube/easy to chew diet per Speech recs. Other chronic medical conditions: Asthma, bronchiectasis: Resume home nebs Chronic diastolic CHF: Euvolemic, continue home meds Hyponatremia: We will continue to monitor Chronic pain syndrome, cervical radiculopathy: On Valium and oxycodone as needed. BPH: On Flomax Depression: Continue home meds DVT prophylaxis: Heparin subcu Dispo: Pending improvement of respiratory status and GI eval. Admission and Anticipated Discharge Date Admission Date: August 11, 2022 Subjective Patient seen and examined at bedside as a follow-up of acute exacerbation of COPD and possible aspiration. Patient was sitting up in bed, on room air, NAD, reports improvement in his breathing, reports being able to eat today, reports feeling better, denies headache or dizziness or chest pain or palpitation, reports cough with sputum. Had swallow eval in AM. Physical Exam Physical Exam: GENERAL: Alert and oriented x3. NAD, on RA. Thin frail HEENT: No pallor, no icterus. Pupils equal, round and reactive to light. Oral mucosa moist. NECK: No JVD, no neck masses. HEART: S1 and S2 heard. Regular rate and rhythm. No murmur, no gallop. RESPIRATORY SYSTEM: Normal AP diameter. No accessory muscle use. + wheezing, + crackles. ABDOMEN: Soft, bowel sounds present, nontender, no distention. CENTRAL NERVOUS SYSTEM: No facial droop. Speech is clear. Obeys simple commands. Moves extremities. EXTREMITIES: No edema, no erythema seen. Results & Data Results & Data ([facility]) Vital Signs (Past 12 Hours) Vital Signs Temp Pulse Pulse Resp BP Pulse Ox O2 Del Method 08/12/22 15:58 36.6 C 65 21 115/62 90 Room Air 08/12/22 15:37 57 L 08/12/22 08:00 Room Air, Nasal Cannula 08/12/22 13:34 67 20 91 Room Air 08/12/22 11:24 36.6 C 72 20 99/73 L 91 Nasal Cannula 08/12/22 07:49 36.6 C 72 21 123/67 99 Nasal Cannula 08/12/22 07:33 89 08/12/22 07:15 101 H 16 86 L Room Air O2 Flow Rate 08/12/22 15:58 08/12/22 15:37 08/12/22 08:00 3 08/12/22 13:34 08/12/22 11:24 3 08/12/22 07:49 3 08/12/22 07:33 08/12/22 07:15
[2022-08-12] MEDS: CETIRIZINE HCL 10 MG TABLET PO SCH (20:51)
[2022-08-13] MEDS: SODIUM CHLOR 7% 4 ML NEB NEB SCH ×2 (07:10→19:36)
[2022-08-13] MEDS: ALBUT/IPRATROP 3MG/0.5MG NEB 3 ML VIAL NEB SCH ×3 (07:10→19:36)
[2022-08-13] MEDS: diazePAM 5 MG TABLET PO SCH ×3 (07:18→17:06)
[2022-08-13 07:45] LABS: Hematocrit (blood only) 36.9 % (42.0-52.0); Hemoglobin 12.7 g/dl (14.0-18.0); Mean Corpuscular Hemoglobin 30.7 pg (25.0-34.0); Mean Corpuscular Hgb Conc 34.4 g/dL (32.0-36.0); Mean Corpuscular Volume 89.1 fL (80.0-100.0); Mean Platelet Volume 9.3 fL (9.4-12.4); Platelet Count 212 K/uL (130-400); RDW Coefficient of Variation 14.3 % (11.5-14.5); Red Blood Count 4.14 M/uL (4.70-6.10)
[2022-08-13 08:03] LABS: BUN Creatinine Ratio 29.5 (10-20); Creatinine Clr Calc Pharmacy 55.7 ml/min; Est GFR (African American) 102.3 ml/min; Est GFR (Non-African American) 88.3 ml/min; Potassium 4.3 mmol/L (3.5-5.1)
[2022-08-13] MEDS: methylPREDNISolone 40 MG in SYRINGE 0 ML IV SCH ×2 (09:31→20:40)
[2022-08-13] MEDS: dilTIAZem HCl 60 MG TAB PO SCH ×2 (09:34→20:38)
[2022-08-13] MEDS: guaiFENesin 600 MG TABCR PO SCH ×2 (09:34→20:39)
[2022-08-13] MEDS: DOXYCYCLINE HYCLATE 100 MG CAP PO SCH ×2 (09:34→20:37)
[2022-08-13] MEDS: HEPARIN SOD 5,000 UNIT/0.5 ML VIAL SQ SCH ×2 (09:34→20:40)
[2022-08-13] MEDS: PANTOprazole 40 MG TAB PO SCH (09:34)
[2022-08-13] MEDS: TAMSULOSIN HCL 0.4 MG CAP PO SCH (09:35)
[2022-08-13] MEDS: UMECLIDINIUM BROMIDE 62.5MCG/BLISTER 7 PUFFS/INHALER INH SCH (09:39)
[2022-08-13] MEDS: FLUTICASONE/VILANTEROL 200/25MCG 14 PUFFS/INHALER INH SCH (09:39)
[2022-08-13] MEDS: CEFEPIME 2,000 MG in SYRINGE 0 ML IV SCH (13:10)
--- NOTE | 2022-08-13 18:14 | Hospitalist Progress Note ---
Date of Service August 13, 2022 Assessment & Plan (1) Acute exacerbation of chronic obstructive airways disease: Plan 67-year-old male with PMH of persistent asthma, bronchiectasis, COPD, emphysema, mycobacterial and fungal pneumonia, on home oxygen, seems to be noncompliant, chronic pain and BPH presented to the ED 08/11 with ongoing shortness of breath even with minimal activity and also reports bringing up yellowish-brownish phlegm with cough but denies fever or chest pain. Also reports having difficulty swallowing. He is being managed for the following: Acute exacerbation of COPD: Acute bronchitis RUL 1.6 cm nodular density: OP f/u w/ imaging for resolution. Patient comes in with shortness of breath with activity and cough with yellowish sputum, denies fever. On oxygen at home, seems to be noncompliant with home oxygen. Patient initially declined both oxygen and nebulization treatment, will continue to encourage to use them as appropriate. Admitting CXR with 1.6 cm nodular density of right upper lobe, follow-up recommended. Admitting CTA chestno PE, emphysema with bronchitis and bronchiectasis noted, multifocal multilobar distribution of irregular groundglass opacities are again noted, avascular necrosis of femoral heads noted, mildly distended debris-filled esophagus noted Continue with nebulizations and supplemental oxygen, continue with doxycycline 08/11 and cefepime 08/11. Continue with Solu-Medrol 08/11. Taper steroid in a.m. after evaluation - BID today again. Avascular necrosis of femoral heads: Finding on CTA chest, pt follows up w/ ortho as OP. Swallowing difficulty: History of oropharyngeal dysphagia. Mildly distended debris-filled esophagus noted on CTA chest. Video swallow study 08/12: silent aspiration w/ thin barium and mildly thickened liquid textures. GI evaled - diet per Speech/ppi daily/OP gi fu 09/25/2022. Due to long standing issues w/ esophageal dysfunction (which pt is aware of ), he is at risk of silent aspiration (pt accepts this risk) /he doesn't want a feeding tube (confirmed w/ patient)/easy to chew diet per Speech recs. Other chronic medical conditions: Asthma, bronchiectasis: Resume home nebs Chronic diastolic CHF: Euvolemic, continue home meds Hyponatremia: We will continue to monitor Chronic pain syndrome, cervical radiculopathy: On Valium and oxycodone as needed. BPH: On Flomax Depression: Continue home meds DVT prophylaxis: Heparin subcu Dispo: Pending improvement of respiratory status. Admission and Anticipated Discharge Date Admission Date: August 11, 2022 Subjective Patient seen and examined at bedside as a follow-up of acute exacerbation of COPD and possible aspiration. Patient was sitting up in bed, on room air, NAD, reports improvement in his breathing, reports being able to eat, reports feeling better, denies headache or dizziness or chest pain or palpitation, reports cough with sputum. Still with significant wheezing. Physical Exam Physical Exam: GENERAL: Alert and oriented x3. NAD, on RA. Thin frail HEENT: No pallor, no icterus. Pupils equal, round and reactive to light. Oral mucosa moist. NECK: No JVD, no neck masses. HEART: S1 and S2 heard. Regular rate and rhythm. No murmur, no gallop. RESPIRATORY SYSTEM: Normal AP diameter. No accessory muscle use. + wheezing, + crackles. ABDOMEN: Soft, bowel sounds present, nontender, no distention. CENTRAL NERVOUS SYSTEM: No facial droop. Speech is clear. Obeys simple commands. Moves extremities. EXTREMITIES: No edema, no erythema seen. Results & Data Results & Data ([facility]) Vital Signs (Past 12 Hours) Vital Signs Temp Pulse Pulse Resp BP Pulse Ox O2 Del Method 08/13/22 16:00 71 08/13/22 16:01 36.6 C 70 20 143/71 H 94 Nasal Cannula 08/13/22 08:00 Room Air, Nasal Cannula 08/13/22 12:47 68 18 91 Room Air 08/13/22 11:14 36.5 C 70 16 90 Room Air 08/13/22 07:19 36.5 C 78 18 136/81 88 L Room Air 08/13/22 07:13 48 L 08/13/22 07:10 74 20 88 L Room Air O2 Flow Rate 08/13/22 16:00 08/13/22 16:01 2 08/13/22 08:00 2 08/13/22 12:47 08/13/22 11:14 08/13/22 07:19 08/13/22 07:13 08/13/22 07:10
[2022-08-13] MEDS: CETIRIZINE HCL 10 MG TABLET PO SCH (20:38)
[2022-08-14] MEDS: CEFEPIME 2,000 MG in SYRINGE 0 ML IV SCH (00:01)
[2022-08-14] MEDS: ALBUT/IPRATROP 3MG/0.5MG NEB 3 ML VIAL NEB SCH ×2 (07:01→13:11)
[2022-08-14] MEDS: SODIUM CHLOR 7% 4 ML NEB NEB SCH (07:01)
[2022-08-14] MEDS: dilTIAZem HCl 60 MG TAB PO SCH (07:45)
[2022-08-14] MEDS: methylPREDNISolone 40 MG in SYRINGE 0 ML IV SCH (07:45)
[2022-08-14] MEDS: guaiFENesin 600 MG TABCR PO SCH (07:45)
[2022-08-14] MEDS: TAMSULOSIN HCL 0.4 MG CAP PO SCH (07:46)
[2022-08-14] MEDS: DOXYCYCLINE HYCLATE 100 MG CAP PO SCH (07:46)
[2022-08-14] MEDS: PANTOprazole 40 MG TAB PO SCH (07:46)
[2022-08-14] MEDS: FLUTICASONE/VILANTEROL 200/25MCG 14 PUFFS/INHALER INH SCH (07:47)
[2022-08-14] MEDS: HEPARIN SOD 5,000 UNIT/0.5 ML VIAL SQ SCH (07:47)
[2022-08-14] MEDS: UMECLIDINIUM BROMIDE 62.5MCG/BLISTER 7 PUFFS/INHALER INH SCH (07:47)
[2022-08-14 07:49] LABS: Hematocrit (blood only) 33.1 % (42.0-52.0); Hemoglobin 11.3 g/dl (14.0-18.0); Mean Corpuscular Hemoglobin 30.7 pg (25.0-34.0); Mean Corpuscular Hgb Conc 34.1 g/dL (32.0-36.0); Mean Corpuscular Volume 89.9 fL (80.0-100.0); Mean Platelet Volume 9.8 fL (9.4-12.4); Platelet Count 217 K/uL (130-400); RDW Coefficient of Variation 14.5 % (11.5-14.5); RDW Standard Deviation 47.8 fL (36.4-46.3); Red Blood Count 3.68 M/uL (4.70-6.10); White Blood Count 4.12 K/ul (4.8-10.8)
[2022-08-14] MEDS: oxyCODONE HCL IR 5 MG TAB (IMMEDIATE RELEASE) PO PRN (07:56)
[2022-08-14] MEDS: diazePAM 5 MG TABLET PO SCH ×2 (07:57→11:57)
--- NOTE | 2022-08-14 12:00 | Discharge Summary ---
Date of Service August 14, 2022 Admission HPI Per Admitting Provider DATE OF ADMISSION: 08/11/2022. CHIEF COMPLAINT: Shortness of breath. HISTORY OF PRESENT ILLNESS: This is a 67-year-old male with past medical history significant for chronic respiratory failure with persistent asthma, bronchiectasis, COPD, emphysema, history of mycobacterial and fungal pneumonia, on home oxygen, seems to be noncompliant, history of chronic pain and BPH. The patient seems to have severe persistent asthma with elevated eosinophilia, bronchial thermoplasty in 2020 PFTs showed FEV1 of 1.28 liters, 46%. He has AFB cultures done in 04/2022, were negative. The patient presents with on going shortness of breath , says going to bathroom and coming back making him short of breath, bringing yellowish brownish phlegm. Denies any fever. Denies any chest pain. Has back pain. Whenever minimal exertion making him sweating and short of breath. When he gets short of breath, sometimes he was having even incontinence of the urine. Appetite is okay. Sometimes he has difficulty swallowing. No nausea, no abdominal pain. Normal bowel and bladder movements. He is saturating okay on 3 L. Hemodynamically stable. The patient refused neb treatment and oxygen, but later agreed for oxygen, but the patient says he does not want neb treatment when he is sleeping. ALLERGIES: CLIDINIUM, TYLENOL, CHLORDIAZEPOXIDE, CODEINE, LATEX, MONTELUKAST, ZOLPIDEM, BUDESONIDE, SYMBICORT. PAST MEDICAL HISTORY: As mentioned above. PAST SURGICAL HISTORY: Carpal tunnel surgery, colonoscopy, EGDs, biothermal to the lungs, bilateral elbow surgeries, 5 hernia surgeries, tonsillectomy, endoscopic sinus surgery. MEDICATIONS: Albuterol nebulization q. 4 hours p.r.n., albuterol inhalation 2 puffs q. 4 hours p.r.n., diazepam 5 mg p.o. a.c., diltiazem 60 mg p.o. b.i.d., Benadryl 25 mg p.o. q. 6 hours p.r.n. itching, Breo Ellipta 1 inhalation daily, gabapentin 100 mg p.o. q.i.d. p.r.n., Mucinex 1200 mg p.o. b.i.d., levocetirizine 5 mg p.o. p.m., nitroglycerin 0.3 mg sublingual p.r.n., oxycodone 15 mg p.o. t.i.d. p.r.n., Incruse Ellipta 1 inhalation daily. FAMILY HISTORY: Significant for mother has diabetes; father has hypertension; son has asthma. SOCIAL HISTORY: Quit smoking in 2017, smoked 0.1 pack a day for 20 years. Alcohol occasional. Uses marijuana sometimes. REVIEW OF SYSTEMS: As per HPI. Rest of the review of systems is negative. Admission Exam Per Admitting Provider GENERAL: The patient is thin and frail, not in acute distress. VITAL SIGNS: Temperature 36.6, pulse 90, respiratory rate 19, blood pressure 127/78, oxygen 93% on 3 L, when he came in, he was in 87%. HEENT: Pupils equal, round and reactive to light. Oral mucosa moist. NECK: No JVD, no neck masses. CARDIOVASCULAR: S1 and S2 heard. Regular rate and rhythm. No murmur, no gallop. RESPIRATORY SYSTEM: Normal AP diameter. No accessory muscle use. Bilateral wheezing and rhonchi heard. ABDOMEN: Soft, bowel sounds present, nontender, no distention. CENTRAL NERVOUS SYSTEM: Cranial nerves II through XII are grossly intact, nonfocal. EXTREMITIES: No edema, no erythema. Principal Diagnosis Acute exacerbation of COPD Acute bronchitis Right upper lobe 1.6 cm nodular density Avascular necrosis of femoral heads Oropharyngeal dysphagia Discharge Exam GENERAL: Alert and oriented x3. NAD, on RA. Thin frail HEENT: No pallor, no icterus. Pupils equal, round and reactive to light. Oral mucosa moist. NECK: No JVD, no neck masses. HEART: S1 and S2 heard. Regular rate and rhythm. No murmur, no gallop. RESPIRATORY SYSTEM: Normal AP diameter. No accessory muscle use. + wheezing improving better, no crackles. ABDOMEN: Soft, bowel sounds present, nontender, no distention. CENTRAL NERVOUS SYSTEM: No facial droop. Speech is clear. Obeys simple commands. Moves extremities. EXTREMITIES: No edema, no erythema seen. Discharge Data Allergies Allergy/AdvReac Type Severity Reaction Status Date / Time clidinium Allergy Intermediate Rash Verified 10/11/21 14:14 [From Librax (with clidinium)] acetaminophen Allergy Mild hives/itchy Verified 10/11/21 14:14 chlordiazepoxide Allergy Mild Rash Verified 10/11/21 14:14 [From Librax (with clidinium)] codeine Allergy Mild Rash Verified 10/11/21 14:14 [From Tylenol-Codeine] latex Allergy Mild Rash Verified 10/11/21 14:14 montelukast AdvReac Severe MENTAL Verified 10/11/21 14:14 STATUS CHANGED zolpidem AdvReac Severe MENTAL Verified 10/11/21 14:14 STATUS CHANGED,HALLUCINATIONS budesonide [From Symbicort] AdvReac Intermediate caused Verified 10/11/21 14:14 vision problems formoterol [From Symbicort] AdvReac Intermediate caused Verified 10/11/21 14:14 vision problems Consultations 08/11/22 00:44 ED Decision to Admit Stat 08/11/22 10:45 Consult Gastroenterology Routine Ordered Studies 08/10/22 22:11 CT angio chest PE protocol Stat 08/12/22 09:01 FL video swallow Routine Hospital Course (1) Acute exacerbation of chronic obstructive airways disease: Plan 67-year-old male with PMH of persistent asthma, bronchiectasis, COPD, emphysema, mycobacterial and fungal pneumonia, on home oxygen, seems to be noncompliant, chronic pain and BPH presented to the ED 08/11 with ongoing shortness of breath even with minimal activity and also reports bringing up yellowish-brownish phlegm with cough but denies fever or chest pain. Also reports having difficulty swallowing. He was managed for the following: Acute exacerbation of COPD: Acute bronchitis RUL 1.6 cm nodular density: OP f/u w/ imaging for resolution. Patient comes in with shortness of breath with activity and cough with yellowish sputum, denies fever. On oxygen at home, seems to be noncompliant with home oxygen. Patient initially declined both oxygen and nebulization treatment. Admitting CXR with 1.6 cm nodular density of right upper lobe, follow-up recommended. Admitting CTA chestno PE, emphysema with bronchitis and bronchiectasis noted, multifocal multilobar distribution of irregular groundglass opacities are again noted, avascular necrosis of femoral heads noted, mildly distended debris-filled esophagus noted Continue with nebulizations and supplemental oxygen, continue with doxycycline 08/11 and cefepime 08/11 to doxy and cefdinir on dc to complete the course. Continue with Solu-Medrol 08/11 to taper prednisone on dc. Pt reports decreasing cough, improving breathing, hemodynamically stable. Patient to continue with nebulization on discharge. Patient to follow-up with PCP and lung doctor upon discharge. Avascular necrosis of femoral heads: Finding on CTA chest, pt follows up w/ ortho as OP. Swallowing difficulty: History of oropharyngeal dysphagia. Mildly distended debris-filled esophagus noted on CTA chest. Video swallow study 08/12: silent aspiration w/ thin barium and mildly thickened liquid textures. GI evaled - diet per Speech/ppi daily/OP gi fu 09/25/2022. Due to long standing issues w/ esophageal dysfunction (which pt is aware of ), he is at risk of silent aspiration (pt accepts this risk) /he doesn't want a feeding tube (confirmed w/ patient)/easy to chew diet per Speech recs. Other chronic medical conditions: Asthma, bronchiectasis: Resume home nebs Chronic diastolic CHF: Euvolemic, continue home meds Hyponatremia: We will continue to monitor Chronic pain syndrome, cervical radiculopathy: On Valium and oxycodone as needed. BPH: On Flomax Depression: Continue home meds DVT prophylaxis: Heparin subcu Patient being discharged home with following instruction at the point of discharge: Follow-up with your primary care physician within a week time and likely you will need labs CBC/CMP/magnesium/phosphorus. Follow up w/ your lung doctor as prior or in 4-6 weeks time. Likely you might need Pulmonary Function Test. Please use your nebulizations as prescribed. You will be discharged on Prednisone; use 40 mg daily for 3 days followed by 20 mg daily. Complete the course of antibiotic prescribed. For your avascular necrosis, follow up with your orthopaedic doctor as prior. For your swallowing difficulty, eat slippery diet, small volume at a time. Follow up with your GI doctor on 09/25/2022. For your right upper lung 1.6 cm nodular density, you will need repeat chest imaging in 6 weeks time to document resolution. Coordinate with your PCP office. Take your medications as prescribed. Please make sure that you are able to get your medications today by calling your pharmacy before you leave the hospital so that your treatment continuity is not broken. Home Health Attestation I certify that this patient is under my care and that I, or a physicians apartment community assistant manager working with me, had a face to-face encounter that meets the home health [id number] encounter requirements with this patient. The encounter with the patient was in whole, or in part, for the following medical condition, which is the primary reason for home health care (list medical condition): I certify that, based on my findings, the following services are medically necessary home health services: My clinical findings support the need for the above services because: Further, I certify that my clinical findings support that this patient is homebound (i.e. absences from home require considerable and taxing effort and are for medical reasons or [facility]ar[facility] services or infrequently or of short duration when for other reasons) because: Certification for Home Health Services: Based on the above findings, I certify that this patient is confined to the home and needs intermittent retirement care, physical therapy and/or speech therapy or continues to need occupational therapy. The patient is under my care, and I have initiated the establishment of the plan of care. This patient will be followed by a physician who will periodically review the plan of care. Total Time Total Time Spent Total Time Spent (In Minutes): 45 Discharge Plan Discharge Items Patient Disposition: Home - Self-Care Reason For Visit: SOB Discharge Diagnosis: Acute exacerbation of COPD Acute bronchitis Right upper lobe 1.6 cm nodular density Avascular necrosis of femoral heads Oropharyngeal dysphagia Condition on Discharge: Fair Activity: Resume your previous activity Non-emergency contact: Primary Care Provider Call non-emergency contact if: you have any medication questions, your symptoms worsen and your temperature is above 101 Follow-up/Referrals: Randy Smart MD [Primary Care Provider] - (Date & Time 08/19/2022 9:00 AM Provider Jamie Bundy MD [facility] ) Diet: Heart Healthy Diet Texture: Easy to Chew Addtl Attending Provider Instructions: Follow-up with your primary care physician within a week time and likely you will need labs CBC/CMP/magnesium/phosphorus. Follow up w/ your lung doctor as prior or in 4-6 weeks time. Likely you might need Pulmonary Function Test. Please use your nebulizations as prescribed. You will be discharged on Prednisone; use 40 mg daily for 3 days followed by 20 mg daily. Complete the course of antibiotic prescribed. For your avascular necrosis, follow up with your orthopaedic doctor as prior. For your swallowing difficulty, eat slippery diet, small volume at a time. Follow up with your GI doctor on 09/25/2022. For your right upper lung 1.6 cm nodular density, you will need repeat chest imaging in 6 weeks time to document resolution. Coordinate with your PCP office. Take your medications as prescribed. Please make sure that you are able to get your medications today by calling your pharmacy before you leave the hospital so that your treatment continuity is not broken. Pending Studies at Discharge: Yes (admitting blood culture final results. ) Stand-Alone Forms: My [facility], Smoking Cessation Medications and DC Order Prescriptions: New doxycycline hyclate 100 mg Capsule 100 mg PO BID 4 Days Qty: 8 0RF sodium chloride 7 % Solution For Nebulization 4 ml NEB BIDR 5 Days Qty: 120 0RF pantoprazole 40 mg Tablet,Delayed Release (Dr/Ec) 40 mg PO QAM Qty: 30 0RF cefdinir 300 mg capsule 300 mg PO BID 4 Days Qty: 8 0RF prednisone 20 mg tablet See Rx Instructions .ROUTE .COMPLEX Qty: 9 0RF Rx Instructions: 20 mg orally: 2 tabs daily in AM for 3 days; then 1 tab daily in AM for next 3 days; then stop. Continued (DME) Portable Oxygen Misc See Rx Instructions .ROUTE .MEDSUPPLY Qty: 1 Rx Instructions: As directed albuterol sulfate 2.5 mg /3 mL (0.083 %) Solution For Nebulization 2.5 mg continuous nebulization Q4H PRN (Reason: Wheezing or Shortness of breath) gabapentin 100 mg Capsule 100 mg PO QID PRN (Reason: Pain) Rx Instructions: TAKE THIS MEDICATION ONE HOUR PRIOR TO BEDTIME, MAY TITRATE UP TO 4 DAILY DIRECTED diazepam 5 mg Tablet 5 mg PO AC albuterol sulfate [ProAir HFA] 90 mcg/actuation Hfa Aerosol Inhaler 2 puff inhalation Q4 PRN (Reason: Shortness Of Breath) nitroglycerin [Nitrostat] 0.3 mg Tablet, Sublingual 0.3 mg sublingual UD PRN (Reason: ESOPAGEAL SPASM) oxycodone 15 mg Tablet 15 mg PO Q8H PRN (Reason: Pain,severe) Rx Instructions: IR diphenhydramine HCl 25 mg Capsule 25 mg PO Q6 PRN (Reason: Itching) levocetirizine 5 mg tablet 5 mg PO QPM Incruse Ellipta 62.5 mcg/actuation blister with device 1 inh INHALATION DAILY fluticasone furoate-vilanterol [Breo Ellipta] 200-25 mcg/dose blister with device 1 inh INHALATION DAILY guaifenesin [Mucinex] 600 mg tablet extended release 12hr 1,200 mg PO AMHS diltiazem HCl 60 mg tablet 60 mg PO AMHS tamsulosin 0.4 mg capsule 0.4 mg PO DAILY Discontinued prednisone 20 mg tablet See Rx Instructions .ROUTE .COMPLEX Rx Instructions: 1.5 tablets by mouth daily x 2 days,1 tablet daily x2 days,0.5 tablet daily x8 days...ordered 08/09/22 Discharge Orders: Discharge Order (Routine); Ordered 08/14/22 Ordered By: Luna Loo Admission Data Admit Date/Time: 08/11/22 02:02 Attending Provider: Luna Loo Admit Provider: Chad Ashford Primary Care Provider: Randy Smart Other Providers: Chad Ashford ; Anjelica Kennedy ; Phil Anglin ; Tasha Sorto ; Susi Krishnamurthy ; Lynette Suh ; Yaneth May ; Poonam,Jason ; Rene Burgess ; Pauline Mendoza ; Manisha Lobo ; Arsalan Cherry ; Rosa Isela Tena ; Lisha Cao ; Amalia Macdonald ; Damari Monterroso ; Per Dinh ; Trevon Rachel ; Bobo Mendoza ; Ashli Mendoza ; Mirza Hsu Jr
== END 2022-08-14 13:39 | disposition home or self-care (01) | DRG 190 ==
LOC: ED 22:04 → EDINP 08-11 02:02 → 2W 08-11 05:20

== ENCOUNTER 2022-11-09 23:16 | Inpatient (IN) ==
--- NOTE | 2022-11-09 23:34 | Emergency Department Note ---
Impression & Plan Acute respiratory failure with hypoxia, COPD (chronic obstructive pulmonary disease), Multifocal pneumonia, Chronic respiratory failure with hypoxia, on home O2 therapy, Noncompliance ED Provider Note ED Provider Note NAME: CHANDU ORDONEZ AGE:67 SEX: Male : 1955 ARRIVES VIA: EMS INFORMANT: EMS ED PROVIDER(s): Hina Jeffries DO CHIEF COMPLAINT: Shortness of breath HPI: This is a 67-year-old male presents emergency department due to increased shortness of breath. Patient with a history of COPD and CHF according to EMS, and was found to be 69% on his usual home oxygen upon their arrival. According to EMS roommate stated that his breathing has been getting worse. Patient states he has not been using his inhalers since Friday. Patient is confused and unable to provide significant history. He states he is a smoker, wears oxygen chronically. Patient was given 1 DuoNeb and 3 additional albuterol nebulizer treatments in route. IV could not be established so he was given IM Solu-Medrol 125 mg and sublingual Zofran additionally. PAST MEDICAL HISTORY:See Below PAST SURGICAL HISTORY:See Below FAMILY HISTORY:See Below SOCIAL HISTORY:See Below HOME MEDICATIONS:See Below ALLERGIES:See Below VITALS:See Below PHYSICAL EXAMINATION: GENERAL: alert, unwell appearing, well nourished, mild distress, non-toxic EYE EXAM: normal conjunctiva, PERRL and EOM's grossly intact OROPHARYNX: no exudate, no erythema, lips, buccal mucosa, and tongue normal and mucous membranes are dry, poor dentition NECK: supple, no nuchal rigidity, no adenopathy, non-tender LUNGS: Diminished b/l to auscultation. Normal chest wall mechanics, no r/r, scattered bilateral expiratory wheeze, tachypnea noted HEART: no murmurs, S1 normal and S2 normal ABDOMEN: abdomen soft, non-tender, normo-active bowel sounds, no masses, no rebound or guarding. BACK: Back is symmetrical on inspection and there is no deformity, no midline tenderness, no CVA tenderness. SKIN: no rashes, petechiae, orbruising UPPER EXTREMITIES: upper extremities are grossly normal. FROM, nml pulses b/l. LOWER EXTREMITIES: No pitting edema. FROM, nml pulses b/l. NEURO EXAM: Normal sensorium, cranial nerves II-XII grossly intact, normal speech, no facial droop,nogross weakness of arms, no gross weakness of legs. Gross sensation intact. No ataxia. Vital Signs: reviewed and remarkable Differential Diagnosis: Differential diagnoses includes but is not limited to pneumonia, bronchitis, COPD/Asthma exacerbation, pneumothorax, pulmonary embolism, congestive heart failure, acute coronary syndrome MEDICAL DECISION MAKING: This is an ill-appearing 67-year-old male presents via EMS due to increased shortness of breath and hypoxia. Patient requiring more oxygen than his usual baseline and was given 4 breathing treatments in route. Vital signs stable, patient was afebrile. Labs drawn and sent, IV established, EKG and chest x-ray performed at bedside and interpreted by me and patient monitored on telemetry. RT was contacted to initially perform a bedside ABG which was then reviewed. We then discussed oxygen requirements and goals at this time. Given patient is still requiring significant oxygen supplementation in order to maintain around 90%, he was transitioned to high flow nasal cannula. He was given additional nebulizer treatment. Patient was started on IV fluid rehydration. Patient was initially confused and I felt this was most likely related to his hypoxia, his confusion was persistent and so he was sent for CT head additionally. No acute findings were noted on this. Patient also had repeat CT of his chest due to x- ray findings of multifocal pneumonia as well as his underlying history of COPD. Patient already been given Solu-Medrol by EMS, additional IV antibiotics were added by myself, case discussed with hospitalist for additional evaluation and management. Consultation(s): 0045: Discussed with Dr. Ashford. ER Treatment Provided: See below Diagnostics Interpreted By Me: -ECG: Sinus tachycardia at 113, normal axis, normal intervals, nonspecific ST/T wave changes noted -Cardiac Monitoring: An order was placed for continuous cardiac monitoring. The monitor shows a rate of 112 with sinus tachycardia rhythm. -Laboratory studies: As stated above and show below. -Imaging studies: Chest x-ray: Scattered bilateral infiltrates, no widening sternum, no pleural effusions Triage Nursing Note Reviewed Prior/Outside Records Reviewed Critical Care: Critical care of 47 min performed to assess and manage high likelihood of life- threatening acute hypoxic respiratory failure, involving labs and imaging performed with assessment to evaluate acute hypoxic respiratory failure diagnosis with frequent reassessment. This time includes bedside time, treatment discussions with patient/family/consultants, documentation time and excludes procedure time. Past Med/Surg History Medical History Acute exacerbation of chronic obstructive pulmonary disease (COPD) Anxiety Asymptomatic microscopic hematuria Avascular necrosis of femoral head BPH (benign prostatic hypertrophy) Chronic hip pain Chronic neck pain Chronic obstructive pulmonary disease inhaler/nebulizer prn Chronic pain syndrome Dysphagia Emphysema of lung Esophageal dysmotility GERD (gastroesophageal reflux disease) Hearing deficit History of kidney stones Medical marijuana use On home oxygen therapy 2L N/C at hs and prn Pneumonia Status asthmaticus Surgical History History of bronchoscopy multiple ? History of cardiac cath 10/2018 @ [facility] by Dr. Mello--no stents placed History of carpal tunnel surgery of left wrist x3 History of colonoscopy with polypectomy History of ear surgery eardrum opening by Dr. Daniels History of elbow surgery bilt History of esophagogastroduodenoscopy (EGD) History of sinus surgery History of surgery on arm left arm---hardware removed History of tonsillectomy and adenoidectomy History of tooth extraction all upper teeth Hx of hernia repair x5 Family History Father Nephrolithiasis Asthma Mother Family history of diabetes mellitus Diabetes Grandfather (Paternal) Alzheimer disease Other No family history of adverse response to anesthesia Social History Smoking Status: Current some day smoker Tobacco Type: Cigarettes Second Hand Exposure: No; Do You Dip or Chew Tobacco: No; Hx Alcohol Use: No Hx Substance Use: Yes Last Used Substance: Days (ago) Last Used Substance Other:: 30 Substance Use Type Other:: smokes at bedtime to aide in sleeping Preferred Language: Upper Sorbian Communication Ability: Effective Science Writer Required: No Beliefs That Will Affect Care: None marital status: / Current Living Situation: Alone Current Living Situation Comment: home alone How many Children do You have: 5 Other Information That Helps Us Care for You: No Feels Safe at Home: Yes Safety Concerns: Feels Safe At This Time Assistive Devices: Cane Allergies Allergies Allergy/AdvReac Type Severity Reaction Status Date / Time clidinium Allergy Intermediate Rash Verified 11/10/22 01:05 [From Librax (with clidinium)] acetaminophen Allergy Mild hives/itchy Verified 11/10/22 01:05 chlordiazepoxide Allergy Mild Rash Verified 11/10/22 01:05 [From Librax (with clidinium)] codeine Allergy Mild Rash Verified 11/10/22 01:05 [From Tylenol-Codeine] latex Allergy Mild Rash Verified 11/10/22 01:05 montelukast AdvReac Severe MENTAL Verified 11/10/22 01:05 STATUS CHANGED zolpidem AdvReac Severe MENTAL Verified 11/10/22 01:05 STATUS CHANGED,HALLUCINATIONS budesonide [From Symbicort] AdvReac Intermediate caused Verified 11/10/22 01:05 vision problems formoterol [From Symbicort] AdvReac Intermediate caused Verified 11/10/22 01:05 vision problems Home Meds Home Medications Medication Instructions Recorded Confirmed albuterol sulfate 2.5 mg/3 mL 2.5 mg continuous nebulization Q4H 06/02/18 11/10/22 (0.083 %) solution for nebulization PRN Wheezing or Shortness of breath diazepam 5 mg tablet 5 mg PO AC 06/02/18 11/10/22 gabapentin 100 mg capsule 100 mg PO HS PRN Pain 06/02/18 11/10/22 albuterol sulfate 90 mcg/actuation 2 puff inhalation Q4 PRN Shortness 11/09/18 11/10/22 aerosol inhaler (ProAir HFA) Of Breath nitroglycerin 0.3 mg sublingual 0.3 mg sublingual UD PRN ESOPAGEAL 03/07/19 11/10/22 tablet (Nitrostat) SPASM oxycodone 15 mg tablet 15 mg PO Q8H PRN Pain,severe 01/23/20 11/10/22 Portable Oxygen #1 ea 02/11/20 08/11/22 diltiazem HCl 60 mg tablet 60 mg PO AMHS 08/10/22 11/10/22 guaifenesin 600 mg tablet, 1,200 mg PO AMHS PRN Congestion 08/10/22 11/10/22 extended release 12 hr (Mucinex) levocetirizine 5 mg tablet 5 mg PO QPM 08/10/22 11/10/22 tamsulosin 0.4 mg capsule 0.4 mg PO DAILY 08/11/22 11/10/22 diphenhydramine HCl 25 mg tablet 25 mg PO HS 11/10/22 11/10/22 (Benadryl Allergy) fluticasone fur. 200 mcg-umeclid 1 inh inhalation QAM 11/10/22 11/10/22 62.5 mcg-vilant 25 mcg inhalat.powder (Trelegy Ellipta) food supplemt, lactose-reduced 1 ea PO TID 11/10/22 11/10/22 loratadine 10 mg tablet 10 mg PO QAM 11/10/22 11/10/22 nystatin 100,000 unit/mL oral 15 ml PO QID PRN .thrush 11/10/22 11/10/22 suspension polyethylene glycol 3350 17 gram 17 g PO DAILY PRN Constipation 11/10/22 11/10/22 oral powder packet (Miralax) Previous Rx's Medication Instructions Recorded pantoprazole 40 mg tablet,delayed 40 mg PO QAM #30 tabs 08/14/22 release Results & Data (ED) Vital Signs Vital Signs - 24 hr 11/09/22 23:25 11/09/22 23:25 11/09/22 23:30 Temperature 36.7 C Temperature Source Oral Pulse Rate 114 H Pulse Rate [Apical] Pulse Rate [Finger] Pulse Rate from SpO2 Sensor Pulse Strength Normal Respiratory Rate 26 H 26 H Respiratory Effort / Characteristics Non-Labored Spontaneous Non-Labored Non-Labored Accessory Muscle Use Respiratory Depth Normal Normal Normal Respiratory Pattern Regular Regular Regular Blood Pressure 129/80 Blood Pressure Mean 96 Blood Pressure Position Lying Pulse Oximetry 89 L 89 L Oxygen Delivery Method Room Air Room Air Oxygen Flow Rate Fraction of Inspired Oxygen Sepsis Recent Fever Within 48 Hours No Sepsis New/Unexplained Change in Mental Status Yes Sepsis Action Taken by Nursing Physician Notified 11/10/22 00:07 11/09/22 23:21 11/09/22 23:55 Temperature Temperature Source Pulse Rate 109 H Pulse Rate [Apical] 113 H Pulse Rate [Finger] 113 H Pulse Rate from SpO2 Sensor 110 H Pulse Strength Respiratory Rate 22 26 H Respiratory Effort / Characteristics Spontaneous Respiratory Depth Respiratory Pattern Blood Pressure 129/80 Blood Pressure Mean 96 Blood Pressure Position Pulse Oximetry 93 86 L Oxygen Delivery Method High Flow Nasal Cannula Oxygen Flow Rate 25 Fraction of Inspired Oxygen Sepsis Recent Fever Within 48 Hours Sepsis New/Unexplained Change in Mental Status Sepsis Action Taken by Nursing 11/09/22 23:55 11/10/22 00:00 11/10/22 00:00 Temperature Temperature Source Pulse Rate 113 H Pulse Rate [Apical] Pulse Rate [Finger] Pulse Rate from SpO2 Sensor 114 H Pulse Strength Respiratory Rate 23 Respiratory Effort / Characteristics Respiratory Depth Respiratory Pattern Blood Pressure 120/72 101/75 Blood Pressure Mean 88 83 Blood Pressure Position Pulse Oximetry 88 L Oxygen Delivery Method Oxygen Flow Rate Fraction of Inspired Oxygen Sepsis Recent Fever Within 48 Hours Sepsis New/Unexplained Change in Mental Status Sepsis Action Taken by Nursing 11/10/22 00:10 11/10/22 01:38 11/09/22 23:30 Temperature Temperature Source Pulse Rate 110 H 121 H Pulse Rate [Apical] 102 H Pulse Rate [Finger] Pulse Rate from SpO2 Sensor 110 H Pulse Strength Respiratory Rate 28 H Respiratory Effort / Characteristics Respiratory Depth Respiratory Pattern Blood Pressure Blood Pressure Mean Blood Pressure Position Pulse Oximetry 93 95 Oxygen Delivery Method High Flow Nasal Cannula Oxygen Flow Rate 25 Fraction of Inspired Oxygen 90 Sepsis Recent Fever Within 48 Hours Sepsis New/Unexplained Change in Mental Status Sepsis Action Taken by Nursing 11/10/22 00:30 11/10/22 01:00 11/10/22 01:31 Temperature Temperature Source Pulse Rate 109 H 71 Pulse Rate [Apical] Pulse Rate [Finger] Pulse Rate from SpO2 Sensor Pulse Strength Respiratory Rate 22 20 Respiratory Effort / Characteristics Respiratory Depth Respiratory Pattern Blood Pressure 115/82 95/65 L 125/63 Blood Pressure Mean 93 75 83 Blood Pressure Position Pulse Oximetry 92 93 Oxygen Delivery Method High Flow Nasal Cannula High Flow Nasal Cannula Oxygen Flow Rate Fraction of Inspired Oxygen Sepsis Recent Fever Within 48 Hours Sepsis New/Unexplained Change in Mental Status Sepsis Action Taken by Nursing 11/10/22 02:00 11/10/22 02:10 Temperature Temperature Source Pulse Rate 71 91 H Pulse Rate [Apical] Pulse Rate [Finger] Pulse Rate from SpO2 Sensor 91 H Pulse Strength Respiratory Rate 23 20 Respiratory Effort / Characteristics Respiratory Depth Respiratory Pattern Blood Pressure 92/64 L Blood Pressure Mean 73 Blood Pressure Position Pulse Oximetry 93 91 Oxygen Delivery Method High Flow Nasal Cannula Oxygen Flow Rate Fraction of Inspired Oxygen Sepsis Recent Fever Within 48 Hours Sepsis New/Unexplained Change in Mental Status Sepsis Action Taken by Nursing Laboratory Data 11/09/22 23:35 11/09/22 23:35 Lab Results 11/09/22 11/09/22 11/09/22 Range/Units 23:35 23:35 23:35 WBC 6.47 (4.8-10.8) K/ul RBC 4.59 L (4.70-6.10) M/uL Hgb 14.2 (14.0-18.0) g/dl POC Hgb (14.0-18.0) g/dl Hct 41.4 L (42.0-52.0) % POC Hct (42-52) % MCV 90.2 (80.0-100.0) fL MCH 30.9 (25.0-34.0) pg MCHC 34.3 (32.0-36.0) g/dL RDW Std Deviation 52.6 H (36.4-46.3) fL RDW Coeff of Myles 15.9 H (11.5-14.5) % Plt Count 173 (130-400) K/uL MPV 11.3 (9.4-12.4) fL Immature Gran % (Auto) 0.6 % Neut % (Auto) 87.5 % Lymph % (Auto) 6.8 % [place] % (Auto) 4.9 % Eos % (Auto) 0.0 % Baso % (Auto) 0.2 % Neut # (Auto) 5.66 (1.40-6.50) K/uL Lymph # (Auto) 0.44 L (1.2-3.4) K/uL [place] # (Auto) 0.32 (0.11-0.59) K/uL Eos # (Auto) 0.00 (0-0.50) K/uL Baso # (Auto) 0.01 (0-0.2) K/uL Immature Gran # (Auto) 0.04 (0.01-0.20) K/uL Toxic Vacuolation 1+ Dohle Bodies 1+ POC pH (7.35-7.45) POC pCO2 (35-46) mmHg POC pO2 (80-95) mmHg POC HCO3 (19-24) angelina/L POC Total CO2 (24-31) mmol/L POC Base Excess (-9-1.8) angelina/L POC ABG O2 Sat (90-95) % POC Sodium (135-144) mmol/L Sodium 138 (136-145) mmol/L POC Potassium (3.3-5.0) mmol/L Potassium 3.5 (3.5-5.1) mmol/L Chloride 89 L (98-107) mmol/L Carbon Dioxide 37 H (21-32) mmol/L Anion Gap 12 H (3-11) BUN 43 H (6-23) mg/dl Creatinine 1.14 (0.6-1.4) mg/dl Est Cr Clr Drug Dosing Not Reportable Est GFR ( Amer) 76.2 ml/min Est GFR (Non-Af Amer) 65.7 ml/min BUN/Creatinine Ratio 37.7 H (10-20) Glucose 190 H (70-99(Fasting)) mg/dl Lactate (0.4-2.0) mmol/L Calcium 8.9 (8.6-10.3) mg/dl Magnesium 2.2 (1.7-2.4) mg/dl Total Bilirubin 0.8 (0.2-1.0) mg/dl AST 58 H (13-39) U/L ALT 36 (7-52) U/L Alkaline Phosphatase 49 (34-104) U/L Troponin I High Sens 14.2 (0-20) pg/ml B-Natriuretic Peptide 72 (0-100) pg/ml Total Protein 7.2 (6.0-8.3) gm/dl Albumin 3.4 (3.4-5.0) gm/dl Globulin 3.8 (2.5-4.0) gm/dl Albumin/Globulin Ratio 0.9 (0.9-2) Procalcitonin (0-0.5) ng/ml Adenovirus (PCR) (NotDetected) B. pertussis DNA (PCR) (NotDetected) B.parapertussis DNA PCR (NotDetected) C. pneumoniae DNA (PCR) (NotDetected) Coronavirus OC43 (PCR) (NotDetected) Coronavirus HKU1 (PCR) (NotDetected) Coronavirus 229E (PCR) (NotDetected) SARS-CoV-2 (PCR) (NotDetected) Coronavirus NL63 (PCR) (NotDetected) Human Metapneumovir PCR (NotDetected) Influenza Type A (PCR) (NotDetected) Influenza Type B (PCR) (NotDetected) M. pneumoniae (PCR) (NotDetected) Parainfluenza 1 (PCR) (NotDetected) Parainfluenza 2 (PCR) (NotDetected) Parainfluenza 3 (PCR) (NotDetected) Parainfluenza 4 (PCR) (NotDetected) RSV (PCR) (NotDetected) Entero/Rhino (PCR) (NotDetected) 11/09/22 11/09/22 11/09/22 Range/Units 23:35 23:35 23:49 WBC (4.8-10.8) K/ul RBC (4.70-6.10) M/uL Hgb (14.0-18.0) g/dl POC Hgb 14.3 (14.0-18.0) g/dl Hct (42.0-52.0) % POC Hct 42 (42-52) % MCV (80.0-100.0) fL MCH (25.0-34.0) pg MCHC (32.0-36.0) g/dL RDW Std Deviation (36.4-46.3) fL RDW Coeff of Myles (11.5-14.5) % Plt Count (130-400) K/uL MPV (9.4-12.4) fL Immature Gran % (Auto) % Neut % (Auto) % Lymph % (Auto) % [place] % (Auto) % Eos % (Auto) % Baso % (Auto) % Neut # (Auto) (1.40-6.50) K/uL Lymph # (Auto) (1.2-3.4) K/uL [place] # (Auto) (0.11-0.59) K/uL Eos # (Auto) (0-0.50) K/uL Baso # (Auto) (0-0.2) K/uL Immature Gran # (Auto) (0.01-0.20) K/uL Toxic Vacuolation Dohle Bodies POC pH 7.52 H* (7.35-7.45) POC pCO2 52 H (35-46) mmHg POC pO2 53 L (80-95) mmHg POC HCO3 42 H (19-24) angelina/L POC Total CO2 > 40 H* (24-31) mmol/L POC Base Excess 19.0 H (-9-1.8) angelina/L POC ABG O2 Sat 89.0 L (90-95) % POC Sodium 133 L (135-144) mmol/L Sodium (136-145) mmol/L POC Potassium 3.4 (3.3-5.0) mmol/L Potassium (3.5-5.1) mmol/L Chloride (98-107) mmol/L Carbon Dioxide (21-32) mmol/L Anion Gap (3-11) BUN (6-23) mg/dl Creatinine (0.6-1.4) mg/dl Est Cr Clr Drug Dosing Est GFR ( Amer) ml/min Est GFR (Non-Af Amer) ml/min BUN/Creatinine Ratio (10-20) Glucose (70-99(Fasting)) mg/dl Lactate 4.7 H* (0.4-2.0) mmol/L Calcium (8.6-10.3) mg/dl Magnesium (1.7-2.4) mg/dl Total Bilirubin (0.2-1.0) mg/dl AST (13-39) U/L ALT (7-52) U/L Alkaline Phosphatase (34-104) U/L Troponin I High Sens (0-20) pg/ml B-Natriuretic Peptide (0-100) pg/ml Total Protein (6.0-8.3) gm/dl Albumin (3.4-5.0) gm/dl Globulin (2.5-4.0) gm/dl Albumin/Globulin Ratio (0.9-2) Procalcitonin 12.87 H (0-0.5) ng/ml Adenovirus (PCR) (NotDetected) B. pertussis DNA (PCR) (NotDetected) B.parapertussis DNA PCR (NotDetected) C. pneumoniae DNA (PCR) (NotDetected) Coronavirus OC43 (PCR) (NotDetected) Coronavirus HKU1 (PCR) (NotDetected) Coronavirus 229E (PCR) (NotDetected) SARS-CoV-2 (PCR) (NotDetected) Coronavirus NL63 (PCR) (NotDetected) Human Metapneumovir PCR (NotDetected) Influenza Type A (PCR) (NotDetected) Influenza Type B (PCR) (NotDetected) M. pneumoniae (PCR) (NotDetected) Parainfluenza 1 (PCR) (NotDetected) Parainfluenza 2 (PCR) (NotDetected) Parainfluenza 3 (PCR) (NotDetected) Parainfluenza 4 (PCR) (NotDetected) RSV (PCR) (NotDetected) Entero/Rhino (PCR) (NotDetected) 11/10/22 11/10/22 Range/Units 00:05 02:11 WBC (4.8-10.8) K/ul RBC (4.70-6.10) M/uL Hgb (14.0-18.0) g/dl POC Hgb (14.0-18.0) g/dl Hct (42.0-52.0) % POC Hct (42-52) % MCV (80.0-100.0) fL MCH (25.0-34.0) pg MCHC (32.0-36.0) g/dL RDW Std Deviation (36.4-46.3) fL RDW Coeff of Myles (11.5-14.5) % Plt Count (130-400) K/uL MPV (9.4-12.4) fL Immature Gran % (Auto) % Neut % (Auto) % Lymph % (Auto) % [place] % (Auto) % Eos % (Auto) % Baso % (Auto) % Neut # (Auto) (1.40-6.50) K/uL Lymph # (Auto) (1.2-3.4) K/uL [place] # (Auto) (0.11-0.59) K/uL Eos # (Auto) (0-0.50) K/uL Baso # (Auto) (0-0.2) K/uL Immature Gran # (Auto) (0.01-0.20) K/uL Toxic Vacuolation Dohle Bodies POC pH (7.35-7.45) POC pCO2 (35-46) mmHg POC pO2 (80-95) mmHg POC HCO3 (19-24) angelina/L POC Total CO2 (24-31) mmol/L POC Base Excess (-9-1.8) angelina/L POC ABG O2 Sat (90-95) % POC Sodium (135-144) mmol/L Sodium (136-145) mmol/L POC Potassium (3.3-5.0) mmol/L Potassium (3.5-5.1) mmol/L Chloride (98-107) mmol/L Carbon Dioxide (21-32) mmol/L Anion Gap (3-11) BUN (6-23) mg/dl Creatinine (0.6-1.4) mg/dl Est Cr Clr Drug Dosing Est GFR ( Amer) ml/min Est GFR (Non-Af Amer) ml/min BUN/Creatinine Ratio (10-20) Glucose (70-99(Fasting)) mg/dl Lactate 3.8 H* (0.4-2.0) mmol/L Calcium (8.6-10.3) mg/dl Magnesium (1.7-2.4) mg/dl Total Bilirubin (0.2-1.0) mg/dl AST (13-39) U/L ALT (7-52) U/L Alkaline Phosphatase (34-104) U/L Troponin I High Sens (0-20) pg/ml B-Natriuretic Peptide (0-100) pg/ml Total Protein (6.0-8.3) gm/dl Albumin (3.4-5.0) gm/dl Globulin (2.5-4.0) gm/dl Albumin/Globulin Ratio (0.9-2) Procalcitonin (0-0.5) ng/ml Adenovirus (PCR) Not Detected (NotDetected) B. pertussis DNA (PCR) Not Detected (NotDetected) B.parapertussis DNA PCR Not Detected (NotDetected) C. pneumoniae DNA (PCR) Not Detected (NotDetected) Coronavirus OC43 (PCR) Not Detected (NotDetected) Coronavirus HKU1 (PCR) Not Detected (NotDetected) Coronavirus 229E (PCR) Not Detected (NotDetected) SARS-CoV-2 (PCR) Not Detected (NotDetected) Coronavirus NL63 (PCR) Not Detected (NotDetected) Human Metapneumovir PCR Not Detected (NotDetected) Influenza Type A (PCR) Not Detected (NotDetected) Influenza Type B (PCR) Not Detected (NotDetected) M. pneumoniae (PCR) Not Detected (NotDetected) Parainfluenza 1 (PCR) Not Detected (NotDetected) Parainfluenza 2 (PCR) Not Detected (NotDetected) Parainfluenza 3 (PCR) Not Detected (NotDetected) Parainfluenza 4 (PCR) Not Detected (NotDetected) RSV (PCR) Not Detected (NotDetected) Entero/Rhino (PCR) DETECTED A* (NotDetected) Administered Medications Sodium Chloride (Nss 1000ml) 1,000 mls @ 100 mls/hr IV .Q10H MAGNOLIA Stop: 11/10/22 13:11 Last Infusion: 11/10/22 04:49 Dose: 100 mls/hr Documented By: Admin: 11/10/22 04:00 Dose: 100 mls/hr Documented By: ADWOA Ipratropium [place] (Ipratropium [place] Neb Soln 0.02% 2.5 Ml Vial) 0.5 mg INH QIDR [facility] Stop: 12/10/22 06:59 Last Admin: 11/10/22 07:09 Dose: 0.5 mg Documented By: NILSA Levalbuterol HCl (Levalbuterol 1.25 Mg/3 Ml Neb) 1.25 mg NEB QIDR [facility]IA Stop: 12/10/22 06:59 Last Admin: 11/10/22 07:09 Dose: 1.25 mg Documented By: NILSA Discontinued Medications Albuterol (Albut/Ipratrop 3mg/0.5mg Neb 3 Ml Vial) 3 ml NEB NOW STA; Protocol Stop: 11/10/22 00:26 Last Admin: 11/10/22 01:37 Dose: Not Given Documented By: CHANDLER Cefepime HCl (Maxipime) 2,000 mg in 20 mls @ 5 mls/min IV NOW STA; Protocol Stop: 11/10/22 00:10 Last Admin: 11/10/22 00:32 Dose: 5 mls/min Documented By: LAN Doxycycline Hyclate 100 mg/ (Dextrose) 110 mls @ 50 mls/hr IV NOW STA Stop: 11/10/22 02:18 Last Infusion: 11/10/22 03:03 Dose: 0 mls/hr Documented By: Admin: 11/10/22 00:41 Dose: 50 mls/hr Documented By: LAN Sodium Chloride (Nss 1000ml) 1,000 mls @ 125 mls/hr IV .Q8H MAGNOLIA Stop: 12/10/22 00:29 Last Infusion: 11/10/22 04:00 Dose: 0 mls/hr Documented By: Admin: 11/10/22 02:33 Dose: 125 mls/hr Documented By: LAN Ioversol (Optiray 320 500ml) 80 ml IV ONCE ONE Stop: 11/10/22 01:26 Last Admin: 11/10/22 01:25 Dose: 80 ml Documented By: TIANA Methylprednisolone (Methylprednisolone 125 Mg/2 Ml Vial) 60 mg IV NOW STA Stop: 11/10/22 02:22 Last Admin: 11/10/22 02:48 Dose: 60 mg Documented By: LAN Imaging Data Radiologist's Impression: Head CT 11/10/22 00:26 Exam(s): CT HEAD Without Contrast EXAM: CT Head Without Intravenous Contrast CLINICAL HISTORY: Reason for exam: increased confusion. TECHNIQUE: Axial computed tomography images of the head/brain without intravenous contrast. Automated exposure control was utilized for the study. A dose lowering technique was utilized adhering to the principles of ALARA. COMPARISON: No relevant prior studies available. FINDINGS: Brain: The cerebral and cerebellar sulci are mildly prominent consistent with mild brain atrophy. There are a few areas of decreased attenuation in the deep cerebral white matter consistent with mild small vessel ischemic/degenerative changes. No hemorrhage. Ventricles: Unremarkable. No ventriculomegaly. Bones/joints: Unremarkable. No acute fracture. Soft tissues: Unremarkable. Vasculature: Atherosclerotic disease. Sinuses: Unremarkable as visualized. No acute sinusitis. Mastoid air cells: Unremarkable as visualized. No mastoid effusion. IMPRESSION: No acute findings in the head/brain. Electronically signed by: Jaime Christine MD 11/10/22 01:[address] 11/10/22 00:43 Exam(s): CT CHEST With Contrast IV Amt: 80ml Optiray 320 EXAM: CT Chest With Intravenous Contrast CLINICAL HISTORY: Reason for exam: multifocal pneumonia. TECHNIQUE: Axial computed tomography images of the chest with intravenous contrast. Automated exposure control was utilized for the study. A dose lowering technique was utilized adhering to the principles of ALARA. CONTRAST: Patient received 80ml Optiray 320 of IV contrast COMPARISON: No relevant prior studies available. FINDINGS: Lungs: There is multifocal parenchymal consolidation most pronounced at the lung bases, right greater than left. There is extensive emphysema. Pleural space: Unremarkable. No pneumothorax. No significant effusion. Heart: There is diffuse coronary vascular calcification. No significant pericardial effusion. Bones/joints: There are degenerative changes of the thoracolumbar spine. No acute fracture. No dislocation. Soft tissues: Unremarkable. Vasculature: See above. Lymph nodes: Unremarkable. No enlarged lymph nodes. IMPRESSION: Multifocal parenchymal consolidation, most pronounced at the lung bases, right greater than left. Electronically signed by: Jaime Christine MD 11/10/22 01:45 AM Discharge Plan Visit Data Chief Complaint: Respiratory Problems ED Provider: Hina Jeffries Discharge Problem: Acute respiratory failure with hypoxia, COPD (chronic obstructive pulmonary disease), Multifocal pneumonia, Chronic respiratory failure with hypoxia, on home O2 therapy, Noncompliance Patient Disposition: Admitted As Inpatient Discharge Instructions Interventions: ED Discharge Assessment Last Done: 11/10/22 04:10
[2022-11-09 23:54] LABS: Hematocrit (blood only) 41.4 % (42.0-52.0); Hemoglobin 14.2 g/dl (14.0-18.0); Mean Corpuscular Hemoglobin 30.9 pg (25.0-34.0); Mean Corpuscular Hgb Conc 34.3 g/dL (32.0-36.0); Mean Corpuscular Volume 90.2 fL (80.0-100.0); Mean Platelet Volume 11.3 fL (9.4-12.4); Platelet Count 173 K/uL (130-400); RDW Coefficient of Variation 15.9 % (11.5-14.5); RDW Standard Deviation 52.6 fL (36.4-46.3); Red Blood Count 4.59 M/uL (4.70-6.10); White Blood Count 6.47 K/ul (4.8-10.8)
[2022-11-10 00:07] LABS: iSTAT Arterial Blood Gas HCO3 42 meg/L (19-24); iSTAT Arterial Blood Gas pCO2 52 mmHg (35-46); iSTAT Arterial Blood Gas pH 7.52 (7.35-7.45); iSTAT Arterial Blood Gas pO2 53 mmHg (80-95); iSTAT Carbon Dioxide > 40 mmol/L (24-31); iSTAT Hematocrit 42 % (42-52); iSTAT Hemoglobin 14.3 g/dl (14.0-18.0); iSTAT Potassium 3.4 mmol/L (3.3-5.0); iSTAT Sodium 133 mmol/L (135-144)
[2022-11-10] MEDS ORDERED: DOXYCYCLINE HYCLATE 100 MG in DEXTROSE 5% 100 ML IV STA (00:07)
[2022-11-10] MEDS ORDERED: CEFEPIME 2,000 MG/20 ML VIAL IV STA (00:07)
[2022-11-10 00:11] LABS: Alanine Aminotransferase 36 U/L (7-52); Albumin Globulin Ratio 0.9 (0.9-2); Albumin Level 3.4 gm/dl (3.4-5.0); Alkaline Phosphatase 49 U/L (34-104); Anion Gap 12 (3-11); Aspartate Aminotransferase 58 U/L (13-39); BUN Creatinine Ratio 37.7 (10-20); Bilirubin,Total 0.8 mg/dl (0.2-1.0); Blood Urea Nitrogen 43 mg/dl (6-23); Calcium 8.9 mg/dl (8.6-10.3); Carbon Dioxide 37 mmol/L (21-32); Chloride 89 mmol/L (98-107); Est GFR (African American) 76.2 ml/min; Est GFR (Non-African American) 65.7 ml/min; Globulin 3.8 gm/dl (2.5-4.0); Glucose 190 mg/dl (70-99(Fasting)); Magnesium 2.2 mg/dl (1.7-2.4); Potassium 3.5 mmol/L (3.5-5.1); Sodium 138 mmol/L (136-145); Total Protein 7.2 gm/dl (6.0-8.3)
[2022-11-10 00:18] LABS: Troponin I High Sensitivity 14.2 pg/ml (0-20)
[2022-11-10] MEDS ORDERED: ALBUT/IPRATROP 3MG/0.5MG NEB 3 ML VIAL NEB STA (00:25)
[2022-11-10 00:30] LABS: Basophils # (auto) 0.01 K/uL (0-0.2); Basophils % (auto) 0.2 %; Dohle Bodies 1+; Immature Granulocytes # (auto) 0.04 K/uL (0.01-0.20); Immature Granulocytes % (auto) 0.6 %; Lymphocytes # (auto) 0.44 K/uL (1.2-3.4); Lymphocytes % (auto) 6.8 %; Monocytes # (auto) 0.32 K/uL (0.11-0.59); Monocytes % (auto) 4.9 %; Neutrophils # (auto) 5.66 K/uL (1.40-6.50); Neutrophils % (auto) 87.5 %; Toxic Vacuolation 1+
[2022-11-10] MEDS ORDERED: SODIUM CHLORIDE 0.9% 1000ML 1,000 ML IV SCH ×2 (00:30→03:12)
[2022-11-10 01:11] LABS: Adenovirus PCR Not Detected (NotDetected); Bordetella parapertussis PCR Not Detected (NotDetected); Bordetella pertussis PCR Not Detected (NotDetected); Chlamydia pneumoniae PCR Not Detected (NotDetected); Coronavirus 229E PCR Not Detected (NotDetected); Coronavirus CoV-2 (COVID19)PCR Not Detected (NotDetected); Coronavirus HKU1 PCR Not Detected (NotDetected); Coronavirus NL63 PCR Not Detected (NotDetected); Coronavirus OC43PCR Not Detected (NotDetected); Human Metapneumovirus PCR Not Detected (NotDetected); Influenza A PCR Not Detected (NotDetected); Influenza B PCR Not Detected (NotDetected); Mycoplasma pneumoniae PCR Not Detected (NotDetected); Parainfluenza Virus 1 PCR Not Detected (NotDetected); Parainfluenza Virus 2 PCR Not Detected (NotDetected); Parainfluenza Virus 3 PCR Not Detected (NotDetected); Parainfluenza Virus 4 PCR Not Detected (NotDetected); Respiratory Syncytial VirusPCR Not Detected (NotDetected)
[2022-11-10 01:12] LABS: Rhinovirus/Enterovirus PCR DETECTED (NotDetected)
[2022-11-10] MEDS ORDERED: OPTIRAY 320 500ml IV ONE (01:25)
--- NOTE | 2022-11-10 01:32 | CT Scan Report ---
Exam(s): CT HEAD Without Contrast EXAM: CT Head Without Intravenous Contrast CLINICAL HISTORY: Reason for exam: increased confusion. TECHNIQUE: Axial computed tomography images of the head/brain without intravenous contrast. Automated exposure control was utilized for the study. A dose lowering technique was utilized adhering to the principles of ALARA. COMPARISON: No relevant prior studies available. FINDINGS: Brain: The cerebral and cerebellar sulci are mildly prominent consistent with mild brain atrophy. There are a few areas of decreased attenuation in the deep cerebral white matter consistent with mild small vessel ischemic/degenerative changes. No hemorrhage. Ventricles: Unremarkable. No ventriculomegaly. Bones/joints: Unremarkable. No acute fracture. Soft tissues: Unremarkable. Vasculature: Atherosclerotic disease. Sinuses: Unremarkable as visualized. No acute sinusitis. Mastoid air cells: Unremarkable as visualized. No mastoid effusion. IMPRESSION: No acute findings in the head/brain. Electronically signed by: Jaime Christine MD 11/10/22 01:31 AM
--- NOTE | 2022-11-10 01:46 | CT Scan Report ---
Exam(s): CT CHEST With Contrast IV Amt: 80ml Optiray 320 EXAM: CT Chest With Intravenous Contrast CLINICAL HISTORY: Reason for exam: multifocal pneumonia. TECHNIQUE: Axial computed tomography images of the chest with intravenous contrast. Automated exposure control was utilized for the study. A dose lowering technique was utilized adhering to the principles of ALARA. CONTRAST: Patient received 80ml Optiray 320 of IV contrast COMPARISON: No relevant prior studies available. FINDINGS: Lungs: There is multifocal parenchymal consolidation most pronounced at the lung bases, right greater than left. There is extensive emphysema. Pleural space: Unremarkable. No pneumothorax. No significant effusion. Heart: There is diffuse coronary vascular calcification. No significant pericardial effusion. Bones/joints: There are degenerative changes of the thoracolumbar spine. No acute fracture. No dislocation. Soft tissues: Unremarkable. Vasculature: See above. Lymph nodes: Unremarkable. No enlarged lymph nodes. IMPRESSION: Multifocal parenchymal consolidation, most pronounced at the lung bases, right greater than left. Electronically signed by: Jaime Christine MD 11/10/22 01:45 AM
[2022-11-10] MEDS ORDERED: methylPREDNISolone 125 MG/2 ML VIAL IV STA (02:21)
[2022-11-10] MEDS ORDERED: IPRATROPIUM BROMIDE NEB SOLN 0.02% 2.5 ML VIAL INH PRN (03:12)
[2022-11-10] MEDS ORDERED: LEVALBUTEROL 1.25 MG/3 ML NEB NEB PRN (03:12)
[2022-11-10] MEDS ORDERED: XOPENEX/ATROVENT 1.25mg/0.5MG NEB COMBO NEB PRN (03:12)
[2022-11-10] MEDS ORDERED: ALBUTEROL HFA 8 GM INHALER INH PRN (03:12)
[2022-11-10] MEDS ORDERED: NITROGLYCERIN 0.3 MG/1 TAB 100 TAB BTL SL PRN (03:12)
[2022-11-10] MEDS ORDERED: NITROGLYCERIN SL 0.4 MG/TAB TAB SL PRN (03:12)
[2022-11-10] MEDS ORDERED: ACETAMINOPHEN 325 MG TAB PO PRN (03:12)
--- NOTE | 2022-11-10 06:19 | History and Physical Report ---
DATE OF ADMISSION: 11/10/2022. CHIEF COMPLAINT: Respiratory distress, chronic obstructive pulmonary disease exacerbation, pneumonia. HISTORY OF PRESENT ILLNESS: This is a 67-year-old male with past medical history significant for chronic respiratory failure with severe persistent asthma, bronchiectasis, COPD, on home oxygen, seems to be on 3 L, history of mycobacterial and fungal pneumonia, the patient seems to be noncompliant, history of chronic pain and BPH. The patient severe persistent asthma with elevated eosinophilia, bronchial thermoplasty in 2012. 2020 PFTs showed FEV1 of 46% of predicted. HE has AFB cultures done in 04/2022, were negative. The patient was recently in the hospital in July with COPD exacerbation, acute bronchitis. At that time, chest x-ray showed lung nodule followup recommended and the patient has difficulty with swallowing , history of oropharyngeal dysphagia video swallow was done in August 12/2023, silent aspiration was noted. GI evaluated, diet seems he didnot wanted peg tube, easy to chew diet was recommended by speech. The patient also seems to be followed with pulmonary and family doctor. Looks like he had bronchoscopy in late August. Currently, the patient comes with shortness of breath. Patient says since last Friday was getting short of breath. He states he waited too long. He did not want to come to the hospital. As it was not getting better, his friend convinced him to come to the hospital. When the EMS arrived, he was saturating only 60%. Was placed on nonrebreather mask, brought in here. He is currently on high-flow oxygen, saturating okay. His ABGs looked okay. When he came in, he seemed somewhat confused, so CTA head was done, which was unremarkable. Lactic acid 4.7, repeat was 3.8. Currently alert and oriented, some mild tachypnea, but able to give history. Denies any headache. Has some dizziness. Denies any blurred visions, has some runny nose. Denies sore throat, cough with yellowish phlegm. Denies any fevers, no chest pain. He has right-sided chest pain for 1 month. No nausea, no abdominal pain. Normal bowel and bladder movements. ALLERGIES: CLIDINIUM, TYLENOL, CHLORDIAZEPOXIDE, CODEINE, LATEX, MONTELUKAST, ZOLPIDEM, SYMBICORT. FAMILY HISTORY: Significant for mother has diabetes; father has hypertension. SOCIAL HISTORY: Lives alone. Quit smoking in 2006. Alcohol less than 1 per month. He used to smoke marijuana but not currently per Epic. REVIEW OF SYSTEMS: As per HPI. Rest of the review of systems is negative. PHYSICAL EXAMINATION: GENERAL: The patient is thin and frail, not in acute distress. VITAL SIGNS: Temperature 36.7, pulse 102, respiratory rate 28, blood pressure 101/70, oxygen 95% on high flow. HEENT: Pupils equal, round and reactive to light. Oral mucosa moist. CARDIOVASCULAR: S1 and S2 heard, tachycardia. Regular rate and rhythm. No murmur. RESPIRATORY SYSTEM: Mild tachypnea. Bilateral rhonchi and wheezing heard. ABDOMEN: Soft, bowel sounds present, nontender, no distention. CENTRAL NERVOUS SYSTEM: Alert and oriented. Speech is clear. No facial droop. Obeys simple commands. Insight is okay. Moves extremities. EXTREMITIES: No edema, no erythema. LABORATORY DATA: WBC 6.4, hemoglobin 14.2, hematocrit 41.4, platelets 173, pH of 7.52, pCO2 52, pO2 53, bicarbonate 42, oxygen 89%. Sodium 138, potassium 3.5, chloride 89, CO2 of 37, BUN 43, creatinine 1.1, serum glucose 198, lactate 3.8, calcium 8.9, magnesium 2.2, total bilirubin 0.8, AST 58, ALT 36, alkaline phosphatase 49. Troponin I high sensitivity 14.2. BNP 72. Procalcitonin 12.8. Respiratory BioFire positive for enterorhinovirus. IMAGING DATA: CT chest, multifocal pneumonia, mostly pronounced in the lung bases, right greater than left. CT of the head, no acute findings. Chest x- ray, multifocal pneumonia. EKG: Sinus tachycardia with PACs at rate of 113, no acute ST changes seen. ASSESSMENT AND PLAN: This is a 67-year-old male, who presents with respiratory distress. 1. Respiratory distress, chronic obstructive pulmonary disease exacerbation, multifocal pneumonia. Currently on high flow, which will be continued. ABGs are okay. Empiric antibiotics, Zosyn and doxycycline, IV Solu-Medrol, nebs around the clock and p.r.n. Closely monitor in the tele floor. Because of recurrent infection and admission, we will consult Pulmonary in a.m. . Elevated lactic acid mostly from the hypoxia, getting better. We will monitor. Follow the repeat labs. 2. Altered mental status. When she came in, the patient was somewhat confused. Currently back to his baseline, possibly from hypoxia. CT head is okay. ABGs are okay. 3. Entero/rhinovirus on rep biofire. isolation precautions. 4. Oropharyngeal dysphagia, esophageal dysmotility silent aspiration. easy to chew diet as per speech recommendations recommendations. Last admission patient declined peg tube The patient takes Valium, which we will be continued. 5. History of asthma, bronchitis. Management as above. 6. History of chronic diastolic congestive heart failure. The patient getting fluids. We will monitor for any volume overload. 7. Chronic pain syndrome, cervical radiculopathy. On oxycodone as needed. 8. History of benign prostatic hyperplasia. On Flomax. 9. Gastroesophageal reflux disease. On Protonix. 10. Deep venous thrombosis prophylaxis. Placed on Lovenox. DISPOSITION: Closely monitor in the tele floor. PT, OT prior to discharge. Social service to help with discharge planning. Job ID: [id number] [facility]ang
--- NOTE | 2022-11-10 07:06 | Electrocardiogram Report ---
Test Reason : Blood Pressure : / mmHG Vent. Rate : 113 BPM Atrial Rate : 113 BPM P-R Int : 130 ms QRS Dur : 082 ms QT Int : 298 ms P-R-T Axes : 078 057 066 degrees QTc Int : 408 ms Sinus tachycardia with Premature atrial complexes Biatrial enlargement Low voltage QRS Abnormal ECG When compared with ECG of 10-AUG-2022 22:18, Premature atrial complexes are now Present Vent. rate has increased BY 40 BPM Confirmed by Dagoberto Prasad ([id number]) on 11/10/2022 7:05:56 AM Referred By: REFERRED SELF Confirmed By:Chad Prasad
[2022-11-10] MEDS: LEVALBUTEROL 1.25 MG/3 ML NEB NEB SCH ×4 (07:09→19:45)
[2022-11-10] MEDS: IPRATROPIUM BROMIDE NEB SOLN 0.02% 2.5 ML VIAL INH SCH ×4 (07:09→19:45)
[2022-11-10 07:33] LABS: BUN Creatinine Ratio 43.5 (10-20); Calcium 8.2 mg/dl (8.6-10.3); Creatinine Clr Calc Pharmacy 50.8 ml/min; Est GFR (African American) 98.7 ml/min; Est GFR (Non-African American) 85.2 ml/min; Magnesium 2.3 mg/dl (1.7-2.4); Potassium 3.4 mmol/L (3.5-5.1)
[2022-11-10 07:47] LABS: Hematocrit (blood only) 32.1 % (42.0-52.0); Hemoglobin 11.4 g/dl (14.0-18.0); Mean Corpuscular Hemoglobin 30.7 pg (25.0-34.0); Mean Corpuscular Hgb Conc 35.5 g/dL (32.0-36.0); Mean Corpuscular Volume 86.5 fL (80.0-100.0); Mean Platelet Volume 11.6 fL (9.4-12.4); Platelet Count 145 K/uL (130-400); RDW Standard Deviation 50.7 fL (36.4-46.3); Red Blood Count 3.71 M/uL (4.70-6.10); White Blood Count 3.73 K/ul (4.8-10.8)
[2022-11-10 07:48] LABS: Basophils # (auto) 0.04 K/uL (0-0.2); Basophils % (auto) 1.1 %; Dohle Bodies 1+; Immature Granulocytes # (auto) 0.02 K/uL (0.01-0.20); Immature Granulocytes % (auto) 0.5 %; Lymphocytes # (auto) 0.26 K/uL (1.2-3.4); Monocytes # (auto) 0.11 K/uL (0.11-0.59); Monocytes % (auto) 2.9 %; Neutrophils % (auto) 88.5 %; Toxic Vacuolation 1+
[2022-11-10] MEDS ORDERED: PIPERACILLIN/TAZOBACTAM 4.5 GM in DEXTROSE 5% 100 ML IV ONE (08:00)
--- NOTE | 2022-11-10 08:28 | XRay Report ---
XR chest 1V portable CLINICAL HISTORY: sob TECHNIQUE: Single frontal radiograph of the chest was obtained. Comparison: Comparison is made to chest radiograph 08/10/2022 FINDINGS: No lines and tubes are seen. The cardiomediastinal silhouette is normal. Bilateral lower lung predomi nant airspace opacities are seen. No evidence of pleural effusion or pneumothorax. IMPRESSION: Bilateral lower lung predominant airspace opacities which likely represent multifocal pneumonia. ACT 112: Negative or not required by law. Electronically signed by: Nba Joyner M.D. 11/10/2022 8:25 AM
[2022-11-10] MEDS ORDERED: ACETYLCYSTEINE 10% INHAL SOLN 4 ML **DISPENSED BY RESP. INH SCH (09:00)
[2022-11-10] MEDS ORDERED: UMECLIDINIUM/VILANTEROL 62.5/25MCG 7 PUFFS/INHALER INH SCH (09:00)
[2022-11-10] MEDS ORDERED: XOPENEX/ATROVENT 1.25mg/0.5MG NEB COMBO NEB SCH (09:00)
[2022-11-10] MEDS ORDERED: methylPREDNISolone 40 MG in SYRINGE 0 ML IV SCH (09:00)
[2022-11-10] MEDS ORDERED: ENOXAPARIN INJ 40 MG/0.4 ML SYR SQ SCH (09:00)
[2022-11-10] MEDS ORDERED: FLUTICASONE FUROATE 200MCG 14 PUFFS/INHALER INH SCH (09:00)
[2022-11-10] MEDS ORDERED: NON-FORMULARY MEDICATION (Fluticasone-Umeclidin-Vilanter [Trelegy Ellipta] 200-62.5-25 mcg INH SCH (09:00)
[2022-11-10] MEDS ORDERED: NON-FORMULARY MEDICATION (Food Supplemt, Lactose-Reduced Liquid) PO SCH (09:00)
[2022-11-10] MEDS: diazePAM 5 MG TABLET PO SCH ×3 (09:09→17:22)
[2022-11-10] MEDS: NYSTATIN SUSP 500,000 U/5 ML UDC PO SCH ×4 (09:11→21:51)
[2022-11-10] MEDS: LORATADINE 10 MG TAB PO SCH (09:11)
[2022-11-10] MEDS: HEPARIN SOD 5,000 UNIT/0.5 ML VIAL SQ SCH ×2 (09:11→21:57)
[2022-11-10] MEDS: TAMSULOSIN HCL 0.4 MG CAP PO SCH (09:12)
[2022-11-10] MEDS: dilTIAZem HCl 60 MG TAB PO SCH ×2 (09:12→21:52)
[2022-11-10] MEDS: GABAPENTIN 100 MG CAP PO PRN (09:12)
[2022-11-10] MEDS: PANTOprazole 40 MG TAB PO SCH (09:12)
[2022-11-10] MEDS: oxyCODONE HCL IR 5 MG TAB (IMMEDIATE RELEASE) PO PRN ×2 (09:16→22:33)
[2022-11-10] MEDS ORDERED: DOXYCYCLINE HYCLATE 100 MG in DEXTROSE 5% 100 ML IV SCH (11:00)
[2022-11-10 11:06] LABS: Allen Test POS (Pos); HCO3 ABG 40 mmol/L (19-24); PCO2 ABG 68 mmHg (35-46); PO2 ABG 131 mmHg (80-95); pH ABG 7.38 (7.35-7.45)
--- NOTE | 2022-11-10 11:46 | Pulmonary Consultation ---
Date of Consultation November 10, 2022 Assessment & Plan (1) Acute respiratory failure with hypoxia: (2) COPD (chronic obstructive pulmonary disease): (3) Multifocal pneumonia: (4) Acute exacerbation of chronic obstructive airways disease: (5) Noncompliance: Plan Continue supplemental O2 to maintain sats of 88 to 92%. Continue broad-spectrum IV antibiotics and systemic corticosteroids. Switch to p.o. prednisone tomorrow. Obtain sputum sample. Continue nebulizer treatments. BiPAP nightly and prn when asleep or drowsy. Monitor for signs of aspiration. NPO for today until more alert. Possibly colonized with NTM. Unlikely to tolerate long-term treatment given low BMI and poor medical compliance. Discontinue inhalers and start nebulized Brovana and budesonide. Patient with poor inspiratory capacity and is very lethargic. Unlikely to be able to effectively use inhalers at this time. MRSA screen. Percussive vest 4 times daily. Hypertonic saline twice daily. Consider palliative care consult given frequent hospitalizations, end-stage COPD, weight loss and poor medical insight. Discussed with bedside RN. Pulmonary to continue to follow. Thank you for allowing us to participate in the care of the patient. History of Present Illness Reason for Consultation: Acute hypoxemic respiratory failure multifocal pneumonia Attending Physician: Manan Freeman MD History of Present Illness 67-year-old male with a history of noncompliance, chronic hypoxia, COPD on home oxygen and continued tobacco abuse who presented to the hospita due to increased shortness of breath. He was found to have sats of 65% on oxygen. Patient's roommate stated that his breathing was getting worse. Patient is not able to provide any beneficial history at this time as he is confused and lethargic. ABG obtained which revealed chronic hypercapnia. pH is compensated. Remains on high flow oxygen at this time. He is currently receiving nebulizer treatments and IV antibiotics. CT chest revealed severe emphysema or airspace opacities. He was discharged in July of this year due to COPD. He also has a history of avascular necrosis of the femoral heads and esophageal dysmotility. Allergies Allergy/AdvReac Type Severity Reaction Status Date / Time clidinium Allergy Intermediate Rash Verified 11/10/22 01:05 [From Librax (with clidinium)] acetaminophen Allergy Mild hives/itchy Verified 11/10/22 01:05 chlordiazepoxide Allergy Mild Rash Verified 11/10/22 01:05 [From Librax (with clidinium)] codeine Allergy Mild Rash Verified 11/10/22 01:05 [From Tylenol-Codeine] latex Allergy Mild Rash Verified 11/10/22 01:05 montelukast AdvReac Severe MENTAL Verified 11/10/22 01:05 STATUS CHANGED zolpidem AdvReac Severe MENTAL Verified 11/10/22 01:05 STATUS CHANGED,HALLUCINATIONS budesonide [From Symbicort] AdvReac Intermediate caused Verified 11/10/22 01:05 vision problems formoterol [From Symbicort] AdvReac Intermediate caused Verified 11/10/22 01:05 vision problems Home Medications Medication Instructions Recorded Confirmed Type albuterol sulfate 2.5 mg/3 mL 2.5 mg continuous nebulization Q4H 06/02/18 11/10/22 History (0.083 %) solution for nebulization PRN Wheezing or Shortness of breath diazepam 5 mg tablet 5 mg PO AC 06/02/18 11/10/22 History gabapentin 100 mg capsule 100 mg PO HS PRN Pain 06/02/18 11/10/22 History albuterol sulfate 90 mcg/actuation 2 puff inhalation Q4 PRN Shortness 11/09/18 11/10/22 History aerosol inhaler (ProAir HFA) Of Breath nitroglycerin 0.3 mg sublingual 0.3 mg sublingual UD PRN ESOPAGEAL 03/07/19 11/10/22 History tablet (Nitrostat) SPASM oxycodone 15 mg tablet 15 mg PO Q8H PRN Pain,severe 01/23/20 11/10/22 History Portable Oxygen #1 ea 02/11/20 08/11/22 History diltiazem HCl 60 mg tablet 60 mg PO AMHS 08/10/22 11/10/22 History guaifenesin 600 mg tablet, 1,200 mg PO AMHS PRN Congestion 08/10/22 11/10/22 History extended release 12 hr (Mucinex) levocetirizine 5 mg tablet 5 mg PO QPM 08/10/22 11/10/22 History tamsulosin 0.4 mg capsule 0.4 mg PO DAILY 08/11/22 11/10/22 History pantoprazole 40 mg tablet,delayed 40 mg PO QAM #30 tabs 08/14/22 11/10/22 Rx release diphenhydramine HCl 25 mg tablet 25 mg PO HS 11/10/22 11/10/22 History (Benadryl Allergy) fluticasone fur. 200 mcg-umeclid 1 inh inhalation QAM 11/10/22 11/10/22 History 62.5 mcg-vilant 25 mcg inhalat.powder (Trelegy Ellipta) food supplemt, lactose-reduced 1 ea PO TID 11/10/22 11/10/22 History loratadine 10 mg tablet 10 mg PO QAM 11/10/22 11/10/22 History nystatin 100,000 unit/mL oral 15 ml PO QID PRN .thrush 11/10/22 11/10/22 History suspension polyethylene glycol 3350 17 gram 17 g PO DAILY PRN Constipation 11/10/22 11/10/22 History oral powder packet (Miralax) Patient History Medical History Acute exacerbation of chronic obstructive pulmonary disease (COPD) Anxiety Asymptomatic microscopic hematuria Avascular necrosis of femoral head BPH (benign prostatic hypertrophy) Chronic hip pain Chronic neck pain Chronic obstructive pulmonary disease inhaler/nebulizer prn Chronic pain syndrome Dysphagia Emphysema of lung Esophageal dysmotility GERD (gastroesophageal reflux disease) Hearing deficit History of kidney stones Medical marijuana use On home oxygen therapy 2L N/C at hs and prn Pneumonia Status asthmaticus Surgical History History of bronchoscopy multiple ? History of cardiac cath 10/2018 @ [facility] by Dr. Mello--no stents placed History of carpal tunnel surgery of left wrist x3 History of colonoscopy with polypectomy History of ear surgery eardrum opening by Dr. Daniels History of elbow surgery bilt History of esophagogastroduodenoscopy (EGD) History of sinus surgery History of surgery on arm left arm---hardware removed History of tonsillectomy and adenoidectomy History of tooth extraction all upper teeth Hx of hernia repair x5 Family History Father Nephrolithiasis Asthma Mother Family history of diabetes mellitus Diabetes Grandfather (Paternal) Alzheimer disease Other No family history of adverse response to anesthesia Social History Smoking Status: Current some day smoker Tobacco Type: Cigarettes Second Hand Exposure: No; Do You Dip or Chew Tobacco: No; Hx Alcohol Use: No Hx Substance Use: Yes Last Used Substance: Days (ago) Last Used Substance Other:: 30 Substance Use Type Other:: smokes at bedtime to aide in sleeping Preferred Language: Jamaican Communication Ability: Effective Loan Processor Required: No Beliefs That Will Affect Care: None marital status: / Current Living Situation: Alone Current Living Situation Comment: home alone How many Children do You have: 5 Other Information That Helps Us Care for You: No Feels Safe at Home: Yes Safety Concerns: Feels Safe At This Time Assistive Devices: Cane Review of Systems Review of Systems: Unobtainable due to reduced consciousness Physical Exam Physical Exam: Constitutional: Frail and cachectic appearing male in moderate distress Eyes: Pupils are equal round and reactive to light. Conjunctivae are normal. Anicteric sclera. Ears nose, mouth and throat: Mallampati class 1. Normal posterior oropharynx. Uvula is midline. Neck: Trachea is midline. Visual inspection is normal. Respiratory: Crackles bilaterally. Prolonged phase of exhalation. Wheezes. Cardiovascular: Regular rate and rhythm. No murmurs. No edema. Gastrointestinal: Normal bowel sounds, soft, nontender and nondistended. No hepatosplenomegaly noted. Musculoskeletal: Diffusely weak. Moves all extremities. Skin: No rashes, warm dry and intact. Neurologic: No obvious focal neurological deficits seen. Psychiatric: Lethargic. Able to tell me his name. Easily falls asleep. Results & Data Results & Data Vital Signs (Past 12 Hours) Vital Signs Temp Pulse Pulse Pulse Resp BP BP 11/10/22 11:03 78 16 11/10/22 07:33 70 18 84/48 L 11/10/22 07:00 80 11/10/22 07:09 77 17 11/10/22 05:00 96 H 11/10/22 04:42 36.3 C L 92 H 16 119/70 11/10/22 04:00 11/10/22 04:11 36.3 C L 91 H 26 H 119/70 11/10/22 04:10 11/10/22 03:43 85 20 91/64 L 11/10/22 02:56 91 H 22 11/10/22 02:40 91 H 21 11/10/22 02:37 92 H 20 11/10/22 02:37 93/56 L 11/10/22 02:31 89 16 11/10/22 02:31 83/50 L 11/10/22 02:30 89 16 11/10/22 02:30 80/54 L 11/10/22 02:20 91 H 17 11/10/22 02:10 91 H 20 11/10/22 02:00 71 23 92/64 L 11/10/22 01:31 71 20 125/63 11/10/22 01:00 95/65 L 11/10/22 00:30 109 H 22 115/82 11/10/22 01:38 102 H 11/10/22 00:10 110 H 28 H 11/10/22 00:00 113 H 23 11/10/22 00:00 101/75 11/09/22 23:55 120/72 11/09/22 23:55 109 H 26 H 11/10/22 00:07 113 H 113 H 22 Pulse Ox O2 Del Method O2 Flow Rate FiO2 11/10/22 11:03 94 High Flow Nasal Cannula 25 90 11/10/22 07:33 90 High Flow Nasal Cannula 25 90 11/10/22 07:00 11/10/22 07:09 93 High Flow Nasal Cannula 25 90 11/10/22 05:00 11/10/22 04:42 97 High Flow Nasal Cannula 25 90 11/10/22 04:00 High Flow Nasal Cannula 25 90 11/10/22 04:11 97 High Flow Nasal Cannula 25 90 11/10/22 04:10 High Flow Nasal Cannula 25 11/10/22 03:43 94 High Flow Nasal Cannula 11/10/22 02:56 92 High Flow Nasal Cannula 25 90 11/10/22 02:40 92 11/10/22 02:37 93 11/10/22 02:37 11/10/22 02:31 91 11/10/22 02:31 11/10/22 02:30 91 11/10/22 02:30 11/10/22 02:20 88 L 11/10/22 02:10 91 11/10/22 02:00 93 High Flow Nasal Cannula 11/10/22 01:31 93 High Flow Nasal Cannula 11/10/22 01:00 11/10/22 00:30 92 High Flow Nasal Cannula 11/10/22 01:38 95 High Flow Nasal Cannula 25 90 11/10/22 00:10 93 11/10/22 00:00 88 L 11/10/22 00:00 11/09/22 23:55 11/09/22 23:55 86 L 11/10/22 00:07 93 High Flow Nasal Cannula 25 PG Care Time/CCT Total # of Minutes Spent Total Time Spent with Patient: Total time spent is greater than 50% in coordination of care (as documented) at patient's floor/unit and/or counseling patient: Coding Level of Care Code 65852 INT INP/OBS CARE 3/75MIN Diagnoses Acute respiratory failure with hypoxia J96.01 COPD (chronic obstructive pulmonary disease) J44.9 Multifocal pneumonia J18.9 Acute exacerbation of chronic obstructive airways disease J44.1 Noncompliance Z91.199
[2022-11-10] MEDS ORDERED: PIPERACILLIN/TAZOBACTAM 4.5 GM in DEXTROSE 5% 100 ML IV SCH (14:00)
--- NOTE | 2022-11-10 16:43 | Hospitalist Progress Note ---
Date of Service November 10, 2022 delayed entry date of service noted above Assessment & Plan (1) Acute respiratory failure with hypoxia: (2) COPD (chronic obstructive pulmonary disease): Plan: per admitting service notes with addendum: ASSESSMENT AND PLAN: This is a 67-year-old male, who presents with respiratory distress. 1. Respiratory distress, chronic obstructive pulmonary disease exacerbation, multifocal pneumonia. Currently on high flow, which will be continued. ABGs are okay. Empiric antibiotics, Zosyn and doxycycline, IV Solu-Medrol, nebs around the clock and p.r.n. Closely monitor in the tele floor. Because of recurrent infection and admission, we will consult Pulmonary in a.m. . Elevated lactic acid mostly from the hypoxia, getting better. We will monitor. Follow the repeat labs. -- still on high flow O2 continue Solumedrol, Antibiotics, Nebs Pulm on board 2. Altered mental status. -- CT head: negative -- resolved 3. Entero/rhinovirus on rep biofire. isolation precautions. 4. Oropharyngeal dysphagia, esophageal dysmotility silent aspiration. easy to chew diet as per speech recommendations recommendations. Last admission patient declined peg tube The patient takes Valium, which we will be continued. 5. History of asthma, bronchitis. Management as above. 6. History of chronic diastolic congestive heart failure -- euvolemic 7. Chronic pain syndrome, cervical radiculopathy. On oxycodone as needed. 8. History of benign prostatic hyperplasia. On Flomax. 9. Gastroesophageal reflux disease. On Protonix. 10. Deep venous thrombosis prophylaxis. Placed on Lovenox. Admission and Anticipated Discharge Date Admission Date: November 10, 2022 Subjective ff up for pneumonia, etc seen resting in bed, comfortable on high flow o2 states breathing is somewhat improved no chest pain, dyspnea, palpitations, dizziness no fever, chills has occasional cough no other symptoms Review of Systems Review of Systems: all noted and negative except for above Physical Exam Physical Exam: General- oriented x 3, not in distress, speaks in sentences with no effort or accessory muscle use Eyes- anicteric Neck- no JVD Lungs- (+) scattered wheezing BL Heart- normal rate, regular rhythm; no murmurs Abdomen- normal bowel sounds, nondistended, soft, no tenderness Extremities- no pretibial edema, no calf tenderness Neuro- alert, oriented x 3; no gross focal neurologic deficits Skin- warm & dry Results & Data Results & Data Vital Signs (Past 12 Hours) Vital Signs Temp Pulse Pulse Pulse Resp BP Pulse Ox 11/10/22 16:00 71 11/10/22 15:43 36.5 C 71 18 95/59 L 91 11/10/22 09:00 11/10/22 14:40 76 20 97 11/10/22 14:37 76 20 97 11/10/22 11:50 36.4 C L 70 16 93/60 L 97 11/10/22 11:03 78 16 94 11/10/22 07:33 70 18 84/48 L 90 11/10/22 07:00 80 11/10/22 07:09 77 17 93 11/10/22 05:00 96 H O2 Del Method O2 Flow Rate FiO2 11/10/22 16:00 11/10/22 15:43 High Flow Nasal Cannula 25 75 11/10/22 09:00 High Flow Nasal Cannula 25 90 11/10/22 14:40 High Flow Nasal Cannula 25 90 11/10/22 14:37 High Flow Nasal Cannula 25 90 11/10/22 11:50 High Flow Nasal Cannula 25 90 11/10/22 11:03 High Flow Nasal Cannula 25 90 11/10/22 07:33 High Flow Nasal Cannula 25 90 11/10/22 07:00 11/10/22 07:09 High Flow Nasal Cannula 25 90 11/10/22 05:00 all noted and reviewed including below
[2022-11-10] MEDS: FORMOTEROL 20 MCG/2 ML VIAL INH SCH (19:45)
[2022-11-10] MEDS: BUDESONIDE 0.25 MG/2 ML VIAL (PULMICORT) NEB SCH (19:45)
[2022-11-10] MEDS: SODIUM CHLOR 7% 4 ML NEB NEB SCH (19:45)
[2022-11-10 20:24] LABS: A calco-baum cmplx NotReported Not Detected (NotDetected); Bact fragilis Not Reported Not Detected (NotDetected); C auris Not Reported Not Detected (NotDetected); Calbicans Not Reported Not Detected (NotDetected); Candida glabrata Not Reported Not Detected (NotDetected); Candida krusei Not Reported Not Detected (NotDetected); Cneoformans/gatti Not Reported Not Detected (NotDetected); Cparapsilosis Not Reported Not Detected (NotDetected); Ctropicalis Not Reported Not Detected (NotDetected); E cloacae compx Not Reported Not Detected (NotDetected); Efaecalis Not Reported Not Detected (NotDetected); Efaecium Not Reported Not Detected (NotDetected); Enterobacterales Not Reported Not Detected (NotDetected); Escherichia coli Not Reported Not Detected (NotDetected); H influenzae Not Reported Not Detected (NotDetected); K aerogenes Not Reported Not Detected (NotDetected); Koxytoca Not Reported Not Detected (NotDetected); Kpneumoniae grp Not Reported Not Detected (NotDetected); Lmonocyt Not Reported Not Detected (NotDetected); N meningitidis Not Reported Not Detected (NotDetected); P aeruginosa Not Reported Not Detected (NotDetected); Proteus spp Not Reported Not Detected (NotDetected); Salmonella spp Not Reported Not Detected (NotDetected); Smarcescens Not Reported Not Detected (NotDetected); Staph lugdunensis Not Reported Not Detected (NotDetected); Staph spp. Not Reported Not Detected (NotDetected); Staphaureus Not Reported Not Detected (NotDetected); Staphepi Not Reported Not Detected (NotDetected); Stenmaltophilia Not Reported Not Detected (NotDetected); Strep agal(GrpB) Not Reported Not Detected (NotDetected); Strep pneum Not Reported DETECTED (NotDetected); Strep pyog (GrpA) Not Reported Not Detected (NotDetected); Strep spp Not Reported DETECTED (NotDetected); Streptococcus spp DETECTED (NotDetected)
[2022-11-10 20:37] LABS: Streptococcus pneumoniae DETECTED (NotDetected)
[2022-11-10] MEDS ORDERED: AZITHROMYCIN 500 MG in DEXTROSE 5% 250 ML IV SCH (21:00)
[2022-11-10] MEDS: cefTRIAXone SODIUM 2,000 MG in DEXTROSE 5% 50 ML IV SCH (21:54)
[2022-11-11] MEDS: BUDESONIDE 0.25 MG/2 ML VIAL (PULMICORT) NEB SCH ×2 (07:05→19:53)
[2022-11-11] MEDS: FORMOTEROL 20 MCG/2 ML VIAL INH SCH ×2 (07:05→19:53)
[2022-11-11] MEDS: SODIUM CHLOR 7% 4 ML NEB NEB SCH ×2 (07:06→19:53)
[2022-11-11] MEDS: IPRATROPIUM BROMIDE NEB SOLN 0.02% 2.5 ML VIAL INH SCH ×4 (07:22→19:52)
[2022-11-11] MEDS: LEVALBUTEROL 1.25 MG/3 ML NEB NEB SCH ×4 (07:23→19:52)
[2022-11-11] MEDS: NYSTATIN SUSP 500,000 U/5 ML UDC PO SCH ×4 (08:45→20:42)
[2022-11-11] MEDS: dilTIAZem HCl 60 MG TAB PO SCH ×2 (08:45→20:42)
[2022-11-11] MEDS: HEPARIN SOD 5,000 UNIT/0.5 ML VIAL SQ SCH ×2 (08:49→20:42)
[2022-11-11] MEDS: diazePAM 5 MG TABLET PO SCH ×3 (08:49→16:53)
[2022-11-11] MEDS: oxyCODONE HCL IR 5 MG TAB (IMMEDIATE RELEASE) PO PRN ×2 (08:49→15:30)
[2022-11-11] MEDS: LORATADINE 10 MG TAB PO SCH (08:50)
[2022-11-11] MEDS: TAMSULOSIN HCL 0.4 MG CAP PO SCH (08:51)
[2022-11-11] MEDS: predniSONE 20 MG TAB PO SCH (08:51)
[2022-11-11] MEDS: PANTOprazole 40 MG TAB PO SCH (08:51)
--- NOTE | 2022-11-11 08:55 | Pulmonology Progress Note ---
Date of Service November 11, 2022 Assessment & Plan (1) Acute respiratory failure with hypoxia: (2) COPD (chronic obstructive pulmonary disease): (3) Multifocal pneumonia: (4) Acute exacerbation of chronic obstructive airways disease: (5) Bacteremia due to Gram-positive bacteria: (6) Bronchiectasis: (7) COPD (chronic obstructive pulmonary disease): Plan Impression: 67-year-old male with chronic hypoxemic and hypercarbic respiratory failure and advanced chronic obstructive pulmonary disease admitted with exacerbation. Continues to demonstrate mild respiratory distress. Patient's last PFTs in our system were back in 2010 which showed moderate airflow obstruction at that time with hyperinflation. He has undergone bronchoscopy in the past with Dr. Bhakta as well as bronchial thermoplasty. 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 He been on Xolair in the past. Blood cultures positive for Streptococcus pneumonia a. Respiratory culture pending. His course has been complicated by noncompliance Recommendations: 1. Hypoxemic respiratory failure/hypercarbic respiratory failure: Hypercarbia is well compensated currently. Continue supplemental oxygen titrated to keep saturations around 88%. Would not try and target higher oxygen saturations in light of his hypercarbia. Patient may qualify for nocturnal AVAPS depending on clinical course. 2. Multifocal pulmonary infiltrates: Suspect multifocal pneumonia especially given bacteremia. Currently on IV azithromycin and ceftriaxone. This appears reasonable. Defer to primary service as to whether or not ID consultation should be obtained. Follow-up imaging will be required. If he fails to respond, consideration for repeat bronchoscopy if the patient is unable to produce lower respiratory specimens for microbiologic analysis. Agree that assessment for nontuberculous mycobacteria would be in order. 3. History of asthma with allergic bronchopulmonary aspergillosis. Continue Brovana and budesonide. Increase budesonide to 0.5 mg twice a day. He remains persistently bronchospastic despite prednisone 40 mg a day. We will follow c losely but may need to escalate therapy. Check IgE level. Of note the patient had no significant eosinophilia on presentation. Outpatient PFTs may be reasonable once the patient is medically stable. Consideration for pulmonary rehab may also be appropriate. Recommendations and plan were discussed with the patient. He expressed understanding and is in agreement with the plan as outlined. A total of 52 minutes was spent in evaluation management and coordination of care for this patient. Admission and Anticipated Discharge Date Admission Date: November 10, 2022 Subjective Patient seen and examined. EMR reviewed. 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 The patient reports that he is feeling better. He continues to demonstrate inspiratory and expiratory wheezing and is maintained on high flow oxygen. He states he is not really coughing up much phlegm. He does not report any significant chest pain. No lower extremity edema. He is tolerating a diet. Review of Systems Review of Systems: All systems reviewed & are unremarkable except as noted in Subjective Physical Exam Constitutional: + cachectic; no acute distress Neck: trachea midline, no thyromegaly Respiratory: no respiratory distress, no labored breathing and not tachypneic Auscultation: + wheezes Cardiovascular: RRR, no murmur, no edema Gastrointestinal (Abdomen): normal bowel sounds, soft, nontender, no hepatosplenomegaly Musculoskeletal: Extremities: extremities normal to inspection Skin: no rashes, warm and dry Neurologic: Nonfocal exam Lymphatic: no cervical lymphadenopathy Results & Data Results & Data Vital Signs (Past 12 Hours) Vital Signs Temp Pulse Pulse Pulse Resp BP Pulse Ox 11/11/22 07:40 36.5 C 77 18 101/60 94 11/11/22 07:23 75 26 H 95 11/11/22 00:00 77 11/11/22 03:59 72 22 101/66 95 11/11/22 02:35 63 20 96 11/11/22 00:02 36.3 C L 68 18 93/57 L 95 11/10/22 23:09 59 L 20 94 O2 Del Method O2 Flow Rate FiO2 11/11/22 07:40 High Flow Nasal Cannula 25 75 11/11/22 07:23 High Flow Nasal Cannula 25 75 11/11/22 00:00 11/11/22 03:59 High Flow Nasal Cannula 25 11/11/22 02:35 High Flow Nasal Cannula 25 75 11/11/22 00:02 High Flow Nasal Cannula 25 11/10/22 23:09 High Flow Nasal Cannula 25 75 Laboratory Results 11/10/22 07:01 11/10/22 07:01 PG Care Time/CCT Total # of Minutes Spent Total Time Spent with Patient: Total time spent is greater than 50% in coordination of care (as documented) at patient's floor/unit and/or counseling patient: Coding Level of Care Code 01485 SUB INP/OBS CARE 3/50MIN Diagnoses Acute respiratory failure with hypoxia J96.01 COPD (chronic obstructive pulmonary disease) J44.9 Multifocal pneumonia J18.9 Acute exacerbation of chronic obstructive airways disease J44.1 Bacteremia due to Gram-positive bacteria R78.81 Bronchiectasis J47.9
--- NOTE | 2022-11-11 13:47 | Hospitalist Progress Note ---
Date of Service November 11, 2022 Assessment & Plan (1) Acute respiratory failure with hypoxia: (2) COPD (chronic obstructive pulmonary disease): Plan: per admitting service notes with addendum: ASSESSMENT AND PLAN: This is a 67-year-old male, who presents with respiratory distress. 1. Acute Hypoxic, Hypercarbic Respiratory Failure Chronic obstructive pulmonary disease exacerbation Multifocal pneumonia. Streptococcus pneumonia Bacteremia Sepsis, POA Currently on high flow, which will be continued. ABGs are okay. Empiric antibiotics, Zosyn and doxycycline, IV Solu-Medrol, nebs around the clock and p.r.n. Closely monitor in the tele floor. Because of recurrent infection and admission, we will consult Pulmonary in a.m. . Elevated lactic acid mostly from the hypoxia, getting better. We will monitor. Follow the repeat labs. -- still on high flow O2 -- Infectious Disease consulted continue Ceftri + Azithro continue Prednisone, Nebs Pulm on board 2. Altered mental status, Septic Encephalopathy -- CT head: negative -- resolved 3. Entero/rhinovirus on rep biofire. isolation precautions. 4. Oropharyngeal dysphagia, esophageal dysmotility silent aspiration. easy to chew diet as per speech recommendations recommendations. Last admission patient declined peg tube The patient takes Valium, which we will be continued. 5. History of asthma, bronchitis. Management as above. 6. History of chronic diastolic congestive heart failure -- euvolemic 7. Chronic pain syndrome, cervical radiculopathy. On oxycodone as needed. 8. History of benign prostatic hyperplasia. On Flomax. 9. Gastroesophageal reflux disease. On Protonix. 10. Deep venous thrombosis prophylaxis. Placed on Lovenox. Disposition pending Admission and Anticipated Discharge Date Admission Date: November 10, 2022 Subjective ff up for pneumonia, etc seen resting in bed, sitting up on 2 L comfortable states breathing is about the same as yesterday has intermittent dry cough no chest pain, fever/chills tolerating diet well Review of Systems Review of Systems: all noted and negative except for above Physical Exam Physical Exam: General- oriented x 3, not in distress, speaks in sentences with no effort or accessory muscle use Eyes- anicteric Neck- no JVD Lungs- scattered wheezing bilaterally Heart- normal rate, regular rhythm; no murmurs Abdomen- normal bowel sounds, nondistended, soft, nontender Extremities- no pretibial edema, no calf tenderness Neuro- alert, oriented x 3; no gross focal neurologic deficits Skin- warm & dry Results & Data Results & Data Vital Signs (Past 12 Hours) Vital Signs Temp Pulse Pulse Resp BP Pulse Ox O2 Del Method 11/11/22 08:00 High Flow Nasal Cannula 11/11/22 11:19 36.5 C 78 20 100/62 94 High Flow Nasal Cannula 11/11/22 10:52 80 20 97 High Flow Nasal Cannula 11/11/22 07:40 36.5 C 77 18 101/60 94 High Flow Nasal Cannula 11/11/22 07:23 75 26 H 95 High Flow Nasal Cannula 11/11/22 03:59 72 22 101/66 95 High Flow Nasal Cannula 11/11/22 02:35 63 20 96 High Flow Nasal Cannula O2 Flow Rate FiO2 11/11/22 08:00 75 11/11/22 11:19 25 65 11/11/22 10:52 25 75 11/11/22 07:40 25 75 11/11/22 07:23 25 75 11/11/22 03:59 25 11/11/22 02:35 25 75 all noted and reviewed including below
[2022-11-11] MEDS: AZITHROMYCIN 500 MG in DEXTROSE 5% 250 ML IV SCH (14:11)
[2022-11-11] MEDS: cefTRIAXone SODIUM 2,000 MG in DEXTROSE 5% 50 ML IV SCH (20:37)
[2022-11-11] MEDS: GABAPENTIN 100 MG CAP PO PRN (22:26)
[2022-11-11] MEDS ORDERED: diazePAM 5 MG TABLET PO ONE (23:23)
[2022-11-12] MEDS: SODIUM CHLOR 7% 4 ML NEB NEB SCH ×2 (07:09→19:42)
[2022-11-12] MEDS: FORMOTEROL 20 MCG/2 ML VIAL INH SCH ×2 (07:09→19:42)
[2022-11-12] MEDS: BUDESONIDE 0.25 MG/2 ML VIAL (PULMICORT) NEB SCH ×2 (07:09→19:42)
[2022-11-12] MEDS: IPRATROPIUM BROMIDE NEB SOLN 0.02% 2.5 ML VIAL INH SCH ×4 (07:27→19:42)
[2022-11-12] MEDS: LEVALBUTEROL 1.25 MG/3 ML NEB NEB SCH ×4 (07:27→19:42)
[2022-11-12] MEDS: dilTIAZem HCl 60 MG TAB PO SCH ×2 (09:04→21:21)
[2022-11-12] MEDS: HEPARIN SOD 5,000 UNIT/0.5 ML VIAL SQ SCH ×3 (09:04→21:28)
[2022-11-12] MEDS: predniSONE 20 MG TAB PO SCH (09:05)
[2022-11-12] MEDS: PANTOprazole 40 MG TAB PO SCH (09:05)
[2022-11-12] MEDS: TAMSULOSIN HCL 0.4 MG CAP PO SCH (09:05)
[2022-11-12] MEDS: NYSTATIN SUSP 500,000 U/5 ML UDC PO SCH ×4 (09:05→21:21)
[2022-11-12] MEDS: diazePAM 5 MG TABLET PO SCH ×3 (09:13→16:17)
[2022-11-12] MEDS: oxyCODONE HCL IR 5 MG TAB (IMMEDIATE RELEASE) PO PRN (09:13)
[2022-11-12] MEDS: LORATADINE 10 MG TAB PO SCH (09:14)
[2022-11-12] MEDS: AZITHROMYCIN 500 MG in DEXTROSE 5% 250 ML IV SCH (09:14)
--- NOTE | 2022-11-12 09:32 | Pulmonology Progress Note ---
Date of Service November 12, 2022 Assessment & Plan (1) Acute respiratory failure with hypoxia: (2) COPD (chronic obstructive pulmonary disease): (3) Multifocal pneumonia: (4) Acute exacerbation of chronic obstructive airways disease: (5) Bacteremia due to Gram-positive bacteria: (6) Bronchiectasis: Plan IMPRESSION: 67-year-old male presenting with acute on chronic hypoxemic and hypercarbic respiratory failure in the setting of advanced COPD with exacerbation. Has persistent bronchospasm on exam. Has been titrated down off of high flow nasal cannula to wall oxygen. RECOMMENDATIONS: 1. Hypoxemic respiratory failure/hypercarbic respiratory failure - * Patient has been titrated down off of high flow nasal cannula and is now requiring wall flow nasal cannula at this time. * Continue to titrate down supplemental oxygen as tolerated. * Goal SaO2 88-92% * Avoid over oxygenation in the hypercarbic patient. 2. Multifocal pulmonary infiltrates - * Patient remains on azithromycin and Rocephin in the setting of strep positive blood cultures. * If he continues to improve, he can likely be discharged with outpatient follow-up CT scan in 4 to 6 weeks. * Rhino/Entero virus positive serology may be contributing to this as well. * Patient follows with [facility] pulmonology. 3. History of asthma with allergic bronchopulmonary aspergillosis - * Continue with PO steroids, nebulized budesonide, and nebulized Perforomist for now. * Will reassess patient this afternoon. Strongly considering increasing the patient's steroid dosing if he remains this bronchospastic. Thank you for allowing us to participate the care of this patient. We will continue to follow along with the patient while inpatient. Admission and Anticipated Discharge Date Admission Date: November 10, 2022 Subjective Patient seen and evaluated at bedside. He reports that his breathing is somewhat improved from presentation. He is now requiring nasal cannula alone as opposed to high flow nasal cannula yesterday. He reports his only main symptoms are with exertion. He reports a persistent cough, but otherwise feels as though he is moving in the right direction. Review of Systems Review of Systems: A complete 6 point review of systems was reviewed with the patient with pertinent positives and negatives as per history of present illness. All else were negative. Physical Exam Physical Exam: VITAL SIGNS - Vital signs and nursing notes were reviewed. GENERAL - 67-year-old male appearing his stated age who is in no acute distress. Communicates well with provider and answers questions appropriately. NOSE - Midline and without cyanosis. No epistaxis or purulent drainage noted. MOUTH/OROPHARYNX - Without perioral cyanosis. LUNGS - Chest wall evaluation demonstrates and increased chest wall A:P diameter. Auscultation reveals diffuse inspiratory and expiratory wheezes noted throughout all lung moya. CARDIAC - RRR with S1/S2. No murmur, rubs, or gallops appreciated. ABDOMEN - Abdominal inspection demonstrates a scaphoid abdomen. BS normoactive all four quadrants. No tenderness, palpable masses, or ascites noted. EXTREMITIES - +3/5 radial palpated throughout. PSYCH - A&Ox3 and cooperates fully with examiner. Pt is very pleasant and interacts well with examiner. Results & Data Results & Data Vital Signs (Past 12 Hours) Vital Signs Temp Pulse Pulse Pulse Resp BP Pulse Ox 11/12/22 07:27 73 22 95 11/12/22 07:15 36.4 C L 60 22 105/64 96 11/11/22 23:00 81 11/12/22 03:41 36.5 C 51 L 18 98/60 L 97 11/12/22 02:50 61 22 97 11/11/22 23:14 81 22 96 11/11/22 23:11 36.5 C 76 18 99/44 L 96 O2 Del Method O2 Flow Rate FiO2 11/12/22 07:27 High Flow Nasal Cannula 25 45 11/12/22 07:15 High Flow Nasal Cannula 25 11/11/22 23:00 11/12/22 03:41 High Flow Nasal Cannula 25 11/12/22 02:50 High Flow Nasal Cannula 25 45 11/11/22 23:14 25 55 11/11/22 23:11 High Flow Nasal Cannula 25 PG Care Time/CCT Total # of Minutes Spent Total Time Spent with Patient: Total time spent is greater than 50% in coordination of care (as documented) at patient's floor/unit and/or counseling patient: Coding Level of Care Code 40988 SUB INP/OBS CARE 3/50MIN Diagnoses Acute respiratory failure with hypoxia J96.01 COPD (chronic obstructive pulmonary disease) J44.9 Multifocal pneumonia J18.9 Acute exacerbation of chronic obstructive airways disease J44.1 Bacteremia due to Gram-positive bacteria R78.81 Bronchiectasis J47.9
[2022-11-12 09:43] LABS: Hematocrit (blood only) 33.3 % (42.0-52.0); Hemoglobin 11.2 g/dl (14.0-18.0); Mean Corpuscular Hemoglobin 30.2 pg (25.0-34.0); Mean Corpuscular Hgb Conc 33.6 g/dL (32.0-36.0); Mean Corpuscular Volume 89.8 fL (80.0-100.0); Mean Platelet Volume 11.2 fL (9.4-12.4); Nucleated RBC # (auto) 0.03 K/uL (0-0.12); Nucleated RBC % (auto) 0.5 %; Platelet Count 202 K/uL (130-400); RDW Coefficient of Variation 16.6 % (11.5-14.5); RDW Standard Deviation 54.7 fL (36.4-46.3); Red Blood Count 3.71 M/uL (4.70-6.10); White Blood Count 6.45 K/ul (4.8-10.8)
[2022-11-12 10:32] LABS: Basophils # (auto) 0.01 K/uL (0-0.2); Basophils % (auto) 0.2 %; Immature Granulocytes % (auto) 1.6 %; Lymphocytes # (auto) 0.93 K/uL (1.2-3.4); Lymphocytes % (auto) 14.4 %; Monocytes # (auto) 0.44 K/uL (0.11-0.59); Monocytes % (auto) 6.8 %; Neutrophils # (auto) 4.97 K/uL (1.40-6.50); Polychromasia 1+; Toxic Granulation 1+
[2022-11-12 11:57] LABS: BUN Creatinine Ratio 37.5 (10-20); Calcium 8.7 mg/dl (8.6-10.3); Creatinine Clr Calc Pharmacy 58.3 ml/min; Est GFR (African American) 106.4 ml/min; Est GFR (Non-African American) 91.8 ml/min; Potassium 3.7 mmol/L (3.5-5.1)
--- NOTE | 2022-11-12 15:21 | XRay Report ---
XR chest 1V portable HISTORY: hypoxia, bibasilar rales COMPARISON: Chest 11/09/2022. FINDINGS: No pneumothorax. The cardiac silhouette is normal in size. Interstitial thickening and bila teral hazy airspace opacities have improved. Trace bilateral pleural effusions again noted. IMPRESSION: Interval improvement in the bilateral airspace opacities. ACT 112: Negative or not required by law. Electronically signed by: Gomez Poe M.D. 11/12/2022 3:20 PM
--- NOTE | 2022-11-12 15:25 | Hospitalist Progress Note ---
Date of Service November 12, 2022 Assessment & Plan (1) Acute respiratory failure with hypoxia: (2) COPD (chronic obstructive pulmonary disease): Plan: per admitting service notes with addendum: ASSESSMENT AND PLAN: This is a 67-year-old male, who presents with respiratory distress. 1. Acute Hypoxic, Hypercarbic Respiratory Failure Chronic obstructive pulmonary disease exacerbation Multifocal pneumonia. Streptococcus pneumonia Bacteremia Sepsis, POA -- Weaned off high flow oxygen today, currently on nasal cannula 13 L --Gradually improving -- Infectious Disease consulted-awaiting recommendations continue Ceftri + Azithro continue with Prednisone, nebulized budesonide, and nebulized Perforomist for now. Pulm on board 2. Altered mental status, Septic Encephalopathy -- CT head: negative -- resolved 3. Entero/rhinovirus on rep biofire. isolation precautions. 4. Oropharyngeal dysphagia, esophageal dysmotility silent aspiration. easy to chew diet as per speech recommendations recommendations. Last admission patient declined peg tube The patient takes Valium, which we will be continued. 5. History of asthma, bronchitis. Management as above. 6. History of chronic diastolic congestive heart failure -- euvolemic 7. Chronic pain syndrome, cervical radiculopathy. On oxycodone as needed. 8. History of benign prostatic hyperplasia. On Flomax. 9. Gastroesophageal reflux disease. On Protonix. 10. Deep venous thrombosis prophylaxis. 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 Seen resting in bed, comfortable, not in distress On nasal cannula now, 15 L States breathing is somewhat improved compared to yesterday Has less cough No chest pain No other symptoms Review of Systems Review of Systems: all noted and negative except for above Physical Exam Physical Exam: General- oriented x 3, not in distress, speaks in sentences with no effort or accessory muscle use Eyes- anicteric Neck- no JVD Lungs-positive mild scattered bilateral wheezing Heart- normal rate, regular rhythm; no murmurs Abdomen- normal bowel sounds, nondistended, soft, nontender Extremities- no pretibial edema, no calf tenderness Neuro- alert, oriented x 3; no gross focal neurologic deficits Skin- warm & dry Results & Data Results & Data Vital Signs (Past 12 Hours) Vital Signs Temp Pulse Pulse Resp BP Pulse Ox O2 Del Method 11/12/22 11:39 36.7 C 74 20 98/63 L 94 High Flow Nasal Cannula 11/12/22 11:18 76 20 98 Nasal Cannula 11/12/22 08:00 High Flow Nasal Cannula 11/12/22 07:27 73 22 95 High Flow Nasal Cannula 11/12/22 07:15 36.4 C L 60 22 105/64 96 High Flow Nasal Cannula 11/12/22 03:41 36.5 C 51 L 18 98/60 L 97 High Flow Nasal Cannula O2 Flow Rate FiO2 11/12/22 11:39 10 11/12/22 11:18 13 11/12/22 08:00 45 11/12/22 07:27 25 45 11/12/22 07:15 25 11/12/22 03:41 25 all noted and reviewed including below
[2022-11-12] MEDS ORDERED: LORazepam 2 MG/1 ML VIAL IV STA (20:39)
[2022-11-12] MEDS: cefTRIAXone SODIUM 2,000 MG in DEXTROSE 5% 50 ML IV SCH (21:21)
[2022-11-12 21:26] LABS: Base Excess ABG 14.6 mEq/L (-9-1.8); HCO3 ABG 40 mmol/L (19-24); Oxygen Saturation ABG 95.4 % (90-95); PCO2 ABG 53 mmHg (35-46); PO2 ABG 66 mmHg (80-95); pH ABG 7.49 (7.35-7.45)
[2022-11-12 21:28] LABS: Allen Test POS (Pos)
[2022-11-13] MEDS: oxyCODONE HCL IR 5 MG TAB (IMMEDIATE RELEASE) PO PRN ×2 (03:12→11:15)
[2022-11-13 06:37] LABS: Hematocrit (blood only) 36.8 % (42.0-52.0); Hemoglobin 12.1 g/dl (14.0-18.0); Mean Corpuscular Hemoglobin 30.1 pg (25.0-34.0); Mean Corpuscular Hgb Conc 32.9 g/dL (32.0-36.0); Mean Corpuscular Volume 91.5 fL (80.0-100.0); Mean Platelet Volume 10.6 fL (9.4-12.4); Platelet Count 227 K/uL (130-400); RDW Coefficient of Variation 16.6 % (11.5-14.5); RDW Standard Deviation 56.8 fL (36.4-46.3); Red Blood Count 4.02 M/uL (4.70-6.10); White Blood Count 4.76 K/ul (4.8-10.8)
[2022-11-13 06:53] LABS: BUN Creatinine Ratio 32.4 (10-20); Calcium 9.2 mg/dl (8.6-10.3); Est GFR (African American) 109.8 ml/min; Est GFR (Non-African American) 94.8 ml/min
[2022-11-13] MEDS: SODIUM CHLOR 7% 4 ML NEB NEB SCH ×2 (07:10→19:33)
[2022-11-13] MEDS: FORMOTEROL 20 MCG/2 ML VIAL INH SCH ×2 (07:10→19:33)
[2022-11-13] MEDS: BUDESONIDE 0.25 MG/2 ML VIAL (PULMICORT) NEB SCH ×2 (07:10→19:33)
[2022-11-13] MEDS: IPRATROPIUM BROMIDE NEB SOLN 0.02% 2.5 ML VIAL INH SCH ×4 (07:11→19:34)
[2022-11-13] MEDS: LEVALBUTEROL 1.25 MG/3 ML NEB NEB SCH ×4 (07:11→19:34)
[2022-11-13] MEDS: diazePAM 5 MG TABLET PO SCH ×3 (07:55→17:26)
[2022-11-13] MEDS: POLYETHYLENE (MIRALAX) 17 GM PACK PO PRN ×2 (07:55→08:36)
--- NOTE | 2022-11-13 08:15 | Hospitalist Progress Note ---
Date of Service November 13, 2022 Assessment & Plan (1) Acute respiratory failure with hypoxia: (2) COPD (chronic obstructive pulmonary disease): Plan: This is a 67-year-old male, who presents with respiratory distress. 1. Acute Hypoxic, Hypercarbic Respiratory Failure Chronic obstructive pulmonary disease exacerbation Multifocal pneumonia. Streptococcus pneumonia Bacteremia Sepsis, POA -- Weaned off high flow oxygen, currently on nasal cannula 5 L --Gradually improving -- Infectious Disease consulted continue Ceftriaxone + Azithromycin continue with Prednisone, nebulized budesonide, and nebulized Perforomist for now. Pulmonary medicine cnsulted - requested to review [facility] records- will obtain 2. Altered mental status, Septic Encephalopathy -- CT head: negative -- resolved 3. Entero/rhinovirus on resp. biofire. isolation precautions. 4. Oropharyngeal dysphagia, esophageal dysmotility silent aspiration. easy to chew diet as per speech recommendations recommendations. Last admission patient declined peg tube The patient takes Valium, which will be continued. 5. History of asthma, bronchitis. Management as above. 6. History of chronic diastolic congestive heart failure -- euvolemic 7. Chronic pain syndrome, cervical radiculopathy. On oxycodone as needed. 8. BPH. On Flomax. 9. Gastroesophageal reflux disease. On Protonix. DVT prophylaxis. 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 aureus in sputum cultx Seen resting in bed, comfortable, not in distress On nasal cannula now, 5 L States breathing is improved since he came to the hospital, says that he has been coughing more, and sputum is more clear now No chest pain, no abd. pain, no n/v no fever, chills Discussed w/ pulm. medicine - obtained records from [facility] to review Review of Systems Review of Systems: All systems reviewed & are unremarkable except as noted in Subjective Physical Exam Physical Exam: General- thin elderly M in NAD, on NC 5L Eyes- anicteric Neck- no JVD Lungs- diffuse wheezing Heart- normal rate, regular rhythm; no murmurs Abdomen- normal bowel sounds, nondistended, soft, nontender Extremities- no pretibial edema, no calf tenderness Neuro- alert, oriented x 3; no facial asymmetry, moves extremities Skin- warm & dry Results & Data Results & Data Vital Signs (Past 12 Hours) Vital Signs Temp Pulse Pulse Pulse Resp BP Pulse Ox 11/13/22 07:46 36.5 C 66 20 117/67 96 11/13/22 07:10 67 20 96 11/13/22 02:19 36.5 C 75 18 107/70 99 11/13/22 01:57 64 11/13/22 01:55 11/12/22 23:19 36.4 C L 60 18 93/55 L 96 O2 Del Method O2 Flow Rate 11/13/22 07:46 Nasal Cannula 5.0 11/13/22 07:10 Nasal Cannula 5 11/13/22 02:19 High Flow Nasal Cannula 5 11/13/22 01:57 11/13/22 01:55 High Flow Nasal Cannula 5 11/12/22 23:19 High Flow Nasal Cannula 5 Laboratory Results 11/13/22 11/13/22 11/13/22 Range/Units 07:48 05:46 05:46 WBC 4.76 L (4.8-10.8) K/ul RBC 4.02 L (4.70-6.10) M/uL Hgb 12.1 L (14.0-18.0) g/dl Hct 36.8 L (42.0-52.0) % MCV 91.5 (80.0-100.0) fL MCH 30.1 (25.0-34.0) pg MCHC 32.9 (32.0-36.0) g/dL RDW Std Deviation 56.8 H (36.4-46.3) fL RDW Coeff of Myles 16.6 H (11.5-14.5) % Plt Count 227 (130-400) K/uL MPV 10.6 (9.4-12.4) fL Immature Gran % (Auto) % Neut % (Auto) % Lymph % (Auto) % [place] % (Auto) % Eos % (Auto) % Baso % (Auto) % Neut # (Auto) (1.40-6.50) K/uL Lymph # (Auto) (1.2-3.4) K/uL [place] # (Auto) (0.11-0.59) K/uL Eos # (Auto) (0-0.50) K/uL Baso # (Auto) (0-0.2) K/uL Immature Gran # (Auto) (0.01-0.20) K/uL Absolute Nucleated RBC (0-0.12) K/uL Nucleated RBC % (auto) % Toxic Granulation Polychromasia ABG pH (7.35-7.45) ABG pCO2 (35-46) mmHg ABG pO2 (80-95) mmHg ABG HCO3 (19-24) mmol/L ABG O2 Saturation (90-95) % ABG Base Excess (-9-1.8) mEq/L Juan Test (Pos) Oxygen Given Sodium 142 (136-145) mmol/L Potassium 4.0 (3.5-5.1) mmol/L Chloride 98 (98-107) mmol/L Carbon Dioxide 40 H (21-32) mmol/L Anion Gap 4 (3-11) BUN 24 H (6-23) mg/dl Creatinine 0.74 (0.6-1.4) mg/dl Est Cr Clr Drug Dosing 65.0 ml/min Est GFR ( Amer) 109.8 ml/min Est GFR (Non-Af Amer) 94.8 ml/min BUN/Creatinine Ratio 32.4 H (10-20) Glucose 89 (70-99(Fasting)) mg/dl POC Glucose 93 (70-99) mg/dl Calcium 9.2 (8.6-10.3) mg/dl 11/12/22 11/12/22 11/12/22 Range/Units 22:01 21:16 11:09 WBC (4.8-10.8) K/ul RBC (4.70-6.10) M/uL Hgb (14.0-18.0) g/dl Hct (42.0-52.0) % MCV (80.0-100.0) fL MCH (25.0-34.0) pg MCHC (32.0-36.0) g/dL RDW Std Deviation (36.4-46.3) fL RDW Coeff of Myles (11.5-14.5) % Plt Count (130-400) K/uL MPV (9.4-12.4) fL Immature Gran % (Auto) % Neut % (Auto) % Lymph % (Auto) % [place] % (Auto) % Eos % (Auto) % Baso % (Auto) % Neut # (Auto) (1.40-6.50) K/uL Lymph # (Auto) (1.2-3.4) K/uL [place] # (Auto) (0.11-0.59) K/uL Eos # (Auto) (0-0.50) K/uL Baso # (Auto) (0-0.2) K/uL Immature Gran # (Auto) (0.01-0.20) K/uL Absolute Nucleated RBC (0-0.12) K/uL Nucleated RBC % (auto) % Toxic Granulation Polychromasia ABG pH 7.49 H (7.35-7.45) ABG pCO2 53 H (35-46) mmHg ABG pO2 66 L (80-95) mmHg ABG HCO3 40 H (19-24) mmol/L ABG O2 Saturation 95.4 H (90-95) % ABG Base Excess 14.6 H (-9-1.8) mEq/L Juan Test POS (Pos) Oxygen Given 5 L Sodium 138 (136-145) mmol/L Potassium 3.7 (3.5-5.1) mmol/L Chloride 94 L (98-107) mmol/L Carbon Dioxide 40 H (21-32) mmol/L Anion Gap 4 (3-11) BUN 30 H (6-23) mg/dl Creatinine 0.80 (0.6-1.4) mg/dl Est Cr Clr Drug Dosing 58.3 ml/min Est GFR ( Amer) 106.4 ml/min Est GFR (Non-Af Amer) 91.8 ml/min BUN/Creatinine Ratio 37.5 H (10-20) Glucose 177 H (70-99(Fasting)) mg/dl POC Glucose 154 H (70-99) mg/dl Calcium 8.7 (8.6-10.3) mg/dl 11/12/22 Range/Units 05:59 WBC 6.45 (4.8-10.8) K/ul RBC 3.71 L (4.70-6.10) M/uL Hgb 11.2 L (14.0-18.0) g/dl Hct 33.3 L (42.0-52.0) % MCV 89.8 (80.0-100.0) fL MCH 30.2 (25.0-34.0) pg MCHC 33.6 (32.0-36.0) g/dL RDW Std Deviation 54.7 H (36.4-46.3) fL RDW Coeff of Myles 16.6 H (11.5-14.5) % Plt Count 202 (130-400) K/uL MPV 11.2 (9.4-12.4) fL Immature Gran % (Auto) 1.6 % Neut % (Auto) 77.0 % Lymph % (Auto) 14.4 % [place] % (Auto) 6.8 % Eos % (Auto) 0.0 % Baso % (Auto) 0.2 % Neut # (Auto) 4.97 (1.40-6.50) K/uL Lymph # (Auto) 0.93 L (1.2-3.4) K/uL [place] # (Auto) 0.44 (0.11-0.59) K/uL Eos # (Auto) 0.00 (0-0.50) K/uL Baso # (Auto) 0.01 (0-0.2) K/uL Immature Gran # (Auto) 0.10 (0.01-0.20) K/uL Absolute Nucleated RBC 0.03 (0-0.12) K/uL Nucleated RBC % (auto) 0.5 % Toxic Granulation 1+ Polychromasia 1+ ABG pH (7.35-7.45) ABG pCO2 (35-46) mmHg ABG pO2 (80-95) mmHg ABG HCO3 (19-24) mmol/L ABG O2 Saturation (90-95) % ABG Base Excess (-9-1.8) mEq/L Juan Test (Pos) Oxygen Given Sodium (136-145) mmol/L Potassium (3.5-5.1) mmol/L Chloride (98-107) mmol/L Carbon Dioxide (21-32) mmol/L Anion Gap (3-11) BUN (6-23) mg/dl Creatinine (0.6-1.4) mg/dl Est Cr Clr Drug Dosing ml/min Est GFR ( Amer) ml/min Est GFR (Non-Af Amer) ml/min BUN/Creatinine Ratio (10-20) Glucose (70-99(Fasting)) mg/dl POC Glucose (70-99) mg/dl Calcium (8.6-10.3) mg/dl Medications Administered Current Inpatient Medications Acetaminophen (Acetaminophen 325 Mg Tab) 650 mg PO Q4H PRN PRN Reason: Pain or Fever Stop: 12/10/22 03:11 Budesonide (Budesonide 0.25 Mg/2 Ml Vial (Pulmicort)) 0.5 mg NEB BIDR MAGNOLIA Stop: 12/11/22 18:59 Last Admin: 11/13/22 07:10 Dose: 0.5 mg Diazepam (Diazepam 5 Mg Tablet) 5 mg PO AC MAGNOLIA Stop: 12/10/22 07:29 Last Admin: 11/13/22 07:55 Dose: 5 mg Diltiazem HCl (Diltiazem Hcl 60 Mg Tab) 60 mg PO AMHS MAGNOLIA Stop: 12/10/22 08:59 Last Admin: 11/12/22 21:21 Dose: 60 mg Formoterol Fumarate (Formoterol 20 Mcg/2 Ml Vial) 20 mcg INH BIDR MAGNOLIA Stop: 12/10/22 18:59 Last Admin: 11/13/22 07:10 Dose: 20 mcg Gabapentin (Gabapentin 100 Mg Cap) 100 mg PO HS PRN PRN Reason: Pain Stop: 12/10/22 03:11 Last Admin: 11/11/22 22:26 Dose: 100 mg Guaifenesin (Guaifenesin 600 Mg Tabcr) 1,200 mg PO AMHS PRN PRN Reason: Congestion Stop: 12/10/22 03:11 Heparin Sodium (Porcine) (Heparin Sod 5,000 Unit/0.5 Ml Vial) 5,000 units SQ Q12 MAGNOLIA Stop: 12/10/22 08:59 Last Admin: 11/12/22 21:28 Dose: Not Given Ceftriaxone Sodium 2,000 mg/ (Dextrose) 70 mls @ 100 mls/hr IV Q24H [facility]; Protocol Stop: 11/17/22 20:59 Last Infusion: 11/12/22 22:57 Dose: Infused Azithromycin 500 mg/ Dextrose 255 mls @ 125 mls/hr IV DAILY MAGNOLIA Stop: 11/18/22 13:59 Last Infusion: 11/12/22 11:24 Dose: Infused Ipratropium [place] (Ipratropium [place] Neb Soln 0.02% 2.5 Ml Vial) 0.5 mg INH QIDR [facility] Stop: 12/10/22 06:59 Last Admin: 11/13/22 07:11 Dose: Not Given Ipratropium [place] (Ipratropium [place] Neb Soln 0.02% 2.5 Ml Vial) 0.5 mg INH Q2H PRN PRN Reason: Shortness Of Breath Or Wheezin Stop: 12/10/22 03:11 Levalbuterol HCl (Levalbuterol 1.25 Mg/3 Ml Neb) 1.25 mg NEB QIDR [facility] Stop: 12/10/22 06:59 Last Admin: 11/13/22 07:11 Dose: Not Given Levalbuterol HCl (Levalbuterol 1.25 Mg/3 Ml Neb) 1.25 mg NEB Q2H PRN PRN Reason: Shortness Of Breath Or Wheezin Stop: 12/10/22 03:11 Loratadine (Loratadine 10 Mg Tab) 10 mg PO QAM [facility] Stop: 12/10/22 08:59 Last Admin: 11/12/22 09:14 Dose: 10 mg Nitroglycerin (Nitroglycerin Sl 0.4 Mg/Tab Tab) 0.4 mg SL Q5M PRN PRN Reason: Chest Pain Stop: 12/10/22 03:11 Nystatin (Nystatin Susp 500,000 U/5 Ml Udc) 5 ml PO QID [facility] Stop: 11/20/22 08:59 Last Admin: 11/12/22 21:21 Dose: 5 ml Oxycodone HCl (Oxycodone Hcl Ir 5 Mg Tab (Immediate Release)) 15 mg PO Q8H PRN PRN Reason: Pain,severe Stop: 11/24/22 03:11 Last Admin: 11/13/22 03:12 Dose: 15 mg Pantoprazole Sodium (Pantoprazole 40 Mg Tab) 40 mg PO QAM [facility] Stop: 12/10/22 08:59 Last Admin: 11/12/22 09:05 Dose: 40 mg Polyethylene Glycol (Polyethylene (Miralax) 17 Gm Pack) 17 gm PO DAILY PRN PRN Reason: Constipation Stop: 12/10/22 03:11 Last Admin: 11/13/22 07:55 Dose: 17 gm Prednisone (Prednisone 20 Mg Tab) 40 mg PO DAILY [facility] Stop: 12/11/22 08:59 Last Admin: 11/12/22 09:05 Dose: 40 mg Sodium Chloride (Sodium Chlor 7% 4 Ml Neb) 4 ml NEB BIDR [facility] Stop: 12/10/22 18:59 Last Admin: 11/13/22 07:10 Dose: 4 ml Tamsulosin HCl (Tamsulosin Hcl 0.4 Mg Cap) 0.4 mg PO DAILY [facility] Stop: 12/10/22 08:59 Last Admin: 11/12/22 09:05 Dose: 0.4 mg
--- NOTE | 2022-11-13 08:31 | Pulmonology Progress Note ---
Date of Service November 13, 2022 Assessment & Plan (1) Acute respiratory failure with hypoxia: (2) COPD (chronic obstructive pulmonary disease): (3) Multifocal pneumonia: (4) Acute exacerbation of chronic obstructive airways disease: (5) Bacteremia due to Gram-positive bacteria: (6) Bronchiectasis: (7) COPD (chronic obstructive pulmonary disease): Plan Impression: 67-year-old male with chronic hypoxemic and hypercarbic respiratory failure and advanced chronic obstructive pulmonary disease admitted with exacerbation. Continues to demonstrate mild respiratory distress. Patient's last PFTs in our system were back in 2010 which showed moderate airflow obstruction at that time with hyperinflation. He has undergone bronchoscopy in the past with Dr. Bhakta as well as bronchial thermoplasty. 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 He been on Xolair in the past. Blood cultures positive for Streptococcus pneumonia. Respiratory culture pending. His course has been complicated by noncompliance. He is established at [facility] with Dr. Kennedy. He reportedly underwent bronchoscopy last month with biopsy but those results were not available Recommendations: 1. Hypoxemic respiratory failure/hypercarbic respiratory failure: Hypercarbia is well compensated currently. Continue supplemental oxygen titrated to keep saturations around 88%. Would not try and target higher oxygen saturations in light of his hypercarbia. Patient may qualify for nocturnal AVAPS depending on clinical course. 2. Multifocal pulmonary infiltrates with bacteremia: Antibiotics per primary service. ID consultation pending. Will attempt to obtain results from [facility] bronchoscopy to see whether or not atypical pathogens including nontuberculous mycobacteria were identified at that time and to review biopsy results. 3. History of asthma with allergic bronchopulmonary aspergillosis. Continue Brovana and budesonide. Continue prednisone 40 mg a day. IgE level and eosinophils unlikely to be reliable in the setting of systemic steroids. Still persistently wheezing. We will start low-dose theophylline and add Incruse. Recommendations and plan were discussed with the patient. He expressed underst anding and is in agreement with the plan as outlined. A total of 50 minutes was spent in evaluation management and coordination of care for this patient. Admission and Anticipated Discharge Date Admission Date: November 10, 2022 Subjective Patient seen and examined. EMR reviewed. The patient reports that his breathing is slightly worse than yesterday. He continues to feel wheezing and rattling in his chest. He is coughing and expectorating some phlegm. No fevers chills or night sweats. No hemoptysis Review of Systems Review of Systems: All systems reviewed & are unremarkable except as noted in Subjective Physical Exam Constitutional: + cachectic; no acute distress Neck: trachea midline, no thyromegaly Respiratory: no respiratory distress, no labored breathing and not tachypneic Auscultation: + wheezes Cardiovascular: RRR, no murmur, no edema Gastrointestinal (Abdomen): normal bowel sounds, soft, nontender, no hepatosplenomegaly Musculoskeletal: Extremities: extremities normal to inspection Skin: no rashes, warm and dry Lymphatic: no cervical lymphadenopathy Results & Data Results & Data Vital Signs (Past 12 Hours) Vital Signs Temp Pulse Pulse Pulse Resp BP Pulse Ox 11/13/22 07:46 36.5 C 66 20 117/67 96 11/13/22 07:10 67 20 96 11/13/22 02:19 36.5 C 75 18 107/70 99 11/13/22 01:57 64 11/13/22 01:55 11/12/22 23:19 36.4 C L 60 18 93/55 L 96 O2 Del Method O2 Flow Rate 11/13/22 07:46 Nasal Cannula 5.0 11/13/22 07:10 Nasal Cannula 5 11/13/22 02:19 High Flow Nasal Cannula 5 11/13/22 01:57 11/13/22 01:55 High Flow Nasal Cannula 5 11/12/22 23:19 High Flow Nasal Cannula 5 Laboratory Results 11/13/22 05:46 11/13/22 05:46 PG Care Time/CCT Total # of Minutes Spent Total Time Spent with Patient: Total time spent is greater than 50% in coordination of care (as documented) at patient's floor/unit and/or counseling patient: Coding Level of Care Code 71676 SUB INP/OBS CARE 3/50MIN Diagnoses Acute respiratory failure with hypoxia J96.01 COPD (chronic obstructive pulmonary disease) J44.9 Multifocal pneumonia J18.9 Acute exacerbation of chronic obstructive airways disease J44.1 Bacteremia due to Gram-positive bacteria R78.81 Bronchiectasis J47.9
[2022-11-13] MEDS: AZITHROMYCIN 500 MG in DEXTROSE 5% 250 ML IV SCH (08:36)
[2022-11-13] MEDS: HEPARIN SOD 5,000 UNIT/0.5 ML VIAL SQ SCH ×3 (08:37→21:21)
[2022-11-13] MEDS: LORATADINE 10 MG TAB PO SCH (08:37)
[2022-11-13] MEDS: guaiFENesin 600 MG TABCR PO PRN (08:38)
[2022-11-13] MEDS: TAMSULOSIN HCL 0.4 MG CAP PO SCH (08:38)
[2022-11-13] MEDS: predniSONE 20 MG TAB PO SCH (08:38)
[2022-11-13] MEDS: PANTOprazole 40 MG TAB PO SCH (08:38)
[2022-11-13] MEDS: NYSTATIN SUSP 500,000 U/5 ML UDC PO SCH ×4 (08:39→21:12)
[2022-11-13] MEDS: dilTIAZem HCl 60 MG TAB PO SCH ×2 (08:39→21:12)
[2022-11-13] MEDS: UMECLIDINIUM BROMIDE 62.5MCG/BLISTER 7 PUFFS/INHALER INH SCH (09:09)
[2022-11-13] MEDS: THEOPHYLLINE 300MG EXTENDED REL TAB PO SCH (09:09)
[2022-11-13] MEDS: AZITHROMYCIN 250 MG TAB PO SCH (09:09)
[2022-11-13] MEDS ORDERED: BENZOCAINE 20% (ORAJEL) 11.9 GM TUBE MT PRN (16:12)
[2022-11-13] MEDS ORDERED: LORazepam 2 MG/1 ML VIAL IV STA (20:45)
[2022-11-13] MEDS: cefTRIAXone SODIUM 2,000 MG in DEXTROSE 5% 50 ML IV SCH (21:18)
[2022-11-14] MEDS: oxyCODONE HCL IR 5 MG TAB (IMMEDIATE RELEASE) PO PRN ×3 (01:52→23:21)
[2022-11-14 06:25] LABS: Hemoglobin 12.1 g/dl (14.0-18.0); Mean Corpuscular Hemoglobin 30.1 pg (25.0-34.0); Mean Corpuscular Hgb Conc 33.6 g/dL (32.0-36.0); Mean Corpuscular Volume 89.6 fL (80.0-100.0); Mean Platelet Volume 10.2 fL (9.4-12.4); Platelet Count 294 K/uL (130-400); RDW Standard Deviation 55.2 fL (36.4-46.3); Red Blood Count 4.02 M/uL (4.70-6.10); White Blood Count 5.17 K/ul (4.8-10.8)
[2022-11-14 06:42] LABS: Calcium 9.3 mg/dl (8.6-10.3); Creatinine Clr Calc Pharmacy 62.5 ml/min; Est GFR (African American) 108.7 ml/min; Est GFR (Non-African American) 93.7 ml/min; Magnesium 1.9 mg/dl (1.7-2.4); Phosphorus 2.6 mg/dl (2.5-4.9); Potassium 4.6 mmol/L (3.5-5.1)
[2022-11-14] MEDS: SODIUM CHLOR 7% 4 ML NEB NEB SCH ×2 (07:12→19:37)
[2022-11-14] MEDS: FORMOTEROL 20 MCG/2 ML VIAL INH SCH ×2 (07:12→19:37)
[2022-11-14] MEDS: BUDESONIDE 0.25 MG/2 ML VIAL (PULMICORT) NEB SCH ×2 (07:13→19:38)
[2022-11-14] MEDS: LEVALBUTEROL 1.25 MG/3 ML NEB NEB SCH ×4 (07:14→19:38)
[2022-11-14] MEDS: IPRATROPIUM BROMIDE NEB SOLN 0.02% 2.5 ML VIAL INH SCH ×4 (07:14→19:37)
--- NOTE | 2022-11-14 08:25 | Pulmonology Progress Note ---
Date of Service November 14, 2022 Assessment & Plan (1) Acute respiratory failure with hypoxia: (2) COPD (chronic obstructive pulmonary disease): (3) Multifocal pneumonia: (4) Acute exacerbation of chronic obstructive airways disease: (5) Bacteremia due to Gram-positive bacteria: (6) Bronchiectasis: Plan Impression: 67-year-old male with chronic hypoxemic and hypercarbic respiratory failure and advanced chronic obstructive pulmonary disease admitted with exacerbation. Continues to demonstrate mild respiratory distress. Patient's last PFTs in our system were back in 2010 which showed moderate airflow obstruction at that time with hyperinflation. He has undergone bronchoscopy in the past with Dr. Bhakta as well as bronchial thermoplasty. 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 He been on Xolair in the past. Blood cultures positive for Streptococcus pneumonia. Respiratory culture pending. His course has been complicated by noncompliance. He is established at [facility] with Dr. Kennedy. He reportedly underwent bronchoscopy last month with biopsy but those results were not available Recommendations: 1. Hypoxemic respiratory failure/hypercarbic respiratory failure: Hypercarbia is well compensated currently. Continue supplemental oxygen titrated to keep saturations around 88%. Would not try and target higher oxygen saturations in light of his hypercarbia. Patient may qualify for nocturnal AVAPS depending on clinical course. 2. Multifocal pulmonary infiltrates with bacteremia: Antibiotics per primary service. Reviewed outpatient [facility] bronchoscopy results which demonstrated aspergillus niger species. While this might not be something we would address on a routine basis, given the patient's CT findings and associated infections (e.g. bacteremia, sputum cx), argument could be made for placing the patient on antifungals. Would defer to ID. Messaged primary service about this. ID consultation pending. 3. History of asthma with allergic bronchopulmonary aspergillosis. Continue Brovana and budesonide. Continue prednisone 40 mg a day. Patient remains bronchospastic, but has improved since previous exam. IgE level and eosinophils unlikely to be reliable in the setting of systemic steroids. We will start low- dose theophylline and add Incruse. Recommendations and plan were discussed with the patient. He expressed understanding and is in agreement with the plan as outlined. A total of 50 minutes was spent in evaluation management and coordination of care for this patient. Admission and Anticipated Discharge Date Admission Date: November 10, 2022 Subjective Patient seen and evaluated at bedside. He reports that he had a rough night with anxiety secondary to some home life issues. Otherwise, he feels as though his breathing has improved. He states that he typically feels worse in the morning and then progressively better throughout the day. He continues to cough up moderate amounts of sputum. He does continue to have some shortness of breath with minimal exertion. He has not ambulated to this point. Review of Systems Review of Systems: A complete 6 point review of systems was reviewed with the patient with pertinent positives and negatives as per history of present illness. All else were negative. Physical Exam Physical Exam: VITAL SIGNS - Vital signs and nursing notes were reviewed. GENERAL - 67-year-old male appearing his stated age who is in no acute distress. Communicates well with provider and answers questions appropriately. NOSE - Midline and without cyanosis. No epistaxis or purulent drainage noted. MOUTH/OROPHARYNX - Without perioral cyanosis. LUNGS - Auscultation reveals diffuse inspiratory wheezes through most lung moya. CARDIAC - RRR with S1/S2. No murmur, rubs, or gallops appreciated. EXTREMITIES - +3/5 radial palpated throughout. PSYCH - A&Ox3 and cooperates fully with examiner. Pt is very pleasant and interacts well with examiner. Results & Data Results & Data Vital Signs (Past 12 Hours) Vital Signs Temp Pulse Pulse Resp BP Pulse Ox O2 Del Method 11/14/22 07:35 36.4 C L 81 20 125/74 98 High Flow Nasal Cannula 11/14/22 07:15 76 20 92 Nasal Cannula 11/14/22 00:00 76 11/14/22 02:54 36.5 C 71 18 92/62 L 93 High Flow Nasal Cannula 11/13/22 23:05 36.5 C 76 18 100/61 93 High Flow Nasal Cannula O2 Flow Rate 11/14/22 07:35 11/14/22 07:15 4 11/14/22 00:00 11/14/22 02:54 11/13/22 23:05 5 PG Care Time/CCT Total # of Minutes Spent Total Time Spent with Patient: Total time spent is greater than 50% in coordination of care (as documented) at patient's floor/unit and/or counseling patient: Coding Level of Care Code 12107 SUB INP/OBS CARE 3/50MIN Diagnoses Acute respiratory failure with hypoxia J96.01 COPD (chronic obstructive pulmonary disease) J44.9 Multifocal pneumonia J18.9 Acute exacerbation of chronic obstructive airways disease J44.1 Bacteremia due to Gram-positive bacteria R78.81 Bronchiectasis J47.9
[2022-11-14] MEDS: PANTOprazole 40 MG TAB PO SCH (08:48)
[2022-11-14] MEDS: LORATADINE 10 MG TAB PO SCH (08:48)
[2022-11-14] MEDS: NYSTATIN SUSP 500,000 U/5 ML UDC PO SCH ×4 (08:48→20:36)
[2022-11-14] MEDS: AZITHROMYCIN 250 MG TAB PO SCH (08:48)
[2022-11-14] MEDS: dilTIAZem HCl 60 MG TAB PO SCH ×2 (08:48→20:37)
[2022-11-14] MEDS: diazePAM 5 MG TABLET PO SCH ×3 (08:48→17:37)
[2022-11-14] MEDS: predniSONE 20 MG TAB PO SCH (08:48)
[2022-11-14] MEDS: THEOPHYLLINE 300MG EXTENDED REL TAB PO SCH (08:49)
[2022-11-14] MEDS: HEPARIN SOD 5,000 UNIT/0.5 ML VIAL SQ SCH ×2 (08:49→20:35)
[2022-11-14] MEDS: TAMSULOSIN HCL 0.4 MG CAP PO SCH (08:49)
[2022-11-14] MEDS: UMECLIDINIUM BROMIDE 62.5MCG/BLISTER 7 PUFFS/INHALER INH SCH (08:49)
--- NOTE | 2022-11-14 09:46 | Hospitalist Progress Note ---
Date of Service November 14, 2022 Assessment & Plan (1) Acute respiratory failure with hypoxia: (2) COPD (chronic obstructive pulmonary disease): Plan: This is a 67-year-old male, who presents with respiratory distress. 1. Acute Hypoxic, Hypercarbic Respiratory Failure Chronic obstructive pulmonary disease exacerbation Multifocal pneumonia. Streptococcus pneumonia Bacteremia Sepsis, POA -- Weaned off high flow oxygen, currently on nasal cannula 5 L --Gradually improving -- Infectious Disease consulted - recommend to continue ceftriaxone, can discontinue azithromycin continue with Prednisone, nebulized budesonide, and nebulized Perforomist for now. Pulmonary medicine consulted - started low-dose theophylline and added Incruse. - pulm. medicine reviewed outpt bronch findings - Aspergillus niger. Discussed with ID today, Aspergillus niger is nonpathogenic. 2. Altered mental status, Septic Encephalopathy -- CT head: negative -- resolved 3. Entero/rhinovirus on resp. biofire. isolation precautions. 4. Oropharyngeal dysphagia, esophageal dysmotility silent aspiration. easy to chew diet as per speech recommendations recommendations. Last admission patient declined peg tube The patient takes Valium, which will be continued. 5. History of asthma, bronchitis. Management as above. 6. History of chronic diastolic congestive heart failure -- euvolemic 7. Chronic pain syndrome, cervical radiculopathy. On oxycodone as needed. 8. BPH. On Flomax. 9. Gastroesophageal reflux disease. On Protonix. DVT prophylaxis. heparin subq Disposition pending will need PT/OT From home Admission and Anticipated Discharge Date Admission Date: November 10, 2022 Subjective Follow-up for acute hypoxic respiratory failure, pneumonia, [employer] exacerbation, pna, bacteremia Strep pneumo in blood Staph. aureus (not MRSA) in sputum cultx Seen resting in bed, comfortable, not in distress On nasal cannula now, 5 L States breathing is improved since he came to the hospital, says that he has been coughing more, and sputum is more clear now No chest pain, no abd. pain, no n/v no fever, chills Discussed w/ ID today -outpatient culture with Aspergillus niger - non- pathogenic Review of Systems Review of Systems: All systems reviewed & are unremarkable except as noted in Subjective Physical Exam Physical Exam: General- thin elderly M in NAD, on NC 5L Eyes- anicteric Neck- no JVD Lungs- diffuse wheezing Heart- normal rate, regular rhythm; no murmurs Abdomen- normal bowel sounds, nondistended, soft, nontender Extremities- no pretibial edema, no calf tenderness Neuro- alert, oriented x 3; no facial asymmetry, moves extremities Skin- warm & dry Results & Data Results & Data Vital Signs (Past 12 Hours) Vital Signs Temp Pulse Pulse Resp BP Pulse Ox Pulse Ox 11/14/22 08:00 90 11/14/22 07:35 36.4 C L 81 20 125/74 98 11/14/22 07:15 76 20 92 11/14/22 00:00 76 11/14/22 02:54 36.5 C 71 18 92/62 L 93 11/13/22 23:05 36.5 C 76 18 100/61 93 O2 Del Method O2 Del Method O2 Flow Rate O2 Flow Rate 11/14/22 08:00 Nasal Cannula 5 11/14/22 07:35 High Flow Nasal Cannula 11/14/22 07:15 Nasal Cannula 4 11/14/22 00:00 11/14/22 02:54 High Flow Nasal Cannula 11/13/22 23:05 High Flow Nasal Cannula 5 Laboratory Results 11/14/22 11/14/22 11/13/22 Range/Units 05:28 05:28 20:36 WBC 5.17 (4.8-10.8) K/ul RBC 4.02 L (4.70-6.10) M/uL Hgb 12.1 L (14.0-18.0) g/dl Hct 36.0 L (42.0-52.0) % MCV 89.6 (80.0-100.0) fL MCH 30.1 (25.0-34.0) pg MCHC 33.6 (32.0-36.0) g/dL RDW Std Deviation 55.2 H (36.4-46.3) fL RDW Coeff of Myles 17.0 H (11.5-14.5) % Plt Count 294 (130-400) K/uL MPV 10.2 (9.4-12.4) fL Sodium 142 (136-145) mmol/L Potassium 4.6 (3.5-5.1) mmol/L Chloride 100 (98-107) mmol/L Carbon Dioxide 39 H (21-32) mmol/L Anion Gap 3 (3-11) BUN 19 (6-23) mg/dl Creatinine 0.76 (0.6-1.4) mg/dl Est Cr Clr Drug Dosing 62.5 ml/min Est GFR ( Amer) 108.7 ml/min Est GFR (Non-Af Amer) 93.7 ml/min BUN/Creatinine Ratio 25.0 H (10-20) Glucose 93 (70-99(Fasting)) mg/dl POC Glucose 200 H (70-99) mg/dl Calcium 9.3 (8.6-10.3) mg/dl Phosphorus 2.6 (2.5-4.9) mg/dl Magnesium 1.9 (1.7-2.4) mg/dl 11/13/22 11/13/22 Range/Units 16:28 11:41 WBC (4.8-10.8) K/ul RBC (4.70-6.10) M/uL Hgb (14.0-18.0) g/dl Hct (42.0-52.0) % MCV (80.0-100.0) fL MCH (25.0-34.0) pg MCHC (32.0-36.0) g/dL RDW Std Deviation (36.4-46.3) fL RDW Coeff of Myles (11.5-14.5) % Plt Count (130-400) K/uL MPV (9.4-12.4) fL Sodium (136-145) mmol/L Potassium (3.5-5.1) mmol/L Chloride (98-107) mmol/L Carbon Dioxide (21-32) mmol/L Anion Gap (3-11) BUN (6-23) mg/dl Creatinine (0.6-1.4) mg/dl Est Cr Clr Drug Dosing ml/min Est GFR ( Amer) ml/min Est GFR (Non-Af Amer) ml/min BUN/Creatinine Ratio (10-20) Glucose (70-99(Fasting)) mg/dl POC Glucose 235 H 98 (70-99) mg/dl Calcium (8.6-10.3) mg/dl Phosphorus (2.5-4.9) mg/dl Magnesium (1.7-2.4) mg/dl Medications Administered Current Inpatient Medications Acetaminophen (Acetaminophen 325 Mg Tab) 650 mg PO Q4H PRN PRN Reason: Pain or Fever Stop: 12/10/22 03:11 Azithromycin (Azithromycin 250 Mg Tab) 250 mg PO QAM [facility] Stop: 11/20/22 08:59 Last Admin: 11/14/22 08:48 Dose: 250 mg Benzocaine (Benzocaine 20% (Orajel) 11.9 Gm Tube) 1 appln MT Q1H PRN PRN Reason: Pain Stop: 12/13/22 16:11 Budesonide (Budesonide 0.25 Mg/2 Ml Vial (Pulmicort)) 0.5 mg NEB BIDR [facility] Stop: 12/11/22 18:59 Last Admin: 11/14/22 07:13 Dose: 0.5 mg Diazepam (Diazepam 5 Mg Tablet) 5 mg PO AC [facility] Stop: 12/10/22 07:29 Last Admin: 11/14/22 08:48 Dose: 5 mg Diltiazem HCl (Diltiazem Hcl 60 Mg Tab) 60 mg PO AMHS [facility] Stop: 12/10/22 08:59 Last Admin: 11/14/22 08:48 Dose: 60 mg Formoterol Fumarate (Formoterol 20 Mcg/2 Ml Vial) 20 mcg INH BIDR [facility] Stop: 12/10/22 18:59 Last Admin: 11/14/22 07:12 Dose: 20 mcg Gabapentin (Gabapentin 100 Mg Cap) 100 mg PO HS PRN PRN Reason: Pain Stop: 12/10/22 03:11 Last Admin: 11/11/22 22:26 Dose: 100 mg Guaifenesin (Guaifenesin 600 Mg Tabcr) 1,200 mg PO AMHS PRN PRN Reason: Congestion Stop: 12/10/22 03:11 Last Admin: 11/13/22 08:38 Dose: 1,200 mg Heparin Sodium (Porcine) (Heparin Sod 5,000 Unit/0.5 Ml Vial) 5,000 units SQ Q12 [facility] Stop: 12/10/22 08:59 Last Admin: 11/14/22 08:49 Dose: Not Given Ceftriaxone Sodium 2,000 mg/ (Dextrose) 70 mls @ 100 mls/hr IV Q24H [facility]; Protocol Stop: 11/17/22 20:59 Last Infusion: 11/13/22 22:09 Dose: Infused Ipratropium [place] (Ipratropium [place] Neb Soln 0.02% 2.5 Ml Vial) 0.5 mg INH QIDR [facility] Stop: 12/10/22 06:59 Last Admin: 11/14/22 07:14 Dose: Not Given Ipratropium [place] (Ipratropium [place] Neb Soln 0.02% 2.5 Ml Vial) 0.5 mg INH Q2H PRN PRN Reason: Shortness Of Breath Or Wheezin Stop: 12/10/22 03:11 Levalbuterol HCl (Levalbuterol 1.25 Mg/3 Ml Neb) 1.25 mg NEB QIDR [facility] Stop: 12/10/22 06:59 Last Admin: 11/14/22 07:14 Dose: Not Given Levalbuterol HCl (Levalbuterol 1.25 Mg/3 Ml Neb) 1.25 mg NEB Q2H PRN PRN Reason: Shortness Of Breath Or Wheezin Stop: 12/10/22 03:11 Loratadine (Loratadine 10 Mg Tab) 10 mg PO QAM [facility] Stop: 12/10/22 08:59 Last Admin: 11/14/22 08:48 Dose: 10 mg Nitroglycerin (Nitroglycerin Sl 0.4 Mg/Tab Tab) 0.4 mg SL Q5M PRN PRN Reason: Chest Pain Stop: 12/10/22 03:11 Nystatin (Nystatin Susp 500,000 U/5 Ml Udc) 5 ml PO QID [facility] Stop: 11/20/22 08:59 Last Admin: 11/14/22 08:48 Dose: 5 ml Oxycodone HCl (Oxycodone Hcl Ir 5 Mg Tab (Immediate Release)) 15 mg PO Q8H PRN PRN Reason: Pain,severe Stop: 11/24/22 03:11 Last Admin: 11/14/22 01:52 Dose: 15 mg Pantoprazole Sodium (Pantoprazole 40 Mg Tab) 40 mg PO QAM [facility] Stop: 12/10/22 08:59 Last Admin: 11/14/22 08:48 Dose: 40 mg Polyethylene Glycol (Polyethylene (Miralax) 17 Gm Pack) 17 gm PO DAILY PRN PRN Reason: Constipation Stop: 12/10/22 03:11 Last Admin: 11/13/22 08:36 Dose: 17 gm Prednisone (Prednisone 20 Mg Tab) 40 mg PO DAILY [facility] Stop: 12/11/22 08:59 Last Admin: 11/14/22 08:48 Dose: 40 mg Sodium Chloride (Sodium Chlor 7% 4 Ml Neb) 4 ml NEB BIDR [facility] Stop: 12/10/22 18:59 Last Admin: 11/14/22 07:12 Dose: 4 ml Tamsulosin HCl (Tamsulosin Hcl 0.4 Mg Cap) 0.4 mg PO DAILY [facility] Stop: 12/10/22 08:59 Last Admin: 11/14/22 08:49 Dose: 0.4 mg Theophylline (Theophylline 300mg Extended Rel Tab) 300 mg PO QAM [facility] Stop: 12/13/22 08:59 Last Admin: 11/14/22 08:49 Dose: 300 mg Umeclidinium [place] (Umeclidinium [place] 62.5mcg/Blister 7 Puffs/Inhaler) 1 puffs INH DAILY [facility] Stop: 12/13/22 08:59 Last Admin: 11/14/22 08:49 Dose: 1 puffs
[2022-11-14] MEDS: cefTRIAXone SODIUM 2,000 MG in DEXTROSE 5% 50 ML IV SCH (20:36)
[2022-11-15 06:09] LABS: BUN Creatinine Ratio 26.8 (10-20); Creatinine Clr Calc Pharmacy 57.4 ml/min; Est GFR (African American) 105.3 ml/min; Est GFR (Non-African American) 90.9 ml/min; Magnesium 1.8 mg/dl (1.7-2.4); Phosphorus 3.2 mg/dl (2.5-4.9); Potassium 4.1 mmol/L (3.5-5.1)
[2022-11-15] MEDS: BUDESONIDE 0.25 MG/2 ML VIAL (PULMICORT) NEB SCH ×2 (06:54→19:24)
[2022-11-15] MEDS: IPRATROPIUM BROMIDE NEB SOLN 0.02% 2.5 ML VIAL INH SCH ×4 (06:54→19:24)
[2022-11-15] MEDS: SODIUM CHLOR 7% 4 ML NEB NEB SCH ×2 (06:54→19:21)
[2022-11-15] MEDS: LEVALBUTEROL 1.25 MG/3 ML NEB NEB SCH ×4 (06:54→19:24)
[2022-11-15] MEDS: FORMOTEROL 20 MCG/2 ML VIAL INH SCH ×2 (06:54→19:21)
[2022-11-15] MEDS: AZITHROMYCIN 250 MG TAB PO SCH (07:38)
[2022-11-15] MEDS: POLYETHYLENE (MIRALAX) 17 GM PACK PO PRN (07:38)
[2022-11-15] MEDS: THEOPHYLLINE 300MG EXTENDED REL TAB PO SCH (07:38)
[2022-11-15] MEDS: diazePAM 5 MG TABLET PO SCH ×3 (07:38→16:27)
[2022-11-15] MEDS: LORATADINE 10 MG TAB PO SCH (07:38)
[2022-11-15] MEDS: guaiFENesin 600 MG TABCR PO PRN (07:39)
[2022-11-15] MEDS: dilTIAZem HCl 60 MG TAB PO SCH ×2 (07:39→20:35)
[2022-11-15] MEDS: predniSONE 20 MG TAB PO SCH (07:39)
[2022-11-15] MEDS: TAMSULOSIN HCL 0.4 MG CAP PO SCH (07:40)
[2022-11-15] MEDS: HEPARIN SOD 5,000 UNIT/0.5 ML VIAL SQ SCH ×2 (07:40→20:36)
[2022-11-15] MEDS: PANTOprazole 40 MG TAB PO SCH (07:40)
[2022-11-15] MEDS: UMECLIDINIUM BROMIDE 62.5MCG/BLISTER 7 PUFFS/INHALER INH SCH (07:42)
[2022-11-15] MEDS: NYSTATIN SUSP 500,000 U/5 ML UDC PO SCH ×4 (07:43→20:34)
[2022-11-15] MEDS: oxyCODONE HCL IR 5 MG TAB (IMMEDIATE RELEASE) PO PRN ×2 (07:45→16:27)
--- NOTE | 2022-11-15 07:56 | Hospitalist Progress Note ---
Date of Service November 15, 2022 Assessment & Plan (1) Acute respiratory failure with hypoxia: (2) COPD (chronic obstructive pulmonary disease): Plan: This is a 67-year-old male, who presents with respiratory distress. 1. Acute Hypoxic, Hypercarbic Respiratory Failure Chronic obstructive pulmonary disease exacerbation Multifocal pneumonia. Streptococcus pneumonia Bacteremia Sepsis, POA -- Weaned off high flow oxygen, currently on nasal cannula 5 L --Gradually improving -- Infectious Disease consulted - appreciate their input - cont. ceftriaxone continue with Prednisone, nebulized budesonide, and nebulized Perforomist for now. Pulmonary medicine consulted - started low-dose theophylline and added Incruse. - pulm. medicine reviewed outpt bronch findings - Aspergillus niger. Discussed with ID, Aspergillus niger is nonpathogenic. 2. Altered mental status, Septic Encephalopathy -- CT head: negative -- resolved 3. Entero/rhinovirus on resp. biofire. isolation precautions. 4. Oropharyngeal dysphagia, esophageal dysmotility silent aspiration. easy to chew diet as per speech recommendations recommendations. Last admission patient declined peg tube The patient takes Valium, which will be continued. 5. History of asthma, bronchitis. Management as above. 6. History of chronic diastolic congestive heart failure -- euvolemic 7. Chronic pain syndrome, cervical radiculopathy. On oxycodone as needed. 8. BPH. On Flomax. 9. Gastroesophageal reflux disease. On Protonix. DVT prophylaxis. 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 pain, no n/v no fever, chills Review of Systems Review of Systems: All systems reviewed & are unremarkable except as noted in Subjective Physical Exam Physical Exam: General- thin elderly M in NAD, on NC 5L Eyes- anicteric Neck- no JVD Lungs- diffuse wheezing Heart- normal rate, regular rhythm; no murmurs Abdomen- normal bowel sounds, nondistended, soft, nontender Extremities- no pretibial edema, no calf tenderness Neuro- alert, oriented x 3; no facial asymmetry, moves extremities Skin- warm & dry Results & Data Results & Data Vital Signs (Past 12 Hours) Vital Signs Temp Pulse Pulse Resp BP Pulse Ox O2 Del Method 11/15/22 06:55 78 20 92 Nasal Cannula 11/15/22 03:40 36.5 C 73 20 103/70 96 Nasal Cannula 11/14/22 23:00 81 11/14/22 23:15 36.5 C 91 H 22 120/80 94 Nasal Cannula 11/14/22 20:07 Nasal Cannula O2 Flow Rate 11/15/22 06:55 6 11/15/22 03:40 6 11/14/22 23:00 11/14/22 23:15 6 11/14/22 20:07 5 Laboratory Results 11/15/22 11/15/22 11/14/22 Range/Units 07:44 05:30 20:14 Sodium 138 (136-145) mmol/L Potassium 4.1 (3.5-5.1) mmol/L Chloride 100 (98-107) mmol/L Carbon Dioxide 35 H (21-32) mmol/L Anion Gap 3 (3-11) BUN 22 (6-23) mg/dl Creatinine 0.82 (0.6-1.4) mg/dl Est Cr Clr Drug Dosing 57.4 ml/min Est GFR ( Amer) 105.3 ml/min Est GFR (Non-Af Amer) 90.9 ml/min BUN/Creatinine Ratio 26.8 H (10-20) Glucose 76 (70-99(Fasting)) mg/dl POC Glucose 94 146 H (70-99) mg/dl Calcium 9.0 (8.6-10.3) mg/dl Phosphorus 3.2 (2.5-4.9) mg/dl Magnesium 1.8 (1.7-2.4) mg/dl Medications Administered Current Inpatient Medications Acetaminophen (Acetaminophen 325 Mg Tab) 650 mg PO Q4H PRN PRN Reason: Pain or Fever Stop: 12/10/22 03:11 Azithromycin ([facility] 250 Mg Tab) [facility]: 11/20/22 08:59 Last Admin: 11/15/22 07:38 Dose: 250 mg Benzocaine (Benzocaine 20% (Orajel) 11.9 Gm Tube) 1 appln MT Q1H PRN PRN Reason: Pain Stop: 12/13/22 16:11 Budesonide (Budesonide 0.25 Mg/2 Ml Vial (Pulmicort)) 0.5 mg NEB BIDR [facility] Stop: 12/11/22 18:59 Last Admin: 11/15/22 06:54 Dose: 0.5 mg Diazepam (Diazepam 5 Mg Tablet) 5 mg PO AC [facility] Stop: 12/10/22 07:29 Last Admin: 11/15/22 07:38 Dose: 5 mg Diltiazem HCl (Diltiazem Hcl 60 Mg Tab) 60 mg PO AMHS [facility] Stop: 12/10/22 08:59 Last Admin: 11/15/22 07:39 Dose: 60 mg Formoterol Fumarate (Formoterol 20 Mcg/2 Ml Vial) 20 mcg INH BIDR [facility] Stop: 12/10/22 18:59 Last Admin: 11/15/22 06:54 Dose: 20 mcg Gabapentin (Gabapentin 100 Mg Cap) 100 mg PO HS PRN PRN Reason: Pain Stop: 12/10/22 03:11 Last Admin: 11/11/22 22:26 Dose: 100 mg Guaifenesin (Guaifenesin 600 Mg Tabcr) 1,200 mg PO AMHS PRN PRN Reason: Congestion Stop: 12/10/22 03:11 Last Admin: 11/15/22 07:39 Dose: 1,200 mg Heparin Sodium (Porcine) (Heparin Sod 5,000 Unit/0.5 Ml Vial) 5,000 units SQ Q12 [facility] Stop: 12/10/22 08:59 Last Admin: 11/15/22 07:40 Dose: Not Given Ceftriaxone Sodium 2,000 mg/ (Dextrose) 70 mls @ 100 mls/hr IV Q24H [facility]; Protocol Stop: 11/17/22 20:59 Last Infusion: 11/14/22 21:22 Dose: Infused Ipratropium [place] (Ipratropium [place] Neb Soln 0.02% 2.5 Ml Vial) 0.5 mg INH QIDR [facility] Stop: 12/10/22 06:59 Last Admin: 11/15/22 06:54 Dose: Not Given Ipratropium [place] (Ipratropium [place] Neb Soln 0.02% 2.5 Ml Vial) 0.5 mg INH Q2H PRN PRN Reason: Shortness Of Breath Or Wheezin Stop: 12/10/22 03:11 Levalbuterol HCl (Levalbuterol 1.25 Mg/3 Ml Neb) 1.25 mg NEB QIDR [facility] Stop: 12/10/22 06:59 Last Admin: 11/15/22 06:54 Dose: Not Given Levalbuterol HCl (Levalbuterol 1.25 Mg/3 Ml Neb) 1.25 mg NEB Q2H PRN PRN Reason: Shortness Of Breath Or Wheezin Stop: 12/10/22 03:11 Loratadine (Loratadine 10 Mg Tab) 10 mg PO QAM [facility] Stop: 12/10/22 08:59 Last Admin: 11/15/22 07:38 Dose: 10 mg Nitroglycerin (Nitroglycerin Sl 0.4 Mg/Tab Tab) 0.4 mg SL Q5M PRN PRN Reason: Chest Pain Stop: 12/10/22 03:11 Nystatin (Nystatin Susp 500,000 U/5 Ml Udc) 5 ml PO QID [facility] Stop: 11/20/22 08:59 Last Admin: 11/15/22 07:43 Dose: 5 ml Oxycodone HCl (Oxycodone Hcl Ir 5 Mg Tab (Immediate Release)) 15 mg PO Q8H PRN PRN Reason: Pain,severe Stop: 11/24/22 03:11 Last Admin: 11/15/22 07:45 Dose: 15 mg Pantoprazole Sodium (Pantoprazole 40 Mg Tab) 40 mg PO QAM [facility] Stop: 12/10/22 08:59 Last Admin: 11/15/22 07:40 Dose: 40 mg Polyethylene Glycol (Polyethylene (Miralax) 17 Gm Pack) 17 gm PO DAILY PRN PRN Reason: Constipation Stop: 12/10/22 03:11 Last Admin: 11/15/22 07:38 Dose: 17 gm Prednisone (Prednisone 20 Mg Tab) 40 mg PO DAILY [facility] Stop: 12/11/22 08:59 Last Admin: 11/15/22 07:39 Dose: 40 mg Sodium Chloride (Sodium Chlor 7% 4 Ml Neb) 4 ml NEB BIDR [facility] Stop: 12/10/22 18:59 Last Admin: 11/15/22 06:54 Dose: 4 ml Tamsulosin HCl (Tamsulosin Hcl 0.4 Mg Cap) 0.4 mg PO DAILY [facility] Stop: 12/10/22 08:59 Last Admin: 11/15/22 07:40 Dose: 0.4 mg Theophylline (Theophylline 300mg Extended Rel Tab) 300 mg PO QAM [facility] Stop: 12/13/22 08:59 Last Admin: 11/15/22 07:38 Dose: 300 mg Umeclidinium [place] (Umeclidinium [place] 62.5mcg/Blister 7 Puffs/Inhaler) 1 puffs INH DAILY [facility] Stop: 12/13/22 08:59 Last Admin: 11/15/22 07:42 Dose: 1 puffs
--- NOTE | 2022-11-15 08:14 | Pulmonology Progress Note ---
Date of Service November 15, 2022 Assessment & Plan (1) Acute respiratory failure with hypoxia: (2) COPD (chronic obstructive pulmonary disease): (3) Multifocal pneumonia: (4) Acute exacerbation of chronic obstructive airways disease: (5) Bacteremia due to Gram-positive bacteria: (6) Bronchiectasis: Plan Impression: 67-year-old male with chronic hypoxemic and hypercarbic respiratory failure and advanced chronic obstructive pulmonary disease admitted with exacerbation. Continues to demonstrate mild respiratory distress. Patient's last PFTs in our system were back in 2010 which showed moderate airflow obstruction at that time with hyperinflation. He has undergone bronchoscopy in the past with Dr. Bhakta as well as bronchial thermoplasty. 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 He been on Xolair in the past. Blood cultures positive for Streptococcus pneumonia. Respiratory culture pending. His course has been complicated by noncompliance. He is established at [facility] with Dr. Kennedy. He reportedly underwent bronchoscopy last month with biopsy but those results were not available Recommendations: 1. Hypoxemic respiratory failure/hypercarbic respiratory failure: Hypercarbia is well compensated currently. Continue supplemental oxygen titrated to keep saturations around 88%. Would not try and target higher oxygen saturations in light of his hypercarbia. Patient may qualify for nocturnal AVAPS depending on clinical course. This can be addressed by his outpatient presales senior specialist in [facility]. 2. Multifocal pulmonary infiltrates with bacteremia: Per ID. Should have follow-up chest imaging in 4 weeks with his outpatient [facility] senior specialist. 3. History of asthma with allergic bronchopulmonary aspergillosis. Continue Brovana and budesonide. Continue prednisone 40 mg a day. Seems to have had a favorable response to theophylline and Incruse so would continue those for now. Unclear if there is a persistent component of ABPA. Therapy typically consists of ketoconazole. As the patient does not have significant eosinophilia, I think holding off for right now is reasonable. The CT findings may be consistent with angioinvasive fungal disease however the patient does not appear to meet clinical criteria. Appreciate ID input. Recommendations and plan were discussed with the patient. He expressed understanding and is in agreement with the plan as outlined. We will continue to follow. Admission and Anticipated Discharge Date Admission Date: November 10, 2022 Subjective Patient seen and examined. EMR reviewed. The patient states that he is feeling markedly better. Has been able to get up and ambulate around the room without significant shortness of breath. He reports that he uses oxygen at 2 L/min at baseline but is not always compliant with therapy. He is currently requiring about 5 L/min. He is tolerating a diet. He is not coughing or expectorating phlegm. No chest pain or palpitations. Review of Systems Review of Systems: All systems reviewed & are unremarkable except as noted in Subjective Physical Exam Constitutional: + cachectic; no acute distress Neck: trachea midline, no thyromegaly Respiratory: no respiratory distress, no labored breathing and not tachypneic Auscultation: + wheezes Cardiovascular: RRR, no murmur, no edema Gastrointestinal (Abdomen): normal bowel sounds, soft, nontender, no hepatosplenomegaly Musculoskeletal: Extremities: extremities normal to inspection Skin: no rashes, warm and dry Lymphatic: no cervical lymphadenopathy Results & Data Results & Data Vital Signs (Past 12 Hours) Vital Signs Temp Pulse Pulse Resp BP Pulse Ox O2 Del Method 11/15/22 06:55 78 20 92 Nasal Cannula 11/15/22 03:40 36.5 C 73 20 103/70 96 Nasal Cannula 11/14/22 23:00 81 11/14/22 23:15 36.5 C 91 H 22 120/80 94 Nasal Cannula O2 Flow Rate 11/15/22 06:55 6 11/15/22 03:40 6 11/14/22 23:00 11/14/22 23:15 6 Laboratory Results 11/14/22 05:28 11/15/22 05:30 PG Care Time/CCT Total # of Minutes Spent Total Time Spent with Patient: Total time spent is greater than 50% in coordination of care (as documented) at patient's floor/unit and/or counseling patient: Coding Level of Care Code 55002 SUB INP/OBS CARE 2/35MIN Diagnoses Acute respiratory failure with hypoxia J96.01 COPD (chronic obstructive pulmonary disease) J44.9 Multifocal pneumonia J18.9 Acute exacerbation of chronic obstructive airways disease J44.1 Bacteremia due to Gram-positive bacteria R78.81 Bronchiectasis J47.9
[2022-11-15] MEDS: MAGNESIUM OXIDE 400 MG TAB PO SCH ×2 (10:23→20:34)
[2022-11-15] MEDS: cefTRIAXone SODIUM 2,000 MG in DEXTROSE 5% 50 ML IV SCH (20:34)
[2022-11-16] MEDS: oxyCODONE HCL IR 5 MG TAB (IMMEDIATE RELEASE) PO PRN ×3 (00:12→17:56)
[2022-11-16 06:19] LABS: Hematocrit (blood only) 39.9 % (42.0-52.0); Hemoglobin 13.7 g/dl (14.0-18.0); Mean Corpuscular Hemoglobin 30.4 pg (25.0-34.0); Mean Corpuscular Hgb Conc 34.3 g/dL (32.0-36.0); Mean Corpuscular Volume 88.5 fL (80.0-100.0); Mean Platelet Volume 9.8 fL (9.4-12.4); Platelet Count 427 K/uL (130-400); Red Blood Count 4.51 M/uL (4.70-6.10); White Blood Count 7.05 K/ul (4.8-10.8)
[2022-11-16 06:51] LABS: Calcium 9.7 mg/dl (8.6-10.3); Magnesium 2.1 mg/dl (1.7-2.4); Potassium 4.5 mmol/L (3.5-5.1)
[2022-11-16 06:57] LABS: BUN Creatinine Ratio 36.5 (10-20); Creatinine Clr Calc Pharmacy 61.2 ml/min; Est GFR (African American) 109.8 ml/min; Est GFR (Non-African American) 94.8 ml/min; Phosphorus 3.6 mg/dl (2.5-4.9)
[2022-11-16] MEDS: BUDESONIDE 0.25 MG/2 ML VIAL (PULMICORT) NEB SCH ×2 (07:07→19:12)
[2022-11-16] MEDS: SODIUM CHLOR 7% 4 ML NEB NEB SCH ×2 (07:08→19:12)
[2022-11-16] MEDS: FORMOTEROL 20 MCG/2 ML VIAL INH SCH ×2 (07:08→19:12)
[2022-11-16] MEDS: LEVALBUTEROL 1.25 MG/3 ML NEB NEB SCH ×5 (07:09→19:12)
[2022-11-16] MEDS: IPRATROPIUM BROMIDE NEB SOLN 0.02% 2.5 ML VIAL INH SCH ×5 (07:09→19:12)
--- NOTE | 2022-11-16 07:27 | Pulmonology Progress Note ---
Date of Service November 16, 2022 Assessment & Plan (1) Acute respiratory failure with hypoxia: (2) COPD (chronic obstructive pulmonary disease): (3) Multifocal pneumonia: (4) Acute exacerbation of chronic obstructive airways disease: (5) Bacteremia due to Gram-positive bacteria: (6) Bronchiectasis: Plan Impression: 67-year-old male with chronic hypoxemic and hypercarbic respiratory failure and advanced chronic obstructive pulmonary disease admitted with exacerbation. Continues to demonstrate mild respiratory distress. Patient's last PFTs in our system were back in 2010 which showed moderate airflow obstruction at that time with hyperinflation. He has undergone bronchoscopy in the past with Dr. Bhakta as well as bronchial thermoplasty. 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 He been on Xolair in the past. Blood cultures positive for Streptococcus pneumonia. Respiratory culture pending. His course has been complicated by noncompliance. He is established at [facility] with Dr. Kennedy. He reportedly underwent bronchoscopy last month with biopsy but those results were not available Recommendations: 1. Hypoxemic respiratory failure/hypercarbic respiratory failure: Hypercarbia is well compensated currently. Continue supplemental oxygen titrated to keep saturations around 88%. Would not try and target higher oxygen saturations in light of his hypercarbia. Patient may qualify for nocturnal AVAPS depending on clinical course. This can be addressed by his outpatient photographic printer in [facility]. 2. Multifocal pulmonary infiltrates with bacteremia: Per ID. Should have follow-up chest imaging in 4 weeks with his outpatient photographic printer. Transition to oral antibiotics per primary service according to ID recommendations 3. History of asthma with allergic bronchopulmonary aspergillosis. Continue Brovana and budesonide. Continue prednisone 40 mg a day. Would plan on t apering prednisone over the next 2 to 3 weeks. Seems to have had a favorable response to theophylline and Incruse so would continue those for now. Unclear if there is a persistent component of ABPA. Therapy typically consists of ketoconazole. As the patient does not have significant eosinophilia, I think holding off for right now is reasonable. The CT findings may be consistent with angioinvasive fungal disease however the patient does not appear to meet clinical criteria. Appreciate ID input. Disposition per primary service. The patient may be approaching his baseline status Recommendations and plan were discussed with the patient. He expressed understanding and is in agreement with the plan as outlined. We will continue to follow. Admission and Anticipated Discharge Date Admission Date: November 10, 2022 Subjective Patient seen and examined. EMR reviewed. He states he is doing okay. He got up to use the restroom yesterday without oxygen and definitely felt more short of breath. He is currently seeking a breathing treatment. His wheezing is decr eased and his cough is improved. He denies fevers chills or night sweats. No chest pains Review of Systems Review of Systems: All systems reviewed & are unremarkable except as noted in Subjective Physical Exam Constitutional: + cachectic; no acute distress Neck: trachea midline, no thyromegaly Respiratory: no respiratory distress, no labored breathing and not tachypneic Auscultation: + wheezes Cardiovascular: RRR, no murmur, no edema Gastrointestinal (Abdomen): normal bowel sounds, soft, nontender, no hepatosplenomegaly Musculoskeletal: Extremities: extremities normal to inspection Skin: no rashes, warm and dry Lymphatic: no cervical lymphadenopathy Results & Data Results & Data Vital Signs (Past 12 Hours) Vital Signs Temp Pulse Pulse Pulse Resp BP Pulse Ox 11/16/22 07:09 81 18 91 11/16/22 03:00 36.4 C L 79 21 134/69 92 11/15/22 20:05 11/15/22 22:17 94 H 11/15/22 23:00 36.3 C L 89 23 97/64 L 91 11/15/22 19:25 106 H 18 97 O2 Del Method O2 Flow Rate FiO2 11/16/22 07:09 Nasal Cannula 3 11/16/22 03:00 Nasal Cannula 11/15/22 20:05 Nasal Cannula 3 32 11/15/22 22:17 11/15/22 23:00 Nasal Cannula 11/15/22 19:25 Nasal Cannula 3 Laboratory Results 11/16/22 05:43 11/16/22 05:43 Diagnostic Findings No new imaging PG Care Time/CCT Total # of Minutes Spent Total Time Spent with Patient: Total time spent is greater than 50% in coordination of care (as documented) at patient's floor/unit and/or counseling patient: Coding Level of Care Code 39160 SUB INP/OBS CARE 2/35MIN Diagnoses Acute respiratory failure with hypoxia J96.01 COPD (chronic obstructive pulmonary disease) J44.9 Multifocal pneumonia J18.9 Acute exacerbation of chronic obstructive airways disease J44.1 Bacteremia due to Gram-positive bacteria R78.81 Bronchiectasis J47.9
[2022-11-16] MEDS: diazePAM 5 MG TABLET PO SCH ×3 (07:35→17:55)
[2022-11-16] MEDS: MAGNESIUM OXIDE 400 MG TAB PO SCH ×2 (07:36→21:48)
[2022-11-16] MEDS: NYSTATIN SUSP 500,000 U/5 ML UDC PO SCH ×4 (07:36→20:54)
[2022-11-16] MEDS: predniSONE 20 MG TAB PO SCH (07:37)
[2022-11-16] MEDS: AZITHROMYCIN 250 MG TAB PO SCH (07:37)
[2022-11-16] MEDS: dilTIAZem HCl 60 MG TAB PO SCH ×2 (07:38→20:54)
[2022-11-16] MEDS: PANTOprazole 40 MG TAB PO SCH (07:38)
[2022-11-16] MEDS: TAMSULOSIN HCL 0.4 MG CAP PO SCH (07:38)
[2022-11-16] MEDS: THEOPHYLLINE 300MG EXTENDED REL TAB PO SCH (07:39)
[2022-11-16] MEDS: HEPARIN SOD 5,000 UNIT/0.5 ML VIAL SQ SCH ×2 (07:39→20:55)
[2022-11-16] MEDS: LORATADINE 10 MG TAB PO SCH (07:39)
[2022-11-16] MEDS: UMECLIDINIUM BROMIDE 62.5MCG/BLISTER 7 PUFFS/INHALER INH SCH (07:40)
--- NOTE | 2022-11-16 08:57 | Hospitalist Progress Note ---
Date of Service November 16, 2022 Assessment & Plan (1) Acute respiratory failure with hypoxia: (2) COPD (chronic obstructive pulmonary disease): Plan: This is a 67-year-old male, who presents with respiratory distress. 1. Acute Hypoxic, Hypercarbic Respiratory Failure Chronic obstructive pulmonary disease exacerbation Multifocal pneumonia. Streptococcus pneumonia Bacteremia Sepsis, POA -- Weaned off high flow oxygen, currently on nasal cannula 4 L --has been radually improving -- Infectious Disease consulted - appreciate their input - cont. ceftriaxone while inpt continue with Prednisone, nebulized budesonide, and nebulized Perforomist for now. Pulmonary medicine consulted - started low-dose theophylline and Incruse. - pulm. medicine reviewed outpt bronch findings - Aspergillus niger. Discussed with ID, Aspergillus niger is nonpathogenic. 11/16 patient feeling more short of breath this morning. Repeat chest x-ray obtained-shows improvement in airspace opacities, resolving pneumonia, emphysema, no new focal lung consolidation. Pulmonary medicine continues to follow closely, appreciate their input. 2. Altered mental status, Septic Encephalopathy -- CT head: negative -- resolved 3. Entero/rhinovirus on resp. biofire. isolation precautions. 4. Oropharyngeal dysphagia, esophageal dysmotility silent aspiration. easy to chew diet as per speech recommendations recommendations. Last admission patient declined peg tube The patient takes Valium, which will be continued. 5. History of asthma, bronchitis. Management as above. 6. History of chronic diastolic congestive heart failure -- euvolemic 7. Chronic pain syndrome, cervical radiculopathy. On oxycodone as needed. 8. BPH. On Flomax. 9. Gastroesophageal reflux disease. On Protonix. DVT prophylaxis. heparin subq Disposition pending will need PT/OT From home Admission and Anticipated Discharge Date Admission Date: November 10, 2022 Subjective Follow-up for acute hypoxic respiratory failure, pneumonia, COPD exacerbation, pna, bacteremia Seen resting in bed,on nasal cannula now, 4 L Per RN pt more short of breath this AM Pt appears in no distress, but states he feels short of breath, continues to have cough and sputum production, wheezing - ordered CXR, pulmonary medicine also following No chest pain, no abd. pain, no n/v no fever, chills Review of Systems Review of Systems: All systems reviewed & are unremarkable except as noted in Subjective Physical Exam Physical Exam: General- thin elderly M in NAD, on NC 4L Eyes- anicteric Neck- no JVD Lungs- diffuse wheezing Heart- normal rate, regular rhythm; no murmurs Abdomen- normal bowel sounds, nondistended, soft, nontender Extremities- no pretibial edema, no calf tenderness Neuro- alert, oriented x 3; no facial asymmetry, moves extremities Skin- warm & dry Results & Data Results & Data Vital Signs (Past 12 Hours) Vital Signs Temp Pulse Pulse Pulse Resp BP Pulse Ox 11/16/22 08:51 100 H 20 89 L 11/16/22 07:50 36.5 C 90 18 104/71 99 11/16/22 07:09 81 18 91 11/16/22 03:00 36.4 C L 79 21 134/69 92 11/15/22 22:17 94 H 11/15/22 23:00 36.3 C L 89 23 97/64 L 91 O2 Del Method O2 Flow Rate 11/16/22 08:51 Nasal Cannula 4 11/16/22 07:50 Nasal Cannula 11/16/22 07:09 Nasal Cannula 3 11/16/22 03:00 Nasal Cannula 11/15/22 22:17 11/15/22 23:00 Nasal Cannula Laboratory Results 11/16/22 11/16/22 11/16/22 Range/Units 07:30 05:43 05:43 WBC 7.05 (4.8-10.8) K/ul RBC 4.51 L (4.70-6.10) M/uL Hgb 13.7 L (14.0-18.0) g/dl Hct 39.9 L (42.0-52.0) % MCV 88.5 (80.0-100.0) fL MCH 30.4 (25.0-34.0) pg MCHC 34.3 (32.0-36.0) g/dL RDW Std Deviation 55.0 H (36.4-46.3) fL RDW Coeff of Myles 17.0 H (11.5-14.5) % Plt Count 427 H (130-400) K/uL MPV 9.8 (9.4-12.4) fL Sodium 140 (136-145) mmol/L Potassium 4.5 (3.5-5.1) mmol/L Chloride 101 (98-107) mmol/L Carbon Dioxide 34 H (21-32) mmol/L Anion Gap 5 (3-11) BUN 27 H (6-23) mg/dl Creatinine 0.74 (0.6-1.4) mg/dl Est Cr Clr Drug Dosing 61.2 ml/min Est GFR ( Amer) 109.8 ml/min Est GFR (Non-Af Amer) 94.8 ml/min BUN/Creatinine Ratio 36.5 H (10-20) Glucose 92 (70-99(Fasting)) mg/dl POC Glucose 97 (70-99) mg/dl Calcium 9.7 (8.6-10.3) mg/dl Phosphorus 3.6 (2.5-4.9) mg/dl Magnesium 2.1 (1.7-2.4) mg/dl 11/15/22 11/15/22 Range/Units 20:30 11:27 WBC (4.8-10.8) K/ul RBC (4.70-6.10) M/uL Hgb (14.0-18.0) g/dl Hct (42.0-52.0) % MCV (80.0-100.0) fL MCH (25.0-34.0) pg MCHC (32.0-36.0) g/dL RDW Std Deviation (36.4-46.3) fL RDW Coeff of Myles (11.5-14.5) % Plt Count (130-400) K/uL MPV (9.4-12.4) fL Sodium (136-145) mmol/L Potassium (3.5-5.1) mmol/L Chloride (98-107) mmol/L Carbon Dioxide (21-32) mmol/L Anion Gap (3-11) BUN (6-23) mg/dl Creatinine (0.6-1.4) mg/dl Est Cr Clr Drug Dosing ml/min Est GFR ( Amer) ml/min Est GFR (Non-Af Amer) ml/min BUN/Creatinine Ratio (10-20) Glucose (70-99(Fasting)) mg/dl POC Glucose 124 H 153 H (70-99) mg/dl Calcium (8.6-10.3) mg/dl Phosphorus (2.5-4.9) mg/dl Magnesium (1.7-2.4) mg/dl Medications Administered Current Inpatient Medications Acetaminophen (Acetaminophen 325 Mg Tab) 650 mg PO Q4H PRN PRN Reason: Pain or Fever Stop: 12/10/22 03:11 Azithromycin (Azithromycin 250 Mg Tab) 250 mg PO QAM REPLACED BY [facility] Stop: 11/20/22 08:59 Last Admin: 11/16/22 07:37 Dose: 250 mg Benzocaine (Benzocaine 20% (Orajel) 11.9 Gm Tube) 1 appln MT Q1H PRN PRN Reason: Pain Stop: 12/13/22 16:11 Budesonide (Budesonide 0.25 Mg/2 Ml Vial (Pulmicort)) 0.5 mg NEB BIDR REPLACED BY [facility] Stop: 12/11/22 18:59 Last Admin: 11/16/22 07:07 Dose: 0.5 mg Diazepam (Diazepam 5 Mg Tablet) 5 mg PO AC REPLACED BY [facility] Stop: 12/10/22 07:29 Last Admin: 11/16/22 07:35 Dose: 5 mg Diltiazem HCl (Diltiazem Hcl 60 Mg Tab) 60 mg PO AMHS REPLACED BY [facility] Stop: 12/10/22 08:59 Last Admin: 11/16/22 07:38 Dose: 60 mg Formoterol Fumarate (Formoterol 20 Mcg/2 Ml Vial) 20 mcg INH BIDR REPLACED BY [facility] Stop: 12/10/22 18:59 Last Admin: 11/16/22 07:08 Dose: 20 mcg Gabapentin (Gabapentin 100 Mg Cap) 100 mg PO HS PRN PRN Reason: Pain Stop: 12/10/22 03:11 Last Admin: 11/11/22 22:26 Dose: 100 mg Guaifenesin (Guaifenesin 600 Mg Tabcr) 1,200 mg PO AMHS PRN PRN Reason: Congestion Stop: 12/10/22 03:11 Last Admin: 11/15/22 07:39 Dose: 1,200 mg Heparin Sodium (Porcine) (Heparin Sod 5,000 Unit/0.5 Ml Vial) 5,000 units SQ Q12 REPLACED BY [facility] Stop: 12/10/22 08:59 Last Admin: 11/16/22 07:39 Dose: Not Given Ceftriaxone Sodium 2,000 mg/ (Dextrose) 70 mls @ 100 mls/hr IV Q24H MAGNOLIA; Protocol Stop: 11/17/22 20:59 Last Infusion: 11/15/22 21:16 Dose: Infused Ipratropium [place] (Ipratropium [place] Neb Soln 0.02% 2.5 Ml Vial) 0.5 mg INH QIDR REPLACED BY [facility] Stop: 12/10/22 06:59 Last Admin: 11/16/22 08:51 Dose: 0.5 mg Ipratropium [place] (Ipratropium [place] Neb Soln 0.02% 2.5 Ml Vial) 0.5 mg INH Q2H PRN PRN Reason: Shortness Of Breath Or Wheezin Stop: 12/10/22 03:11 Levalbuterol HCl (Levalbuterol 1.25 Mg/3 Ml Neb) 1.25 mg NEB QIDR REPLACED BY [facility] Stop: 12/10/22 06:59 Last Admin: 11/16/22 08:50 Dose: 1.25 mg Levalbuterol HCl (Levalbuterol 1.25 Mg/3 Ml Neb) 1.25 mg NEB Q2H PRN PRN Reason: Shortness Of Breath Or Wheezin Stop: 12/10/22 03:11 Loratadine (Loratadine 10 Mg Tab) 10 mg PO QAM REPLACED BY [facility] Stop: 12/10/22 08:59 Last Admin: 11/16/22 07:39 Dose: 10 mg Magnesium Oxide (Magnesium Oxide 400 Mg Tab) 400 mg PO BID REPLACED BY [facility] Stop: 12/15/22 08:59 Last Admin: 11/16/22 07:36 Dose: 400 mg Nitroglycerin (Nitroglycerin Sl 0.4 Mg/Tab Tab) 0.4 mg SL Q5M PRN PRN Reason: Chest Pain Stop: 12/10/22 03:11 Nystatin (Nystatin Susp 500,000 U/5 Ml Udc) 5 ml PO QID REPLACED BY [facility] Stop: 11/20/22 08:59 Last Admin: 11/16/22 07:36 Dose: 5 ml Oxycodone HCl (Oxycodone Hcl Ir 5 Mg Tab (Immediate Release)) 15 mg PO Q8H PRN PRN Reason: Pain,severe Stop: 11/24/22 03:11 Last Admin: 11/16/22 08:27 Dose: 15 mg Pantoprazole Sodium (Pantoprazole 40 Mg Tab) 40 mg PO QAM REPLACED BY [facility] Stop: 12/10/22 08:59 Last Admin: 11/16/22 07:38 Dose: 40 mg Polyethylene Glycol (Polyethylene (Miralax) 17 Gm Pack) 17 gm PO DAILY PRN PRN Reason: Constipation Stop: 12/10/22 03:11 Last Admin: 11/15/22 07:38 Dose: 17 gm Prednisone (Prednisone 20 Mg Tab) 40 mg PO DAILY REPLACED BY [facility] Stop: 12/11/22 08:59 Last Admin: 11/16/22 07:37 Dose: 40 mg Sodium Chloride (Sodium Chlor 7% 4 Ml Neb) 4 ml NEB BIDR REPLACED BY [facility] Stop: 12/10/22 18:59 Last Admin: 11/16/22 07:08 Dose: 4 ml Tamsulosin HCl (Tamsulosin Hcl 0.4 Mg Cap) 0.4 mg PO DAILY MAGNOLIA Stop: 12/10/22 08:59 Last Admin: 11/16/22 07:38 Dose: 0.4 mg Theophylline (Theophylline 300mg Extended Rel Tab) 300 mg PO QAM REPLACED BY [facility] Stop: 12/13/22 08:59 Last Admin: 11/16/22 07:39 Dose: 300 mg Umeclidinium [place] (Umeclidinium [place] 62.5mcg/Blister 7 Puffs/Inhaler) 1 puffs INH DAILY REPLACED BY [facility] Stop: 12/13/22 08:59 Last Admin: 11/16/22 07:40 Dose: 1 puffs
--- NOTE | 2022-11-16 09:32 | XRay Report ---
XR chest 1V portable HISTORY: dyspnea COMPARISON: Chest 11/14/2022. Chest CT 11/10/2022. FINDINGS: Patchy bibasilar airspace opacities have improved. No new focal lung consolidations identif ied. No evidence for pulmonary edema. No pneumothorax. No pleural effusions. The cardiac silhouette i s normal in size. Emphysema again noted. 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 IMPRESSION: 1. Continued improvement in the bibasilar airspace opacities consistent with a resolving pneumonia. 2. No new focal lung consolidations identified. 3. Emphysema. ACT 112: Negative or not required by law. Electronically signed by: Gomez Poe M.D. 11/16/2022 9:30 AM
[2022-11-16] MEDS ORDERED: MELATONIN 3 MG TAB PO PRN (10:09)
[2022-11-16] MEDS: cefTRIAXone SODIUM 2,000 MG in DEXTROSE 5% 50 ML IV SCH (20:55)
[2022-11-16] MEDS: guaiFENesin 600 MG TABCR PO PRN (20:57)
[2022-11-17] MEDS: oxyCODONE HCL IR 5 MG TAB (IMMEDIATE RELEASE) PO PRN (03:25)
[2022-11-17 06:34] LABS: Calcium 9.4 mg/dl (8.6-10.3); Creatinine Clr Calc Pharmacy 53.8 ml/min; Est GFR (African American) 105.8 ml/min; Est GFR (Non-African American) 91.3 ml/min; Phosphorus 3.7 mg/dl (2.5-4.9); Potassium 4.3 mmol/L (3.5-5.1)
[2022-11-17] MEDS: BUDESONIDE 0.25 MG/2 ML VIAL (PULMICORT) NEB SCH (06:59)
[2022-11-17] MEDS: FORMOTEROL 20 MCG/2 ML VIAL INH SCH (06:59)
[2022-11-17] MEDS: IPRATROPIUM BROMIDE NEB SOLN 0.02% 2.5 ML VIAL INH SCH ×2 (07:00→10:55)
[2022-11-17] MEDS: SODIUM CHLOR 7% 4 ML NEB NEB SCH (07:00)
[2022-11-17] MEDS: LEVALBUTEROL 1.25 MG/3 ML NEB NEB SCH ×2 (07:00→10:55)
--- NOTE | 2022-11-17 07:47 | Pulmonology Progress Note ---
Date of Service November 17, 2022 Assessment & Plan (1) Acute respiratory failure with hypoxia: (2) COPD (chronic obstructive pulmonary disease): (3) Multifocal pneumonia: (4) Acute exacerbation of chronic obstructive airways disease: (5) Bacteremia due to Gram-positive bacteria: (6) Bronchiectasis: Plan Impression: 67-year-old male with chronic hypoxemic and hypercarbic respiratory failure and advanced chronic obstructive pulmonary disease admitted with exacerbation. Patient's last PFTs in our system were back in 2010 which showed moderate airflow obstruction at that time with hyperinflation. He has undergone bronchoscopy in the past with Dr. Bhakta as well as bronchial thermoplasty. 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 He been on Xolair in the past. Blood cultures positive for Streptococcus pneumonia. He is established at [facility] with Dr. Kennedy. He reportedly underwent bronchoscopy last month with which showed methicillin sensitive Staph aureus as well as Aspergillus [place]. He is improved clinically and feels back to baseline Recommendations: 1. Hypoxemic respiratory failure/hypercarbic respiratory failure: Hypercarbia is well compensated currently. Continue supplemental oxygen titrated to keep saturations around 88%. Would not try and target higher oxygen saturations in light of his hypercarbia. Patient may qualify for nocturnal AVAPS depending on clinical course. This can be addressed by his outpatient block captain in [facility]. 2. Multifocal pulmonary infiltrates with bacteremia: Per ID. Should have follow-up chest imaging in 4 weeks with his outpatient block captain. Transition to oral antibiotics per primary service according to ID recommendations 3. History of asthma with allergic bronchopulmonary aspergillosis. Continue Brovana and budesonide. Continue prednisone 40 mg a day. Would plan on tapering prednisone over the next 2 to 3 weeks. Seems to have had a favorable response to theophylline and Incruse so would continue those for now. Unclear if there is a persistent component of ABPA. Therapy typically consists of ketoconazole. As the patient does not have significant eosinophilia, I think holding off for right now is reasonable. The CT findings may be consistent with angioinvasive fungal disease however the patient does not appear to meet clinical criteria. Appreciate ID input. Disposition per primary service. Patient feels like he is at his baseline from a respiratory standpoint. He is asking about potentially being discharged from the hospital. He appears to be stable from a pulmonary perspective. Ultimate disposition per primary service. Pulmonary will sign off at this point time. Feel free to contact us with questions or concerns. He should follow-up with his [facility] pulmonary provider in [place] at discharge Recommendations and plan were discussed with the patient. He expressed understanding and is in agreement with the plan as outlined. We will continue to follow. Admission and Anticipated Discharge Date Admission Date: November 10, 2022 Subjective Patient seen and examined. EMR reviewed. The patient states that from a respiratory standpoint. He is feeling as good as he has felt in several years. He feels back to baseline. He is ambulating in the room but has not gone for longer walks due to constraints from his oxygen tube. He continues to exhibit some wheezing but it is unclear if this is present at baseline. He states he feels better than baseline. He slept well last night. He denies fevers chills night sweats. No chest pain or palpitations. He did experience some increasing respiratory difficulties yesterday. A chest x-ray was performed which demonstrated continued interval resolution of the basilar airspace opacities. Is unclear what the etiology of the episode was Review of Systems Review of Systems: All systems reviewed & are unremarkable except as noted in Subjective Physical Exam Constitutional: + cachectic; no acute distress Neck: trachea midline, no thyromegaly Respiratory: no respiratory distress, no labored breathing and not tachypneic Auscultation: + wheezes Cardiovascular: RRR, no murmur, no edema Gastrointestinal (Abdomen): normal bowel sounds, soft, nontender, no hepatosplenomegaly Musculoskeletal: Extremities: extremities normal to inspection Skin: no rashes, warm and dry Lymphatic: no cervical lymphadenopathy Results & Data Results & Data Vital Signs (Past 12 Hours) Vital Signs Temp Pulse Pulse Pulse Resp BP Pulse Ox 11/17/22 07:01 80 18 95 11/17/22 03:00 36.4 C L 85 23 114/64 91 11/17/22 01:02 90 11/16/22 21:06 11/16/22 23:00 36.9 C 109 H 22 97/59 L 93 O2 Del Method O2 Flow Rate FiO2 11/17/22 07:01 Nasal Cannula 3 11/17/22 03:00 Nasal Cannula 11/17/22 01:02 11/16/22 21:06 Nasal Cannula 3 32 11/16/22 23:00 Nasal Cannula 2 Laboratory Results 11/16/22 05:43 11/17/22 05:22 Diagnostic Findings Chest x-ray performed yesterday was independently reviewed. The basilar opacities appear to show some clearing. No new infiltrates effusion or pneumothorax identified PG Care Time/CCT Total # of Minutes Spent Total Time Spent with Patient: Total time spent is greater than 50% in coordination of care (as documented) at patient's floor/unit and/or counseling patient: Coding Level of Care Code 35242 SUB INP/OBS CARE 2/35MIN Diagnoses Acute respiratory failure with hypoxia J96.01 COPD (chronic obstructive pulmonary disease) J44.9 Multifocal pneumonia J18.9 Acute exacerbation of chronic obstructive airways disease J44.1 Bacteremia due to Gram-positive bacteria R78.81 Bronchiectasis J47.9
--- NOTE | 2022-11-17 07:54 | Hospitalist Progress Note ---
Date of Service November 17, 2022 Assessment & Plan (1) Acute respiratory failure with hypoxia: (2) COPD (chronic obstructive pulmonary disease): Plan: This is a 67-year-old male, who presents with respiratory distress. 1. Acute Hypoxic, Hypercarbic Respiratory Failure Chronic obstructive pulmonary disease exacerbation Multifocal pneumonia. Streptococcus pneumonia Bacteremia Sepsis, POA -- Weaned off high flow oxygen, currently on nasal cannula 4 L -- has been gradually improving -- Infectious Disease consulted - appreciate their input - cont. ceftriaxone while inpt -> switch to amoxicillin 500 tid for total of 14 days on DC continue with Prednisone, nebulized budesonide, and nebulized Perforomist for now. Pulmonary medicine consulted - started low-dose theophylline and Incruse. - pulm. medicine reviewed outpt bronch findings - Aspergillus niger. Discussed with ID, Aspergillus niger is nonpathogenic. 11/16 patient feeling more short of breath this morning. Repeat chest x-ray obtained-shows improvement in airspace opacities, resolving pneumonia, emphysema, no new focal lung consolidation. Pulmonary medicine continues to follow closely, appreciate their input. 11/17 Pt is feeling well today, and would like to be discharged. Discussed with pulmonary medicine, who also recommended discharge. Recommend to continue theophylline and Incruse. Patient is to follow-up with outpatient pulmonary medicine, this was discussed in detail with the patient and family at the bedside. We will also discharge on prednisone, it is recommended that he has a taper for over 2 to 3 weeks. Prescribed 40 mg for next 4 days, and 30 mg for following 4 days. Patient to follow-up with primary care provider and pulmonary medicine to continue his taper. 2. Altered mental status, Septic Encephalopathy -- CT head: negative -- resolved 3. Entero/rhinovirus on resp. biofire. isolation precautions. 4. Oropharyngeal dysphagia, esophageal dysmotility silent aspiration. easy to chew diet as per speech recommendations recommendations. Last admission patient declined peg tube The patient takes Valium, which will be continued. 5. History of asthma, bronchitis. Management as above. 6. History of chronic diastolic congestive heart failure -- euvolemic 7. Chronic pain syndrome, cervical radiculopathy. On oxycodone as needed. 8. BPH. On Flomax. 9. Gastroesophageal reflux disease. On Protonix. DVT prophylaxis. heparin subq Dispo: pt wants to be discharged home, discussed w/ CM and PT Admission and Anticipated Discharge Date Admission Date: November 10, 2022 Subjective Follow-up for acute hypoxic respiratory failure, pneumonia, COPD exacerbation, pna, bacteremia Seen resting in bed,on nasal cannula now, 3 L Pt is in no distress No chest pain, no abd. pain, no n/v no fever, chills Patient reports feeling much better today, and is eager for discharge. Patient seen by pulmonary medicine this AM, recommended discharge and follow-up with outpatient pulmonology. Also discussed w/ CM and pt's family at the bedside. Review of Systems Review of Systems: All systems reviewed & are unremarkable except as noted in Subjective Physical Exam Physical Exam: General- thin elderly M in NAD, on NC 3L Eyes- anicteric Neck- no JVD Lungs- diffuse wheezing (improved) Heart- normal rate, regular rhythm; no murmurs Abdomen- normal bowel sounds, nondistended, soft, nontender Extremities- no pretibial edema, no calf tenderness, moves extremities Neuro- alert, oriented x 3; no facial asymmetry, moves extremities Skin- warm & dry Results & Data Results & Data Vital Signs (Past 12 Hours) Vital Signs Temp Pulse Pulse Pulse Resp BP Pulse Ox 11/17/22 07:46 78 11/17/22 07:46 11/17/22 07:01 80 18 95 11/17/22 03:00 36.4 C L 85 23 114/64 91 11/17/22 01:02 90 11/16/22 21:06 11/16/22 23:00 36.9 C 109 H 22 97/59 L 93 O2 Del Method O2 Flow Rate FiO2 11/17/22 07:46 11/17/22 07:46 Nasal Cannula 3 11/17/22 07:01 Nasal Cannula 3 11/17/22 03:00 Nasal Cannula 11/17/22 01:02 11/16/22 21:06 Nasal Cannula 3 32 11/16/22 23:00 Nasal Cannula 2 Laboratory Results 11/17/22 11/16/22 11/16/22 Range/Units 05:22 20:10 17:01 Sodium 137 (136-145) mmol/L Potassium 4.3 (3.5-5.1) mmol/L Chloride 98 (98-107) mmol/L Carbon Dioxide 34 H (21-32) mmol/L Anion Gap 5 (3-11) BUN 30 H (6-23) mg/dl Creatinine 0.81 (0.6-1.4) mg/dl Est Cr Clr Drug Dosing 53.8 ml/min Est GFR ( Amer) 105.8 ml/min Est GFR (Non-Af Amer) 91.3 ml/min BUN/Creatinine Ratio 37.0 H (10-20) Glucose 80 (70-99(Fasting)) mg/dl POC Glucose 140 H 183 H (70-99) mg/dl Calcium 9.4 (8.6-10.3) mg/dl Phosphorus 3.7 (2.5-4.9) mg/dl Magnesium 2.0 (1.7-2.4) mg/dl 11/16/22 Range/Units 11:26 Sodium (136-145) mmol/L Potassium (3.5-5.1) mmol/L Chloride (98-107) mmol/L Carbon Dioxide (21-32) mmol/L Anion Gap (3-11) BUN (6-23) mg/dl Creatinine (0.6-1.4) mg/dl Est Cr Clr Drug Dosing ml/min Est GFR ( Amer) ml/min Est GFR (Non-Af Amer) ml/min BUN/Creatinine Ratio (10-20) Glucose (70-99(Fasting)) mg/dl POC Glucose 157 H (70-99) mg/dl Calcium (8.6-10.3) mg/dl Phosphorus (2.5-4.9) mg/dl Magnesium (1.7-2.4) mg/dl Medications Administered Current Inpatient Medications Acetaminophen (Acetaminophen 325 Mg Tab) 650 mg PO Q4H PRN PRN Reason: Pain or Fever Stop: 12/10/22 03:11 Azithromycin (Azithromycin 250 Mg Tab) 250 mg PO QAM [facility] Stop: 11/20/22 08:59 Last Admin: 11/16/22 07:37 Dose: 250 mg Benzocaine (Benzocaine 20% (Orajel) 11.9 Gm Tube) 1 appln MT Q1H PRN PRN Reason: Pain Stop: 12/13/22 16:11 Budesonide (Budesonide 0.25 Mg/2 Ml Vial (Pulmicort)) 0.5 mg NEB BIDR [facility] Stop: 12/11/22 18:59 Last Admin: 11/17/22 06:59 Dose: 0.5 mg Diazepam (Diazepam 5 Mg Tablet) 5 mg PO AC [facility] Stop: 12/10/22 07:29 Last Admin: 11/16/22 17:55 Dose: 5 mg Diltiazem HCl (Diltiazem Hcl 60 Mg Tab) 60 mg PO AMHS [facility] Stop: 12/10/22 08:59 Last Admin: 11/16/22 20:54 Dose: 60 mg Formoterol Fumarate (Formoterol 20 Mcg/2 Ml Vial) 20 mcg INH BIDR [facility] Stop: 12/10/22 18:59 Last Admin: 11/17/22 06:59 Dose: 20 mcg Gabapentin (Gabapentin 100 Mg Cap) 100 mg PO HS PRN PRN Reason: Pain Stop: 12/10/22 03:11 Last Admin: 11/11/22 22:26 Dose: 100 mg Guaifenesin (Guaifenesin 600 Mg Tabcr) 1,200 mg PO AMHS PRN PRN Reason: Congestion Stop: 12/10/22 03:11 Last Admin: 11/16/22 20:57 Dose: 1,200 mg Heparin Sodium (Porcine) (Heparin Sod 5,000 Unit/0.5 Ml Vial) 5,000 units SQ Q12 [facility] Stop: 12/10/22 08:59 Last Admin: 11/16/22 20:55 Dose: Not Given Ceftriaxone Sodium 2,000 mg/ (Dextrose) 70 mls @ 100 mls/hr IV Q24H [facility]; Protocol Stop: 11/17/22 20:59 Last Infusion: 11/16/22 21:37 Dose: Infused Ipratropium Veguita (Ipratropium Veguita Neb Soln 0.02% 2.5 Ml Vial) 0.5 mg INH QIDR [facility] Stop: 12/10/22 06:59 Last Admin: 11/17/22 07:00 Dose: Not Given Ipratropium Veguita (Ipratropium Veg[place]a Neb Soln 0.02% 2.5 Ml Vial) 0.5 mg INH Q2H PRN PRN Reason: Shortness Of Breath Or Wheezin Stop: 12/10/22 03:11 Levalbuterol HCl (Levalbuterol 1.25 Mg/3 Ml Neb) 1.25 mg NEB QIDR [facility] Stop: 12/10/22 06:59 Last Admin: 11/17/22 07:00 Dose: Not Given Levalbuterol HCl (Levalbuterol 1.25 Mg/3 Ml Neb) 1.25 mg NEB Q2H PRN PRN Reason: Shortness Of Breath Or Wheezin Stop: 12/10/22 03:11 Loratadine (Loratadine 10 Mg Tab) 10 mg PO QAM [facility] Stop: 12/10/22 08:59 Last Admin: 11/16/22 07:39 Dose: 10 mg Magnesium Oxide (Magnesium Oxide 400 Mg Tab) 400 mg PO BID [facility] Stop: 12/15/22 08:59 Last Admin: 11/16/22 21:48 Dose: 400 mg Melatonin (Melatonin 3 Mg Tab) 3 mg PO DAILY PRN PRN Reason: Sleep Stop: 12/16/22 10:08 Last Admin: 11/16/22 11:01 Dose: 3 mg Nitroglycerin (Nitroglycerin Sl 0.4 Mg/Tab Tab) 0.4 mg SL Q5M PRN PRN Reason: Chest Pain Stop: 12/10/22 03:11 Nystatin (Nystatin Susp 500,000 U/5 Ml Udc) 5 ml PO QID [facility] Stop: 11/20/22 08:59 Last Admin: 11/16/22 20:54 Dose: 5 ml Oxycodone HCl (Oxycodone Hcl Ir 5 Mg Tab (Immediate Release)) 15 mg PO Q8H PRN PRN Reason: Pain,severe Stop: 11/24/22 03:11 Last Admin: 11/17/22 03:25 Dose: 15 mg Pantoprazole Sodium (Pantoprazole 40 Mg Tab) 40 mg PO QAM [facility] Stop: 12/10/22 08:59 Last Admin: 11/16/22 07:38 Dose: 40 mg Polyethylene Glycol (Polyethylene (Miralax) 17 Gm Pack) 17 gm PO DAILY PRN PRN Reason: Constipation Stop: 12/10/22 03:11 Last Admin: 11/15/22 07:38 Dose: 17 gm Prednisone (Prednisone 20 Mg Tab) 40 mg PO DAILY [facility] Stop: 12/11/22 08:59 Last Admin: 11/16/22 07:37 Dose: 40 mg Sodium Chloride (Sodium Chlor 7% 4 Ml Neb) 4 ml NEB BIDR [facility] Stop: 12/10/22 18:59 Last Admin: 11/17/22 07:00 Dose: 4 ml Tamsulosin HCl (Tamsulosin Hcl 0.4 Mg Cap) 0.4 mg PO DAILY [facility] Stop: 12/10/22 08:59 Last Admin: 11/16/22 07:38 Dose: 0.4 mg Theophylline (Theophylline 300mg Extended Rel Tab) 300 mg PO QAM [facility] Stop: 12/13/22 08:59 Last Admin: 11/16/22 07:39 Dose: 300 mg Umeclidinium Veguita (Umeclidinium Veguita 62.5mcg/Blister 7 Puffs/Inhaler) 1 puffs INH DAILY [facility] Stop: 12/13/22 08:59 Last Admin: 11/16/22 07:40 Dose: 1 puffs
[2022-11-17] MEDS: guaiFENesin 600 MG TABCR PO PRN (08:17)
[2022-11-17] MEDS: dilTIAZem HCl 60 MG TAB PO SCH (08:17)
[2022-11-17] MEDS: MAGNESIUM OXIDE 400 MG TAB PO SCH (08:17)
[2022-11-17] MEDS: TAMSULOSIN HCL 0.4 MG CAP PO SCH (08:17)
[2022-11-17] MEDS: PANTOprazole 40 MG TAB PO SCH (08:18)
[2022-11-17] MEDS: AZITHROMYCIN 250 MG TAB PO SCH (08:18)
[2022-11-17] MEDS: predniSONE 20 MG TAB PO SCH (08:18)
[2022-11-17] MEDS: UMECLIDINIUM BROMIDE 62.5MCG/BLISTER 7 PUFFS/INHALER INH SCH (08:19)
[2022-11-17] MEDS: THEOPHYLLINE 300MG EXTENDED REL TAB PO SCH (08:19)
[2022-11-17] MEDS: HEPARIN SOD 5,000 UNIT/0.5 ML VIAL SQ SCH ×2 (08:19→08:24)
[2022-11-17] MEDS: LORATADINE 10 MG TAB PO SCH (08:20)
[2022-11-17] MEDS: NYSTATIN SUSP 500,000 U/5 ML UDC PO SCH (08:21)
[2022-11-17] MEDS: diazePAM 5 MG TABLET PO SCH ×2 (08:23→11:38)
--- NOTE | 2022-11-17 12:01 | Discharge Summary ---
Date of Service November 17, 2022 Admission HPI Per Admitting Provider This is a 67-year-old male with past medical history significant for chronic respiratory failure with severe persistent asthma, bronchiectasis, COPD, on home oxygen, seems to be on 3 L, history of mycobacterial and fungal pneumonia, the patient seems to be noncompliant, history of chronic pain and BPH. The patient severe persistent asthma with elevated eosinophilia, bronchial thermoplasty in 2012. 2020 PFTs showed FEV1 of 46% of predicted. HE has AFB cultures done in 04/2022, were negative. The patient was recently in the hospital in July with COPD exacerbation, acute bronchitis. At that time, chest x-ray showed lung nodule followup recommended and the patient has difficulty with swallowing , history of oropharyngeal dysphagia video swallow was done in August 12/2023, silent aspiration was noted. GI evaluated, diet seems he didnot wanted peg tube, easy to chew diet was recommended by speech. The patient also seems to be followed with pulmonary and family doctor. Looks like he had bronchoscopy in late August. Currently, the patient comes with shortness of breath. Patient says since last Friday was getting short of breath. He states he waited too long. He did not want to come to the hospital. As it was not getting better, his friend convinced him to come to the hospital. When the EMS arrived, he was saturating only 60%. Was placed on nonrebreather mask, brought in here. He is currently on high-flow oxygen, saturating okay. His ABGs looked okay. When he came in, he seemed somewhat confused, so CTA head was done, which was unremarkable. Lactic acid 4.7, repeat was 3.8. Currently alert and oriented, some mild tachypnea, but able to give history. Denies any headache. Has some dizziness. Denies any blurred visions, has some runny nose. Denies sore throat, cough with yellowish phlegm. Denies any fevers, no chest pain. He has right-sided chest pain for 1 month. No nausea, no abdominal pain. Normal bowel and bladder movements. Admission Exam Per Admitting Provider GENERAL: The patient is thin and frail, not in acute distress. VITAL SIGNS: Temperature 36.7, pulse 102, respiratory rate 28, blood pressure 101/70, oxygen 95% on high flow. HEENT: Pupils equal, round and reactive to light. Oral mucosa moist. CARDIOVASCULAR: S1 and S2 heard, tachycardia. Regular rate and rhythm. No murmur. RESPIRATORY SYSTEM: Mild tachypnea. Bilateral rhonchi and wheezing heard. ABDOMEN: Soft, bowel sounds present, nontender, no distention. CENTRAL NERVOUS SYSTEM: Alert and oriented. Speech is clear. No facial droop. Obeys simple commands. Insight is okay. Moves extremities. EXTREMITIES: No edema, no erythema. Principal Diagnosis Acute on chronic respiratory failure with hypoxia Bacteremia Multifocal pneumonia, COPD exacerbation,entero/rhinovirus infection Discharge Exam General- thin elderly M in NAD, on NC 3L Eyes- anicteric Neck- no JVD Lungs- diffuse wheezing (improved) Heart- normal rate, regular rhythm; no murmurs Abdomen- normal bowel sounds, nondistended, soft, nontender Extremities- no pretibial edema, no calf tenderness, moves extremities Neuro- alert, oriented x 3; no facial asymmetry, moves extremities Skin- warm & dry Discharge Data Allergies Allergy/AdvReac Type Severity Reaction Status Date / Time clidinium Allergy Intermediate Rash Verified 11/10/22 01:05 [From Librax (with clidinium)] acetaminophen Allergy Mild hives/itchy Verified 11/10/22 01:05 chlordiazepoxide Allergy Mild Rash Verified 11/10/22 01:05 [From Librax (with clidinium)] codeine Allergy Mild Rash Verified 11/10/22 01:05 [From Tylenol-Codeine] latex Allergy Mild Rash Verified 11/10/22 01:05 montelukast AdvReac Severe MENTAL Verified 11/10/22 01:05 STATUS CHANGED zolpidem AdvReac Severe MENTAL Verified 11/10/22 01:05 STATUS CHANGED,HALLUCINATIONS budesonide [From Symbicort] AdvReac Intermediate caused Verified 11/10/22 01:05 vision problems formoterol [From Symbicort] AdvReac Intermediate caused Verified 11/10/22 01:05 vision problems Consultations 11/10/22 00:52 ED Decision to Admit Stat 11/10/22 08:00 Consult Pulmonology Routine 11/11/22 13:45 Consult Infectious Diseases Routine Ordered Studies 11/10/22 00:26 CT head/brain wo con Stat FINDINGS: Brain: The cerebral and cerebellar sulci are mildly prominent consistent with mild brain atrophy. There are a few areas of decreased attenuation in the deep cerebral white matter consistent with mild small vessel ischemic/degenerative changes. No hemorrhage. Ventricles: Unremarkable. No ventriculomegaly. Bones/joints: Unremarkable. No acute fracture. Soft tissues: Unremarkable. Vasculature: Atherosclerotic disease. Sinuses: Unremarkable as visualized. No acute sinusitis. Mastoid air cells: Unremarkable as visualized. No mastoid effusion. IMPRESSION: No acute findings in the head/brain. 11/10/22 00:43 CT chest diagnostic w con Stat FINDINGS: Lungs: There is multifocal parenchymal consolidation most pronounced at the lung bases, right greater than left. There is extensive emphysema. Pleural space: Unremarkable. No pneumothorax. No significant effusion. Heart: There is diffuse coronary vascular calcification. No significant pericardial effusion. Bones/joints: There are degenerative changes of the thoracolumbar spine. No acute fracture. No dislocation. Soft tissues: Unremarkable. Vasculature: See above. Lymph nodes: Unremarkable. No enlarged lymph nodes. IMPRESSION: Multifocal parenchymal consolidation, most pronounced at the lung bases, right greater than left. Hospital Course (1) Acute respiratory failure with hypoxia: (2) COPD (chronic obstructive pulmonary disease): This is a 67-year-old male, who presents with respiratory distress. 1. Acute Hypoxic, Hypercarbic Respiratory Failure Chronic obstructive pulmonary disease exacerbation Multifocal pneumonia. Streptococcus pneumonia Bacteremia Sepsis, POA -- Weaned off high flow oxygen, currently on nasal cannula 4 L -- has been gradually improving -- Infectious Disease consulted - appreciate their input - cont. ceftriaxone while inpt -> switch to amoxicillin 500 tid for total of 14 days on DC continue with Prednisone, nebulized budesonide, and nebulized Perforomist for now. Pulmonary medicine consulted - started low-dose theophylline and Incruse. - pulm. medicine reviewed outpt bronch findings - Aspergillus niger. Discussed with ID, Aspergillus niger is nonpathogenic. 11/16 patient feeling more short of breath this morning. Repeat chest x-ray obtained-shows improvement in airspace opacities, resolving pneumonia, emphysema, no new focal lung consolidation. Pulmonary medicine continues to follow closely, appreciate their input. 11/17 Pt is feeling well today, and would like to be discharged. Discussed with pulmonary medicine, who also recommended discharge. Recommend to continue theophylline and Incruse. Patient is to follow-up with outpatient pulmonary medicine, this was discussed in detail with the patient and family at the bedside. We will also discharge on prednisone, it is recommended that he has a taper for over 2 to 3 weeks. Prescribed 40 mg for next 4 days, and 30 mg for following 4 days. Patient to follow-up with primary care provider and pulmonary medicine to continue his taper. 2. Altered mental status, Septic Encephalopathy -- CT head: negative -- resolved 3. Entero/rhinovirus on resp. biofire. isolation precautions. 4. Oropharyngeal dysphagia, esophageal dysmotility silent aspiration. easy to chew diet as per speech recommendations recommendations. Last admission patient declined peg tube The patient takes Valium, which will be continued. 5. History of asthma, bronchitis. Management as above. 6. History of chronic diastolic congestive heart failure -- euvolemic 7. Chronic pain syndrome, cervical radiculopathy. On oxycodone as needed. 8. BPH. On Flomax. 9. Gastroesophageal reflux disease. On Protonix. Dispo: pt wants to be discharged home, discussed w/ CM and PT Total Time Total Time Spent Total Time Spent (In Minutes): 40 Discharge Plan Discharge Items Patient Disposition: Home - Self-Care Reason For Visit: RESP DISTRESS Discharge Diagnosis: Acute on chronic respiratory failure with hypoxia Bacteremia Multifocal pneumonia, COPD exacerbation,entero/rhinovirus infection Activity: Per Instructions section Non-emergency contact: Primary Care Provider and Medical Registrar Call non-emergency contact if: you have any medication questions and your symptoms worsen Follow-up/Referrals: Randy Smart MD [Primary Care Provider] - Diet: Regular Diet Texture: Mechanical soft (ground) Addtl Attending Provider Instructions: Follow-up with primary care physician and utility service worker. You should see your primary care doctor within 1 week and you should see your lung doctor within 2 weeks. Finish antibiotic treatment with amoxicillin and azithromycin as prescribed. Take prednisone 40 mg for next 4 days, then take prednisone 30 mg for next 4 days. Your primary care physician will prescribe you further prednisone doses, to taper you over 2 to 3 weeks total. Recommend using probiotics. You were started on a new medication theophylline and Icruse by lung doctor here. Discuss with your lung doctor, if you should continue these medications. Pending Studies at Discharge: No Stand-Alone Forms: My [employer], Smoking Cessation Medications and DC Order Prescriptions: New prednisone 20 mg Tablet 40 mg PO DAILY 4 Days Qty: 8 0RF azithromycin 250 mg Tablet 250 mg PO QAM 2 Days Qty: 2 0RF amoxicillin 500 mg tablet 500 mg PO TID 7 Days Qty: 21 0RF Probiotic 15 billion cell capsule, sprinkle 1 cap PO DAILY Qty: 10 0RF Rx Instructions: do not crush/chew/cut; swallow whole OR may open and sprinkle in cold drink/food theophylline 300 mg Tablet Extended Release 12 Hr 300 mg PO QAM Qty: 30 0RF Incruse Ellipta 62.5 mcg/actuation Blister With Device 1 inh inhalation DAILY Qty: 30 0RF prednisone 10 mg tablet 30 mg PO DAILY 4 Days Qty: 12 0RF Rx Instructions: take after you finish 40 mg dose for 4 days Continued (DME) Portable Oxygen Misc See Rx Instructions .ROUTE .MEDSUPPLY Qty: 1 Rx Instructions: As directed albuterol sulfate 2.5 mg /3 mL (0.083 %) Solution For Nebulization 2.5 mg continuous nebulization Q4H PRN (Reason: Wheezing or Shortness of breath) gabapentin 100 mg Capsule 100 mg PO HS PRN (Reason: Pain) Rx Instructions: TAKE THIS MEDICATION ONE HOUR PRIOR TO BEDTIME, MAY TITRATE UP TO 4 DAILY DIRECTED diazepam 5 mg Tablet 5 mg PO AC albuterol sulfate [ProAir HFA] 90 mcg/actuation Hfa Aerosol Inhaler 2 puff inhalation Q4 PRN (Reason: Shortness Of Breath) nitroglycerin [Nitrostat] 0.3 mg Tablet, Sublingual 0.3 mg sublingual UD PRN (Reason: ESOPAGEAL SPASM) oxycodone 15 mg Tablet 15 mg PO Q8H PRN (Reason: Pain,severe) Rx Instructions: IR levocetirizine 5 mg tablet 5 mg PO QPM guaifenesin [Mucinex] 600 mg tablet extended release 12hr 1,200 mg PO AMHS PRN (Reason: Congestion) diltiazem HCl 60 mg tablet 60 mg PO AMHS tamsulosin 0.4 mg capsule 0.4 mg PO DAILY pantoprazole 40 mg Tablet,Delayed Release (Dr/Ec) 40 mg PO QAM Qty: 30 0RF nystatin 100,000 unit/mL suspension 15 ml PO QID PRN (Reason: .thrush) polyethylene glycol 3350 [Miralax] 17 gram Powder In Packet 17 g PO DAILY PRN (Reason: Constipation) Rx Instructions: to effect 1 stool a day diphenhydramine HCl [Benadryl Allergy] 25 mg Tablet 25 mg PO HS loratadine 10 mg tablet 10 mg PO QAM food supplemt, lactose-reduced Liquid 1 ea PO TID Trelegy Ellipta 200-62.5-25 mcg blister with device 1 inh INHALATION QAM Discharge Orders: Discharge Order (Routine); Ordered 11/17/22 Ordered By: Bryn Cortes Admission Data Admit Date/Time: 11/10/22 02:18 Attending Provider: Bryn Cortes Admit Provider: Chad Ashford Primary Care Provider: Randy Smart Other Providers: Chad Ashford ; Gato Chirinos ; Sean Altamirano ; Davida Givens ; Rory Mccurdy I. ; Jake Saldivar II ; Hannah Martinez ; Edmond Pena ; Donnell Tabares ; Gayle Castillo ; Manan Freeman Other Interventions: Discharge Summary Assessment (RN) Last Done: 11/17/22 12:05
== END 2022-11-17 12:34 | disposition home or self-care (01) | DRG 871 ==
LOC: ED 23:16 → SUATTDRO 11-10 02:18 → EDINP 11-10 02:18 → 2S 11-10 04:03
DX: K21.9 Gastro-esophageal reflux disease without esophagitis; J15.3 Pneumonia due to streptococcus, group B; B37.0 Candidal stomatitis; J84.116 Cryptogenic organizing pneumonia; J45.50 Severe persistent asthma, uncomplicated; G93.41 Metabolic encephalopathy; N40.0 Benign prostatic hyperplasia without lower urinary tract symptoms; B97.10 Unspecified enterovirus as the cause of diseases classified elsewhere; Z91.199 Patient's noncompliance with other medical treatment and regimen due to unspecified reason; J96.22 Acute and chronic respiratory failure with hypercapnia; J44.1 Chronic obstructive pulmonary disease with (acute) exacerbation; J96.21 Acute and chronic respiratory failure with hypoxia; Z99.81 Dependence on supplemental oxygen; J96.12 Chronic respiratory failure with hypercapnia; Z83.3 Family history of diabetes mellitus; J13 Pneumonia due to Streptococcus pneumoniae; J44.0 Chronic obstructive pulmonary disease with (acute) lower respiratory infection; M54.12 Radiculopathy, cervical region; I50.32 Chronic diastolic (congestive) heart failure; J96.01 Acute respiratory failure with hypoxia; Z88.1 Allergy status to other antibiotic agents; Z87.891 Personal history of nicotine dependence; J47.0 Bronchiectasis with acute lower respiratory infection; A41.9 Sepsis, unspecified organism; R13.12 Dysphagia, oropharyngeal phase; Z91.040 Latex allergy status; Z88.5 Allergy status to narcotic agent; G89.4 Chronic pain syndrome

== ENCOUNTER 2025-05-13 11:41 | Inpatient (IN) ==
[~2025-05-13 11:41] MED LIST changes: +KETAMINE HCL INJ 50 MG/ML 10 ML VIAL IV ONE; +LIDOCAINE 2% 20 MG/ML 5 ML SYR IV ONE; +ROCURONIUM BROMIDE 10 MG/ML 5 ML VIAL IV ONE; -VANCOMYCIN HCL 750 MG in SODIUM CHLORIDE 0.9% 250 ML IV SCH
[2025-05-13] MEDS: ALBUT/IPRATROP 3MG/0.5MG NEB 3 ML VIAL INH STA (12:51)
[2025-05-13] MEDS: ALBUTEROL 0.083% NEBU SOLN 3 ML VIAL NEB STA (13:57)
[2025-05-13 14:13] LABS: Chlamydia pneumoniae PCR Not Detected (NotDetected); Coronavirus 229E PCR Not Detected (NotDetected); Coronavirus CoV-2 (COVID19)PCR Not Detected (NotDetected); Coronavirus HKU1 PCR Not Detected (NotDetected); Coronavirus NL63 PCR Not Detected (NotDetected); Coronavirus OC43PCR Not Detected (NotDetected); Human Metapneumovirus PCR Not Detected (NotDetected); Parainfluenza Virus 1 PCR Not Detected (NotDetected); Parainfluenza Virus 2 PCR Not Detected (NotDetected); Parainfluenza Virus 3 PCR Not Detected (NotDetected); Parainfluenza Virus 4 PCR Not Detected (NotDetected); Respiratory Syncytial VirusPCR Not Detected (NotDetected); Rhinovirus/Enterovirus PCR Not Detected (NotDetected)
[2025-05-13 14:23] LABS: Alanine Aminotransferase 17.0 U/L (7-52); Albumin Globulin Ratio 0.8 (0.9-2); Albumin Level 3.4 gm/dl (3.4-5.0); Alkaline Phosphatase 57.0 U/L (34-104); Anion Gap 8.0 (3-11); Bilirubin,Total 0.7 mg/dl (0.2-1.0); Blood Urea Nitrogen 13.0 mg/dl (6-23); Calcium 9.1 mg/dl (8.6-10.3); Carbon Dioxide 31.0 mmol/L (21-32); Chloride 97.0 mmol/L (98-107); Creatinine Clr Calc Pharmacy 53.3 ml/min; Globulin 4.3 gm/dl (2.5-4.0); Glucose 137.0 mg/dl (70-99(Fasting)); Potassium 4.1 mmol/L (3.5-5.1); Sodium 136.0 mmol/L (136-145); Total Protein 7.7 gm/dl (6.0-8.3)
[2025-05-13] MEDS: LACTATED RINGER'S 1,000 ML IV ONE (14:24)
[2025-05-13 14:37] LABS: Base Excess VBG 6.9 mEq/L; HCO3 VBG 34 mmol/L; Oxygen Saturation VBG < 60.0 %; PCO2 VBG 59 mmHg (38-50); PO2 VBG 31 mmHg; pH VBG 7.37 (7.36-7.41)
[2025-05-13 14:41] LABS: Hematocrit (blood only) 38.9 % (42.0-52.0); Hemoglobin 13.1 g/dL (14.0-18.0); Immature Granulocytes # (auto) 0.31 K/uL (0.01-0.20); Immature Granulocytes % (auto) 1.3 %; Mean Corpuscular Hemoglobin 30.3 pg (25.0-34.0); Mean Corpuscular Volume 89.8 fL (80.0-100.0); RDW Standard Deviation 51.2 fL (36.4-46.3); Red Blood Count 4.33 M/uL (4.70-6.10); White Blood Count 24.38 K/ul (4.8-10.8)
[2025-05-13] MEDS: CEFEPIME 2000MG 2,000 MG/20 ML SYR IV STA (14:51)
[2025-05-13] MEDS: HALOPERIDOL LACTATE 5 MG/ML 1 ML VIAL IV STA (15:30)
[2025-05-13] MEDS: LORazepam 1 MG/1 ML SYR ED Inj Use IV STA (15:31)
[2025-05-13 15:37] LABS: INR 1.1 (0.9-1.1); Partial Thromboplastin Time 27 Seconds (21-31); Prothrombin Time 11.8 Seconds (9.0-12.0)
--- NOTE | 2025-05-13 15:40 | XRay Report ---
XR chest 1V portable CLINICAL HISTORY: Dyspnea COMPARISON STUDY: 11/16/2022 FINDINGS: Heart size and pulmonary vasculature are normal. Stable emphysema. There is interval patchy consolidation at the left mid and lower lung. No pleural effusion or pneumothorax. IMPRESSION: Extensive pneumonia on the left. Follow-up to resolution recommended. ACT 112: Positive. There are findings on this exam that require communication between the performing entity and the patient following Patient Test Result Information Act ([place] Act 112) guidelines. Electronically signed by: Rashard Tapia M.D. 05/13/2025 3:39 PM
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
[2025-05-13 16:11] LABS: Appearance Urine Clear (Clear); Bacteria Urine Automated None Seen (None Seen); Cast Urine Automated 0-2 /lpf (0-2); Epithelial Cell Urine Auto 0-2 /hpf (0-2); Glucose Urine UA Negative (Negative); RBC Urine Automated 0-2 /hpf (0-2); WBC Urine Automated 0-5 /hpf (0-5)
[2025-05-13] MEDS ORDERED: VANCOMYCIN CONSULT ACTIVE PRN (16:19)
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
[2025-05-13] MEDS: LORazepam Inj 0.5 MG in SYRINGE 0.25 ML IV ONE (16:42)
[2025-05-13] MEDS: OPTIRAY 320 125ml IV ONE (16:57)
[2025-05-13] MEDS: ALBUT/IPRATROP 3MG/0.5MG NEB 3 ML VIAL NEB STA (17:02)
[2025-05-13] MEDS ORDERED: ALBUT/IPRATROP 3MG/0.5MG NEB 3 ML VIAL NEB PRN (17:03)
--- NOTE | 2025-05-13 17:03 | Pulmonary Consultation ---
Date of Consultation May 13, 2025 Assessment & Plan (1) Sepsis due to pneumonia: (2) COPD (chronic obstructive pulmonary disease): (3) GERD (gastroesophageal reflux disease): (4) Anxiety: (5) Emphysema of lung: (6) BPH (benign prostatic hypertrophy): (7) Acute on chronic respiratory failure with hypoxia and hypercapnia: (8) Ventilatory failure: Plan Reason Critically Ill: 69-year-old male presented to the hospital with shortness of breath Past medical history: COPD, BPH, GERD Pulmonary consulted for hypoxia Neuro - [facility]: Unable to assess --Metabolic encephalopathy Patient was initially very combative in the ED, he got Ativan and was more sedated when I saw him Sepsis could be one of the reasons --Does have history of anxiety Takes Valium on an as needed basis Cardiac - -- Sinus tachycardia Likely secondary to underlying sepsis EKG 05/13/2025 11:54 AM: Sinus tachycardia, P pulmonale, normal axis, no ST-T wave changes appreciated Respiratory - CTA chest 05/13/2025 personally reviewed: Motion degraded study Dense consolidative process appreciated in the left lower as well as lingula Centrilobular and paraseptal emphysema appreciated bilaterally Mucus in the left main No significant mediastinal lymphadenopathy -- Acute on chronic hypoxic hypercapnic respiratory failure Secondary to multifocal pneumonia Respiratory BioFire negative for everything on 05/13/2025 BNP 168 Pro-Jhon 8.09 --COPD with emphysema on chronic prednisone Only on albuterol at home Takes 10 mg of prednisone every other day at home Supposed to be on Trelegy 200 Absolute eosinophil count 690 on 03/31/2025 GI - -- No acute issues RENAL/LYTES - -- Monitor BUNs/creatinine Avoid nephrotoxic medications ENDO - -- ICU hypoglycemia protocol HEME - -- Normocytic anemia Monitor H&H ID - -- Multifocal pneumonia Procalcitonin 8.09 Follow-up nasal MRSA and sputum culture Follow-up urine Legionella and mycoplasma Continue with Rocephin and azithromycin while in the hospital --Prophylaxis VTE: Lovenox GI: Pantoprazole Lines: Peripheral Diet: N.p.o. Plan: Continue with broad-spectrum antibiotics with atypical coverage, QTc 462 Follow-up nasal MRSA Follow sputum culture Continue with Solu-Medrol 40 mg twice daily especially given that the patient is on chronic prednisone Patient does have history of ABPA in the past Patient is very critical, he will be transferred to the ICU for intubation The severity of the illness was explained to the best ability the patient's son, who was bedside I have personally spent 65 minutes of critical care time in the direct management of this patient. This is a life/limb threatening event. This includes time spent evaluating patient, direct bedside care, chart review, placing orders, interpretation of diagnostic studies, discussion with consultants, patient, and family members, as well as other required patient management activities. This time is exclusive of all separately billable procedures, and teaching time and separate from and in addition to any other critical care service time. History of Present Illness History of Present Illness 69-year-old male presented to the hospital with shortness of breath Past medical history: COPD, BPH, GERD, history of ABPA Pulmonary consulted for hypoxia At the time of examination patient son was in the room Patient was on BiPAP 05/28, 40% saturating 94-95% His respiratory rate was 42. Patient got Ativan twice 1 was because he was agitated in the ED following that he got haloperidol and then another Ativan prior to CTA of the chest History was obtained from the son. When the patient came to the ED he was 80% on room air, was put on nonrebreather and then BiPAP As per the send patient has not been feeling well for the last 4 days He was complaining of more shortness of breath, initially was reluctant to come to the ER but then the son forced him to come to the ER He did get Solu-Medrol and vancomycin in the ED. No dysuria or diarrhea prior to coming to the hospital No known sick contacts Social history: Greater than [id number] smoking history Allergies Allergy/AdvReac Type Severity Reaction Status Date / Time acetaminophen Allergy Severe EDEMA Verified 03/31/25 19:29 FACE/LIPS/TONGUE/RASH chlordiazepoxide Allergy Intermediate Rash Verified 03/31/25 19:29 [From Librax (with clidinium)] clidinium Allergy Intermediate Rash Verified 03/31/25 19:29 [From Librax (with clidinium)] codeine Allergy Intermediate Rash Verified 03/31/25 19:29 [From Tylenol-Codeine] latex Allergy Intermediate Rash Verified 03/31/25 19:29 montelukast AdvReac Severe HALLUCINATI Verified 03/31/25 19:29 ONS zolpidem AdvReac Severe HALLUCINATIONS/SLEEP Verified 03/31/25 19:29 WALKING budesonide [From Symbicort] AdvReac Intermediate caused Verified 03/31/25 19:29 vision problems formoterol [From Symbicort] AdvReac Intermediate caused Verified 03/31/25 19:29 vision problems Home Medications Medication Instructions Recorded Confirmed Type albuterol sulfate 2.5 mg/3 mL 2.5 mg inhalation Q4H PRN Wheezing 06/02/18 05/13/25 History (0.083 %) solution for nebulization or Shortness of breath diazepam 5 mg tablet 5 mg PO Q8H PRN NEEDED PER 06/02/18 05/13/25 History [facility] gabapentin 100 mg capsule 100 - 200 mg PO HS PRN Pain 06/02/18 05/13/25 History nitroglycerin 0.3 mg sublingual 0.3 mg sublingual UD PRN ESOPAGEAL 03/07/19 05/13/25 History tablet (Nitrostat) SPASM Portable Oxygen #1 ea 02/11/20 08/11/22 History diltiazem HCl 60 mg tablet 0 mg PO BID 08/10/22 05/13/25 History diphenhydramine HCl 25 mg tablet 25 mg PO Q6H PRN Itching 11/10/22 05/13/25 History (Benadryl Allergy) Medical Marijuana 1 dose PO HS PRN sleep/anxiety 02/27/23 05/13/25 History oxycodone 10 mg tablet 10 mg PO Q8H PRN PAIN/SEVERE 02/27/23 05/13/25 History albuterol sulfate 90 mcg/actuation 2 puff inhalation Q4H PRN 03/31/25 05/13/25 History aerosol inhaler Shortness Of Breath polyethylene glycol 3350 17 17 g PO DAILY 03/31/25 05/13/25 History gram/dose oral powder (Miralax) prednisone 10 mg tablet 10 mg PO Q OTHER DAY 03/31/25 05/13/25 History duloxetine 20 mg capsule,delayed 0 mg PO DAILY 05/13/25 05/13/25 History release Patient History Medical History Medical marijuana use insomnia Bladder stones Restless leg syndrome Acute exacerbation of chronic obstructive pulmonary disease (COPD) Status asthmaticus Chronic neck pain Chronic hip pain History of kidney stones Hearing deficit On home oxygen therapy 2L N/C at hs and prn Chronic obstructive pulmonary disease inhaler/nebulizer prn Dysphagia Surgical History History of ear surgery eardrum opening by Dr. Daniels History of carpal tunnel surgery of left wrist x3 History of elbow surgery rt/left History of colonoscopy with polypectomy History of esophagogastroduodenoscopy (EGD) History of tooth extraction History of sinus surgery History of tonsillectomy and adenoidectomy History of cardiac cath 10/2018 @ [facility] by Dr. Mello--no stents placed History of bronchoscopy multiple ? Hx of hernia repair x5 History of surgery on arm left arm---hardware removed Family History Father Nephrolithiasis Asthma Mother Family history of diabetes mellitus Diabetes Grandfather (Paternal) Alzheimer disease Other No family history of adverse response to anesthesia Social History Smoking Status: Current every day smoker Tobacco Type: E-cigarettes / Vaping Second Hand Exposure: Yes; Do You Dip or Chew Tobacco: No; Hx Alcohol Use: No Hx Substance Use: No Preferred Language: Luxembourgish Communication Ability: Impaired Neon Sign Servicer Required: No Beliefs That Will Affect Care: None marital status: / Current Living Situation: Alone How many Children do You have: 5 Feels Safe at Home: Yes Assistive Devices: Cane, Denture - Upper and Denture - Lower Review of Systems 2 Review of Systems: All systems reviewed & are unremarkable except as noted in HPI & below Physical Exam 2 Physical Exam: Constitutional: In respiratory distress HEENT:PERRLA, frail appearing Respiratory system: Decreased air entry bilaterally, no wheeze, no rhonchi, positive crackles bilaterally more on the left side CVS: S1-S2 positive, no murmurs or gallops, tachycardia Abdomen: Soft, nontender, nondistended, positive bowel sounds x4 Extremities: +2 pulses bilaterally radialis/ dorsalis pedis, no cyanosis, no edema Neuro: Obtunded, opening his eyes but not following any commands Psych: Unable to assess G/U: No Maier Skin: no rashes, warm and dry Lymphatic: no cervical or axillary lymphadenopathy Results & Data Results & Data Vital Signs (Past 12 Hours) Vital Signs Temp Pulse Pulse Resp BP BP Pulse Ox 05/13/25 16:41 120 H 05/13/25 16:15 128 H 21 94/72 L 95 05/13/25 16:00 117 H 33 H 116/80 91 05/13/25 15:45 119 H 32 H 98/68 L 97 05/13/25 15:32 114 H 49 H 93 05/13/25 15:14 125 H 34 H 109/50 L 96 05/13/25 13:37 114 H 36 H 94 05/13/25 13:14 94 05/13/25 13:13 87 L 05/13/25 13:13 82 L 05/13/25 12:37 108 H 05/13/25 12:22 94 05/13/25 12:21 05/13/25 11:42 36.7 C 109 H 40 H 110/53 L 72 L O2 Del Method O2 Flow Rate FiO2 05/13/25 16:41 05/13/25 16:15 BiPAP 05/13/25 16:00 BiPAP 05/13/25 15:45 BiPAP 05/13/25 15:32 60 05/13/25 15:14 BiPAP 05/13/25 13:37 60 05/13/25 13:14 Non-rebreather 15 05/13/25 13:13 Oxymask 10 05/13/25 13:13 Nasal Cannula 4 05/13/25 12:37 05/13/25 12:22 Non-rebreather 15 05/13/25 12:21 Non-rebreather 15 05/13/25 11:42 Room Air, Non-rebreather Laboratory Results 05/13/25 13:12 05/13/25 13:12 PG Care Time/CCT Total # of Minutes Spent Total Time Spent with Patient: Total time spent is greater than 50% in coordination of care (as documented) at patient's floor/unit and/or counseling patient: [place] [address] CRITICAL CARE 1ST 30-74M Patient Type New Diagnoses Sepsis due to pneumonia J18.9; A41.9 COPD (chronic obstructive pulmonary disease) J44.9 GERD (gastroesophageal reflux disease) K21.9 Anxiety F41.9 Emphysema of lung J43.9 BPH (benign prostatic hypertrophy) N40.0 Acute on chronic respiratory failure with hypoxia and hypercapnia J96.21; J96.22 Ventilatory failure R06.89
[2025-05-13] MEDS: VANCOMYCIN HCL / NSS 1,000 MG/270 ML BAG IV ONE (17:14)
[2025-05-13] MEDS ORDERED: cefTRIAXone SODIUM 2,000 MG/50 ML BAG IV SCH (17:15)
[2025-05-13] MEDS ORDERED: MAGNESIUM HYDROXIDE SUSP 30 ML UDC PO PRN (17:48)
[2025-05-13] MEDS ORDERED: ONDANSETRON INJ 2 MG/ML 2 ML VIAL IV PRN (17:48)
[2025-05-13] MEDS ORDERED: POLYETHYLENE (MIRALAX) 17 GM PACK PO PRN (17:48)
[2025-05-13] MEDS ORDERED: ALUMINUM/MAGNESIUM SUSP 30 ML UDC PO PRN (17:48)
--- NOTE | 2025-05-13 18:18 | Procedure Note ---
Procedure Note Date of Service May 13, 2025 INTUBATION PROCEDURE NOTE: Attending: Dr Zita Smith MD Patient was evaluated and plan to intubate was made for ventilatory failure. Sedative agent used: 70 mg of lidocaine, 10 mg of etomidate Paralysis agent used: 30 mg of rocuronium Emergent consent was implied given patients rapidly declining clinical status and need for airway protection. Case was also discussed with patient's son who was at bedside in the ED The patient was prepared in the appropriate fashion. The patient was easily pre-oxygenated by using [id number] ventilation. With help of CMAC grade 2 vocal cords were visualized and 7.5 [place] Islander ETT was introduced on first attempt to 22 cm at the lip. The stylette was removed and balloon was inflated with 10mL of air. Appropriate Colorimetric change was appreciated for at least 10 breaths. Bilateral chest rise and breath sounds were appreciated without air sounds in the epigastrium. Patient tolerated the procedure well and there were no immediate complications. Chest Xray to follow for confirming placement. [facility] [place] Procedure Codes (Charges) Resuscitation Resuscitation: 12576 Endotracheal Intubation, emergency Coding CPT Codes Resuscitation - Resuscitation: 32498 Endotracheal Intubation, emergency ([id number]) Additional Codes Date of Service (PG.SURGERY)
[2025-05-13] MEDS ORDERED: STAT IV Infusion **Titration per Protocol STA ×3 (18:23→19:16)
[2025-05-13] MEDS ORDERED: PROPOFOL BOLUS FROM BAG IV PRN (18:23)
[2025-05-13] MEDS: fentaNYL citrate 2,500 MCG/250 ML BAG IV SCH (18:35)
--- NOTE | 2025-05-13 18:35 | Procedure Note ---
Procedure Note Date of Service May 13, 2025 INTERNAL JUGULAR CENTRAL LINE PROCEDURE NOTE: Procedure: Internal Jugular Central Line Placement Proceduralist: Hilario BRYAN ([facility] Attending: Dr. Smith Indication: Central Drug Administration, Poor Venous Access, Multiple Lab Draws Necessary, etc. Anesthesia: [x]Lidocaine 1% Emergent Consent was implied as patient is FULL CODE with declining hemodynamics with increasing vasopressor needs. Benefits outweighed risks at this point in time. A time-out was completed verifying correct patient, procedure, site. Patients RIGHT Neck was scouted with ultrasound to identify appropriate target, once target was identified IJ ws easily compressible, no thrombus noted, and anatomical positioning was appropriate. The patient's RIGHT NECK was then cleansed and draped in the typical sterile fashion using Chloraprep. The Internal Jugular Vein and Carotid Artery were identified using ultrasound. The superficial tissue was anesthetized using 5 mL of 1% lidocaine without epinephrine under direct visualization with the ultrasound. After adequate anesthetization was achieved, the Internal Jugular vein was cannulated under direct ultrasound guidance using an introducer needle on a syringe x1 attempt. Good venous blood return was maintained prior to removal of syringe from introducer needle. Using Seldinger Technique, a guide wire was advanced through the introducer needle without resistance. The introducer needle was removed and ultrasound images were obtained of the guide wire within the Internal Jugular Vein. A small incision was made in penetrating fashion at the guide wire insertion site utilizing an 11 blade scalpel. The dilator was advanced to the vessel without resistance. The dilator was exchanged for the triple lumen catheter which was advanced into the vessel without resistance. The guide wire was removed intact from the catheter without issue. Claves were placed on each catheter tip with confirmation of good blood flow from each lumen. Each port was easily flushed with sterile saline. The catheter was placed at 17 cm and sutured in place. BioPatch was applied to the catheter and a sterile Tegaderm dressing was applied over the catheter with careful attention to sterility. Patient tolerated procedure well. No immediate complications were met. Post procedure x-ray was completed, placement was appropriate and no pneumothorax was noted. Images obtained are NOT saved for permanent record as this was emergent/urgent procedure. Procedural Ultrasound Guidance: Indication: Direct ultrasound guidance for central line placement Artery AND Vein visualized: YES Compressible Vein: YES Guidewire or Short Catheter seen in vein prior to dilation: YES Images obtained are NOT saved for permanent record. [facility] [place] Procedure Codes (Charges) Tubes, Drains, and Vasc Access Procedure 1: Tubes, Drains, and Vasc Access: [id number] Insertion Of Non-tunneled Catheter Age 4 Yrs> Coding CPT Codes Tubes, Drains, and Vasc Access - Tubes, Drains, and Vasc Access: [id number] Insertion Of Non-tunneled Catheter Age 4 Yrs> ([id number]) Additional Codes Date of Service (PG.SURGERY)
[2025-05-13] MEDS: HYDROCORTISONE SOD 50 MG in SYRINGE 0 ML IV SCH (18:53)
[2025-05-13 19:03] LABS: Alanine Aminotransferase 16.0 U/L (7-52); Albumin Globulin Ratio 0.7 (0.9-2); Albumin Level 2.6 gm/dl (3.4-5.0); Alkaline Phosphatase 52.0 U/L (34-104); Anion Gap 7.0 (3-11); Bilirubin,Total 0.5 mg/dl (0.2-1.0); Blood Urea Nitrogen 14.0 mg/dl (6-23); Calcium 8.4 mg/dl (8.6-10.3); Carbon Dioxide 30.0 mmol/L (21-32); Chloride 100.0 mmol/L (98-107); Creatinine Clr Calc Pharmacy 59.9 ml/min; Globulin 4.0 gm/dl (2.5-4.0); Glucose 210.0 mg/dl (70-99(Fasting)); Magnesium 1.7 mg/dl (1.7-2.4); Potassium 4.1 mmol/L (3.5-5.1); Sodium 137.0 mmol/L (136-145); Total Protein 6.6 gm/dl (6.0-8.3)
[2025-05-13] MEDS: RAPID SEQUENCE INDUCTION BAG ONE (19:05)
--- NOTE | 2025-05-13 19:05 | CT Scan Report ---
Clinical history: Shortness of breath Technique: Axial computed tomography images were obtained of the chest after the administration of intravenous contrast according to the CT angiogram protocol Comparison is made with the prior CT dated 11/10/2022 Findings: There is no definite sign of pulmonary embolism. There is alveolar consolidation in the left lower lobe. There are mild multifocal interstitial and alveolar opacities the remainder of the lungs bilaterally. There is emphysema. There is no pleural effusion or pneumothorax. There is no sign of pulmonary fibrosis or other diffuse interstitial process. No endobronchial lesion is seen There is no mediastinal, hilar, or axillary adenopathy. The thoracic aorta appears unremarkable with no sign of aneurysm or dissection. There is no pericardial effusion The visualized upper abdomen appears unremarkable. No fracture is seen. No focal osseous lesion is evident Impression: 1. No definite sign of pulmonary embolism 2. Pneumonia, most severe in the left lower lobe 3. Emphysema Electronically signed by Bigg Vasquez 05-13-2025 7:04 PM
[2025-05-13] MEDS: fentaNYL citrate 2,500 MCG/250 ML BAG IV ONE (19:06)
[2025-05-13] MEDS: NOREPINEPHRINE/D5W 4 MG/250 ML IV ONE (19:06)
[2025-05-13] MEDS: PROPOFOL IV EMULSION 10 MG/ML 100 ML VIAL IV ONE (19:06)
[2025-05-13] MEDS: HYDROCORTISONE SOD 200 MG in SYRINGE 0 ML IV STA (19:08)
[2025-05-13] MEDS: PLASMA LYTE A IV ONE (19:08)
[2025-05-13] MEDS: NOREPINEPHRINE/D5W 4 MG/250 ML PLCT IV SCH (19:15)
[2025-05-13] MEDS ORDERED: Nursing to Pharmacy Communication SCH ×2 (19:30→23:45)
--- NOTE | 2025-05-13 19:39 | Procedure Note ---
Procedure Note Date of Service May 13, 2025 ARTERIAL LINE PROCEDURE NOTE: Procedure: Arterial Line Placement Proceduralist: Hilario BRYAN ([facility]) Attending: Dr. Smith Indication: Monitoring on Pressors Anesthesia: [x]Lidocaine 1% Emergent Consent was implied as patient is FULL CODE, intubated and requiring increasing dose of vasopressors. Benefits outweigh risks at this point in time. A time-out was completed verifying correct patient, procedure, site, positioning. Allens test was performed to ensure adequate perfusion. Patients RIGHT was scouted and postitioned, radial artery was easily palpable. RIGHT wrist was prepped and draped in the usual sterile fashion. Under direct palpation, A 20g Arrow arterial line was introduced into the RIGHT RADIAL artery x1 attempt. Brisk flash of blood was noted, the wire was advanced without resistance and the catheter was threaded. The needle was removed with appropriate blood return, pressure tubing was attached noting a Good arterial waveform. The line was secured with suture. The patient tolerated the procedure well. Blood Loss: Minimal Complications: None immediate [facility] [place] Codes (Charges) Tubes, Drains, and Vasc Access Procedure 1: Tubes, Drains, and Vasc Access: [id number] Arterial Cath/Cannulation Sampling/Monitoring/Transfusion Coding CPT Codes Tubes, Drains, and Vasc Access - Tubes, Drains, and Vasc Access: [id number] Arterial Cath/Cannulation Sampling/Monitoring/Transfusion ([id number]) Additional Codes Date of Service (PG.SURGERY)
[2025-05-13] MEDS: FORMOTEROL 20 MCG/2 ML VIAL NEB SCH (19:45)
[2025-05-13] MEDS: BUDESONIDE 0.25 MG/2 ML VIAL (PULMICORT) NEB SCH (19:45)
[2025-05-13 20:06] LABS: iSTAT Art Bld Gas Base Excess 3.0 mmol/L (-9-1.8); iSTAT Art Bld Gas pCO2 Correct 53 mmHg (35-46); iSTAT Art Bld Gas pH Corrected 7.347 (7.35-7.45); iSTAT Arterial Blood Gas pO2 C 340
[2025-05-13] MEDS: cefTRIAXone SODIUM 2,000 MG/50 ML BAG IV ONE (20:07)
[2025-05-13] MEDS: cefTRIAXone SODIUM 2,000 MG/50 ML BAG IV SCH (20:08)
[2025-05-13] MEDS: AZITHROMYCIN 500 MG/255 ML BAG IV ONE (20:09)
[2025-05-13 20:12] LABS: Appearance Urine Clear (Clear); Bacteria Urine Automated None Seen (None Seen); Cast Urine Automated 0-2 /lpf (0-2); Epithelial Cell Urine Auto 0-2 /hpf (0-2); Glucose Urine UA Negative (Negative); WBC Urine Automated 0-5 /hpf (0-5)
[2025-05-13] MEDS: SODIUM CHLOR 7% 4 ML NEB NEB SCH (20:17)
[2025-05-13] MEDS: VASOPRESSIN 20 UNITS in SODIUM CHLORIDE 0.9% 100 ML IV SCH (20:23)
--- NOTE | 2025-05-13 20:47 | XRay Report ---
2 views of the chest Comparison made to prior exam dated 11/16/2022 Impression: Multifocal pneumonia. Endotracheal tube with his tip above the rowan. Esophageal catheter with its tip in the stomach. Electronically signed by Kian Perez 05-13-2025 8:47 PM
[2025-05-13] MEDS: guaiFENesin 600 MG TABCR PO SCH (21:23)
[2025-05-13] MEDS: HEPARIN SOD 5,000 UNIT/0.5 ML VIAL SQ SCH (21:54)
--- NOTE | 2025-05-13 22:57 | Electrocardiogram Report ---
Test Reason : Blood Pressure : */* mmHG Vent. Rate : 121 BPM Atrial Rate : 121 BPM P-R Int : 118 ms QRS Dur : 70 ms QT Int : 326 ms P-R-T Axes : 82 43 73 degrees QTcB Int : 462 ms Multifocal atrial tachycardia Right atrial enlargement Possible Septal infarct Nonspecific ST abnormality Abnormal ECG When compared with ECG of 09-Nov-2022 23:23, Multifocal atrial tachycardia has replaced Sinus tachycardia Confirmed by Jared Paulino ([id number]) on 05/13/2025 10:57:10 PM Referred By: REFERRED SELF Confirmed By: Jared Paulino
[2025-05-14] MEDS ORDERED: STAT IV Infusion **Titration per Protocol STA (00:01)
[2025-05-14] MEDS ORDERED: GLUCAGON FOR INJ 1 MG VIAL SQ PRN (00:15)
[2025-05-14] MEDS ORDERED: GLUCOSE 10 TAB/TUBE PO PRN (00:15)
[2025-05-14] MEDS ORDERED: GLUCOSE 40% GEL 15 GM TUBE PO PRN (00:15)
[2025-05-14] MEDS ORDERED: CARBOHYDRATES FOR HYPOGLYCEMIA PO PRN (00:15)
[2025-05-14] MEDS ORDERED: DEXTROSE 50% 50 ML SYRINGE IV PRN (00:15)
[2025-05-14] MEDS: SEVERE STRESS LEVEL ONE (00:40)
[2025-05-14] MEDS: INSULIN REGULAR 250 UNITS in SODIUM CHLORIDE 0.9% 247.5 ML IV SCH (00:50)
[2025-05-14] MEDS: NovoLIN-R BOLUS FROM BAG IV ONE (00:50)
[2025-05-14] MEDS: INSULIN PROTOCOL GOAL RANGE ONE (00:52)
[2025-05-14 03:55] LABS: A calco-baum cmplx NotReported Not Detected (NotDetected); Bact fragilis Not Reported Not Detected (NotDetected); Blood Culture Id Panel See PCR Comment (NotDetected); C auris Not Reported Not Detected (NotDetected); Calbicans Not Reported Not Detected (NotDetected); Candida glabrata Not Reported Not Detected (NotDetected); Candida krusei Not Reported Not Detected (NotDetected); Cneoformans/gatti Not Reported Not Detected (NotDetected); Cparapsilosis Not Reported Not Detected (NotDetected); Ctropicalis Not Reported Not Detected (NotDetected); E cloacae compx Not Reported Not Detected (NotDetected); Efaecalis Not Reported Not Detected (NotDetected); Efaecium Not Reported Not Detected (NotDetected); Enterobacterales Not Reported Not Detected (NotDetected); Escherichia coli Not Reported Not Detected (NotDetected); H influenzae Not Reported Not Detected (NotDetected); K aerogenes Not Reported Not Detected (NotDetected); Koxytoca Not Reported Not Detected (NotDetected); Kpneumoniae grp Not Reported Not Detected (NotDetected); Lmonocyt Not Reported Not Detected (NotDetected); N meningitidis Not Reported Not Detected (NotDetected); P aeruginosa Not Reported Not Detected (NotDetected); Proteus spp Not Reported Not Detected (NotDetected); Salmonella spp Not Reported Not Detected (NotDetected); Staph lugdunensis Not Reported Not Detected (NotDetected); Staph spp. Not Reported Not Detected (NotDetected); Staphaureus Not Reported Not Detected (NotDetected); Staphepi Not Reported Not Detected (NotDetected); Stenmaltophilia Not Reported Not Detected (NotDetected); Strep agal(GrpB) Not Reported Not Detected (NotDetected); Strep pneum Not Reported DETECTED (NotDetected); Strep pyog (GrpA) Not Reported Not Detected (NotDetected); Strep spp Not Reported DETECTED (NotDetected); Streptococcus spp DETECTED (NotDetected)
[2025-05-14 04:22] LABS: iSTAT Art Bld Gas Base Excess 6.0 mmol/L (-9-1.8); iSTAT Art Bld Gas pCO2 Correct 50 mmHg (35-46); iSTAT Art Bld Gas pH Corrected 7.400 (7.35-7.45); iSTAT Arterial Blood Gas pO2 C 76
[2025-05-14 04:37] LABS: Hematocrit (blood only) 30.6 % (42.0-52.0); Hemoglobin 10.2 g/dL (14.0-18.0); Mean Corpuscular Hemoglobin 29.9 pg (25.0-34.0); Mean Corpuscular Volume 89.7 fL (80.0-100.0); Platelet Count 432 K/uL (130-400); RDW Standard Deviation 51.8 fL (36.4-46.3); Red Blood Count 3.41 M/uL (4.70-6.10); White Blood Count 23.02 K/ul (4.8-10.8)
[2025-05-14 04:43] LABS: Anion Gap 6.0 (3-11); Blood Urea Nitrogen 16.0 mg/dl (6-23); Calcium 8.3 mg/dl (8.6-10.3); Carbon Dioxide 30.0 mmol/L (21-32); Chloride 97.0 mmol/L (98-107); Creatinine Clr Calc Pharmacy 59.9 ml/min; Glucose 222.0 mg/dl (70-99(Fasting)); Magnesium 1.9 mg/dl (1.7-2.4); Potassium 4.0 mmol/L (3.5-5.1); Sodium 133.0 mmol/L (136-145)
[2025-05-14] MEDS: MAGNESIUM SULFATE / D5W 1 GM/100 ML BAG IV SCH (06:49)
[2025-05-14] MEDS: INSULIN ASPART PER UNIT CHARGE SC SCH (07:37)
--- NOTE | 2025-05-14 08:17 | XRay Report ---
EXAM: XR chest 1V portable CLINICAL HISTORY: eval lines/tubes/lung moya TECHNIQUE: An X-ray image of the chest was obtained in AP projection. COMPARISON: Comparison with the previous CR study dated 05/13/2025: the current study shows: FINDINGS: There is an endotracheal tube seen about 4.2 cm above the rowan. There is a right central venous line noted at the cavoatrial junction. There is a nasogastric tube with its lower end seen below the level of the left hemidiaphragm; however, its distal end cannot be seen in this study. There is a left lower lung lobe area of consolidative patchy opacity with nodular densities around. There are prominent central bronchovascular markings with congestion and reticulations in the upper lung lobes. Both costophrenic angles are blunted by minimal pleural reaction/effusion, more on the left. Heart size and shape are normal. No mediastinal widening or masses. No hilar or mediastinal lymphadenopathy. Bony thorax appears intact without fractures or deformities. Soft tissues overlying the chest wall are unremarkable. IMPRESSION: 1. There is an endotracheal tube seen about 4.2 cm above the rowan. Stable. 2. There is a right central venous line noted at the cavoatrial junction. Stable. 3. There is a nasogastric tube with its lower end seen below the level of the left hemidiaphragm; however, its distal end cannot be seen in this study. 4. There is a left lower lung lobe area of consolidative patchy opacity with nodular densities around. Mild regressive. 5. There are prominent central bronchovascular markings with congestion and reticulations in the upper lung lobes. Stable 6. Both costophrenic angles are blunted by minimal pleural reaction/effusion, more on the left. Rather stable Electronically signed by Jerod Carvajal 05-14-2025 08:17 AM
--- NOTE | 2025-05-14 08:43 | Critical Care Progress Note ---
Date of Service May 14, 2025 Assessment & Plan (1) Sepsis due to pneumonia: (2) COPD (chronic obstructive pulmonary disease): (3) GERD (gastroesophageal reflux disease): (4) Anxiety: (5) Emphysema of lung: (6) BPH (benign prostatic hypertrophy): (7) Acute on chronic respiratory failure with hypoxia and hypercapnia: (8) Ventilatory failure: Plan Reason Critically Ill: 69-year-old male presented to the hospital with shortness of breath Past medical history: COPD, BPH, GERD Pulmonary consulted for hypoxia Neuro - [facility] ICU: Unable to assess --Metabolic encephalopathy Patient was initially very combative in the ED, he got Ativan and was more sedated when I saw him Sepsis could be one of the reasons --Does have history of anxiety Takes Valium on an as needed basis Cardiac - --Shock Multifactorial Septic from gram-positive bacteremia as well as from sedation better continue with vasopressor support to keep MAP greater than 65 Also on hydrocortisone given the patient is chronically on prednisone at home -- Sinus tachycardia Likely secondary to underlying sepsis EKG 05/13/2025 11:54 AM: Sinus tachycardia, P pulmonale, normal axis, no ST-T wave changes appreciated Respiratory - CTA chest 05/13/2025 personally reviewed: Motion degraded study Dense consolidative process appreciated in the left lower as well as lingula Centrilobular and paraseptal emphysema appreciated bilaterally Mucus in the left main No significant mediastinal lymphadenopathy -- Acute on chronic hypoxic hypercapnic respiratory failure Secondary to multifocal pneumonia Respiratory BioFire negative for everything on 05/13/2025 BNP 168 Pro-Jhon 8.09 --COPD with emphysema on chronic prednisone Only on albuterol at home Takes 10 mg of prednisone every other day at home Supposed to be on Trelegy 200 Absolute eosinophil count 690 on 03/31/2025 --History of ABPA GI - -- No acute issues RENAL/LYTES - -- Monitor BUNs/creatinine Avoid nephrotoxic medications ENDO - -- ICU hypoglycemia protocol HEME - -- Normocytic anemia Monitor H&H ID - -- Multifocal pneumonia with bacteremia Procalcitonin 8.09 Nasal MRSA negative Follow-up urine Legionella and mycoplasma Blood culture growing gram-positive cocci in chains, inclining towards strep pneumo Continue with Rocephin and azithromycin while in the hospital --Prophylaxis VTE: Lovenox GI: Pantoprazole Lines: Peripheral Diet: Start tube feeds Plan: In/out: +2.6 L, urine output 880 mL AB.40/51/78 on 40% FiO2 Nasal MRSA negative, vancomycin has been discontinued Continue with Rocephin and azithromycin till we get sensitivities of the strep pneumo. Continue with hydrocortisone especially given that the patient is on chronic prednisone Magnesium being replaced will try to put him on pressure support while he is able to tolerate Given the bradycardia we will discontinue propofol, would rather give the patient midazolam pushes Magnesium being replaced Will start the patient on tube feeds Patient will benefit from palliative care consult during this admission I have personally spent 44 minutes of critical care time in the direct management of this patient. This is a life/limb threatening event. This includes time spent evaluating patient, direct bedside care, chart review, placing orders, interpretation of diagnostic studies, discussion with consultants, patient, and family members, as well as other required patient management activities. This time is exclusive of all separately billable procedures, and teaching time and separate from and in addition to any other critical care service time. Admission and Anticipated Discharge Date Admission Date: May 13, 2025 Subjective Patient seen and examined at bedside. No acute distress, no new symptoms overnight He was on fentanyl 100 at time of examination RASS -1, answering all the questions appropriately Complain of diffuse generalized pain. Saturation was 87-88% on 30% FiO2, and went up to 45% He was on 0.04 vasopressin at 0.21 Levophed at the time of examination with MAP in the mid 60s Review of Systems 2 Review of Systems: All systems reviewed & are unremarkable except as noted in Subjective Physical Exam 2 Physical Exam: Constitutional: No acute distress HEENT:PERRLA, frail appearing Respiratory system: Decreased air entry bilaterally, no wheeze, no rhonchi, positive crackles bilaterally more on the left side CVS: S1-S2 positive, no murmurs or gallops, bradycardia Abdomen: Soft, nontender, nondistended, positive bowel sounds x4 Extremities: +2 pulses bilaterally radialis/ dorsalis pedis, no cyanosis, no edema Neuro: Intubated, RASS -1, moving all extremities, following commands Psych: Unable to assess G/U: Positive Maier Skin: no rashes, warm and dry Lymphatic: no cervical or axillary lymphadenopathy Results & Data Results & Data Vital Signs (Past 12 Hours) Vital Signs Temp Pulse Pulse Resp BP Pulse Ox O2 Del Method 05/14/25 08:00 60 107/54 L 05/14/25 08:00 36.8 C 60 24 88 L 05/14/25 08:00 107/54 L 05/14/25 07:45 54 L 30 H 93 05/14/25 07:33 67 30 H 93 Mechanical Vent 05/14/25 07:16 113/66 05/14/25 07:15 36.5 C 66 17 94 05/14/25 07:00 36.5 C 64 19 95 05/14/25 06:45 114/65 05/14/25 06:45 36.8 C 58 L 22 95 05/14/25 06:30 105/57 L 05/14/25 06:30 36.8 C 56 L 22 92 05/14/25 06:15 36.7 C 53 L 22 05/14/25 06:15 107/65 05/14/25 06:00 36.3 C L 57 L 22 94 05/14/25 06:00 98/50 L 05/14/25 05:45 36.8 C 61 22 05/14/25 05:45 120/65 05/14/25 05:30 112/64 05/14/25 05:30 112/64 05/14/25 05:30 36.8 C 52 L 22 05/14/25 05:15 106/62 05/14/25 05:15 106/62 05/14/25 05:15 36.7 C 50 L 19 05/14/25 05:00 108/72 05/14/25 05:00 36.8 C 49 L 21 05/14/25 04:45 110/64 05/14/25 04:45 36.8 C 54 L 22 05/14/25 04:30 114/64 05/14/25 04:30 36.8 C 58 L 20 05/14/25 04:15 118/72 05/14/25 04:15 36.8 C 61 22 93 05/14/25 04:00 125/63 05/14/25 04:00 36.8 C 59 L 21 96 05/14/25 04:00 05/14/25 03:45 36.9 C 55 L 22 93 05/14/25 03:45 111/64 05/14/25 03:30 102/64 11/22/25 03:30 36.9 C 53 L 22 05/14/25 03:02 71 30 H 98 05/14/25 02:00 129/87 05/14/25 02:00 36.7 C 63 20 94 05/14/25 01:45 112/70 05/14/25 01:45 36.8 C 54 L 18 89 L 05/14/25 01:30 36.7 C 52 L 17 05/14/25 01:30 92/59 L 05/14/25 01:16 116/63 05/14/25 01:15 36.4 C L 59 L 20 91 05/14/25 01:01 132/74 05/14/25 01:00 36.2 C L 57 L 20 05/14/25 00:46 130/81 05/14/25 00:46 130/81 05/14/25 00:45 36.0 C L 73 24 93 05/14/25 00:30 108/70 05/14/25 00:30 36.1 C L 47 L 20 05/14/25 00:15 36.0 C L 51 L 22 05/14/25 00:15 106/66 05/14/25 00:00 05/14/25 00:00 36.0 C L 52 L 22 05/14/25 00:00 112/71 05/13/25 23:27 56 L 05/13/25 23:00 107/68 05/13/25 23:00 36.1 C L 57 L 22 05/13/25 22:54 23 05/13/25 22:45 124/76 05/13/25 22:45 124/76 05/13/25 22:45 36.1 C L 58 L 22 05/13/25 22:30 36.2 C L 57 L 22 05/13/25 22:30 125/77 05/13/25 22:15 36.3 C L 55 L 22 05/13/25 22:15 118/74 05/13/25 22:15 118/74 05/13/25 22:00 36.2 C L 56 L 24 109/68 94 05/13/25 22:00 36.3 C L 109/68 05/13/25 22:00 109/68 05/13/25 22:00 59 L 22 91 05/13/25 21:45 125/78 05/13/25 21:45 61 20 96 05/13/25 21:30 124/80 05/13/25 21:30 124/80 05/13/25 21:30 65 21 95 05/13/25 21:15 57 L 21 93 05/13/25 21:15 120/75 05/13/25 21:15 36.3 C L 120/75 05/13/25 21:00 56 L 21 93 05/13/25 21:00 117/80 05/13/25 21:00 117/80 05/13/25 21:00 117/80 05/13/25 20:45 36.3 C L 58 L 22 94 05/13/25 20:45 115/80 05/13/25 20:45 36.3 C L 60 24 115/80 98 FiO2 05/14/25 08:00 05/14/25 08:00 05/14/25 08:00 05/14/25 07:45 30 05/14/25 07:33 30 05/14/25 07:16 05/14/25 07:15 05/14/25 07:00 05/14/25 06:45 05/14/25 06:45 05/14/25 06:30 05/14/25 06:30 05/14/25 06:15 05/14/25 06:15 05/14/25 06:00 05/14/25 06:00 05/14/25 05:45 05/14/25 05:45 05/14/25 05:30 05/14/25 05:30 05/14/25 05:30 05/14/25 05:15 05/14/25 05:15 05/14/25 05:15 05/14/25 05:00 05/14/25 05:00 05/14/25 04:45 05/14/25 04:45 05/14/25 04:30 05/14/25 04:30 05/14/25 04:15 05/14/25 04:15 05/14/25 04:00 05/14/25 04:00 05/14/25 04:00 40 05/14/25 03:45 05/14/25 03:45 05/14/25 03:30 05/14/25 03:30 05/14/25 03:02 40 05/14/25 02:00 05/14/25 02:00 05/14/25 01:45 05/14/25 01:45 05/14/25 01:30 05/14/25 01:30 05/14/25 01:16 05/14/25 01:15 05/14/25 01:01 05/14/25 01:00 05/14/25 00:46 05/14/25 00:46 05/14/25 00:45 05/14/25 00:30 05/14/25 00:30 05/14/25 00:15 05/14/25 00:15 05/14/25 00:00 70 05/14/25 00:00 05/14/25 00:00 05/13/25 23:27 05/13/25 23:00 05/13/25 23:00 05/13/25 22:54 40 05/13/25 22:45 05/13/25 22:45 05/13/25 22:45 05/13/25 22:30 05/13/25 22:30 05/13/25 22:15 05/13/25 22:15 05/13/25 22:15 05/13/25 22:00 05/13/25 22:00 05/13/25 22:00 05/13/25 22:00 05/13/25 21:45 05/13/25 21:45 05/13/25 21:30 05/13/25 21:30 05/13/25 21:30 05/13/25 21:15 05/13/25 21:15 05/13/25 21:15 05/13/25 21:00 05/13/25 21:00 05/13/25 21:00 05/13/25 21:00 05/13/25 20:45 05/13/25 20:45 05/13/25 20:45 Laboratory Results 05/14/25 03:57 05/14/25 03:57 Coding Level of Care Code 33656 CRITICAL CARE 1ST 30-74M Diagnoses Sepsis due to pneumonia J18.9; A41.9 COPD (chronic obstructive pulmonary disease) J44.9 GERD (gastroesophageal reflux disease) K21.9 Anxiety F41.9 Emphysema of lung J43.9 BPH (benign prostatic hypertrophy) N40.0 Acute on chronic respiratory failure with hypoxia and hypercapnia J96.21; J96.22 Ventilatory failure R06.89
[2025-05-14] MEDS: PANTOprazole 40 MG/10 ML SYR IV SCH (09:52)
[2025-05-14] MEDS: MIDAZOLAM HCL 1 MG/ML 2ML VIAL IV PRN (10:40)
--- NOTE | 2025-05-14 11:36 | Hospitalist Progress Note ---
Date of Service May 14, 2025 Assessment & Plan (1) Acute respiratory failure with hypoxia: (2) Sepsis due to pneumonia: (3) COPD (chronic obstructive pulmonary disease): (4) Elevated d-dimer: (5) Anxiety: Plan Patient is a 69 year old M with a past medical history of COPD, anemia , chronic pain syndrome, anxiety, BPH, GERD presenting with shortness of breath and dyspnea x 4 days 2/2 strep pneumoniae CAP. #Acute Hypoxic Respiratory Failure 2/2 CAP #Septic Shock #Strep pneumoniae Bacteremia * blood cultures revealing strep pneumoniae * Chest Xray showing interval patchy consolidation at the left mid and lower lung, Extensive pneumonia on the left. * on levophed for shock * Duonebs Q6H as needed * continue azithromycin/ceftriaxone * likely extubation tomorrow #COPD * Two pack-year smoker quit 7 years ago, although patient's son reports recent smoking cessation * [facility]; history of recurrent bronchitis with home regimen of cyclic azithromycin antibiotic therapy and alternate day prednisone 10 mg * Per outside record, history August 2022 Bronchoscopy with [place] sensitive Klebsiella pneumoniae, fungal isolates; Bronch 05/2024 isolates showed strep pneumoniae, and additional fungal isolates and treated with Moxifloxacin /Voriconazole * Current home nebs with Trelegy + albuterol nebulizer #Anxiety * Valium as needed at home, takes nearly daily; also with recent smoking cessation suspect withdrawal symptoms * Ativan and Haldol given in ED d/t agitation with Bipap mask; Ativan 0.5 mg as needed I spent a total of 50 minutes in direct patient care, including [id number] time with the patient and/or family, reviewing medical records, ordering and reviewing diagnostic tests, and coordinating care with other healthcare providers. This time includes: history taking, physical examination, medical decision making, counseling, ECG interpretation, imaging interpretation, lab interpretation, orders, and education, excluding time spent in the performance of separately billed services. Admission and Anticipated Discharge Date Admission Date: May 13, 2025 Subjective Patient seen and examined at bedside. Patient intubated but follows commands, alert and orriented x3, writing on board. Limited communication, states he is in pain throughout body. Denies nausea. Feels ok for now. Review of Systems Review of Systems: -limited communication given on vent Physical Exam Physical Exam: Gen: A&O 3 NAD HEENT: NCAT, EOMI, not icteric. External ears normal. No rhinorrhea. Moist mucous membranes. Neck: Supple, full range of motion, no observable masses, No meningeal sign. Lungs: rhonchi throughout lung moya, intubated CV: RRR, no edema. Abdomen: Soft, nondistended, No rebound tenderness. MSK: No joint swelling, no redness. Skin: No rashes, petechiae, lesions. Normal color per patient. Neuro: Normal Gait, Grossly intact. Psych: Appropriate for situation. Results & Data Results & Data Vital Signs (Past 12 Hours) Vital Signs Temp Pulse Pulse Resp BP Pulse Ox O2 Del Method 05/14/25 11:25 55 L 19 93 05/14/25 08:56 Mechanical Vent 05/14/25 08:00 05/14/25 08:00 05/14/25 08:00 05/14/25 08:00 50 L 05/14/25 08:00 60 107/54 L 05/14/25 08:00 36.8 C 60 24 88 L 05/14/25 08:00 107/54 L 05/14/25 07:45 54 L 30 H 93 05/14/25 07:33 67 30 H 93 Mechanical Vent 05/14/25 07:16 113/66 05/14/25 07:15 36.5 C 66 17 94 05/14/25 07:00 36.5 C 64 19 95 05/14/25 06:45 114/65 05/14/25 06:45 36.8 C 58 L 22 95 05/14/25 06:30 105/57 L 05/14/25 06:30 36.8 C 56 L 22 92 05/14/25 06:15 36.7 C 53 L 22 05/14/25 06:15 107/65 05/14/25 06:00 36.3 C L 57 L 22 94 05/14/25 06:00 98/50 L 05/14/25 05:45 36.8 C 61 22 05/14/25 05:45 120/65 05/14/25 05:30 112/64 05/14/25 05:30 112/64 05/14/25 05:30 36.8 C 52 L 22 05/14/25 05:15 106/62 05/14/25 05:15 106/62 05/14/25 05:15 36.7 C 50 L 19 05/14/25 05:00 108/72 05/14/25 05:00 36.8 C 49 L 21 05/14/25 04:45 110/64 05/14/25 04:45 36.8 C 54 L 22 05/14/25 04:30 114/64 05/14/25 04:30 36.8 C 58 L 20 05/14/25 04:15 118/72 05/14/25 04:15 36.8 C 61 22 93 05/14/25 04:00 125/63 05/14/25 04:00 36.8 C 59 L 21 96 05/14/25 04:00 05/14/25 03:45 36.9 C 55 L 22 93 05/14/25 03:45 111/64 05/14/25 03:30 102/64 05/14/25 03:30 36.9 C 53 L 22 05/14/25 03:02 71 30 H 98 05/14/25 02:00 129/87 05/14/25 02:00 36.7 C 63 20 94 05/14/25 01:45 112/70 05/14/25 01:45 36.8 C 54 L 18 89 L 05/14/25 01:30 36.7 C 52 L 17 05/14/25 01:30 92/59 L 05/14/25 01:16 116/63 05/14/25 01:15 36.4 C L 59 L 20 91 05/14/25 01:01 132/74 05/14/25 01:00 36.2 C L 57 L 20 05/14/25 00:46 130/81 05/14/25 00:46 130/81 05/14/25 00:45 36.0 C L 73 24 93 05/14/25 00:30 108/70 05/14/25 00:30 36.1 C L 47 L 20 05/14/25 00:15 36.0 C L 51 L 22 05/14/25 00:15 106/66 05/14/25 00:00 05/14/25 00:00 36.0 C L 52 L 22 05/14/25 00:00 112/71 O2 Del Method FiO2 05/14/25 11:25 45 05/14/25 08:56 05/14/25 08:00 30 05/14/25 08:00 Mechanical Vent 05/14/25 08:00 35 05/14/25 08:00 05/14/25 08:00 05/14/25 08:00 05/14/25 08:00 05/14/25 07:45 30 05/14/25 07:33 30 05/14/25 07:16 05/14/25 07:15 05/14/25 07:00 05/14/25 06:45 05/14/25 06:45 05/14/25 06:30 05/14/25 06:30 05/14/25 06:15 05/14/25 06:15 05/14/25 06:00 05/14/25 06:00 05/14/25 05:45 05/14/25 05:45 05/14/25 05:30 05/14/25 05:30 05/14/25 05:30 05/14/25 05:15 05/14/25 05:15 05/14/25 05:15 05/14/25 05:00 05/14/25 05:00 05/14/25 04:45 05/14/25 04:45 05/14/25 04:30 05/14/25 04:30 05/14/25 04:15 05/14/25 04:15 05/14/25 04:00 05/14/25 04:00 05/14/25 04:00 40 05/14/25 03:45 05/14/25 03:45 05/14/25 03:30 05/14/25 03:30 05/14/25 03:02 40 05/14/25 02:00 05/14/25 02:00 05/14/25 01:45 05/14/25 01:45 05/14/25 01:30 05/14/25 01:30 05/14/25 01:16 05/14/25 01:15 05/14/25 01:01 05/14/25 01:00 05/14/25 00:46 05/14/25 00:46 05/14/25 00:45 05/14/25 00:30 05/14/25 00:30 05/14/25 00:15 05/14/25 00:15 05/14/25 00:00 70 05/14/25 00:00 05/14/25 00:00 Laboratory Results -personally reviewed, luekocytosis downtrending but still with left shift, Hgb downtrending (given fluids), procal of 8 consistent with sepsis, blood culture with strep pneumoniae Medications Administered Budesonide (Budesonide 0.25 Mg/2 Ml Vial (Pulmicort)) 0.25 mg NEB BIDR [facility] Stop: 06/12/25 18:59 Last Admin: 05/14/25 07:32 Dose: 0.25 mg Documented By: [id number] Admin: 05/13/25 19:45 Dose: 0.25 mg Documented By: TMP Formoterol Fumarate (Formoterol 20 Mcg/2 Ml Vial) 20 mcg NEB BIDR [facility] Stop: 06/12/25 18:59 Last Admin: 05/14/25 07:32 Dose: 20 mcg Documented By: [id number] Admin: 05/13/25 19:45 Dose: 20 mcg Documented By: TMP Guaifenesin (Guaifenesin 600 Mg Tabcr) 600 mg PO Q12 [facility] Stop: 06/12/25 20:59 Last Admin: 05/14/25 07:58 Dose: Not Given Documented By: Admin: 05/13/25 21:23 Dose: Not Given Documented By: ADWOA Heparin Sodium (Porcine) (Heparin Sod 5,000 Unit/0.5 Ml Vial) 5,000 units SQ Q12 [facility] Stop: 06/12/25 20:59 Last Admin: 05/14/25 08:02 Dose: 5,000 units Documented By: Admin: 05/13/25 21:54 Dose: 5,000 units Documented By: ADWOA Ceftriaxone Sodium (Rocephin) 2,000 mg in 50 mls @ 100 mls/hr IV Q24H [facility] Stop: 05/18/25 18:29 Last Infusion: 05/13/25 21:22 Dose: Infused Documented By: Admin: 05/13/25 20:08 Dose: 100 mls/hr Documented By: ADWOA Propofol (Diprivan) 1,000 mg in 100 mls @ 0 mls/hr IV .Q0M [facility]; Protocol Stop: 05/16/25 18: Last Titration: 05/13/25 23:47 Dose: 0 mcg/kg/min, 0 mls/hr Documented By: Titration: 05/13/25 22:27 Dose: 10 mcg/kg/min, 2.7 mls/hr Documented By: Titration: 05/13/25 21:22 Dose: 15 mcg/kg/min, 4.1 mls/hr Documented By: Titration: 05/13/25 20:23 Dose: 20 mcg/kg/min, 5.4 mls/hr Documented By: Titration: 05/13/25 20:08 Dose: 25 mcg/kg/min, 6.8 mls/hr Documented By: Titration: 05/13/25 19:25 Dose: 30 mcg/kg/min, 8.1 mls/hr Documented By: RNC Co-signed By: ESG Titration: 05/13/25 18:45 Dose: 30 mcg/kg/min, 8.1 mls/hr Documented By: Titration: 05/13/25 18:30 Dose: 25 mcg/kg/min, 6.8 mls/hr Documented By: Admin: 05/13/25 18:15 Dose: 20 mcg/kg/min, 5.4 mls/hr Documented By: RNC Co-signed By: LANCE Fentanyl Citrate (Fentanyl Citrate) 2,500 mcg in 250 mls @ 7.5 mls/hr IV .[id number] [facility]; Protocol Stop: 05/27/25 18:29 Last Titration: 05/14/25 10:07 Dose: 75 mcg/hr, 7.5 mls/hr Documented By: LAW Co-signed By: ESG(2) Titration: 05/14/25 07:34 Dose: 100 mcg/hr, 10 mls/hr Documented By: TJL Co-signed By: ESG(2) Titration: 05/14/25 07:11 Dose: 75 mcg/hr, 7.5 mls/hr Documented By: ESG Co-signed By: ESG(2) Titration: 05/14/25 00:16 Dose: 75 mcg/hr, 7.5 mls/hr Documented By: ESG Co-signed By: TP Titration: 05/13/25 19:25 Dose: 100 mcg/hr, 10 mls/hr Documented By: RNC Co-signed By: ESG Admin: 05/13/25 18:35 Dose: 100 mcg/hr, 10 mls/hr Documented By: RNC Co-signed By: LANCE Hydrocortisone Sodium (Succinate 50 mg/ Syringe) 1 mls @ 4 mls/min IV Q6H [facility] Stop: 06/12/25 18:59 Last Admin: 05/14/25 07:47 Dose: 4 mls/min Documented By: Admin: 05/14/25 00:52 Dose: 4 mls/min Documented By: Admin: 05/13/25 18:53 Dose: 4 mls/min Documented By: LANCE Vasopressin 20 units/ Sodium (Chloride) 101 mls @ 12.12 mls/hr IV .Q8H20M [facility] Stop: 06/12/25 18:29 Last Admin: 05/14/25 10:05 Dose: 0.04 unit/min, 12.1 mls/hr Documented By: LAW Co-signed By: ADWOA(2) Infusion: 05/14/25 10:05 Dose: Infused Documented By: LAW Co-signed By: ADWOA(2) Infusion: 05/14/25 07:11 Dose: 0.04 unit/min, 12.1 mls/hr Documented By: ADWOA Co-signed By: ADWOA(2) Admin: 05/14/25 03:00 Dose: 0.04 unit/min, 12.1 mls/hr Documented By: ADWOA Co-signed By: TP Infusion: 05/14/25 03:00 Dose: Infused Documented By: ADWOA Co-signed By: TP Admin: 05/13/25 20:23 Dose: 0.04 unit/min, 12.1 mls/hr Documented By: ADWOA Co-signed By: MPC Norepinephrine Bitartrate (Levophed/D5w) 4 mg in 250 mls @ 35.438 mls/hr IV .Q7H4M [facility]; Protocol Stop: 06/12/25 19:29 Last Admin: 05/14/25 10:33 Dose: Not Given Documented By: ADWOA(2) Titration: 05/14/25 09:20 Dose: 0.21 mcg/kg/min, 35.4 mls/hr Documented By: LAW Co-signed By: ADWOA(2) Titration: 05/14/25 07:11 Dose: 0.24 mcg/kg/min, 40.5 mls/hr Documented By: ESG Co-signed By: ESG(2) Titration: 05/14/25 06:15 Dose: Infused Documented By: ESG Co-signed By: TP Admin: 05/14/25 06:15 Dose: 0.24 mcg/kg/min, 40.5 mls/hr Documented By: ESG Co-signed By: TP Admin: 05/14/25 00:16 Dose: 0.24 mcg/kg/min, 40.5 mls/hr Documented By: ESG Co-signed By: TP Titration: 05/14/25 00:16 Dose: Infused Documented By: ESG Co-signed By: TP Titration: 05/13/25 20:00 Dose: 0.24 mcg/kg/min, 40.5 mls/hr Documented By: ESG Co-signed By: TP Titration: 05/13/25 19:40 Dose: 0.22 mcg/kg/min, 37.1 mls/hr Documented By: ESG Co-signed By: TP Titration: 05/13/25 19:25 Dose: 0.2 mcg/kg/min, 33.8 mls/hr Documented By: RNC Co-signed By: ESG Admin: 05/13/25 19:15 Dose: 0.2 mcg/kg/min, 33.8 mls/hr Documented By: RNC Co-signed By: CB Insulin Human Regular 250 (units/ Sodium Chloride) 250 mls @ 0.8 mls/hr IV .Q24H [facility]; Protocol Stop: 06/13/25 00:14 Last Titration: 05/14/25 10:07 Dose: 0.8 units/hr, 0.8 mls/hr Documented By: LAW Co-signed By: ADWOA(2) Titration: 05/14/25 08:15 Dose: 1 units/hr, 1 mls/hr Documented By: LAW Co-signed By: FERNANDAG(2) Titration: 05/14/25 07:34 Dose: 1.3 units/hr, 1.3 mls/hr Documented By: LAW Co-signed By: FERNANDAG(2) Titration: 05/14/25 07:11 Dose: 1.6 units/hr, 1.6 mls/hr Documented By: ESG Co-signed By: FERNANDAG(2) Titration: 05/14/25 06:00 Dose: 1.6 units/hr, 1.6 mls/hr Documented By: ESG Co-signed By: TP Titration: 05/14/25 05:00 Dose: 2 units/hr, 2 mls/hr Documented By: ESG Co-signed By: TP Titration: 05/14/25 04:00 Dose: 2 units/hr, 2 mls/hr Documented By: ESG Co-signed By: TP Titration: 05/14/25 03:00 Dose: 2 units/hr, 2 mls/hr Documented By: ESG Co-signed By: TP Titration: 05/14/25 02:08 Dose: 2 units/hr, 2 mls/hr Documented By: ESG Co-signed By: TP Admin: 05/14/25 00:50 Dose: 1.7 units/hr, 1.7 mls/hr Documented By: ESG Co-signed By: KRISTA Pantoprazole Sodium (Protonix) 40 mg in 10 mls @ 5 mls/min IV DAILY [facility] Stop: 06/13/25 08:59 Last Admin: 05/14/25 09:52 Dose: 5 mls/min Documented By: LAW Insulin Aspart (Insulin Aspart Per Unit Charge) 0 units SC ACHS [facility] Stop: 06/13/25 07:29 Last Admin: 05/14/25 10:34 Dose: Not Given Documented By: ADWOA(2) Admin: 05/14/25 07:37 Dose: Not Given Documented By: LAW Midazolam HCl (Midazolam Hcl 1 Mg/Ml 2ml Vial) 2 mg IV Q2H PRN PRN Reason: Agitation Stop: 06/13/25 10:22 Last Admin: 05/14/25 10:40 Dose: 2 mg Documented By: LAW Sodium Chloride (Sodium Chlor 7% 4 Ml Neb) 4 ml NEB BIDR MAGNOLIA Stop: 06/12/25 18:59 Last Admin: 05/14/25 07:32 Dose: 4 ml Documented By: [id number] Admin: 05/13/25 20:17 Dose: 4 ml Documented By: DAMON
[2025-05-14] MEDS: TUBE FEEDING WATER FLUSH NG SCH (13:49)
[2025-05-14] MEDS: PEPTAMEN 1.5 CAL 1,000 ML BAG NG SCH (13:49)
[2025-05-14] MEDS: AZITHROMYCIN 500 MG/255 ML BAG IV SCH (17:03)
[2025-05-14] MEDS: TUBE FEEDING WATER FLUSH GT ONE (22:09)
[2025-05-15 04:45] LABS: Hematocrit (blood only) 27.3 % (42.0-52.0); Hemoglobin 9.0 g/dL (14.0-18.0); Mean Corpuscular Hemoglobin 29.7 pg (25.0-34.0); Mean Corpuscular Volume 90.1 fL (80.0-100.0); Platelet Count 378 K/uL (130-400); RDW Standard Deviation 51.6 fL (36.4-46.3); Red Blood Count 3.03 M/uL (4.70-6.10); White Blood Count 16.83 K/ul (4.8-10.8)
[2025-05-15 05:00] LABS: Anion Gap 4.0 (3-11); Blood Urea Nitrogen 25.0 mg/dl (6-23); Calcium 8.0 mg/dl (8.6-10.3); Carbon Dioxide 31.0 mmol/L (21-32); Chloride 94.0 mmol/L (98-107); Creatinine Clr Calc Pharmacy 64.8 ml/min; Glucose 160.0 mg/dl (70-99(Fasting)); Magnesium 2.1 mg/dl (1.7-2.4); Potassium 4.1 mmol/L (3.5-5.1); Sodium 129.0 mmol/L (136-145)
--- NOTE | 2025-05-15 07:52 | XRay Report ---
EXAM: XR chest 1V portable CLINICAL HISTORY: Eval lines/tubes/lung moya. TECHNIQUE: An X-ray image of the chest is obtained in AP portable projection. COMPARISON: 05/14/2025 FINDINGS: Lines and Tubes: Endotracheal tube terminates approximately 4.8 cm above the rowan, unchanged. Right internal jugular central venous catheter tip at the cavoatrial junction, stable. Nasogastric tube courses below the left hemidiaphragm; distal tip not visualized. The side hole is approximately 4 cm below the gastroesophageal junction; recommend advancing the tube an additional 4?5 cm. Pulmonary Parenchyma: Bilateral multifocal mid to lower lung zone opacities. Slight interval improvement. Heart and Mediastinum: Heart size within normal limits. No mediastinal widening, masses, or hilar/mediastinal lymphadenopathy. Bony Thorax: No acute fractures or deformities identified. Soft Tissues: Chest wall soft tissues are unremarkable. IMPRESSION: 1. Nasogastric tube with side hole just below the GE junction; recommend advancement by 4?5 cm. 2. Endotracheal tube and central venous catheter remain appropriately positioned. 3. Bilateral multifocal mid to lower lung zone opacities. Slight interval improvement. 4. Otherwise, no significant interval changes. Electronically signed by Jerod Carvajal 05-15-2025 07:52 AM
[2025-05-15] MEDS: CALCIUM GLUCONATE 1,000 MG/60 ML BAG IV STA (08:17)
--- NOTE | 2025-05-15 08:42 | Critical Care Progress Note ---
Date of Service May 15, 2025 Assessment & Plan (1) Sepsis due to pneumonia: (2) COPD (chronic obstructive pulmonary disease): (3) GERD (gastroesophageal reflux disease): (4) Anxiety: (5) Emphysema of lung: (6) BPH (benign prostatic hypertrophy): (7) Acute on chronic respiratory failure with hypoxia and hypercapnia: (8) Ventilatory failure: Plan Reason Critically Ill: 69-year-old male presented to the hospital with shortness of breath Past medical history: COPD, BPH, GERD Pulmonary consulted for hypoxia Neuro - [facility]: Unable to assess --Metabolic encephalopathy Patient was initially very combative in the ED, he got Ativan and was more sedated when I saw him Sepsis could be one of the reasons --Does have history of anxiety Takes Valium on an as needed basis Cardiac - --Shock Multifactorial Septic from gram-positive bacteremia as well as from sedation better continue with vasopressor support to keep MAP greater than 65 Also on hydrocortisone given the patient is chronically on prednisone at home -- Sinus tachycardia Likely secondary to underlying sepsis EKG 05/13/2025 11:54 AM: Sinus tachycardia, P pulmonale, normal axis, no ST-T wave changes appreciated Respiratory - CTA chest 05/13/2025 personally reviewed: Motion degraded study Dense consolidative process appreciated in the left lower as well as lingula Centrilobular and paraseptal emphysema appreciated bilaterally Mucus in the left main No significant mediastinal lymphadenopathy -- Acute on chronic hypoxic hypercapnic respiratory failure Secondary to multifocal pneumonia Respiratory BioFire negative for everything on 05/13/2025 BNP 168 Pro-Jhon 8.09 --COPD with emphysema on chronic prednisone Only on albuterol at home Takes 10 mg of prednisone every other day at home Supposed to be on Trelegy 200 Absolute eosinophil count 690 on 03/31/2025 --History of ABPA GI - -- No acute issues RENAL/LYTES - -- Monitor BUNs/creatinine Avoid nephrotoxic medications ENDO - -- ICU hypoglycemia protocol HEME - -- Normocytic anemia Monitor H&H ID - -- Multifocal pneumonia with bacteremia Procalcitonin 8.09 Nasal MRSA negative Follow-up urine Legionella and mycoplasma Blood culture growing gram-positive cocci in chains, inclining towards strep pneumo Continue with Rocephin and azithromycin while in the hospital --Prophylaxis VTE: Heparin GI: Pantoprazole Lines: Peripheral, right IJ Diet: Tube feeds Plan: In/out: +1.2 L, urine output 593, +3.8 L since coming to the hospital I would consider giving the patient Lasix today Continue with Rocephin and azithromycin till we get sensitivities of the strep pneumo. Continue with hydrocortisone especially given that the patient is on chronic prednisone, will decrease it to 50 mg Q8 Trial of SBT with extubation to BiPAP I have personally spent 36 minutes of critical care time in the direct management of this patient. This is a life/limb threatening event. This includes time spent evaluating patient, direct bedside care, chart review, placing orders, interpretation of diagnostic studies, discussion with consultants, patient, and family members, as well as other required patient management activities. This time is exclusive of all separately billable procedures, and teaching time and separate from and in addition to any other critical care service time. Admission and Anticipated Discharge Date Admission Date: May 13, 2025 Subjective Patient seen and examined at bedside. No acute distress, noted events overnight He was in SBT at the time of examination On 0.08 Levophed at 75 mcg of fentanyl He is RASS -1, answering all the questions appropriately Denied any headache Was excited as we were planning to take the tube out today Has been afebrile Review of Systems 2 Review of Systems: All systems reviewed & are unremarkable except as noted in Subjective Physical Exam 2 Physical Exam: Constitutional: No acute distress HEENT: EOMI, PERRLA, frail appearing Respiratory system: Decreased air entry bilaterally, no wheeze, no rhonchi, positive crackles bilaterally more on the left side CVS: S1-S2 positive, no murmurs or gallops Abdomen: Soft, nontender, nondistended, positive bowel sounds x4 Extremities: +2 pulses bilaterally radialis/ dorsalis pedis, no cyanosis, no edema Neuro: Intubated, RASS -1, moving all extremities, following commands Psych: Normal mood and affect G/U: Positive Maier Skin: no rashes, warm and dry Lymphatic: no cervical or axillary lymphadenopathy Results & Data Results & Data Vital Signs (Past 12 Hours) Vital Signs Temp Pulse Pulse Resp BP Pulse Ox O2 Del Method 05/15/25 07:19 60 12 94 Mechanical Vent 05/15/25 07:17 56 L 12 95 05/15/25 06:30 85/54 L 05/15/25 06:30 36.4 C L 51 L 22 94 05/15/25 06:09 36.7 C 54 L 19 93 05/15/25 06:07 90/55 L 05/15/25 06:06 36.7 C 58 L 22 92 05/15/25 06:00 36.7 C 53 L 22 90 05/15/25 06:00 90/53 L 05/15/25 05:46 108/74 05/15/25 05:45 36.6 C 66 19 95 05/15/25 05:30 36.5 C 21 93 05/15/25 05:00 36.5 C 51 L 21 99 05/15/25 05:00 118/49 L 05/15/25 04:30 125/51 L 05/15/25 04:30 36.6 C 48 L 22 98 05/15/25 04:15 36.7 C 48 L 22 97 05/15/25 04:01 112/33 L 05/15/25 04:00 36.8 C 46 L 22 97 05/15/25 04:00 05/15/25 03:45 36.8 C 48 L 22 96 05/15/25 03:42 111/53 L 05/15/25 03:42 36.8 C 56 L 19 97 05/15/25 03:30 36.8 C 50 L 21 96 05/15/25 03:30 103/38 L 05/15/25 03:28 58 L 29 H 100 05/15/25 03:20 104/41 L 05/15/25 03:18 36.8 C 73 16 94 05/15/25 03:15 36.8 C 55 L 16 100 05/15/25 03:01 110/71 05/15/25 03:00 36.8 C 24 94 05/15/25 02:45 36.9 C 53 L 18 94 05/15/25 02:30 125/43 L 05/15/25 02:30 125/43 L 05/15/25 02:30 36.8 C 52 L 19 96 05/15/25 02:16 127/38 L 05/15/25 02:15 36.9 C 51 L 22 98 05/15/25 02:00 116/48 L 05/15/25 02:00 116/48 L 05/15/25 02:00 36.9 C 49 L 22 96 05/15/25 01:46 118/50 L 05/15/25 01:46 118/50 L 05/15/25 01:45 36.9 C 51 L 21 96 05/15/25 01:30 119/44 L 05/15/25 01:30 36.9 C 52 L 20 119/44 L 94 05/15/25 01:15 36.9 C 58 L 20 96 05/15/25 01:15 120/52 L 05/15/25 01:00 36.8 C 51 L 19 100 05/15/25 00:30 36.9 C 62 21 97 05/15/25 00:00 37.0 C 52 L 22 97 05/15/25 00:00 115/41 L 05/15/25 00:00 05/15/25 00:00 52 L 05/14/25 23:01 51 L 22 100 05/14/25 23:00 104/82 05/14/25 23:00 36.9 C 50 L 22 97 05/14/25 22:00 36.8 C 56 L 21 96 05/14/25 22:00 115/81 05/14/25 21:00 110/54 L 05/14/25 21:00 36.9 C 44 L 22 94 FiO2 05/15/25 07:19 30 05/15/25 07:17 30 05/15/25 06:30 05/15/25 06:30 05/15/25 06:09 05/15/25 06:07 05/15/25 06:06 05/15/25 06:00 05/15/25 06:00 05/15/25 05:46 05/15/25 05:45 05/15/25 05:30 05/15/25 05:00 05/15/25 05:00 05/15/25 04:30 05/15/25 04:30 05/15/25 04:15 05/15/25 04:01 05/15/25 04:00 05/15/25 04:00 30 05/15/25 03:45 05/15/25 03:42 05/15/25 03:42 05/15/25 03:30 05/15/25 03:30 05/15/25 03:28 30 05/15/25 03:20 05/15/25 03:18 05/15/25 03:15 05/15/25 03:01 05/15/25 03:00 05/15/25 02:45 05/15/25 02:30 05/15/25 02:30 05/15/25 02:30 05/15/25 02:16 05/15/25 02:15 05/15/25 02:00 05/15/25 02:00 05/15/25 02:00 05/15/25 01:46 05/15/25 01:46 05/15/25 01:45 05/15/25 01:30 05/15/25 01:30 05/15/25 01:15 05/15/25 01:15 05/15/25 01:00 05/15/25 00:30 05/15/25 00:00 05/15/25 00:00 05/15/25 00:00 35 05/15/25 00:00 05/14/25 23:01 30 05/14/25 23:00 05/14/25 23:00 05/14/25 22:00 05/14/25 22:00 05/14/25 21:00 05/14/25 21:00 Laboratory Results 05/15/25 04:06 05/15/25 04:06 Coding Level of Care Code 70816 CRITICAL CARE 1ST 30-74M Diagnoses Sepsis due to pneumonia J18.9; A41.9 COPD (chronic obstructive pulmonary disease) J44.9 GERD (gastroesophageal reflux disease) K21.9 Anxiety F41.9 Emphysema of lung J43.9 BPH (benign prostatic hypertrophy) N40.0 Acute on chronic respiratory failure with hypoxia and hypercapnia J96.21; J96.22 Ventilatory failure R06.89
[2025-05-15 09:30] LABS: Hemoglobin A1C 6.7 % (4.5-5.6)
[2025-05-15] MEDS ORDERED: Nursing to Pharmacy Communication SCH (09:30)
[2025-05-15] MEDS: INSULIN ASPART PER UNIT CHARGE SC SCH ×2 (09:35→17:08)
--- NOTE | 2025-05-15 12:23 | Electrocardiogram Report ---
Test Reason : Blood Pressure : */* mmHG Vent. Rate : 53 BPM Atrial Rate : 53 BPM P-R Int : 124 ms QRS Dur : 86 ms QT Int : 484 ms P-R-T Axes : 67 64 66 degrees QTcB Int : 454 ms Sinus bradycardia Otherwise normal ECG When compared with ECG of 13-May-2025 11:54, Premature ventricular complexes are no longer Present Atrial tachycardia is no longer present Vent. rate has decreased by [address] no longer depressed in Inferior leads ST no longer depressed in Anterior leads Confirmed by Staci Marie (Kiarra) on 05/15/2025 12:22:39 PM Referred By: REFERRED SELF Confirmed By: Staci Marie
[2025-05-15] MEDS: HYDROCORTISONE SOD 50 MG in SYRINGE 0 ML IV SCH (14:04)
--- NOTE | 2025-05-15 14:12 | Hospitalist Progress Note ---
Date of Service May 15, 2025 Assessment & Plan (1) Acute respiratory failure with hypoxia: (2) Sepsis due to pneumonia: (3) COPD (chronic obstructive pulmonary disease): (4) Elevated d-dimer: (5) Anxiety: Plan Patient is a 69 year old M with a past medical history of COPD, anemia , chronic pain syndrome, anxiety, BPH, GERD presenting with shortness of breath and dyspnea x 4 days 2/2 strep pneumoniae CAP. #Acute Hypoxic Respiratory Failure 2/2 CAP #Septic Shock #Strep pneumoniae Bacteremia * blood cultures revealing strep pneumoniae * Chest Xray showing interval patchy consolidation at the left mid and lower lung, Extensive pneumonia on the left. * still on levophed for shock * Duonebs Q6H as needed * continue azithromycin/ceftriaxone * extubated today, start IS/flutter valve #COPD * Two pack-year smoker quit 7 years ago, although patient's son reports recent smoking cessation * Follows [facility], last seen 09/2024; history of recurrent bronchitis with home regimen of cyclic azithromycin antibiotic therapy and alternate day prednisone 10 mg * Per outside record, history August 2022 Bronchoscopy with [place] sensitive Klebsiella pneumoniae, fungal isolates; Bronch 05/2024 isolates showed strep pneumoniae, and additional fungal isolates and treated with Moxifloxacin /Voriconazole * Current home nebs with Trelegy + albuterol nebulizer #Anxiety * Valium as needed at home, takes nearly daily; also with recent smoking cessation suspect withdrawal symptoms * Ativan and Haldol given in ED d/t agitation with Bipap mask; Ativan 0.5 mg as needed I spent a total of 50 minutes in direct patient care, including hvdx-no-bliz time with the patient and/or family, reviewing medical records, ordering and reviewing diagnostic tests, and coordinating care with other healthcare p roviders. This time includes: history taking, physical examination, medical decision making, counseling, ECG interpretation, imaging interpretation, lab interpretation, orders, and education, excluding time spent in the performance of separately billed services. Admission and Anticipated Discharge Date Admission Date: May 13, 2025 Subjective patient seen and examined at bedside. Patient was still intubated during evaluation (now extubated successfully), responding to commands and giving thumbs up. = Review of Systems Review of Systems: -limited communication given on vent Physical Exam Physical Exam: Gen: A&O 3 NAD, sarcopenia noted HEENT: NCAT, EOMI, not icteric. External ears normal. No rhinorrhea. Moist mucous membranes. Neck: Supple, full range of motion, no observable masses, No meningeal sign. Lungs: rhonchi throughout lung moya, intubated CV: RRR, no edema. Abdomen: Soft, nondistended, No rebound tenderness. MSK: No joint swelling, no redness. Skin: No rashes, petechiae, lesions. Normal color per patient. Neuro: Normal Gait, Grossly intact. Psych: Appropriate for situation. Results & Data Results & Data Vital Signs (Past 12 Hours) Vital Signs Temp Pulse Pulse Resp BP Pulse Ox O2 Del Method 05/15/25 09:19 Nasal Cannula 05/15/25 08:50 77 20 91 05/15/25 07:19 60 12 94 Mechanical Vent 05/15/25 07:17 56 L 12 95 05/15/25 06:30 85/54 L 05/15/25 06:30 36.4 C L 51 L 22 94 05/15/25 06:09 36.7 C 54 L 19 93 05/15/25 06:07 90/55 L 05/15/25 06:06 36.7 C 58 L 22 92 05/15/25 06:00 36.7 C 53 L 22 90 05/15/25 06:00 90/53 L 05/15/25 05:46 108/74 05/15/25 05:45 36.6 C 66 19 95 05/15/25 05:30 36.5 C 21 93 05/15/25 05:00 36.5 C 51 L 21 99 05/15/25 05:00 118/49 L 05/15/25 04:30 125/51 L 05/15/25 04:30 36.6 C 48 L 22 98 05/15/25 04:15 36.7 C 48 L 22 97 05/15/25 04:01 112/33 L 05/15/25 04:00 36.8 C 46 L 22 97 05/15/25 04:00 05/15/25 03:45 36.8 C 48 L 22 96 05/15/25 03:42 111/53 L 05/15/25 03:42 36.8 C 56 L 19 97 05/15/25 03:30 36.8 C 50 L 21 96 05/15/25 03:30 103/38 L 05/15/25 03:28 58 L 29 H 100 05/15/25 03:20 104/41 L 05/15/25 03:18 36.8 C 73 16 94 05/15/25 03:15 36.8 C 55 L 16 100 05/15/25 03:01 110/71 05/15/25 03:00 36.8 C 24 94 05/15/25 02:45 36.9 C 53 L 18 94 05/15/25 02:30 125/43 L 05/15/25 02:30 125/43 L 05/15/25 02:30 36.8 C 52 L 19 96 05/15/25 02:16 127/38 L 05/15/25 02:15 36.9 C 51 L 22 98 O2 Flow Rate FiO2 05/15/25 09:19 2 05/15/25 08:50 05/15/25 07:19 30 05/15/25 07:17 30 05/15/25 06:30 05/15/25 06:30 05/15/25 06:09 05/15/25 06:07 05/15/25 06:06 05/15/25 06:00 05/15/25 06:00 05/15/25 05:46 05/15/25 05:45 05/15/25 05:30 05/15/25 05:00 05/15/25 05:00 05/15/25 04:30 05/15/25 04:30 05/15/25 04:15 05/15/25 04:01 05/15/25 04:00 05/15/25 04:00 30 05/15/25 03:45 05/15/25 03:42 05/15/25 03:42 05/15/25 03:30 05/15/25 03:30 05/15/25 03:28 30 05/15/25 03:20 05/15/25 03:18 05/15/25 03:15 05/15/25 03:01 05/15/25 03:00 05/15/25 02:45 05/15/25 02:30 05/15/25 02:30 05/15/25 02:30 05/15/25 02:16 05/15/25 02:15 Laboratory Results -personally reviewed, downtrending leukocytosis, Hgb downtrending, calcium 8 and replenished Medications Administered Budesonide (Budesonide 0.25 Mg/2 Ml Vial (Pulmicort)) 0.25 mg NEB BIDR [facility] Stop: 06/12/25 18:59 Last Admin: 05/15/25 07:19 Dose: 0.25 mg Documented By: [id number] Admin: 05/14/25 19:31 Dose: 0.25 mg Documented By: Admin: 05/14/25 07:32 Dose: 0.25 mg Documented By: [id number] Admin: 05/13/25 19:45 Dose: 0.25 mg Documented By: TMP Enteral Nutritional Formula (Peptamen 1.5 Jhon 1,000 Ml Bag) 1,000 ml NG .See Protocol [facility]; Protocol Stop: 06/13/25 13:29 Last Admin: 05/14/25 13:49 Dose: 1,000 ml Documented By: TJHelen Formoterol Fumarate (Formoterol 20 Mcg/2 Ml Vial) 20 mcg NEB BIDR [facility] Stop: 06/12/25 18:59 Last Admin: 05/15/25 07:19 Dose: 20 mcg Documented By: [id number] Admin: 05/14/25 19:31 Dose: 20 mcg Documented By: LGDave Admin: 05/14/25 07:32 Dose: 20 mcg Documented By: [id number] Admin: 05/13/25 19:45 Dose: 20 mcg Documented By: TMP Guaifenesin (Guaifenesin 600 Mg Tabcr) 600 mg PO Q12 [facility] Stop: 06/12/25 20:59 Last Admin: 05/15/25 08:17 Dose: 600 mg Documented By: Admin: 05/14/25 21:15 Dose: Not Given Documented By: Admin: 05/14/25 07:58 Dose: Not Given Documented By: Admin: 05/13/25 21:23 Dose: Not Given Documented By: ADWOA Heparin Sodium (Porcine) (Heparin Sod 5,000 Unit/0.5 Ml Vial) 5,000 units SQ Q12 [facility] Stop: 06/12/25 20:59 Last Admin: 05/15/25 08:19 Dose: 5,000 units Documented By: Admin: 05/14/25 21:20 Dose: 5,000 units Documented By: Admin: 05/14/25 08:02 Dose: 5,000 units Documented By: Admin: 05/13/25 21:54 Dose: 5,000 units Documented By: ADWOA Ceftriaxone Sodium (Rocephin) 2,000 mg in 50 mls @ 100 mls/hr IV Q24H [facility] Stop: 05/18/25 18:29 Last Infusion: 05/14/25 18:11 Dose: Infused Documented By: Admin: 05/14/25 17:41 Dose: 100 mls/hr Documented By: Infusion: 05/13/25 21:22 Dose: Infused Documented By: Admin: 05/13/25 20:08 Dose: 100 mls/hr Documented By: ADWOA Azithromycin (Zithromax) 500 mg in 255 mls @ 127.5 mls/hr IV Q24H [facility] Stop: 05/19/25 16:59 Last Infusion: 05/14/25 19:14 Dose: Infused Documented By: Admin: 05/14/25 17:03 Dose: 127.5 mls/hr Documented By: LAW Norepinephrine Bitartrate (Levophed/D5w) 4 mg in 250 mls @ 10.125 mls/hr IV .Q24H [facility]; Protocol Stop: 06/12/25 19:29 Last Titration: 05/15/25 09:24 Dose: 0.06 mcg/kg/min, 10.1 mls/hr Documented By: AVERY Co-signed By: WS Titration: 05/15/25 07:14 Dose: 0.08 mcg/kg/min, 13.5 mls/hr Documented By: ADWOA Co-signed By: AVERY Admin: 05/15/25 04:19 Dose: 0.08 mcg/kg/min, 13.5 mls/hr Documented By: ADWOA Co-signed By: MPC Titration: 05/15/25 04:19 Dose: Infused Documented By: ADWOA Co-signed By: MPC Titration: 05/15/25 03:24 Dose: 0.1 mcg/kg/min, 16.9 mls/hr Documented By: ADWOA Co-signed By: MPC Titration: 05/15/25 02:53 Dose: 0.12 mcg/kg/min, 20.3 mls/hr Documented By: ADWOA Co-signed By: MPC Titration: 05/14/25 18:57 Dose: 0.14 mcg/kg/min, 23.6 mls/hr Documented By: LAW Co-signed By: ESG Titration: 05/14/25 18:11 Dose: 0.14 mcg/kg/min, 23.6 mls/hr Documented By: TJL Co-signed By: ESG(2) Admin: 05/14/25 18:00 Dose: 0.12 mcg/kg/min, 20.3 mls/hr Documented By: TJL Co-signed By: ESG(2) Titration: 05/14/25 18:00 Dose: Infused Documented By: TJL Co-signed By: ESG(2) Titration: 05/14/25 17:53 Dose: 0.12 mcg/kg/min, 20.3 mls/hr Documented By: LAW Co-signed By: ESG(2) Titration: 05/14/25 17:41 Dose: 0.15 mcg/kg/min, 25.3 mls/hr Documented By: LAW Co-signed By: ESG(2) Titration: 05/14/25 17:05 Dose: 0.18 mcg/kg/min, 30.4 mls/hr Documented By: LAW Co-signed By: ESG(2) Admin: 05/14/25 11:52 Dose: 0.21 mcg/kg/min, 35.4 mls/hr Documented By: LAW Co-signed By: ESG(2) Titration: 05/14/25 11:52 Dose: Infused Documented By: LAW Co-signed By: ESG(2) Admin: 05/14/25 10:33 Dose: Not Given Documented By: ESG(2) Titration: 05/14/25 09:20 Dose: 0.21 mcg/kg/min, 35.4 mls/hr Documented By: LAW Co-signed By: ESG(2) Titration: 05/14/25 07:11 Dose: 0.24 mcg/kg/min, 40.5 mls/hr Documented By: ADWOA Co-signed By: ESG(2) Titration: 05/14/25 06:15 Dose: Infused Documented By: ADWOA Co-signed By: TP Admin: 05/14/25 06:15 Dose: 0.24 mcg/kg/min, 40.5 mls/hr Documented By: ESG Co-signed By: TP Admin: 05/14/25 00:16 Dose: 0.24 mcg/kg/min, 40.5 mls/hr Documented By: ESG Co-signed By: TP Titration: 05/14/25 00:16 Dose: Infused Documented By: ESG Co-signed By: TP Titration: 05/13/25 20:00 Dose: 0.24 mcg/kg/min, 40.5 mls/hr Documented By: ESG Co-signed By: TP Titration: 05/13/25 19:40 Dose: 0.22 mcg/kg/min, 37.1 mls/hr Documented By: ESG Co-signed By: TP Titration: 05/13/25 19:25 Dose: 0.2 mcg/kg/min, 33.8 mls/hr Documented By: RNC Co-signed By: ADWOA Admin: 05/13/25 19:15 Dose: 0.2 mcg/kg/min, 33.8 mls/hr Documented By: RNC Co-signed By: LANCE Pantoprazole Sodium (Protonix) 40 mg in 10 mls @ 5 mls/min IV DAILY [facility] Stop: 06/13/25 08:59 Last Admin: 05/15/25 08:19 Dose: 5 mls/min Documented By: Admin: 05/14/25 09:52 Dose: 5 mls/min Documented By: LAW Hydrocortisone Sodium (Succinate 50 mg/ Syringe) 1 mls @ 4 mls/min IV Q8H [facility] Stop: 06/14/25 13:59 Last Admin: 05/15/25 14:04 Dose: 4 mls/min Documented By: AVERY Sodium Chloride (Sodium Chlor 7% 4 Ml Neb) 4 ml NEB BIDR [facility] Stop: 06/12/25 18:59 Last Admin: 05/15/25 07:19 Dose: 4 ml Documented By: [id number] Admin: 05/14/25 19:31 Dose: 4 ml Documented By: Admin: 05/14/25 07:32 Dose: 4 ml Documented By: [id number] Admin: 05/13/25 20:17 Dose: 4 ml Documented By: DAMON
[2025-05-15] MEDS: diphenhydrAMINE Capsule 25 MG CAP PO PRN (23:56)
[2025-05-16 05:19] LABS: Hematocrit (blood only) 29.7 % (42.0-52.0); Hemoglobin 9.9 g/dL (14.0-18.0); Mean Corpuscular Hemoglobin 29.8 pg (25.0-34.0); Mean Corpuscular Volume 89.5 fL (80.0-100.0); Platelet Count 366 K/uL (130-400); RDW Standard Deviation 51.5 fL (36.4-46.3); Red Blood Count 3.32 M/uL (4.70-6.10); White Blood Count 7.15 K/ul (4.8-10.8)
[2025-05-16 05:35] LABS: Anion Gap 6.0 (3-11); Blood Urea Nitrogen 20.0 mg/dl (6-23); Calcium 8.2 mg/dl (8.6-10.3); Carbon Dioxide 31.0 mmol/L (21-32); Chloride 101.0 mmol/L (98-107); Creatinine Clr Calc Pharmacy 55.9 ml/min; Glucose 120.0 mg/dl (70-99(Fasting)); Magnesium 2.0 mg/dl (1.7-2.4); Potassium 3.0 mmol/L (3.5-5.1); Sodium 138.0 mmol/L (136-145)
--- NOTE | 2025-05-16 07:53 | Critical Care Progress Note ---
Date of Service May 16, 2025 Assessment & Plan (1) Sepsis due to pneumonia: (2) COPD (chronic obstructive pulmonary disease): (3) GERD (gastroesophageal reflux disease): (4) Anxiety: (5) Emphysema of lung: (6) BPH (benign prostatic hypertrophy): (7) Acute on chronic respiratory failure with hypoxia and hypercapnia: (8) Ventilatory failure: Plan Reason Critically Ill: 69-year-old male presented to the hospital with shortness of breath, found to have pneumococcal bacteremi Neuro - No current issues. Out of bed to chair and ambulate as tolerated. Will see how he mobilizes and determine whether or not PT and OT evaluations are required. Cardiac - Shock with sepsis resolved Respiratory - Significant emphysema with acute on chronic hypoxemic respiratory failure. Continue supplemental oxygen. Continue bronchodilators (nebulized budesonide Perforomist as well as DuoNebs). May need follow-up CT study in 6 to 8 weeks. Okay to return to baseline bronchodilators. Follows with pulmonary at [facility]. Still significantly bronchospastic. See comments on steroids under endocrine below GI - -- No acute issues RENAL/LYTES - No current issues ENDO - On chronic prednisone, currently on hydrocortisone 50 IV every 8. Given his COPD, will transition off of hydrocortisone back to prednisone for acute exacerbation of COPD HEME - No current issues ID - Pneumococcal bacteremia. Surveillance cultures negative. Complete 5 days azithromycin, okay to transition to oral. Complete 5 days Rocephin as well --Prophylaxis VTE: Heparin GI: Pantoprazole Lines: Peripheral, right IJ Diet: Tube feeds Patient's critical care issues are resolved. He can transfer out of the ICU. Critical care will sign off. Feel free to contact us with questions or concerns Admission and Anticipated Discharge Date Admission Date: May 13, 2025 Subjective Patient seen and examined. EMR reviewed. Discussed with off going electronics engineering technologist as well as with overnight critical care CORINNA and in multidisciplinary rounds. Review of Systems Review of Systems: All systems reviewed & are unremarkable except as noted in Subjective Results & Data Results & Data Vital Signs (Past 12 Hours) Vital Signs Pulse Pulse Resp Pulse Ox O2 Del Method O2 Flow Rate 05/16/25 07:08 75 22 95 Nasal Cannula 2 05/16/25 00:41 67 05/15/25 21:00 Nasal Cannula 2 Critical Care Results & Data Vital Signs (Past 12 Hours) Vital Signs Pulse Pulse Resp Pulse Ox O2 Del Method O2 Flow Rate 05/16/25 07:08 75 22 95 Nasal Cannula 2 05/16/25 00:41 67 05/15/25 21:00 Nasal Cannula 2 Lab & Micro Results (Past 24 Hours) RBC 3.32 M/uL (4.70-6.10) L 05/16/25 WBC 7.15 K/ul (4.8-10.8) 05/16/25 Hgb 9.9 g/dL (14.0-18.0) L 05/16/25 Hct 29.7 % (42.0-52.0) L 05/16/25 MCV 89.5 fL (80.0-100.0) 05/16/25 MCH 29.8 pg (25.0-34.0) 05/16/25 MCHC 33.3 g/dL (32.0-36.0) 05/16/25 RDW Standard Deviation 51.5 fL (36.4-46.3) H 05/16/25 RDW Coefficient of Variation 15.7 % (11.5-14.5) H 05/16/25 Plt Count 366 K/uL (130-400) 05/16/25 MPV 9.6 fL (9.4-12.4) 05/16/25 Na 138 mmol/L (136-145) 05/16/25 K 3.0 mmol/L (3.5-5.1) L 05/16/25 Cl 101 mmol/L (98-107) 05/16/25 CO2 31 mmol/L (21-32) 05/16/25 Anion Gap 6 (3-11) 05/16/25 BUN 20 mg/dl (6-23) 05/16/25 Creatinine 0.81 mg/dl (0.6-1.4) 05/16/25 BUN/Creatinine Ratio 24.7 (10-20) H 05/16/25 Glu 120 mg/dl (70-99(Fasting)) H 05/16/25 Ca 8.2 mg/dl (8.6-10.3) L 05/16/25 Mg 2.0 mg/dl (1.7-2.4) 05/16/25 04:52 Calcium Level 8.2 mg/dl (8.6-10.3) L 05/16/25 04:52 Microbiology 05/13/25 13:42 Aerobic Blood Culture - Preliminary Blood Streptococcus pneumoniae Anaerobic Blood Culture - Preliminary Streptococcus pneumoniae 05/13/25 14:13 Aerobic Blood Culture - Preliminary Blood Streptococcus pneumoniae Anaerobic Blood Culture - Preliminary Streptococcus pneumoniae 05/13/25 20:03 Gram Stain - Final Sputum, Expectorated Sputum Culture - Preliminary Moderate normal modesto present, final report to follow. Diagnostic Findings (Past 24 Hours) Chest X-Ray 05/15/25 06:00 EXAM: XR chest 1V portable CLINICAL HISTORY: Eval lines/tubes/lung moya. TECHNIQUE: An X-ray image of the chest is obtained in AP portable projection. COMPARISON: 05/14/2025 FINDINGS: Lines and Tubes: Endotracheal tube terminates approximately 4.8 cm above the rowan, unchanged. Right internal jugular central venous catheter tip at the cavoatrial junction, stable. Nasogastric tube courses below the left hemidiaphragm; distal tip not visualized. The side hole is approximately 4 cm below the gastroesophageal junction; recommend advancing the tube an additional 4?5 cm. Pulmonary Parenchyma: Bilateral multifocal mid to lower lung zone opacities. Slight interval improvement. Heart and Mediastinum: Heart size within normal limits. No mediastinal widening, masses, or hilar/mediastinal lymphadenopathy. Bony Thorax: No acute fractures or deformities identified. Soft Tissues: Chest wall soft tissues are unremarkable. IMPRESSION: 1. Nasogastric tube with side hole just below the GE junction; recommend advancement by 4?5 cm. 2. Endotracheal tube and central venous catheter remain appropriately positioned. 3. Bilateral multifocal mid to lower lung zone opacities. Slight interval improvement. 4. Otherwise, no significant interval changes. Electronically signed by Jerod Carvajal 05-15-2025 07:52 AM I & O Totals 24 Hours 05/15/25 05/16/25 05/17/25 06:59 06:59 06:59 Intake Total 1897.435 / 1897.435 575.969 / 575.969 Output Total 593 / 593 3215 / 3215 Balance 1304.435 / 1304.435 -2639.031 / -2639.031 Cumulative 05/13/25 11:31 thru 05/16/25 06:00 Intake Total 5896.124 Output Total 4708 Balance 1188.124 RT Ventilator Mngmt (Last Documented) Ventilator Ordered Settings Ventilator Support Mode CPAP 05/15/25 07:17 Respiratory Rate 22 05/16/25 07:08 Ventilator Tidal Volume 400 05/15/25 04:00 Setting Minute Ventilation 9 05/15/25 0 7:17 Ventilator Positive Pressure 5 05/15/25 07:17 Support Setting Positive End Expiratory 5 05/15/25 07:17 Pressure Fraction of Inspired Oxygen 30 05/15/25 07:19 Ventilator - PT Measurements Respiratory Rate 22 Exhaled Tidal Volume 717 Minute Ventilation 9 Peak Inspiratory Airway 10 Pressure Plateau Pressure 19 Respiratory Cycle Inspiratory: 1:2.9 Expiratory Ratio Inspiratory Phase Time 0.7 End-Tidal CO2 27 Static Lung Compliance 30.71 Dynamic Lung Compliance 143.40 Normal Static Lung Compliance 50.00 Patient Measurements Comment Patient extubated at this time. Coding Level of Care Code 51388 SUB INP/OBS CARE 350MIN Diagnoses Sepsis due to pneumonia J18.9; A41.9 COPD (chronic obstructive pulmonary disease) J44.9 GERD (gastroesophageal reflux disease) K21.9 Anxiety F41.9 Emphysema of lung J43.9 BPH (benign prostatic hypertrophy) N40.0 Acute on chronic respiratory failure with hypoxia and hypercapnia J96.21; J96.22 Ventilatory failure R06.89
[2025-05-16] MEDS: POTASSIUM CHLORIDE 20 MEQ/15 ML UDC PO STA (08:09)
[2025-05-16] MEDS: predniSONE 20 MG TAB PO SCH (09:42)
[2025-05-16] MEDS: guaiFENesin 600 MG TABCR PO SCH (09:42)
[2025-05-16] MEDS: AZITHROMYCIN 250 MG TAB PO SCH (09:42)
[2025-05-16] MEDS: POTASSIUM CHLORIDE CRTAB 20 MEQ TABCR PO STA (10:30)
--- NOTE | 2025-05-16 13:08 | Hospitalist Progress Note ---
Date of Service May 16, 2025 Assessment & Plan (1) Acute respiratory failure with hypoxia: (2) Sepsis due to pneumonia: (3) COPD (chronic obstructive pulmonary disease): (4) Elevated d-dimer: (5) Anxiety: Plan Patient is a 69 year old M with a past medical history of COPD, anemia , chronic pain syndrome, anxiety, BPH, GERD presenting with shortness of breath and dyspnea x 4 days 2/2 strep pneumoniae CAP. #Acute Hypoxic Respiratory Failure 2/2 CAP #Septic Shock, resolved #Strep pneumoniae Bacteremia * blood cultures revealing strep pneumoniae * Chest Xray showing interval patchy consolidation at the left mid and lower lung, Extensive pneumonia on the left. * Duonebs Q6H as needed * continue azithromycin/ceftriaxone * continue IS/flutter valve * PT/OT ordered #COPD * Two pack-year smoker quit 7 years ago, although patient's son reports recent smoking cessation * Follows [facility], last seen 09/2024; history of recurrent bronchitis with home regimen of cyclic azithromycin antibiotic therapy and alternate day prednisone 10 mg * Per outside record, history August 2022 Bronchoscopy with [place] sensitive Klebsiella pneumoniae, fungal isolates; Bronch 05/2024 isolates showed strep pneumoniae, and additional fungal isolates and treated with Moxifloxacin /Voriconazole * Current home nebs with Trelegy + albuterol nebulizer #Anxiety * Valium as needed at home, takes nearly daily; also with recent smoking cessation suspect withdrawal symptoms * Ativan and Haldol given in ED d/t agitation with Bipap mask; Ativan 0.5 mg as needed I spent a total of 50 minutes in direct patient care, including [id number] time with the patient and/or family, reviewing medical records, ordering and reviewing diagnostic tests, and coordinating care with other healthcare providers. This time includes: history taking, physical examination, medical decision making, counseling, ECG interpretation, imaging interpretation, lab interpretation, orders, and education, excluding time spent in the performance of separately billed services. Admission and Anticipated Discharge Date Admission Date: May 13, 2025 Subjective Patient seen and examined at bedside. Patient doing well today. Feels much better overall. Having some difficulty walking. Review of Systems Review of Systems: CONSTITUTIONAL: weakness EYES: Patient denies any visual symptoms. EARS, NOSE, AND THROAT: No difficulties with hearing. No symptoms of rhinitis or sore throat. CARDIOVASCULAR: Patient denies chest pains, palpitations, orthopnea and paroxysmal nocturnal dyspnea. RESPIRATORY: No dyspnea on exertion, no wheezing or cough. GI: No nausea, vomiting, diarrhea, constipation, abdominal pain, hematochezia or melena. : No urinary hesitancy or dribbling. No nocturia or urinary frequency. No abnormal urethral discharge. MUSCULOSKELETAL: No myalgias or arthralgias. NEUROLOGIC: No chronic headaches, no seizures. Patient denies numbness, tingling or weakness. PSYCHIATRIC: Patient denies problems with mood disturbance. No problems with anxiety. ENDOCRINE: No excessive urination or excessive thirst. DERMATOLOGIC: Patient denies any rashes or skin changes. Physical Exam Physical Exam: Gen: A&O 3 NAD, sarcopenia noted HEENT: NCAT, EOMI, not icteric. External ears normal. No rhinorrhea. Moist mucous membranes. Neck: Supple, full range of motion, no observable masses, No meningeal sign. Lungs: rhonchi throughout lung moya, intubated CV: RRR, no edema. Abdomen: Soft, nondistended, No rebound tenderness. MSK: No joint swelling, no redness. Skin: No rashes, petechiae, lesions. Normal color per patient. Neuro: Normal Gait, Grossly intact. Psych: Appropriate for situation. Results & Data Results & Data Vital Signs (Past 12 Hours) Vital Signs Temp Pulse Pulse Resp BP Pulse Ox O2 Del Method 05/16/25 11:30 112/66 05/16/25 11:30 112/66 05/16/25 11:30 87 25 H 94 05/16/25 11:01 102/78 05/16/25 11:01 102/78 05/16/25 11:00 82 29 H 91 05/16/25 10:30 102/62 05/16/25 10:30 37.1 C 73 25 H 95 05/16/25 10:00 107/63 05/16/25 10:00 36.9 C 83 26 H 99 05/16/25 09:30 95/60 L 05/16/25 09:30 37.1 C 62 23 100 05/16/25 09:00 106/55 L 05/16/25 09:00 106/55 L 05/16/25 09:00 37.2 C 81 21 93 05/16/25 08:30 37.2 C 83 25 H 95 05/16/25 08:30 96/57 L 05/16/25 08:01 133/68 05/16/25 08:00 37.1 C 85 32 H 99 05/16/25 08:00 69 05/16/25 08:00 36.6 C 05/16/25 07:08 75 22 95 Nasal Cannula 05/16/25 07:00 37.0 C 79 20 92 05/16/25 07:00 98/62 L O2 Flow Rate 05/16/25 11:30 05/16/25 11:30 05/16/25 11:30 05/16/25 11:01 05/16/25 11:01 05/16/25 11:00 05/16/25 10:30 05/16/25 10:30 05/16/25 10:00 05/16/25 10:00 05/16/25 09:30 05/16/25 09:30 05/16/25 09:00 05/16/25 09:00 05/16/25 09:00 05/16/25 08:30 05/16/25 08:30 05/16/25 08:01 05/16/25 08:00 05/16/25 08:00 05/16/25 08:00 05/16/25 07:08 2 05/16/25 07:00 05/16/25 07:00 Laboratory Results -personally reviewed, K of 3 replenished, creatinine at baseline Medications Administered Azithromycin (Azithromycin 250 Mg Tab) [facility]: 05/18/25 08:59 Last Admin: 05/16/25 09:42 Dose: 250 mg Documented By: LANCE Formoterol Fumarate (Formoterol 20 Mcg/2 Ml Vial) 20 mcg NEB BIDR [facility] Stop: 06/12/25 18:59 Last Admin: 05/16/25 07:08 Dose: 20 mcg Documented By: [email or web address] Admin: 05/15/25 19:44 Dose: 20 mcg Documented By: Admin: 05/15/25 07:19 Dose: 20 mcg Documented By: [id number] Admin: 05/14/25 19:31 Dose: 20 mcg Documented By: Admin: 05/14/25 07:32 Dose: 20 mcg Documented By: [id number] Admin: 05/13/25 19:45 Dose: 20 mcg Documented By: TMP Guaifenesin (Guaifenesin 600 Mg Tabcr) 1,200 mg PO Q12 [facility] Stop: 06/15/25 08:59 Last Admin: 05/16/25 09:42 Dose: 1,200 mg Documented By: LANCE Heparin Sodium (Porcine) (Heparin Sod 5,000 Unit/0.5 Ml Vial) 5,000 units SQ Q12 [facility] Stop: 06/12/25 20:59 Last Admin: 05/16/25 09:42 Dose: 5,000 units Documented By: Admin: 05/15/25 20:03 Dose: 5,000 units Documented By: Admin: 05/15/25 08:19 Dose: 5,000 units Documented By: Admin: 05/14/25 21:20 Dose: 5,000 units Documented By: Admin: 05/14/25 08:02 Dose: 5,000 units Documented By: Admin: 05/13/25 21:54 Dose: 5,000 units Documented By: ADWOA Ceftriaxone Sodium (Rocephin) 2,000 mg in 50 mls @ 100 mls/hr IV Q24H [facility] Stop: 05/20/25 18:29 Last Infusion: 05/15/25 18:15 Dose: Infused Documented By: Admin: 05/15/25 17:45 Dose: 100 mls/hr Documented By: Infusion: 05/14/25 18:11 Dose: Infused Documented By: Admin: 05/14/25 17:41 Dose: 100 mls/hr Documented By: Infusion: 05/13/25 21:22 Dose: Infused Documented By: Admin: 05/13/25 20:08 Dose: 100 mls/hr Documented By: ADWOA Pantoprazole Sodium (Protonix) 40 mg in 10 mls @ 5 mls/min IV DAILY [facility] Stop: 06/13/25 08:59 Last Admin: 05/16/25 09:42 Dose: 5 mls/min Documented By: Admin: 05/15/25 08:19 Dose: 5 mls/min Documented By: Admin: 05/14/25 09:52 Dose: 5 mls/min Documented By: LAW Insulin Aspart (Insulin Aspart Per Unit Charge) 0 units SC ACHS [facility] Stop: 06/14/25 16:29 Last Admin: 05/16/25 12:06 Dose: Not Given Documented By: Admin: 05/16/25 08:03 Dose: Not Given Documented By: Admin: 05/15/25 20:30 Dose: Not Given Documented By: Admin: 05/15/25 17:08 Dose: Not Given Documented By: AVERY Co-signed By: RADHA Oxycodone HCl (Oxycodone Hcl Ir 5 Mg Tab (Immediate Release)) 10 mg PO Q8H PRN PRN Reason: PAIN/SEVERE Stop: 05/29/25 19:11 Last Admin: 05/16/25 09:48 Dose: 10 mg Documented By: Admin: 05/15/25 20:01 Dose: 10 mg Documented By: ANGE Prednisone (Prednisone 20 Mg Tab) 40 mg PO DAILY [facility] Stop: 06/15/25 08:59 Last Admin: 05/16/25 09:42 Dose: 40 mg Documented By: LANCE Sodium Chloride (Sodium Chlor 7% 4 Ml Neb) 4 ml NEB BIDR [facility] Stop: 06/12/25 18:59 Last Admin: 05/16/25 07:49 Dose: 4 ml Documented By: [email or web address] Admin: 05/15/25 19:44 Dose: 4 ml Documented By: Admin: 05/15/25 07:19 Dose: 4 ml Documented By: [id number] Admin: 05/14/25 19:31 Dose: 4 ml Documented By: Admin: 05/14/25 07:32 Dose: 4 ml Documented By: [id number] Admin: 05/13/25 20:17 Dose: 4 ml Documented By: DAMON
[2025-05-16] MEDS: BUDESONIDE 0.25 MG/2 ML VIAL (PULMICORT) NEB SCH (19:55)
[2025-05-17 06:31] LABS: Hematocrit (blood only) 32.0 % (42.0-52.0); Hemoglobin 10.8 g/dL (14.0-18.0); Mean Corpuscular Hemoglobin 30.3 pg (25.0-34.0); Mean Corpuscular Volume 89.9 fL (80.0-100.0); Platelet Count 391 K/uL (130-400); RDW Standard Deviation 51.8 fL (36.4-46.3); Red Blood Count 3.56 M/uL (4.70-6.10); White Blood Count 6.21 K/ul (4.8-10.8)
[2025-05-17 07:05] LABS: Anion Gap 7.0 (3-11); Blood Urea Nitrogen 31.0 mg/dl (6-23); Calcium 8.5 mg/dl (8.6-10.3); Carbon Dioxide 30.0 mmol/L (21-32); Chloride 104.0 mmol/L (98-107); Creatinine Clr Calc Pharmacy 60.1 ml/min; Glucose 89.0 mg/dl (70-99(Fasting)); Magnesium 2.0 mg/dl (1.7-2.4); Potassium 3.4 mmol/L (3.5-5.1); Sodium 141.0 mmol/L (136-145)
[2025-05-17] MEDS: SODIUM PHOSPHATE 15 MMOL in SODIUM CHLORIDE 0.9% 250 ML IV ONE (09:03)
[2025-05-17] MEDS: POTASSIUM CHLORIDE 20 MEQ/15 ML UDC PO STA (09:03)
[2025-05-17] MEDS: SODIUM PHOSPHATE 3 MMOL/1 ML INFUSION IV STA (09:12)
[2025-05-17] MEDS: POTASSIUM CHLORIDE CRTAB 20 MEQ TABCR PO STA (10:55)
[2025-05-17 11:14] VITALS: BP 154/95; PULSE 78; RESP 24; TEMP 98.1
[2025-05-17 13:22] VITALS: O2SAT 92
--- NOTE | 2025-05-17 13:35 | Discharge Summary ---
Discharge Summary Date of Service May 17, 2025 Principal Dx & Hospital Course #1 = Principal Diagnosis (1) Acute respiratory failure with hypoxia: (2) Sepsis due to pneumonia: (3) COPD (chronic obstructive pulmonary disease): (4) Elevated d-dimer: (5) Anxiety: Plan Patient is a 69 year old M with a past medical history of COPD, anemia , chronic pain syndrome, anxiety, BPH, GERD presenting with shortness of breath and d yspnea x 4 days 2/2 strep pneumoniae CAP. #Acute Hypoxic Respiratory Failure 2/2 CAP #Septic Shock, resolved #Strep pneumoniae Bacteremia * blood cultures revealing strep pneumoniae * Chest Xray showing interval patchy consolidation at the left mid and lower lung, Extensive pneumonia on the left. * Duonebs Q6H as needed * continue azithromycin/ceftriaxone * continue IS/flutter valve * PT/OT ordered #COPD * Two pack-year smoker quit 7 years ago, although patient's son reports recent smoking cessation * Follows [facility], last seen 09/2024; history of recurrent bronchitis with home regimen of cyclic azithromycin antibiotic therapy and alternate day prednisone 10 mg * Per outside record, history August 2022 Bronchoscopy with [place] sensitive Kl ebsiella pneumoniae, fungal isolates; Bronch 05/2024 isolates showed strep pneumoniae, and additional fungal isolates and treated with Moxifloxacin /Voriconazole * Current home nebs with Trelegy + albuterol nebulizer #Anxiety * Valium as needed at home, takes nearly daily; also with recent smoking cessation suspect withdrawal symptoms * Ativan and Haldol given in ED d/t agitation with Bipap mask; Ativan 0.5 mg as needed I spent a total of 50 minutes in direct patient care, including [id number] time with the patient and/or family, reviewing medical records, ordering and reviewing diagnostic tests, and coordinating care with other healthcare providers. This time includes: history taking, physical examination, medical decision making, counseling, ECG interpretation, imaging interpretation, lab interpretation, orders, and education, excluding time spent in the performance of separately billed services. Notes For Next Care Provider Patient is a 69 year old M with a past medical history of COPD, anemia , chronic pain syndrome, anxiety, BPH, GERD presenting with shortness of breath and dyspnea x 4 days 2/2 strep pneumoniae CAP. Admitted to ICU for shock and hypercarbic respiratory failure. Required levophed for several days. Grew strep in blood cultures. Extubated after several days. PT/OT worked with patient, cleared patient for discharge home. 2 step performed, patient requires oxygen with movement and at night. On 05/17/2025 patient medically stable for discharge home. To do: [ ] make sure patient finished course of abx [ ] downtitrate oxygen as needed [ ] optimize inhaler regiment, f/u with pulmonology [ ] wean down opioids/diazepam Medication Changes From Visit -see below Admission HPI Per Admitting Provider Patient is a 69 year old M with a past medical history of COPD, anemia , chronic pain syndrome, anxiety, BPH, GERD presenting with shortness of breath and dyspnea x 4 days with increased oxygen need and neb treatments. Patient was found in respiratory distress by his son, who reports he was labored breathing, short of breath and needing to increase home oxygen 4LPM. Duoneb given at home without symptom relief. Denies chest pain, fevers, chills, sick contacts. Long- time smoker with recent cessation. Upon arrival to ED, patient was hypoxic to 80% on room and required non-rebreather with 15LPM O2, then transitioned to Bipap support. In the emergency department, on my exam patient was tachycardic to 120's, tachypneic 30-33, oxygen sats low 90's with FiO2 support at 60% on Bipap. Chest Xray showing severe pneumonia to right lung. Bipap initiated, although patient was highly agitated and required sedation with Haldol and Ativan 1mg. Evidence of sepsis with leukocytosis with white count 24, hypoxia, tachycardia and an elevated lactate 2.7. Procal 8.09. Blood cultures pending. Cefepime given in the ED. Fluid resuscitation with 1L lactated ringers. Discussed with ED provider imaging and management in ED, advanced respiratory support need with Bipap, as well as necessity for admission for pneumonia and COPD exacerbation. Upon further review of labs, VBG reassuring with pH 7.37, CO2 59, HCO3 34, O2sat <60% with base 6.9. Patient is not anticoagulated. D Dimer elevated to 5,080. CT chest without evidence of PE. Additional lorazepam 0.5 mg x 1 given for agitation with Bipap mask and anxiety with CT scan. Following CT scan, patient's demeanor was calm with spontaneously eye opening. Respiratory rate increased to low 40's on Bipap with Fio2 45%. Pulmonary consult ordered and I discussed the case with Dr. Smith, who assessed patient at bedside in the ED with recommendation for ICU admission for intubation given worsening respiratory failure. History obtained primarily from the patient and via hospitalization record. The patient's family was at the bedside and assisted with history of present illness and med rec. Discharge Exam Gen: A&O 3 NAD, sarcopenia noted HEENT: NCAT, EOMI, not icteric. External ears normal. No rhinorrhea. Moist mucous membranes. Neck: Supple, full range of motion, no observable masses, No meningeal sign. Lungs: rhonchi throughout lung moya, intubated CV: RRR, no edema. Abdomen: Soft, nondistended, No rebound tenderness. MSK: No joint swelling, no redness. Skin: No rashes, petechiae, lesions. Normal color per patient. Neuro: Normal Gait, Grossly intact. Psych: Appropriate for situation. Updated Medication List Medication Instructions Recorded Confirmed Type albuterol sulfate 2.5 mg/3 mL 2.5 mg inhalation Q4H PRN Wheezing 06/02/18 05/13/25 History (0.083 %) solution for nebulization or Shortness of breath diazepam 5 mg tablet 5 mg PO Q8H PRN NEEDED PER 06/02/18 05/13/25 History [facility] gabapentin 100 mg capsule 100 - 200 mg PO HS PRN Pain 06/02/18 05/13/25 History nitroglycerin 0.3 mg sublingual 0.3 mg sublingual UD PRN ESOPAGEAL 03/07/19 05/13/25 History tablet (Nitrostat) SPASM Portable Oxygen #1 ea 02/11/20 08/11/22 History diltiazem HCl 60 mg tablet 0 mg PO BID 08/10/22 05/13/25 History diphenhydramine HCl 25 mg tablet 25 mg PO Q6H PRN Itching 11/10/22 05/13/25 History (Benadryl Allergy) Medical Marijuana 1 dose PO HS PRN sleep/anxiety 02/27/23 05/13/25 History oxycodone 10 mg tablet 10 mg PO Q8H PRN PAIN/SEVERE 02/27/23 05/13/25 History albuterol sulfate 90 mcg/actuation 2 puff inhalation Q4H PRN 03/31/25 05/13/25 History aerosol inhaler Shortness Of Breath polyethylene glycol 3350 17 17 g PO DAILY 03/31/25 05/13/25 History gram/dose oral powder (Miralax) prednisone 10 mg tablet 10 mg PO Q OTHER DAY 03/31/25 05/13/25 History duloxetine 20 mg capsule,delayed 0 mg PO DAILY 05/13/25 05/13/25 History release amoxicillin 500 mg-potassium 1 tab PO TID 5 days #15 tabs 05/17/25 Rx clavulanate 125 mg tablet (Augmentin) azithromycin 250 mg tablet 250 mg PO QAM 6 days #6 tabs 05/17/25 Rx guaifenesin 600 mg tablet, 1,200 mg (2 x 600 mg) PO Q12 7 05/17/25 Rx extended release 12 hr (Mucinex) days #28 tabs prednisone 20 mg tablet 40 mg (2 x 20 mg) PO DAILY 5 days 05/17/25 Rx #10 tabs Hospital Stay Data Consultations 05/13/25 16:01 ED Decision to Admit Stat 05/13/25 16:45 Consult Pulmonology Routine Diagnostic Imagining Performed 05/13/25 16:05 CT for pulmonary embolism PE [CT angio chest PE protocol] Stat Pending Results Patient Have Any Pending Studies at Discharge: No Discharge Instructions Given to Patient (Per Discharging Provider) Diagnosis: Septic Shock 2/2 Strep pneumoniae bacteremia, CAP, Acute on Chronic Hypoxic/Hypercarbic Respiratory Failure 2/2 COPD Follow Ups: PCP, pulmonology 1. Please follow up with PCP, pulmonology. 2. Please finish course of abx and steroids as prescribed. 3. Please use inhalers and medications as prescribed. 4. Please use the incentive spirometer for the next 7 days. 5. Please stay hydrated! Total Time Total Time Spent Total Time Spent (In Minutes): I spent a total of 35 minutes in direct patient care, including [id number] time with the patient and/or family, reviewing medical records, ordering and reviewing diagnostic tests, and coordinating care with other healthcare providers. This time includes: history taking, physical examination, medical decision making, counseling, ECG interpretation, imaging interpretation, lab interpretation, orders, and education, excluding time spent in the performance of separately billed services.
[2025-05-17 15:17] LABS: Cockroach IgE Ab <0.10 kU/L; Cottonwood Class 0; Mouse Urine Protein Class 0; Mouse Urine Protein IgE <0.10 kU/L; Mugwort (W6) IgE <0.10 kU/L; Oak-White Class 0; Oak-White IgE <0.10 kU/L; Sycamore Class 0; Sycamore IgE <0.10 kU/L
== END 2025-05-17 12:56 | disposition home or self-care (01) | DRG 871 ==
LOC: ED 11:41 → SUATTDRO 16:44 → 1E 16:44 → 2E 05-16 17:12